=== PATIENT | female | born 1945 | race Two or more races ===

== ENCOUNTER 2020-01-02 14:01 | Outpatient (REF) | payer MEDICARE, MEDICAID, SELFPAY ==
--- NOTE | 2020-01-02 14:46 | XR_ITS ---
EXAMINATION: XR HIP, LEFT CLINICAL INFORMATION: Primary osteoarthritis. COMPARISON: Radiographs dated 01/03/2019. TECHNIQUE: AP and frog-leg lateral views of the left hip are submitted, together with an AP view of the pelvis. FINDINGS: Bony alignment and mineralization are normal. There is moderate narrowing of the medial right acetabular joint space, and moderately severe narrowing is seen of the medial left acetabular joint space. There is moderate peripheral osteophyte formation of the left hip joint. The femoral heads appear smooth. There is no fracture or dislocation. The soft tissue planes are unremarkable. There are right lower quadrant bowel anastomosis staple lines. IMPRESSION: Moderately severe osteoarthritic change is seen of the left hip, and there is moderate osteoarthritic change of the right hip. Findings are mildly increased from 01/03/2019. No fracture or dislocation is seen.
== END 2020-01-02 14:02 | disposition home or self-care (01) ==
LOC: HO.XRAY 14:01
PROVIDERS: PCP Nurse Practitioner Family; Visit Provider Physician Assistant
DX: Z01.818 Encounter for other preprocedural examination (principal); M16.12 Unilateral primary osteoarthritis, left hip
CPT/HCPCS: 73502; 99214

== ENCOUNTER 2020-01-06 06:19 | Inpatient (IN) | payer MEDICARE, MEDICAID, SELFPAY ==
[2019-12-23 12:53] VITALS: BMI 32.5
--- NOTE | 2020-01-05 15:16 | HO.ANESPROP2 ---
Documented by User: Genoveva Yarbrough 01/05/20 15:28 HPI - Anesthesia Eval Consult details Narrative: 74yo F for L ANA LILIA PMFSH Past Medical History Medical History (Updated 01/05/20 @ 15:19 by Genoveva Yarbrough) Arthritis Asthma Cancer Diabetes Elevated cholesterol GERD (gastroesophageal reflux disease) History of headache HTN (hypertension) Hyperparathyroidism Surgical History Surgical History (Updated 12/23/19 @ 10:53 by Johanne Saini) H/O colonoscopy History of exploratory laparotomy History of tubal ligation Hx of cholecystectomy Hx of tonsillectomy S/P colon resection Social History Social History Smoking Status: Never smoker Second Hand Smoke Exposure: No Narrative Narrative: No recent illness. >4 mets with housework/walking. T/C with Dr Ferro (endocrine) 12/23/19: OK to proceed with ANA LILIA prior to parathyroidectomy. Risk of delayed healing. Notified ortho nurse navigator. Meds Allergies Allergy/AdvReac Type Severity Reaction Status Date / Time ibuprofen [Ibuprofen] Allergy Mild SWELLING Verified 01/02/20 14:15 celecoxib [CELECOXIB] Allergy Unknown DROPS Verified 01/02/20 14:15 SUGAR LEVEL Home Medications Medication Instructions Recorded Confirmed Type acetaminophen 500 mg PO Q6H PRN 12/23/19 01/06/20 History albuterol sulfate [ProAir HFA] 2 puff INHALATION Q6H PRN 12/23/19 12/23/19 History lisinopril 40 mg PO DAILY 12/23/19 01/06/20 History metformin 500 mg PO BID 12/23/19 01/06/20 History omeprazole 20 mg PO DAILY 12/23/19 01/06/20 History albuterol sulfate 90 mcg/actuation 2 puff INHALATION Q6H PRN 12/29/19 History aerosol inhaler atorvastatin 20 mg tablet 20 mg PO DAILY 12/29/19 History cetirizine 10 mg tablet 5 mg PO DAILY PRN 12/29/19 History cyclobenzaprine 5 mg tablet 5 mg PO TID PRN 12/29/19 History fluticasone propionate 50 1 spray INTRANASAL DAILY 12/29/19 History mcg/actuation nasal spray,suspension montelukast 10 mg tablet 10 mg PO DAILY 12/29/19 History peg 3350-electrolytes 236 240 ml PO Q10M 12/29/19 History gram-22.74 gram-6.74 gram-5.86 gram solution rizatriptan 10 mg tablet 10 mg PO Q2-4H PRN 12/29/19 History multivitamin with iron PO 01/02/20 History metoprolol succinate 50 mg PO 01/06/20 History Exam Exam Date and Time: January 05, 2020 1516 Height,Weight and Vital Signs: BP 142/85,HR 69, R 20, 99%RA Height 5 ft 3 in Weight 83.2 kg BMI = 32.5 Pertinent Lab Results Pertinent Lab Results: EKG 12/03/19: NSR@70 Laboratory Tests 12/23/19 13:13 Blood Type O Positive Antibody Screen NEGATIVE Laboratory Tests 12/16/19 12/23/19 12/29/19 07:57 Unknown 12:10 WBC Hgb Hct Plt Count Sodium 136 Potassium 4.7 Chloride 104 Bicarbonate 27 Anion Gap 10 L BUN 15 Creatinine 0.78 Est GFR (Non-Af Amer) > 60 Calcium 10.0 PTH Intact 107 H Nasal Screen MRSA (PCR) NEGATIVE Nasal S. aureus Screen NEGATIVE Nasal MRSA/S.aureus Interp SEE NOTE 12/29/19 12:10 WBC 6.8 Hgb 10.3 L Hct 35.8 L Plt Count 344 Sodium Potassium Chloride Bicarbonate Anion Gap BUN Creatinine Est GFR (Non-Af Amer) Calcium PTH Intact Nasal Screen MRSA (PCR) Nasal S. aureus Screen Nasal MRSA/S.aureus Interp Airway Mallampati Class: II TM Dist: >3cm Neck ROM: Full Denture: Upper and Lower Heart: RRR Lungs: CTAB Documented by User: Refugio Cruz MD 01/06/20 07:23 PMF Past Medical History Medical History (Updated 01/05/20 @ 15:19 by Genoveva Yarbrough) Arthritis Asthma Cancer Diabetes Elevated cholesterol GERD (gastroesophageal reflux disease) History of headache HTN (hypertension) Hyperparathyroidism Surgical History Surgical History (Updated 12/23/19 @ 10:53 by Johanne Saini) H/O colonoscopy History of exploratory laparotomy History of tubal ligation Hx of cholecystectomy Hx of tonsillectomy S/P colon resection Social History Social History Smoking Status: Never smoker Second Hand Smoke Exposure: No Meds Allergies Allergy/AdvReac Type Severity Reaction Status Date / Time ibuprofen [Ibuprofen] Allergy Mild SWELLING Verified 01/02/20 14:15 celecoxib [CELECOXIB] Allergy Unknown DROPS Verified 01/02/20 14:15 SUGAR LEVEL Home Medications Medication Instructions Recorded Confirmed Type acetaminophen 500 mg PO Q6H PRN 12/23/19 01/06/20 History albuterol sulfate [ProAir HFA] 2 puff INHALATION Q6H PRN 12/23/19 12/23/19 History lisinopril 40 mg PO DAILY 12/23/19 01/06/20 History metformin 500 mg PO BID 12/23/19 01/06/20 History omeprazole 20 mg PO DAILY 12/23/19 01/06/20 History albuterol sulfate 90 mcg/actuation 2 puff INHALATION Q6H PRN 12/29/19 History aerosol inhaler atorvastatin 20 mg tablet 20 mg PO DAILY 12/29/19 History cetirizine 10 mg tablet 5 mg PO DAILY PRN 12/29/19 History cyclobenzaprine 5 mg tablet 5 mg PO TID PRN 12/29/19 History fluticasone propionate 50 1 spray INTRANASAL DAILY 12/29/19 History mcg/actuation nasal spray,suspension montelukast 10 mg tablet 10 mg PO DAILY 12/29/19 History peg 3350-electrolytes 236 240 ml PO Q10M 12/29/19 History gram-22.74 gram-6.74 gram-5.86 gram solution rizatriptan 10 mg tablet 10 mg PO Q2-4H PRN 12/29/19 History multivitamin with iron PO 01/02/20 History metoprolol succinate 50 mg PO 01/06/20 History Assessment and Plan Assessment Anesthesia Assessment: Anesthesia Plan Discussed, Consent Obtained and Chart Reviewed Final Anesthetic Review NPO: Yes ASA Class: III Final Preanesthetic Review: No Changes in Pt Med Stat, Meds & Allergies Reviewed, Consent Obtained/Reviewed, Med/Surg/Anes Hx Reviewed and Anes Risks/Benef Reviewed Patient Risk: Intermediate Procedure Risk: Intermediate Anesthetic Plan Anesthetic Plan: GA Disposition: Standard PACU
[2020-01-06] VITALS (24 sets, daily range): BP systolic 95–150; BP diastolic 45–71; PULSE 57–133; RESP 14–20; TEMP 35.7–37.1; O2SAT 95–100
[2020-01-06] MEDS: oxyCODONE HCl ER 10 MG TAB.ER.12H PO ×2 (06:36→22:46)
[2020-01-06] MEDS: Gabapentin 600 MG TABLET PO (06:37)
[2020-01-06 06:41] LABS: SARS COV2 PCR INHOUSE NEGATIVE (Negative)
[2020-01-06] MEDS: ceFAZolin Sodium/Dextrose,Iso 2 GM/50 ML PIGGYBACK IV ×2 (07:20→13:43)
[2020-01-06] MEDS: Lactated Ringers 1,000 ML 100 ML IVCONT (07:22)
--- NOTE | 2020-01-06 07:28 | MHC.SHP ---
Surgical H&P Section A The patient is an INPATIENT: No Changes since office visit: Yes Cold of Flu in the past 2 weeks, Yes New Medical Problems, Yes Changes in Medication and Yes Patient answered all questions The History & Physical has been completed within 30 days and I have reviewed it.: Yes Section B Chief Complaint: LEFT HIP,MARISELA Allergies: Allergies Allergy/AdvReac Type Severity Reaction Status Date / Time ibuprofen [Ibuprofen] Allergy Mild SWELLING Verified 01/02/20 14:15 celecoxib [CELECOXIB] Allergy Unknown DROPS Verified 01/02/20 14:15 SUGAR LEVEL Plan Patient has been examined and remains a candidate for the planned procedure
[2020-01-06 07:48] LABS: Glucose, Whole Blood 122 mg/dL (60-115)
--- NOTE | 2020-01-06 08:07 | XR_ITS ---
EXAMINATION: XR PELVIS CLINICAL INFORMATION: Post left hip replacement COMPARISON: Previous x-ray 01/02/2020 TECHNIQUE: AP view of the pelvis. FINDINGS: There is a new left hip replacement in satisfactory position. No fracture or dislocation is seen. There is arthritis at the right hip joint. Soft tissues are unremarkable. IMPRESSION: Satisfactory appearance of left hip replacement.
--- NOTE | 2020-01-06 09:38 | P.BOP_ITS ---
Brief Operative Note Date of procedure: 01/06/20 Pre-op diagnosis: Left hip OA Post-op diagnosis: same Procedure: left ANA LILIA Implants: alexa trident2 50/ accolade2#4/36-2.5 ceramic Anesthesia: HERNANA Surgeon: Mal Jarquin Marine Firefighter: Lauren Greenfield Estimated blood loss (mL): 200 IV fluids (mL): 800 Pathology: none sent Condition: stable Disposition: PACU
--- NOTE | 2020-01-06 10:18 | PM.IMCN ---
History of Present Illness Data of Consult Service Date: 01/06/20 <Megan Kay NP - Last Filed: 01/06/20 18:35> Requesting physician: Mal Jarquin <Megan Kay NP - Last Filed: 01/06/20 18:35> Primary Care Provider: Josefa Castle NP <Megan Kay NP - Last Filed: 01/06/20 18:35> HPI Reason for consult: Medical management <Megan Kay NP - Last Filed: 01/06/20 18:35> 74-year-old woman With history of hypertension, asthma and GERD admitted by Orthopedic surgery and status post left hip arthroplasty. Surgery was unremarkable. Patient has been able to eat and drink without any nausea or vomiting. She was noted to have a low blood pressure and received 1 L fluid bolus. Otherwise she had no other acute medical complaints. <Megan Kay NP - Last Filed: 01/06/20 18:35> Review of Systems Review of Systems: Denies any recent fever chills or decrease in appetite respiratory denies any shortness of breath coverage production cardiovascular is adjustment of any PND or edema gastrointestinal denies any dysphagia abdominal pain nausea vomiting or diarrhea genitourinary denies any dysuria frequency or hematuria musculoskeletal left hip pain. neuropsych denies any weakness or seizures all other systems reviewed are negative <Megan Kay NP - Last Filed: 01/06/20 18:35> [facility] Medical History: Medical History (Updated 01/06/20 @ 18:27 by Megan Kay NP) Arthritis Asthma Cancer Diabetes Elevated cholesterol GERD (gastroesophageal reflux disease) History of headache HTN (hypertension) Hyperparathyroidism <Megan Kay NP - Last Filed: 01/06/20 18:35> Pertinent family history: no cardiac disease <Megan Kay NP - Last Filed: 01/06/20 18:35> Surgical History: Surgical History (Updated 12/23/19 @ 10:53 by Johanne Saini) H/O colonoscopy History of exploratory laparotomy History of tubal ligation Hx of cholecystectomy Hx of tonsillectomy S/P colon resection <Megan Kay NP - Last Filed: 01/06/20 18:35> Social History: Social History Household Members: Spouse Housing: House Are you a primary direct support professional caregiver to a significant other at home: No Do you presently have visiting nurse or other home services: No Smoking Status: Never smoker Second Hand Smoke Exposure: No Use of substances other than those prescribed or required for medical reasons: No Currently Displaying Signs/Symptoms of Drug Intoxication Withdrawal: No Have you been hit, kicked, punched, or otherwise hurt by someone within the past year? If so, by whom?: No Do you feel safe in your current relationship?: No Is there a partner from a previous relationship who is making you feel unsafe now?: No Are you made to feel afraid or neglected: No Advance Directives: No Advance Directives Information Provided: No Advance Directives on File: No Do you have thoughts of harming others: None Do you have a plan to hurt others: No Plan Recently lost weight without trying: No service: No Current occupational status: unemployed <Megan Kay NP - Last Filed: 01/06/20 18:35> Meds Allergies/Adverse reactions: Allergies Allergy/AdvReac Type Severity Reaction Status Date / Time ibuprofen [Ibuprofen] Allergy Mild SWELLING Verified 01/02/20 14:15 celecoxib [CELECOXIB] Allergy Unknown DROPS Verified 01/02/20 14:15 SUGAR LEVEL <Megan aKy NP - Last Filed: 01/06/20 18:35> Home medications: Home Medications Medication Instructions Recorded Confirmed Type acetaminophen 500 mg PO Q6H PRN 12/23/19 01/06/20 History albuterol sulfate [ProAir HFA] 2 puff INHALATION Q6H PRN 12/23/19 12/23/19 History lisinopril 40 mg PO DAILY 12/23/19 01/06/20 History metformin 500 mg PO BID 12/23/19 01/06/20 History omeprazole 20 mg PO DAILY 12/23/19 01/06/20 History albuterol sulfate 90 mcg/actuation 2 puff INHALATION Q6H PRN 12/29/19 History aerosol inhaler atorvastatin 20 mg tablet 20 mg PO DAILY 12/29/19 History cetirizine 10 mg tablet 5 mg PO DAILY PRN 12/29/19 History cyclobenzaprine 5 mg tablet 5 mg PO TID PRN 12/29/19 History fluticasone propionate 50 1 spray INTRANASAL DAILY 12/29/19 History mcg/actuation nasal spray,suspension montelukast 10 mg tablet 10 mg PO DAILY 12/29/19 History peg 3350-electrolytes 236 240 ml PO Q10M 12/29/19 History gram-22.74 gram-6.74 gram-5.86 gram solution rizatriptan 10 mg tablet 10 mg PO Q2-4H PRN 12/29/19 History multivitamin with iron PO 01/02/20 History metoprolol succinate 50 mg PO 01/06/20 History <Megan Kay NP - Last Filed: 01/06/20 18:35> Physical Exam Vital Signs and Narrative: Vital Signs: Last Vital Signs Temp 98.7 F 01/06/20 10:00 Pulse 68 01/06/20 10:05 Resp 16 01/06/20 10:05 BP 133/64 01/06/20 10:05 Pulse Ox 100 01/06/20 10:05 Body Mass Index 32.5 <Megan Kay NP - Last Filed: 01/06/20 18:35> Appearing in no acute distress head is normocephalic atraumatic eyes pupils are PERRLA sclera is anicteric mouth throat mucous membranes are intact and moist neck is supple no lymphadenopathy, no JVD noted lung sounds are clear to auscultation heart regular rate rhythm, clear S1, S2 positive bowel sounds, abdomen is soft, nontender musculoskeletal hip dressing clean dry and intact. neuro patient is alert x3, no focal deficits <Megan Kay NP - Last Filed: 01/06/20 18:35> Results Labs Labs: Laboratory Tests 12/23/19 01/06/20 01/06/20 13:13 05:40 06:52 POC Glucose 122 H Coronavirus (PCR) NEGATIVE Blood Type O Positive Antibody Screen NEGATIVE <Megan Kay NP - Last Filed: 01/06/20 18:35> Assessment and Plan (1) HTN (hypertension): Status: Acute <Megan Kay NP - Last Filed: 01/06/20 18:35> (2) GERD (gastroesophageal reflux disease): Status: Acute <Megan Kay NP - Last Filed: 01/06/20 18:35> (3) Diabetes: Problem details: NIDDM <Megan Kay NP - Last Filed: 01/06/20 18:35> Status: Inactive <Megan Kay NP - Last Filed: 01/06/20 18:35> (4) Asthma: Status: Acute <Megan Kay NP - Last Filed: 01/06/20 18:35> 74-year-old woman admitted by Orthopedic surgery and is status post left hip arthroplasty. Left hip arthroplasty. Management as per surgical team. Hypertension. Low blood pressures postoperatively. Received 1 L of IV fluid bolus. Hold antihypertensives. Follow blood pressure closely. Asthma. Albuterol as needed. Hyperlipidemia. Continue statin. Diabetes mellitus. Sliding scale, ADA diet. DVT prophylaxis with mechanical compression boots. Discussed with Dr. Porars Full code <Megan Kay NP - Last Filed: 01/06/20 18:35>
[2020-01-06] MEDS: HYDROmorphone HCl 0.5 MG/0.5 ML SYRINGE IVPUSH (10:19)
[2020-01-06] MEDS: Sodium Chloride 0.45 % 1,000 ML 100 ML IVCONT (12:55)
[2020-01-06] MEDS: ondansetron HCL 4 MG/2 ML VIAL IVPUSH (16:43)
[2020-01-06] MEDS: oxyCODONE HCl Immed Release 5 MG TABLET 10 MG PO ×2 (16:44→22:46)
--- NOTE | 2020-01-06 20:23 | OP_ITS ---
SURGEON: Mal Jarquin MD INDICATIONS: This is a 74-year-old female with severe osteoarthritis of the left hip, consented to undergo left hip arthroplasty. PREOPERATIVE DIAGNOSIS: Left hip osteoarthritis. POSTOPERATIVE DIAGNOSIS: Left hip osteoarthritis. PROCEDURE PERFORMED: Left total hip arthroplasty. ESTIMATED BLOOD LOSS: 200 mL. COMPLICATIONS: None. ANESTHESIA: General and local. ASSISTANTS: MAHIN Cabral. SPECIMENS: IMPLANTS: Flavia Trident II 50 acetabulum with a neutral liner and a Trident II #4, 127 degree stem with 36, -2.5 ceramic femoral head. FLUIDS: 900 mL. PROCEDURE IN DETAIL: The patient was brought to the operating room, placed in the right lateral decubitus position. All bony prominences were well padded. She was prepped and draped in standard sterile fashion. Time-out was called to identify proper site, proper procedure, and proper surgeon. IV antibiotics per weight was administered. I began by making a curvilinear incision over the posterolateral aspect of the greater trochanter. Dissection was taken down to the tensor fascia, which was incised in line with the incision. A Charnley retractor was placed and a capsulotomy was performed from the piriformis down to the lesser trochanter. The head was dislocated and a neck cut was made 1 cm proximal lesser trochanter. The head was removed. Anterior-posterior acetabular retractors were placed and labrectomy was performed. She had eburnation of the femoral head and the acetabulum. She had some mild coxa profunda and so I widened into a 50 cup and placed a 50 cup in 20 degrees of anteversion and approximately 45 degrees of inclination. I then initially placed MDM liner and then turned my attention to the femur. I used a [employer] cutter lateralized and sequentially broached up to a 3. I then trialed a 3 and was happy with the length, and placed my final implants. Unfortunately, due to the poor trialing mechanism I was not happy with the stability and I therefore removed the stem and the MDM liner and placed a #4 stem with a standard liner and was happy with the length and stability. Therefore, a standard liner was placed and a #4 implant was placed. I trialed with a 0 and -2.5 and I was happy with the -2.5 with respect to stability and length. Therefore, my final implants were placed. Copious irrigation was performed. Layered closure was performed with marj on the skin. The patient was extubated and brought to recovery room in stable condition. Local was applied to the wound. There were no known complications. MD CORNELL Phillips/CAITLIN / [id number] MTDD
[2020-01-06] MEDS: Celecoxib 200 MG CAPSULE PO (22:46)
[2020-01-07] VITALS (10 sets, daily range): BP systolic 94–113; BP diastolic 39–54; PULSE 68–90; RESP 17–100; TEMP 36.1–36.5; O2SAT 96–100
[2020-01-07] MEDS: Sodium Chloride 0.45 % 1,000 ML 100 ML IVCONT ×3 (03:07→23:57)
[2020-01-07] MEDS: oxyCODONE HCl Immed Release 5 MG TABLET 10 MG PO ×2 (05:25→13:10)
[2020-01-07 06:37] LABS: MANUAL DIFF FLAG NO
[2020-01-07 06:53] LABS: Basophils Percent Auto 0.3 % (0-2); Eosinophils Absolute Auto 0.1 X10*3/uL (0.0-0.4); Eosinophils Percent Auto 0.5 % (0-4); Hematocrit 27.9 % (37-47); Hemoglobin 8.3 g/dl (12.0-16.0); Imm Gran Abs Auto 0.03 X10*3/uL (0.00-0.03); Imm Gran Pct Auto 0.3 % (0.0-0.4); Lymphocytes Absolute Auto 1.4 X10*3/uL (1.2-4.9); Lymphocytes Percent Auto 14.6 % (20-40); Mean Corpuscular HGB Conc 29.7 g/dl (31.0-35.0); Mean Corpuscular Hemoglobin 24.4 pg (27.0-33.0); Mean Corpuscular Volume 82.1 fL (80-98); Monocytes Absolute Auto 0.9 X10*3/uL (0.1-1.2); Monocytes Percent Auto 9.1 % (2-11); Neutrophils Absolute Auto 7.4 X10*3/uL (2.0-8.3); Neutrophils Percent Auto 75.2 % (45-73); Platelet Count 252 X10*3/uL (160-400); Red Cell Distribution Width 15.9 % (11.0-16.0); White Blood Count 9.9 X10*3/uL (4.8-10.8)
[2020-01-07 07:23] LABS: Anion Gap 10 (12-20); Blood Urea Nitrogen 15 mg/dL (9-16); Calcium 8.9 mg/dL (8.4-10.2); Carbon Dioxide 26 mmol/L (22-29); Chloride 103 mmol/L (96-108); Creatinine Clr Calc Pharmacy 65.2; Estimated Glomerular Filt Rate > 60; Glucose Fasting 145 mg/dL (60-99); Potassium 4.2 mmol/l (3.3-5.1); Sodium 135 mmol/L (135-145)
--- NOTE | 2020-01-07 10:03 | MHC.CM.PN ---
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 PATIENT IS NOT ACTIVE WITH ANY [facility]. [facility] OR [facility] , SHE DENIES ANY FINANCIAL PROBLEMS OBTAINGING HER MEDS AND CHECKS HER POC BID. DISCHARGE PLAN AFTER REVIEW OF AGENCIES THEY BOTH PICKED THE [facility] FOR HOME PHYSICAL THEAPRY AND POSSIBLE NURSING IF ORDERED AT THE TIME OF DISCHARGE TRANSPORT FAMILY PCP PATIENT TO CALL FOR PAPT TO BE SEEN POST HOSPITALISZATION FLLOW UP WITH ORTHOPEDIC SURGEON PER DISCHARGE INSTRUCTIONS
[2020-01-07] MEDS: ondansetron HCL 4 MG/2 ML VIAL IVPUSH (10:21)
[2020-01-07] MEDS: Enoxaparin Sodium 40 MG/0.4 ML SYRINGE SUBCUT (10:21)
[2020-01-07] MEDS: oxyCODONE HCl ER 10 MG TAB.ER.12H PO ×2 (10:22→21:19)
--- NOTE | 2020-01-07 11:06 | HO.PM.IMPN ---
Subjective Subjective Date of Service: 01/07/20 Interval History: Seen in f/u for med consult s/p left hip replacement. No pain but nausea Physical Exam Vital Signs and I&O and Narrative: Vital Signs and I&O: Vital Signs Temp 97.0 F 01/07/20 07:30 Pulse 73 01/07/20 08:51 Resp 18 01/07/20 07:30 BP 103/51 L 01/07/20 08:51 Pulse Ox 98 01/07/20 10:04 Appearing in no acute distress head is normocephalic atraumatic eyes pupils are PERRLA sclera is anicteric mouth throat mucous membranes are intact and moist neck is supple no lymphadenopathy, no JVD noted lung sounds are clear to auscultation heart regular rate rhythm, clear S1, S2 positive bowel sounds, abdomen is soft, nontender musculoskeletal hip dressing clean dry and intact. neuro patient is alert x3, no focal deficits Objective Data Current Medications Generic Name Dose Route Start Last Admin Trade Name Freq PRN Reason Stop Dose Admin Acetaminophen 650 mg 01/06/20 09:56 Acetaminophen 325 Mg Tablet PO Q6H PRN Pain, Mild (Pain Scale 1-3) Albuterol Sulfate 2 puff 01/06/20 10:06 Albuterol Sulfate 90 Mcg 18 Gm Inhaler INHALE Q6H PRN Wheezing Enoxaparin Sodium 40 mg 01/07/20 10:00 01/07/20 10:21 Enoxaparin Sodium 40 Mg/0.4 Ml Syringe SUBCUT 40 mg Q24H MARINA Administration Hydromorphone HCl 0.25 mg 01/06/20 09:56 Hydromorphone Hcl 0.5 Mg/0.5 Ml Syringe IVPUSH Q4H PRN Pain, Severe (Pain Scale 7-10) Sodium Chloride 1,000 mls @ 100 mls/hr 01/06/20 11:45 01/07/20 03:07 IVCONT 100 mls/hr .Q10H MARINA Administration Naloxone HCl 0.2 mg 01/06/20 09:56 Naloxone Hcl 0.4 Mg/Ml Vial IVPUSH Q2M PRN Excessive sedation or RR < 8 Omeprazole 20 mg 01/07/20 06:30 01/07/20 05:25 Omeprazole 20 Mg/10 Ml Susp.Recon PO 20 mg DAILY@0630 MARINA Administration Ondansetron HCl 4 mg 01/06/20 09:56 01/07/20 10:21 Ondansetron Hcl 4 Mg/2 Ml Vial IVPUSH 4 mg Q8H PRN Administration Nausea and Vomiting Oxycodone HCl 10 mg 01/06/20 09:56 01/07/20 05:25 Oxycodone Hcl Immed Release 5 Mg Tablet PO 10 mg Q4H PRN Administration Pain, Moderate (Pain Scale 4-6 Oxycodone HCl 10 mg 01/06/20 21:00 01/07/20 10:22 Oxycodone Hcl Er 10 Mg Tab.Er.12h PO 10 mg BID MARINA Administration Senna 17.2 mg 01/06/20 09:56 Sennosides 8.6 Mg Tablet PO BEDTIME PRN Constipation Labs CBC & Chem 7: 01/07/20 06:11 01/07/20 06:11 Labs: Laboratory Results - last 24 Assessment and Plan (1) HTN (hypertension): Status: Acute (2) GERD (gastroesophageal reflux disease): Status: Acute (3) Diabetes: Problem details: NIDDM Status: Inactive (4) Asthma: Status: Acute Assessment and Plan: 74-year-old woman admitted by Orthopedic for left hip arthroplasty POD1 Left hip arthroplasty. Management per ortho team Hypertension. BP within normal. Hold Lisinopril and Metoprolol Asthma. No exacerbation. Albuterol as needed. Hyperlipidemia. Continue statin when med rec is done Diabetes mellitus. Sliding scale, ADA diet. Metformin on hold DVT prophylaxis Lovenox
--- NOTE | 2020-01-07 11:22 | HO.POSTANES ---
Post Anesthesia Evaluation Post Anesthesia Evaluation Vital Signs: Vital Signs Temp Pulse Resp BP Pulse Ox 01/07/20 10:04 98 01/07/20 08:51 73 103/51 L 99 01/07/20 08:00 99 01/07/20 07:30 97.0 F 73 18 103/51 L 99 01/07/20 03:46 97.7 F 73 18 113/54 L 98 01/06/20 23:50 97.5 F 78 16 95/45 L 98 Anesthesia: General Mental Status: Awake Pain Control: Satisfactory Nausea/Vomiting: None Hydration: Adequate Anesthesia-Related Issues: No Anes. Related Issues
--- NOTE | 2020-01-07 12:19 | MHC.CM.PN ---
nurse care manageer note electronic meedical record reviewed along with case discussed with staff nurse , pchecked with [facility], patient will be discharged home on sc lovenox she gets it about 10am, i met with patient and with her grand-daughter and patient is willing to learn , and her granddaughter and daughter in law are also willing to learn how to administersc ovenox qd, grand daughter inder and daughter in law ashley trujillo will come in tomorrow for sc lovenox adminstrTION WITH STAFF POPPY CALLED TO DENIZ AT THE A AND THEY WILL SEND A NURSE [place] FOR 1-2 ISITS TO REINFORCE TEACHING
--- NOTE | 2020-01-07 13:45 | P.PNOP_ITS ---
Subjective Subjective Interval history: POD 1 s/p LT ANA LILIA No Overnight events, she has not been out of bed yet. She has pain with movement. Denies cp, palpitations, dizziness. Physical Exam Vital Signs and I&O and Narrative: Vital Signs and I&O: Vital Signs Temp 97.1 F 01/07/20 11:40 Pulse 68 01/07/20 11:40 Resp 100 H 01/07/20 11:40 BP 103/52 L 01/07/20 11:40 Pulse Ox 100 01/07/20 11:40 Intake & Output 01/06/20 01/07/20 01/07/20 18:59 06:59 18:59 Intake Total 1108.333 / 2868.33 3 1760 / 2868.333 Output Total 700 / 2201 1501 / 2201 Balance 408.333 / 667.333 259 / 667.333 Urine Output (Aver age ml/kg/hr) 0.50 1.50 Intake: Intake, Oral Orma unt 760 / 760 Intake, IV Amoun t 1108.333 / 2108.33 3 1000 / 2108.333 ceFAZolin Sodi um/Dextrose,Iso 2 100 / 100 gm In 50 ml @ 100 mls/hr IV ONCE@1332 [facility] Rx#:[id number] Lactated Ringe rs 1,000 ml @ 100 908.333 / 908.333 mls/hr IVCONT .Q10H [facility] Rx#: [id number] Sodium Chlorid e 0.45 % 1,000 ml 1000 / 1000 @ 100 mls/hr I VCONT .Q10H [facility] Rx#:[id number] Acetaminophen 1,000 mg In 100 100 / 100 ml @ 400 mls/h r IVPB PREOP ONE Rx#:[id number] Output: Output, Urine Am ount 500 / 2000 1501 / 2001 Output, Estimate d Blood Loss 200 / 200 Amount Other: NPO Yes Dinner % Eaten 100% Evening Snack % Eaten 100 Urine Bedpan Urine Color Yellow Body Mass Index 32.5 Const: General: cooperative, healthy appearing and no acute distress Resp: Effort & Inspection: normal respiratory effort and able to speak in complete sentences Cardio: Rate: regular rate Peripheral pulses: Peripheral pulses 2+ throughout GI: Inspection: Yes normal to inspection Palpation (GI): Soft to palpation Skin: General skin exam: no rashes or lesions noted Extrem: Other: Skin intact, no eryhtema, mild edema, sensation intact Progress Note: A&P Assessment and plan (1) Status post total hip replacement, left: Status: Acute Assessment and Plan: Cont pain mgmnt begin PT /OT for LT ANA LILIA with post precautions Lovenox for dvt ppx dispo planning Fall Risk Details Current Medications: Current Medications Generic Name Dose Route Start Last Admin Trade Name Freq PRN Reason Stop Dose Admin Acetaminophen 650 mg 01/06/20 09:56 Acetaminophen 325 Mg Tablet PO Q6H PRN Pain, Mild (Pain Scale 1-3) Albuterol Sulfate 2 puff 01/06/20 10:06 Albuterol Sulfate 90 Mcg 18 Gm Inhaler INHALE Q6H PRN Wheezing Enoxaparin Sodium 40 mg 01/07/20 10:00 01/07/20 10:21 Enoxaparin Sodium 40 Mg/0.4 Ml Syringe SUBCUT 40 mg Q24H MARINA Administration Hydromorphone HCl 0.25 mg 01/06/20 09:56 Hydromorphone Hcl 0.5 Mg/0.5 Ml Syringe IVPUSH Q4H PRN Pain, Severe (Pain Scale 7-10) Sodium Chloride 1,000 mls @ 100 mls/hr 01/06/20 11:45 01/07/20 03:07 IVCONT 100 mls/hr .Q10H MARINA Administration Naloxone HCl 0.2 mg 01/06/20 09:56 Naloxone Hcl 0.4 Mg/Ml Vial IVPUSH Q2M PRN Excessive sedation or RR < 8 Omeprazole 20 mg 01/07/20 06:30 01/07/20 05:25 Omeprazole 20 Mg/10 Ml Susp.Recon PO 20 mg DAILY@0630 MARINA Administration Ondansetron HCl 4 mg 01/06/20 09:56 01/07/20 10:21 Ondansetron Hcl 4 Mg/2 Ml Vial IVPUSH 4 mg Q8H PRN Administration Nausea and Vomiting Oxycodone HCl 10 mg 01/06/20 09:56 01/07/20 13:10 Oxycodone Hcl Immed Release 5 Mg Tablet PO 10 mg Q4H PRN Administration Pain, Moderate (Pain Scale 4-6 Oxycodone HCl 10 mg 01/06/20 21:00 01/07/20 10:22 Oxycodone Hcl Er 10 Mg Tab.Er.12h PO 10 mg BID MARINA Administration Senna 17.2 mg 01/06/20 09:56 Sennosides 8.6 Mg Tablet PO BEDTIME PRN Constipation Time Spent With Patient Time: Total time spent is greater than 50% in coordination of care (as documented) at patient's floor/unit and/or counseling patient: Time with patient: 15 - 24 minutes
[2020-01-08] VITALS: RESP 20
[2020-01-08 03:54] VITALS: BP 107/65; PULSE 76; RESP 16; TEMP 36.3; O2SAT 99
[2020-01-08 08:00] VITALS: BP 118/64; PULSE 78; RESP 18; TEMP 36.8; O2SAT 100; O2SAT 95
[2020-01-08] MEDS: oxyCODONE HCl ER 10 MG TAB.ER.12H PO (08:35)
[2020-01-08] MEDS: Sodium Chloride 0.45 % 1,000 ML 100 ML IVCONT (08:37)
[2020-01-08 08:49] LABS: MANUAL DIFF FLAG NO
[2020-01-08 08:56] LABS: Basophils Percent Auto 0.3 % (0-2); Eosinophils Absolute Auto 0.1 X10*3/uL (0.0-0.4); Eosinophils Percent Auto 0.9 % (0-4); Hematocrit 28.2 % (37-47); Hemoglobin 8.6 g/dl (12.0-16.0); Imm Gran Abs Auto 0.07 X10*3/uL (0.00-0.03); Imm Gran Pct Auto 0.6 % (0.0-0.4); Lymphocytes Percent Auto 9.2 % (20-40); Mean Corpuscular HGB Conc 30.5 g/dl (31.0-35.0); Mean Corpuscular Hemoglobin 25.1 pg (27.0-33.0); Mean Corpuscular Volume 82.2 fL (80-98); Mean Platelet Volume 10.7 fL (9.4-12.3); Monocytes Absolute Auto 0.8 X10*3/uL (0.1-1.2); Monocytes Percent Auto 6.9 % (2-11); Neutrophils Absolute Auto 9.3 X10*3/uL (2.0-8.3); Neutrophils Percent Auto 82.1 % (45-73); Platelet Count 249 X10*3/uL (160-400); Red Blood Count 3.43 X10*6/uL (4.20-5.50); White Blood Count 11.3 X10*3/uL (4.8-10.8)
[2020-01-08 09:19] LABS: Anion Gap 9 (12-20); Blood Urea Nitrogen 10 mg/dL (9-16); Calcium 9.3 mg/dL (8.4-10.2); Carbon Dioxide 28 mmol/L (22-29); Chloride 102 mmol/L (96-108); Creatinine Clr Calc Pharmacy 68.9; Estimated Glomerular Filt Rate > 60; Glucose Random 197 mg/dL (60-115); Potassium 4.2 mmol/l (3.3-5.1); Sodium 135 mmol/L (135-145)
[2020-01-08 09:30] VITALS: BP 118/64; PULSE 78; O2SAT 100
[2020-01-08] MEDS: Enoxaparin Sodium 40 MG/0.4 ML SYRINGE SUBCUT (10:11)
--- NOTE | 2020-01-08 10:39 | P.PNIM_ITS ---
Subjective Subjective Interval History: Seen in f/u for med consult s/p left hip replacement on 01/05. Doing well today, no pain a the moment Review of Systems No fever No hip pain Physical Exam Vital Signs and I&O and Narrative: Vital Signs and I&O: Vital Signs Temp 98.3 F 01/08/20 08:00 Pulse 78 01/08/20 09:30 Resp 18 01/08/20 08:00 BP 118/64 01/08/20 09:30 Pulse Ox 100 01/08/20 09:30 Appearing in no acute distress head is normocephalic atraumatic eyes pupils are PERRLA sclera is anicteric mouth throat mucous membranes are intact and moist neck is supple no lymphadenopathy, no JVD noted lung sounds are clear to auscultation heart regular rate rhythm, clear S1, S2 positive bowel sounds, abdomen is soft, nontender musculoskeletal hip dressing clean dry and intact. neuro patient is alert x3, no focal deficits Objective Data Labs CBC & Chem 7: 01/08/20 08:44 01/08/20 08:44 Assessment and Plan (1) HTN (hypertension): Status: Acute (2) GERD (gastroesophageal reflux disease): Status: Acute (3) Diabetes: Problem details: NIDDM Status: Inactive (4) Asthma: Status: Acute Assessment and Plan: 74-year-old woman admitted by Orthopedic for left hip arthroplasty on 01/05, d oing well Left hip arthroplasty. Management per ortho team Hypertension. BP within normal. Hold Lisinopril 40 mg/daily and and Metoprolol xl 50 daily Asthma. No exacerbation. Albuterol as needed. Hyperlipidemia. On Rosuvostatin Diabetes mellitus. Sliding scale, ADA diet. Restart metformin 500 bid, SSI Acute blood loss anemia, H/H stable from yesterday, no indication for transfusion at this time DVT prophylaxis Lovenox
--- NOTE | 2020-01-08 10:42 | P.PNOP_ITS ---
Subjective Subjective Interval history: POD 2 s/p LT ANA LILIA No Overnight events, She has been out of bed working with PT. Pain with ambulation, denies groin pain. Denies cp, sob, dizziness Physical Exam Vital Signs and I&O and Narrative: Vital Signs and I&O: Vital Signs Temp 98.3 F 01/08/20 08:00 Pulse 78 01/08/20 09:30 Resp 18 01/08/20 08:00 BP 118/64 01/08/20 09:30 Pulse Ox 100 01/08/20 09:30 Intake & Output 01/07/20 01/08/20 01/08/20 18:59 06:59 18:59 Intake Total 1720 / 3196.667 1476.667 / 3196.66 7 866.667 / 866.667 Output Total 300 / 1300 1000 / 1300 Balance 1420 / 1896.667 476.667 / 1896.667 866.667 / 866.667 Urine Output (Aver age ml/kg/hr) 0.30 1.00 1.00 Intake: Intake, Oral Sherrie unt 720 / 1290 570 / 1290 Intake, IV Amoun t 1000 / 1906.667 906.667 / 1906.667 866.667 / 866.667 Sodium Chlorid e 0.45 % 1,000 ml 1000 / 1906.667 906.667 / 1906.667 866.667 / 866.667 @ 100 mls/hr I VCONT .Q10H [facility] Rx#:[id number] Output: Output, Urine Am ount 300 / 1300 1000 / 1300 Other: Breakfast % Eate n 50% Lunch % Eaten 25% Evening Snack % Eaten 100 Urine Bathroom Urine Color Yellow Body Mass Index 32.5 Const: General: cooperative, healthy appearing and no acute distress Resp: Effort & Inspection: normal respiratory effort and able to speak in complete sentences Cardio: Rate: regular rate Peripheral pulses: Peripheral pulses 2+ throughout GI: Inspection: Yes normal to inspection Palpation (GI): Soft to palpation Skin: General skin exam: no rashes or lesions noted Extrem: Other: Skin intact, no erythema or edema, sensation intact Progress Note: A&P Assessment and plan (1) Status post total hip replacement, left: Status: Acute Assessment and Plan: Cont pain mgmnt cont PT/OT cont lovenox dispo planning-pending Rehab auth / covid test Fall Risk Details Current Medications: Current Medications Generic Name Dose Route Start Last Admin Trade Name Freq PRN Reason Stop Dose Admin Acetaminophen 650 mg 01/06/20 09:56 Acetaminophen 325 Mg Tablet PO Q6H PRN Pain, Mild (Pain Scale 1-3) Albuterol Sulfate 2 puff 01/06/20 10:06 Albuterol Sulfate 90 Mcg 18 Gm Inhaler INHALE Q6H PRN Wheezing Enoxaparin Sodium 40 mg 01/07/20 10:00 01/08/20 10:11 Enoxaparin Sodium 40 Mg/0.4 Ml Syringe SUBCUT 40 mg Q24H MARINA Administration Hydromorphone HCl 0.25 mg 01/06/20 09:56 Hydromorphone Hcl 0.5 Mg/0.5 Ml Syringe IVPUSH Q4H PRN Pain, Severe (Pain Scale 7-10) Sodium Chloride 1,000 mls @ 100 mls/hr 01/06/20 11:45 01/08/20 08:37 IVCONT 100 mls/hr .Q10H MARINA Administration Naloxone HCl 0.2 mg 01/06/20 09:56 Naloxone Hcl 0.4 Mg/Ml Vial IVPUSH Q2M PRN Excessive sedation or RR < 8 Omeprazole 20 mg 01/07/20 06:30 01/08/20 05:38 Omeprazole 20 Mg/10 Ml Susp.Recon PO 20 mg DAILY@0630 MARINA Administration Ondansetron HCl 4 mg 01/06/20 09:56 01/07/20 10:21 Ondansetron Hcl 4 Mg/2 Ml Vial IVPUSH 4 mg Q8H PRN Administration Nausea and Vomiting Oxycodone HCl 10 mg 01/06/20 09:56 01/07/20 13:10 Oxycodone Hcl Immed Release 5 Mg Tablet PO 10 mg Q4H PRN Administration Pain, Moderate (Pain Scale 4-6 Oxycodone HCl 10 mg 01/06/20 21:00 01/08/20 08:35 Oxycodone Hcl Er 10 Mg Tab.Er.12h PO 10 mg BID MARINA Administration Senna 17.2 mg 01/06/20 09:56 Sennosides 8.6 Mg Tablet PO BEDTIME PRN Constipation Time Spent With Patient Time: Total time spent is greater than 50% in coordination of care (as do cumented) at patient's floor/unit and/or counseling patient: Time with patient: 15 - 24 minutes
--- NOTE | 2020-01-08 10:55 | MHC.CM.PN ---
[facility] SCIENTIST NOTE ELECTRONIC MEDICAL RECORD REVIEWED ALOMG WITH CASE DISCUSSED WITH [facility] NURSE AND PHYSICAL THEAPRIST AND ORTHOPEDIC SURGICAL PA. MET WITH PATIENT AND HER DAUGHTER IN [facility] WITH [employer] INTERPERTER PRESENT SHE NAMED HER SON MONICA COX AND DAUGHTER IN LAW [facility] HER AGENTS , ORIGINAL AND 4 COPIERS GIVEN TO [facility] AND ONE IN PATIENT S CHART AND IN ALLSCRIPT FOR RECIVING FACILITY. WE DISCUSSED THE RECOMENDATIONS TO GO TO SHORT TERM REHAB FOR A AWHILE . PATIENT AND FAMILY ARE IN AGREEMENT WITH THIS DECISION REVIEWED LIST WITH PATIENT AND HER DAUGHTER IN LAW AND PHONE CALL TO HER SON MONICA [facility]ICIA WAS CHOSEN [facility] , INIATED REFERRAL TO [facility] , SPOKE WITH [facility] HAVE BED AVAILABILITY FOR SHORT TERM REHAB TODAY , INFORMED STAFF NURSE AND ORTHOPEID SURGICAL PA . DISCHARGE [facility] TRAN[facility]ORTED [facility] INIATED REFERRAL TO THE [facility] FOR RN-PT-OT POST D/C FROM STR HCP COMPLETED
[2020-01-08 11:34] VITALS: BP 115/48; PULSE 87; RESP 19; TEMP 37.4; O2SAT 94
--- NOTE | 2020-01-08 11:52 | PM.DS ---
DS: Providers Provider Date of admission: 01/06/20 06:19 Primary care physician: Josefa Castle NP Consults: 01/06/20 10:01 Consult to Medicine Routine Consulting Provider: Hospitalist Reason for consultation: medical management DS: Diagnosis Discharge Diagnosis (1) Status post total hip replacement, left: Status: Acute Problem details: Ms. Zhong is a 74-year-old female who presented to our office for left hip pain. She was found have osteoarthritis of the left hip and after failing all conservative measures she agreed to move forward with left total hip arthroplasty. DS: Summary Hospital Course Hospital Course: Ms zhong Underwent a successful left total hip arthroplasty. She was transferred to PACU then to the floor she recovered during her stay her vitals were stable afebrile at 99.3. labs unremarkable H&H of 8.6 and 28.2 on discharge. Postop day 1 she was started on Lovenox 40 mg subcu once a day for DVT prophylaxis and she received physical therapy and occupational therapy services twice a day. Prior to discharge her Aquacel dressing was changed incision clean dry and intact new Aquacel dressing applied and plan is to be transferred to a short-term rehab. Time Spent with Patient Time attestation: Total time spent providing and/or coordinating discharge services: Physical Exam Vital Signs and I&O and Narrative: Vital Signs and I&O: Vital Signs Temp 99.3 F 01/08/20 11:34 Pulse 87 01/08/20 11:34 Resp 19 01/08/20 11:34 BP 115/48 L 01/08/20 11:34 Pulse Ox 94 01/08/20 11:34 Intake & Output 01/07/20 01/08/20 01/08/20 18:59 06:59 18:59 Intake Total 1720 / 3196.667 1476.667 / 3196.66 7 866.667 / 866.667 Output Total 300 / 1300 1000 / 1300 Balance 1420 / 1896.667 476.667 / 1896.667 866.667 / 866.667 Urine Output (Aver age ml/kg/hr) 0.30 1.00 1.00 Intake: Intake, Oral Sherrie unt 720 / 1290 570 / 1290 Intake, IV Amoun t 1000 / 1906.667 906.667 / 1906.667 866.667 / 866.667 Sodium Chlorid e 0.45 % 1,000 ml 1000 / 1906.667 906.667 / 1906.667 866.667 / 866.667 @ 100 mls/hr I VCONT .Q10H [facility] Rx#:[id number] Output: Output, Urine Am ount 300 / 1300 1000 / 1300 Other: Breakfast % Eate n 50% Lunch % Eaten 25% Evening Snack % Eaten 100 Urine Bathroom Urine Color Yellow Body Mass Index 32.5 Const: General: cooperative, healthy appearing and no acute distress Resp: Effort & Inspection: normal respiratory effort and able to speak in complete sentences Cardio: Rate: regular rate Peripheral pulses: Peripheral pulses 2+ throughout GI: Inspection: Yes normal to inspection Palpation (GI): Soft to palpation Skin: General skin exam: no rashes or lesions noted Extrem: Other: Incision clean dry and intact. No erythema or drainage. Sensation intact. DS: Data Data Completed and Pending Labs on day of discharge: Labs from last 24 hours 01/08/20 01/08/20 01/08/20 10:09 08:44 08:44 WBC 11.3 H RBC 3.43 L Hgb 8.6 L Hct 28.2 L MCV 82.2 MCH 25.1 L MCHC 30.5 L RDW 16.0 Plt Count 249 MPV 10.7 Immature Gran % (Auto) 0.6 H Neut % (Auto) 82.1 H Lymph % (Auto) 9.2 L [place] % (Auto) 6.9 Eos % (Auto) 0.9 Baso % (Auto) 0.3 Lymph # (Auto) 1.0 L [place] # (Auto) 0.8 Eos # (Auto) 0.1 Baso # (Auto) 0.0 Abs Immat Gran (auto) 0.07 H Absolute Neuts (auto) 9.3 H Absolute Nucleated RBC 0.000 Nucleated RBC % (auto) 0.0 Sodium 135 Potassium 4.2 Chloride 102 Carbon Dioxide 28 Anion Gap 9 L BUN 10 Creatinine 0.71 Estim Creat Clear Calc 68.9 Estimated GFR > 60 Random Glucose 197 H Calcium 9.3 Coronavirus (PCR) Pending COVID-19 PCR Cancelled Discharge Plan Discharge Patient Disposition: er SNF Referrals: [facility] [Outside] [facility] [Outside] Josefa Castle NP [Primary Care Provider] - (DISCHARGED TO [facility] FOR SHORT TERM REHAB , TRAN[facility]ORTED BY [facility] POST DISCHARGE FROM SHORT TERM REHAB INITIATED REFERRAL TO THE [facility] FOR RN-PT-OT-) Lauren Greenfield PA-C [Physician Truck Engine Technician] - (Follow up with Orthopedics in 2 weeks) Discharge Medications: New oxycodone 10 mg tablet 10 mg PO Q4H PRN (Reason: Pain, Moderate (Pain Scale 4-6) 42 Days RF: 0 enoxaparin 40 mg/0.4 mL Syringe 40 mg subcut Q24H 30 Days Qty: 30 RF: 0 acetaminophen 325 mg Tablet 650 mg PO Q6H PRN (Reason: Pain, Mild (Pain Scale 1-3)) 30 Days Qty: 240 RF: 0 Continued lisinopril 40 mg Tablet 40 mg PO DAILY RF: 0 metformin 500 mg Tablet 500 mg PO BID RF: 0 omeprazole 20 mg Capsule,Delayed Release(Dr/Ec) 20 mg PO DAILY RF: 0 albuterol sulfate [ProAir HFA] 90 mcg/actuation Hfa Aerosol Inhaler 2 puff INHALATION Q6H PRN (Reason: Wheezing) RF: 0 metoprolol succinate 50 mg Tablet Extended Release 24 Hr 50 mg PO DAILY RF: 0 rosuvastatin 10 mg tablet 10 mg PO BEDTIME RF: 0 (DME) walker [facility] [place] Rx Instructions .ROUTE .MEDSUPPLY Qty: 1 RF: 0 Discontinued acetaminophen 500 mg Tablet 500 mg PO Q6H PRN (Reason: Pain) RF: 0 Discharge Orders: Discharge Order (Routine); Ordered 01/08/20 Ordered By: Lauren Greenfield Diet: regular diet Activity on Discharge: Use cane or walker Patient Instructions: Enoxaparin (By injection), How to Give a Subcutaneous Injection (DC) Activity Restrictions/Additional Instructions: Physical Therapy for Total hip arthroplasty: posterior precautions, gait training, ROM, strength Limit stair climbing No showering, no tub bath-keep dressing clean, dry and intact No driving x6 weeks Continue Lovenox tabs once a day x 4 weeks Follow up with [facility] in 2 weeks Visit Report Forms: Patient Portal Discharge page Care Plan Goals: Restore function of left hip Health Concerns: None Plan of Treatment: Physical Therapy Pain management DVT prophylaxis
[2020-01-08 12:00] VITALS: BP 117/94; PULSE 55; RESP 18; TEMP 36.2; O2SAT 95
[2020-01-08 12:04] LABS: SARS COV2 PCR INHOUSE NEGATIVE (Negative)
--- NOTE | 2020-01-08 12:18 | PC.NURSE ---
Pt had a COVID test today which came back negative. Pt is post op for a left hip surgery. Hip protocal maintained. OOB to chair, pain tolerable.
[2020-01-08 12:20] LABS: Glucose, Whole Blood 186 mg/dL (60-115)
== END 2020-01-08 14:00 | disposition skilled nursing facility (03) | DRG 470 ==
LOC: HO.SSSA 07:47 → HO.S3 13:50
PROVIDERS: Physician Assistant; Admitting Provider Orthopaedic Surgery; PCP Nurse Practitioner Family; Visit Provider Orthopaedic Surgery
PROC: 0SRB0JA Replacement of Left Hip Joint with Synthetic Substitute, Uncemented, Open Approach (ICD-10-PCS; CPT 27130; principal; 2020-01-06 07:30)
DX: M16.12 Unilateral primary osteoarthritis, left hip (principal); E11.9 Type 2 diabetes mellitus without complications; J45.909 Unspecified asthma, uncomplicated; K21.9 Gastro-esophageal reflux disease without esophagitis; Z20.828 Contact with and (suspected) exposure to other viral communicable diseases; Z88.6 Allergy status to analgesic agent; Z79.51 Long term (current) use of inhaled steroids; Z79.84 Long term (current) use of oral hypoglycemic drugs; Z79.899 Other long term (current) drug therapy
CPT/HCPCS: 36415; 72170; 80048; 82947; 85025; 87635; 88304; 88311; 97110; 97116; 97162; 97166; 97535; C1776; J0131; J0690; J1100; J1170; J1650; J2250; J2405; J3010

== ENCOUNTER → 2020-01-22 12:13 | Outpatient (BNVA) | payer MEDICARE, MEDICAID, SELFPAY | PROVIDERS: PCP Nurse Practitioner Family; Visit Provider Physician Assistant | DX: Z47.1 Aftercare following joint replacement surgery (principal); Z48.02 Encounter for removal of sutures; Z96.642 Presence of left artificial hip joint | CPT/HCPCS: 99212 ==

== ENCOUNTER → 2020-01-30 13:37 | Outpatient (BNVA) | payer MEDICARE, MEDICAID, SELFPAY | PROVIDERS: PCP Nurse Practitioner Family; Referring Provider Nurse Practitioner Family; Visit Provider Nurse Practitioner | DX: D12.6 Benign neoplasm of colon, unspecified (principal); Z98.890 Other specified postprocedural states | CPT/HCPCS: 99212 ==

== ENCOUNTER → 2020-02-16 12:09 | Outpatient (BNVA) | payer MEDICARE, MEDICAID, SELFPAY | PROVIDERS: PCP Nurse Practitioner Family; Referring Provider Nurse Practitioner Family; Visit Provider Orthopaedic Surgery | DX: Z47.1 Aftercare following joint replacement surgery (principal); Z96.642 Presence of left artificial hip joint | CPT/HCPCS: 99212 ==

== ENCOUNTER → 2020-03-17 08:38 | Outpatient (BNVA) | payer MEDICARE, MEDICAID, SELFPAY | PROVIDERS: PCP Nurse Practitioner Family; Referring Provider Nurse Practitioner Family; Visit Provider Internal Medicine | DX: Z13.89 Encounter for screening for other disorder (principal) | CPT/HCPCS: Q3014 ==

== ENCOUNTER → 2020-03-29 10:55 | Outpatient (BNVA) | payer MEDICARE, MEDICAID, SELFPAY | PROVIDERS: PCP Nurse Practitioner Family; Visit Provider Orthopaedic Surgery | DX: Z47.1 Aftercare following joint replacement surgery (principal); Z96.642 Presence of left artificial hip joint | CPT/HCPCS: 99212 ==

== ENCOUNTER 2020-04-08 08:10 | Outpatient (REF) | payer MEDICARE, MEDICAID, SELFPAY ==
[2020-04-08 09:25] LABS: Alanine Aminotransferase 17 U/L (0-31); Albumin Level 4.1 g/dL (3.5-5.0); Alkaline Phosphatase 116 U/L (39-117); Aspartate Amino Transferase 17 U/L (5-31); Bilirubin Total 0.3 mg/dL (0.0-1.0); Blood Urea Nitrogen 16 mg/dL (9-16); Calcium 9.9 mg/dL (8.4-10.2); Estimated Glomerular Filt Rate > 60; Glucose Random 127 mg/dL (60-115); Phosphorus 3.6 mg/dL (2.7-4.5); Total Protein 6.6 g/dL (6.5-8.0)
[2020-04-08 09:35] LABS: Anion Gap 12 (12-20); Carbon Dioxide 29 mmol/L (22-29); Chloride 105 mmol/L (96-108); Potassium 5.3 mmol/l (3.3-5.1); Sodium 141 mmol/L (135-145)
[2020-04-08 09:51] LABS: Vitamin D 25-OH Total 28.2 ng/mL (>30)
[2020-04-09 18:47] LABS: Calcium (PTHI) 10.1 mg/dL (8.6-10.4); PTHI 110 pg/mL (14-64)
== END 2020-04-08 08:11 | disposition home or self-care (01) ==
LOC: HO.LAB 08:10
PROVIDERS: PCP Nurse Practitioner Family; Visit Provider Internal Medicine
DX: E55.9 Vitamin D deficiency, unspecified (principal); M85.80 Other specified disorders of bone density and structure, unspecified site; E21.0 Primary hyperparathyroidism
CPT/HCPCS: 36415; 80053; 82306; 83970; 84100

== ENCOUNTER 2020-04-12 08:08 | Outpatient (REF) | payer MEDICARE, MEDICAID, SELFPAY ==
[2020-04-12 09:53] LABS: Alanine Aminotransferase 16 U/L (0-31); Albumin Level 4.1 g/dL (3.5-5.0); Alkaline Phosphatase 110 U/L (39-117); Anion Gap 12 (12-20); Aspartate Amino Transferase 17 U/L (5-31); Bilirubin Total 0.5 mg/dL (0.0-1.0); Blood Urea Nitrogen 17 mg/dL (9-16); Calcium 9.9 mg/dL (8.4-10.2); Carbon Dioxide 28 mmol/L (22-29); Chloride 104 mmol/L (96-108); Estimated Glomerular Filt Rate > 60; Glucose Random 121 mg/dL (60-115); Potassium 5.1 mmol/l (3.3-5.1); Sodium 139 mmol/L (135-145); Total Protein 6.6 g/dL (6.5-8.0)
== END 2020-04-12 08:09 | disposition home or self-care (01) ==
LOC: HO.LAB 08:08
PROVIDERS: PCP Nurse Practitioner Family; Visit Provider Internal Medicine
DX: E21.0 Primary hyperparathyroidism (principal)
CPT/HCPCS: 36415; 80053

== ENCOUNTER 2020-05-25 13:35 | Outpatient (REF) | payer MEDICARE, MEDICAID, SELFPAY ==
--- NOTE | ~2020-05-25 | MM_ITS ---
EXAMINATION: MM SCREENING DIGITAL BREAST TOMOSYNTHESIS, BILATERAL CLINICAL INFORMATION: Screening. Asymptomatic. The lifetime risk of breast cancer based on the Tyrer-Cuzick Model is 2%. COMPARISON: Mammography: 01/18/2019, 12/28/2017, 12/26/2016, 12/22/2015, 12/14/2014 TECHNIQUE: Digital breast tomosynthesis is performed in both the craniocaudal and mediolateral oblique views along with computer-aided detection (CAD). Synthesized 2D images are generated from the tomosynthesis. FINDINGS: There are scattered areas of fibroglandular density (ACR BI-RADS breast composition Category b). Breast tissue composition borders on predominantly fatty. There is stable circumscribed nodule retroareolar right breast and stable oval nodular asymmetry mid upper outer right breast. Bilateral vascular calcifications are again seen. The left MLO asymmetric density mid upper quadrant 8 cm from nipple likely incompletely compressed tissue outer quadrant, stable on CC projection. Patient will be recalled for additional imaging. MM/MM tomosynthesis screening BI IMPRESSION: 1. Left: Asymmetric density mid upper quadrant likely incompletely compressed glandular tissue. 2. Right: No mammographic evidence of malignancy. ASSESSMENT: BI-RADS 0: Incomplete - Need Additional Imaging Evaluation RECOMMENDATION: 1. Additional views of the left breast (3-D spot MLO, 3-D ML). 2. Targeted ultrasound if warranted after review of the additional views. 3. Radiology department staff will contact the patient for additional imaging. This patient's information was entered into a reminder system with a target due date for their next mammogram.
== END 2020-05-25 13:36 | disposition home or self-care (01) ==
LOC: HO.MAMMO 13:35
PROVIDERS: PCP Nurse Practitioner Family; Visit Provider Nurse Practitioner Family
DX: Z12.31 Encounter for screening mammogram for malignant neoplasm of breast (principal)
CPT/HCPCS: 77063; 77067

== ENCOUNTER 2020-06-15 10:11 | Outpatient (REF) | payer MEDICARE, MEDICAID, SELFPAY ==
--- NOTE | ~2020-06-15 | US_ITS ---
EXAMINATION: MM DIAGNOSTIC DIGITAL BREAST TOMOSYNTHESIS, LEFT US DIAGNOSTIC ULTRASOUND BREAST, LEFT CLINICAL INFORMATION: Recall from screening for subtle asymmetric density mid left breast. COMPARISON: Mammography: 05/25/2020, 01/08/2019 TECHNIQUE: Digital breast tomosynthesis is performed. 2D images are generated from the tomosynthesis. The following views are obtained: Spot MLO, ML, rolled CC x2. Ultrasound left breast is targeted to the upper outer quadrant. Grayscale imaging and color Doppler are performed without and with harmonics. FINDINGS: There are scattered areas of fibroglandular density (ACR BI-RADS breast composition Category b). Additional views confirm focal asymmetric density mid 3:00 position with irregular margins. Ultrasound demonstrates subtle hypoechoic lesion with posterior shadowing, best appreciated when using harmonics, 2:30 o'clock position 7 cm from nipple, measuring approximately 0.5 cm in diameter. Additional imaging left axilla demonstrates several axillary nodes with normal radha architecture. No lymphadenopathy. Results are discussed with the patient at time of visit, using an interpreter for the deaf. Results and recommendation called to medical claims specialist (Christina) for Connie Brito NP on 06/15/2020. US/US breast LT limited IMPRESSION: Focal irregular asymmetric density mid 2:30 position left breast under 1 cm. ASSESSMENT: BI-RADS 4: Suspicious RECOMMENDATION: Ultrasound-guided core biopsy left breast lesion. If lesion is difficult to identify at time of procedure, then sampling could be performed at same appointment with stereotactic guidance.
--- NOTE | ~2020-06-15 | MM_ITS ---
EXAMINATION: MM DIAGNOSTIC DIGITAL BREAST TOMOSYNTHESIS, LEFT US DIAGNOSTIC ULTRASOUND BREAST, LEFT CLINICAL INFORMATION: Recall from screening for subtle asymmetric density mid left breast. COMPARISON: Mammography: 05/25/2020, 01/08/2019 TECHNIQUE: Digital breast tomosynthesis is performed. 2D images are generated from the tomosynthesis. The following views are obtained: Spot MLO, ML, rolled CC x2. Ultrasound left breast is targeted to the upper outer quadrant. Grayscale imaging and color Doppler are performed without and with harmonics. FINDINGS: There are scattered areas of fibroglandular density (ACR BI-RADS breast composition Category b). Additional views confirm focal asymmetric density mid 3:00 position with irregular margins. Ultrasound demonstrates subtle hypoechoic lesion with posterior shadowing, best appreciated when using harmonics, 2:30 o'clock position 7 cm from nipple, measuring approximately 0.5 cm in diameter. Additional imaging left axilla demonstrates several axillary nodes with normal radha architecture. No lymphadenopathy. Results are discussed with the patient at time of visit, using an accounts adjustable clerk. Results and recommendation called to medical service technician (Christina) for Connie Brito NP on 06/15/2020. MM/MM added views LT IMPRESSION: Focal irregular asymmetric density mid 2:30 position left breast under 1 cm. ASSESSMENT: BI-RADS 4: Suspicious RECOMMENDATION: Ultrasound-guided core biopsy left breast lesion. If lesion is difficult to identify at time of procedure, then sampling could be performed at same appointment with stereotactic guidance.
== END 2020-06-15 10:12 | disposition home or self-care (01) ==
LOC: HO.MAMMO 10:11
PROVIDERS: PCP Registered Nurse Community Health; Visit Provider Registered Nurse Community Health
DX: R92.2 Inconclusive mammogram (principal)
CPT/HCPCS: 76642; 77065

== ENCOUNTER → 2020-06-16 08:45 | Outpatient (BNVA) | payer MEDICARE, MEDICAID, SELFPAY | PROVIDERS: Visit Provider Internal Medicine | CPT/HCPCS: Q3014 ==

== ENCOUNTER 2020-06-24 09:04 | Outpatient (REF) | payer MEDICARE, MEDICAID, SELFPAY ==
--- NOTE | ~2020-06-24 | MM_ITS ---
EXAMINATION: ULTRASOUND GUIDED CORE BIOPSY BREAST, LEFT POST PROCEDURE DIGITAL MAMMOGRAM, LEFT CLINICAL INFORMATION: Small irregular nodule 2:30 o'clock position left breast mid depth approximately 0.5 cm. COMPARISON: Mammography 05/25/2020, 06/16/20192020, targeted left breast ultrasound 06/15/2020. FINDINGS: Proper informed consent is obtained from the patient after discussion of the procedure, potential risks and complications, and alternatives. Patient was given an opportunity for questions. The patient appeared to understand. The patient consented to the procedure and signed the consent form. Hospital provided american sign language interpreter assisted for the consent and throughout the procedure. GUIDANCE: Ultrasound-guided; aseptic technique. LESION: Irregular hypoechoic nodule upper outer quadrant under 1 cm. APPROACH: Oblique lateral medial. ANESTHESIA: 15 mL 1% lidocaine. DERMATOTOMY: Single skin lore dermatotomy performed. NEEDLE: 14-gauge Achieve core biopsy device with 13.5-gauge co-axial guide needle. CORES: 6. CLIP: HydroMARK; shape: butterfly. POST PROCEDURE UNILATERAL DIGITAL MAMMOGRAM: The post biopsy mammogram is performed in separate room using separate digital mammography equipment from the biopsy procedure. CC and ML views are obtained. There are scattered areas of fibroglandular density (breast composition category: b). The clip marker is in position and corresponds to area of concern on recent mammography. No gross hematoma. The patient tolerated the procedure well. No immediate complications. Home instructions reviewed with the patient. Final pathology results are pending. MM/MM diagnostic mammo unilat LT IMPRESSION: 1. Status post ultrasound-guided core biopsy left breast. 2. Clip placed: HydroMARK; shape: butterfly. 3. Pathology pending. An addendum report will be issued.
== END 2020-06-24 09:05 | disposition home or self-care (01) ==
LOC: HO.MAMMO 09:04
PROVIDERS: Visit Provider Surgery
DX: C50.412 Malignant neoplasm of upper-outer quadrant of left female breast (principal); Z79.899 Other long term (current) drug therapy
CPT/HCPCS: 19083; 77065; 88305; 88341; 88342; 88360; 99212

== ENCOUNTER → 2020-07-05 09:56 | Outpatient (BNVA) | payer MEDICARE, MEDICAID, SELFPAY | PROVIDERS: PCP Registered Nurse Community Health; Visit Provider Surgery | DX: C50.912 Malignant neoplasm of unspecified site of left female breast (principal) | CPT/HCPCS: 99212 ==

== ENCOUNTER 2020-07-27 06:52 | Day surgery (SDC) | payer MEDICARE, MEDICAID, SELFPAY ==
--- NOTE | 2020-07-13 15:03 | HO.ANESPROP2 ---
Documented by User: Genoveva Yarbrough 07/13/20 15:05 HPI - Anesthesia Eval Consult details Narrative: 74yo F for Left Breast Sentinal Node Biopsy, Needle Localization, Lumpectomy s/p Total Hip with GA_ETT 01/2020 [facility] Active Problems Active Problems: All Active Problems (Updated 07/08/20 @ 16:31 by Belem Buchanan MD) Osteoarthritis of left hip (Acute) Status post total hip replacement, left (Acute) Colon cancer (Acute) Invasive ductal carcinoma of left breast (Acute) Abnormality of left breast on screening mammography (Acute) Multinodular thyroid (Acute) Osteopenia (Acute) Vitamin D deficiency (Acute) Primary hyperparathyroidism (Acute) Tubulovillous adenoma of colon (Acute) Past Medical History Medical History (Updated 07/27/20 @ 10:19 by Donna Butt) Abnormality of left breast on screening mammography Anemia Arthritis Asthma Breast cancer Cancer Diabetes Elevated cholesterol GERD (gastroesophageal reflux disease) History of headache HTN (hypertension) Hyperparathyroidism Increased BMI Invasive ductal carcinoma of left breast Multinodular thyroid On beta ananya at home Osteopenia Primary hyperparathyroidism Tubulovillous adenoma of colon Vitamin D deficiency Family History Family History Father No problems noted. Mother No problems noted. Surgical History Surgical History (Updated 07/22/20 @ 11:14 by Johanne Saini) H/O colonoscopy History of exploratory laparotomy History of tubal ligation Hx of cholecystectomy Hx of tonsillectomy S/P colon resection Status post total hip replacement, left Social History Social History Household Members: Spouse Housing: House Alcohol intake: current Alcohol intake frequency: does not drink Smoking Status: Never smoker Second Hand Smoke Exposure: No Use of substances other than those prescribed or required for medical reasons: No Advance Directives: Yes Advance Directives Information Provided: No Advance Directives on File: Yes Advance Directives Date on File: 08/11/02 Recently lost weight without trying: No service: No Current occupational status: unemployed Meds Allergies Allergy/AdvReac Type Severity Reaction Status Date / Time ibuprofen [Ibuprofen] Allergy Mild SWELLING Verified 07/22/20 10:53 celecoxib [CELECOXIB] Allergy Unknown DROPS Verified 07/22/20 10:53 SUGAR LEVEL Home Medications Medication Instructions Recorded Confirmed Last Taken Type lisinopril 40 mg PO DAILY 12/23/19 07/22/20 01/05/20 History 08 metformin 500 mg PO BID 12/23/19 07/22/20 01/05/20 History 08 albuterol sulfate 90 mcg/actuation 2 puff INHALATION Q6H PRN 12/29/19 07/22/20 Unknown History aerosol inhaler cetirizine 10 mg tablet 5 mg PO DAILY PRN 12/29/19 07/22/20 01/05/20 History 08 cyclobenzaprine 5 mg tablet 5 mg PO TID PRN 12/29/19 07/22/20 01/05/20 History 08 fluticasone propionate 50 1 spray INTRANASAL DAILY 12/29/19 07/22/20 Unknown History mcg/actuation nasal spray,suspension montelukast 10 mg tablet 10 mg PO DAILY 12/29/19 07/22/20 Unknown History rizatriptan 10 mg tablet 10 mg PO Q2-4H PRN 12/29/19 07/22/20 Unknown History metoprolol succinate 50 mg PO DAILY 01/06/20 07/22/20 Unknown History rosuvastatin 10 mg PO BEDTIME 01/07/20 07/22/20 Unknown History blood sugar diagnostic #10 ea 03/17/20 07/05/20 Unknown History cholecalciferol (vitamin D3) 50 50 mcg PO DAILY 03/17/20 07/22/20 Unknown History mcg (2,000 unit) capsule ferrous gluconate 324 mg (38 mg 324 mg PO DAILY 03/17/20 07/22/20 Unknown History iron) tablet lancets 28 gauge #100 ea 03/17/20 07/05/20 Unknown History ketotifen fumarate 0.025 % (0.035 1 drp OPHTHALMIC (EYE) BID 06/16/20 07/22/20 Unknown History %) eye drops famotidine 1 tab PO BID 07/22/20 07/22/20 Unknown History tolterodine 1 cap PO DAILY 07/22/20 07/22/20 Unknown History Exam Exam Date and Time: July 13, 2020 1503 Pertinent Lab Results Pertinent Lab Results: Laboratory Tests 01/12/20 04/12/20 04:39 08:35 WBC 6.9 Hgb 8.1 L Hct 26.8 L Plt Count 386 D Sodium 139 Potassium 5.1 Chloride 104 Carbon Dioxide 28 BUN 17 H Creatinine 0.75 Narrative Narrative: EKG 12/03/19: NSR@70 Assessment and Plan Assessment Anesthesia Assessment: Chart Reviewed Documented by User: Donna Butt 07/27/20 10:39 [facility] Past Medical History Medical History (Updated 07/27/20 @ 10:19 by Donna Butt) Abnormality of left breast on screening mammography Anemia Arthritis Asthma Breast cancer Cancer Diabetes Elevated cholesterol GERD (gastroesophageal reflux disease) History of headache HTN (hypertension) Hyperparathyroidism Increased BMI Invasive ductal carcinoma of left breast Multinodular thyroid On beta ananya at home Osteopenia Primary hyperparathyroidism Tubulovillous adenoma of colon Vitamin D deficiency Family History Family History Father No problems noted. Mother No problems noted. Family history of problems with anesthesia: No Surgical History Surgical History (Updated 07/22/20 @ 11:14 by Johanne Saini) H/O colonoscopy History of exploratory laparotomy History of tubal ligation Hx of cholecystectomy Hx of tonsillectomy S/P colon resection Status post total hip replacement, left History of Problems with Anesthesia: No Social History Social History Household Members: Spouse Housing: House Alcohol intake: current Alcohol intake frequency: does not drink Smoking Status: Never smoker Second Hand Smoke Exposure: No Use of substances other than those prescribed or required for medical reasons: No Advance Directives: Yes Advance Directives Information Provided: No Advance Directives on File: Yes Advance Directives Date on File: 08/11/02 Recently lost weight without trying: No service: No Current occupational status: unemployed Meds Allergies Allergy/AdvReac Type Severity Reaction Status Date / Time ibuprofen [Ibuprofen] Allergy Mild SWELLING Verified 07/22/20 10:53 celecoxib [CELECOXIB] Allergy Unknown DROPS Verified 07/22/20 10:53 SUGAR LEVEL Home Medications Medication Instructions Recorded Confirmed Last Taken Type lisinopril 40 mg PO DAILY 12/23/19 07/22/20 01/05/20 History 08 metformin 500 mg PO BID 12/23/19 07/22/20 01/05/20 History 799 albuterol sulfate 90 mcg/actuation 2 puff INHALATION Q6H PRN 12/29/19 07/22/20 Unknown History aerosol inhaler cetirizine 10 mg tablet 5 mg PO DAILY PRN 12/29/19 07/22/20 01/05/20 History 08 cyclobenzaprine 5 mg tablet 5 mg PO TID PRN 12/29/19 07/22/20 01/05/20 History 08 fluticasone propionate 50 1 spray INTRANASAL DAILY 12/29/19 07/22/20 Unknown History mcg/actuation nasal spray,suspension montelukast 10 mg tablet 10 mg PO DAILY 12/29/19 07/22/20 Unknown History rizatriptan 10 mg tablet 10 mg PO Q2-4H PRN 12/29/19 07/22/20 Unknown History metoprolol succinate 50 mg PO DAILY 01/06/20 07/22/20 Unknown History rosuvastatin 10 mg PO BEDTIME 01/07/20 07/22/20 Unknown History blood sugar diagnostic #10 ea 03/17/20 07/05/20 Unknown History cholecalciferol (vitamin D3) 50 50 mcg PO DAILY 03/17/20 07/22/20 Unknown History mcg (2,000 unit) capsule ferrous gluconate 324 mg (38 mg 324 mg PO DAILY 03/17/20 07/22/20 Unknown History iron) tablet lancets 28 gauge #100 ea 03/17/20 07/05/20 Unknown History ketotifen fumarate 0.025 % (0.035 1 drp OPHTHALMIC (EYE) BID 06/16/20 07/22/20 Unknown History %) eye drops famotidine 1 tab PO BID 07/22/20 07/22/20 Unknown History tolterodine 1 cap PO DAILY 07/22/20 07/22/20 Unknown History Exam Height,Weight and Vital Signs: Vital Signs Temp Pulse Resp BP Pulse Ox 07/27/20 07:15 98.8 F 77 16 143/78 H 98 Pertinent Lab Results Pertinent Lab Results: Lab Results 07/27/20 Range/Units 07:19 POC Glucose 121 H (60-115) mg/dL Airway Mallampati Class: II TM Dist: >3cm Denture: Upper and Lower Heart: RRR Lungs: CTAB Assessment and Plan Assessment Anesthesia Assessment: Anesthesia Plan Discussed and Chart Reviewed Final Anesthetic Review NPO: Yes ASA Class: II Final Preanesthetic Review: No Changes in Pt Med Stat, Meds/Allgs Chart Reviewed, Consent Obtained/Reviewed and Anes Risks/Benef Reviewed Patient Risk: Low Procedure Risk: Low Assessment/Block/Sedation in SS: Assess/Block/Sedation-SS Anesthetic Plan Anesthetic Plan: GA Disposition: Standard PACU
[2020-07-22 11:14] VITALS: BMI 31.7
--- NOTE | ~2020-07-27 | NM_ITS ---
EXAMINATION: NM LYMPH SCINTIGRAPHY CLINICAL INFORMATION: Breast cancer. COMPARISON: None. TECHNIQUE: The left breast was injected with 4 aliquots of 0.125 mCi technetium 99m labeled Lymphoseek subcutaneously at the skin nipple interface in the 12, 3, 6 and 9:00 axis. Anterior KAZAKH and left lateral imaging of the chest at 30 minutes and 60 minutes was performed. FINDINGS: There is adequate radiotracer uptake seen at the skin-nipple interface. There is faint sentinel node uptake seen in the left axilla. NM/NM sentinel node w imaging IMPRESSION: Faint sentinel node uptake seen in the left axilla.
--- NOTE | ~2020-07-27 | MM_ITS ---
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 COMPARISON: Mammography 05/25/2020, 06/15/2020, 06/04/2020; ultrasound-guided core biopsy left breast 06/24/2020 TECHNIQUE NEEDLE LOC: Proper informed consent is obtained from the patient after discussion of the procedure, potential risks and complications, and alternatives including declining the procedure today. Patient was given an opportunity for questions. The patient appeared to understand. The patient consented to the procedure and signed the consent form. Hospital provided histopathology technician assisted for both the consent and throughout the procedure. GUIDANCE: Digital mammography. APPROACH: Lateral Medial. TARGET: Biopsy cavity with HydroMark butterfly shaped clip marker. ANESTHESIA: lidocaine 1%: 5 mL. LOCALIZATION MARKER: [place] MammaLok 5 cm length. The skin is prepped and local anesthesia administered. The needle is positioned and position assessed with mammography. The wire is hooked into position. Carmel needle protector placed. The patient tolerated the procedure well and had no immediate complication. Following the procedure, 4% lidocaine ointment was administered to the left areola and covered with Tegaderm in anticipation of nuclear lymphoscintigraphy injection for sentinel lymph node mapping. Procedure results called to office (DENNIS Yung) for Dr. Jolley. TECHNIQUE SPECIMEN RADIOGRAPH: Imaging of the excised specimen is performed using digital mammography in 1 view. FINDINGS SPECIMEN RADIOGRAPH: The specimen shows the needle and hookwire are delivered intact. The biopsy clip marker is identified in the specimen adjacent to the localization wire. Results were called to Dr. Servando Jolley in the operating room at the time of imaging. MM/MM needle loc LT IMPRESSION: 1. Status post left breast needle localization with wire hooked into position. 2. Post operative specimen radiograph obtained.
[2020-07-27 07:15] VITALS: BP 143/78; PULSE 77; RESP 16; TEMP 37.1; O2SAT 98
[2020-07-27 07:23] LABS: Glucose, Whole Blood 121 mg/dL (60-115)
[2020-07-27] MEDS: Lactated Ringers 1,000 ML 100 ML IVCONT (07:29)
--- NOTE | 2020-07-27 10:10 | MHC.SHP ---
Pre-Procedural Eval Section B Chief Complaint: Invasive ductal carcinoma of left breast Allergies: Allergies Allergy/AdvReac Type Severity Reaction Status Date / Time ibuprofen [Ibuprofen] Allergy Mild SWELLING Verified 07/22/20 10:53 celecoxib [CELECOXIB] Allergy Unknown DROPS Verified 07/22/20 10:53 SUGAR LEVEL Plan I have reviewed the history and physical and performed a pertinent physical examination on my patient. No changes have occurred unless specified.
--- NOTE | 2020-07-27 13:07 | W.PM.OPN ---
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 She is therefore scheduled today to undergo lumpectomy with needle localization and sentinel node biopsy. She understood the technique of the procedure as well as the risks, benefits, and alternatives. She had undergone needle localization earlier this morning. She then proceeded to have the scintigraphy for her sentinel nodes. I had reviewed imaging studies of both the needle localization as well as the scintigraphy. I discussed the needle localization images with the radiologist as well. She was then brought to the operating room and placed supine on the table under general anesthesia via laryngeal mask airway. The left arm was abductwed 2 expose the axilla. The left breast and the left axilla were then prepped and draped in the usual sterile fashion. A surgical time-out was done. The patient received cefazolin 2 g IV preoperatively. The localizing needle was seen entering the breast in a lateral to medial direction on the lateral aspect of the outer quadrant of the left breast. I infiltrated the planned line of incision with lidocaine 1%. I made the incision using blade 15 at the needle entry point, and this was carried down to full-thickness skin and subcutaneous fat using electrocautery. We then applied retractors and by doing so I was able to visualize the direction of the needle. I proceeded to then use the curved Tran scissors to divide the breast tissue surrounding the needle in a circumferential fashion. This was done in such a way so we were including generous margins of the breast tissue surrounding the needle. I followed the direction of the needle as we proceeded with dissection. I applied deeper retractors to visualize the deeper part of the dissection. I was able to then palpate for the type of the localizing needle. I made sure that I went past the the localizing needle and have generous margins as we dissected using the Tran scissors circumferentially through the breast tissue until the specimen was completely removed. This was sent as specimen for immediate re-ray and immediate gross examination. The superior margin of the specimen was marked with a short stitch and the lateral margin was marked with a long stitch. I then copiously irrigated the area of dissection. I used electrocautery to achieve hemostasis. Once hemostasis was confirmed, I proceeded to reappose the deeper breast tissue with interrupted Dexon 3-0 sutures. Skin closure was achieved with Dexon 4-0 subcuticular sutures. We then waited for confirmation of the presence of the marker clip specimen. We then received a call from the radiologist that the marker clip was in the specimen and that the tumor was within the specimen as well based on re- ray images. I then to change instruments set up in order to proceed with the sentinel node biopsy. I used the nuclear probe to identify the maximal readings in the axilla. I marked this area and made I am incision on the skin overlying this using a blade 15. This was carried down through the full-thickness skin and subcutaneous fat with electrocautery. I then proceeded to gently dissect through the axillary fat using Metzenbaum scissors to identify lymph nodes. I intermittently used the probe to identify the maximal readings that would correspond to the sentinel node. I was able to directly visualize a lymph node that had readings of 203, which was the highest in the area of the axilla. This was excised with gentle dissection using the some home scissors and was sent as a specimen. I then re-scanned the area of the axilla to see if there were any other elevated readings with the nuclear probe. There was another area that had slightly elevated cause and I proceeded to gently dissect this using the Metzenbaum scissors until was able to see another lymph node. This was seemed to be closer toward the apex of the axilla. This was excised and sent as a specimen. This 2nd sentinel node had a reading of 54. Both of these lymph nodes appeared to be level 1 lymph nodes based on location. I re-scanned the axilla for any other elevated readings and there was no other reading that was higher than 10% of the initial node. I copiously irrigated. I made sure that there was good hemostasis. Once hemostasis was confirmed I proceeded to then reappose the deeper subcutaneous layer with Dexon 3-0 sutures. Skin closure was achieved with Dexon 4-0 subcuticular sutures. At this point I received a call from the pathologist about the immediate gross examination of the breast specimen. He stated that margins grossly appeared clear although it seemed to be relatively close at the superior medial margin. I therefore opened up the incision again on the breast excision site. I applied retractors to expose the excision cavity. I then proceeded to apply Allis clamps on the superior medial margin and excise more of the breast tissue. This was sent as a specimen for additional margins. I observed for hemostasis. I applied electrocautery to oozing areas. I copiously irrigated again. Once hemostasis was ensured I proceeded to the reappose the deeper breast tissue with Dexon 3-0 interrupted sutures. Skin closure was again achieved with Dexon 4-0 subcuticular stitch. Steri-Strips and dressings were applied All incisions were infiltrated with Marcaine 0.5% for postop analgesia. The procedure was then completed. The patient tolerated procedure well. There were no complications noted. Initial fine counts of sponges and instruments were correct. Estimated blood loss was about 30 cc. The patient was extubated without difficulty and transferred to the recovery room with stable vital signs. Breast Florence Node Biopsy Substrate(s) used for sentinel node biopsy in the non-neoadjuvant setting: Radiotracer All significantly radioactive nodes were removed, if radionuclide was used as the substrate for localization: Yes All palpably suspicious nodes were removed, if present: Yes General Surg. - Synoptic Notes Breast Florence Node Biopsy Substrate(s) used for sentinel node biopsy in the non-neoadjuvant setting: Radiotracer All significantly radioactive nodes were removed, if radionuclide was used as the substrate for localization: Yes All palpably suspicious nodes were removed, if present: Yes
[2020-07-27 13:08] VITALS: BP 134/62; PULSE 75; RESP 16; TEMP 36.7; O2SAT 100
[2020-07-27 13:13] VITALS: BP 128/59; PULSE 82; RESP 16; O2SAT 100
[2020-07-27 13:18] VITALS: BP 131/72; PULSE 71; RESP 18; O2SAT 94
[2020-07-27] MEDS: oxyCODONE HCl Immed Release 5 MG TABLET PO (13:18)
[2020-07-27] MEDS: fentaNYL citrate/PF 100 MCG/2 ML VIAL 25 MCG IVPUSH (13:18)
[2020-07-27 13:23] VITALS: BP 127/68; PULSE 76; RESP 16; O2SAT 94
--- NOTE | 2020-07-27 13:24 | PM.OP ---
Brief Operative Note Date of Service: 07/27/20 Pre-op diagnosis: Invasive ductal carcinoma left breast Post-op diagnosis: same Procedure: Lumpectomy with needle localization of the left breast, sentinel node biopsy Surgeon: Servando Jolley MD Anesthesia: GLMA Estimated blood loss (mL): 40 Pathology: other (Lumpectomy; 2 sentinel nodes) Condition: stable Disposition: PACU
[2020-07-27 13:36] VITALS: BP 127/67; PULSE 75; RESP 16; TEMP 36.7; O2SAT 95
== END 2020-07-27 14:25 | disposition home or self-care (01) ==
PROVIDERS: Visit Provider Surgery
PROC: (CPT 19301; principal; 2020-07-27 11:00)
PROC: (CPT 19301; 2020-07-27 11:00)
PROC: (CPT 19301; 2020-07-27 11:00)
DX: C50.412 Malignant neoplasm of upper-outer quadrant of left female breast (principal); Z17.0 Estrogen receptor positive status [ER+]; E11.9 Type 2 diabetes mellitus without complications; I10 Essential (primary) hypertension
CPT/HCPCS: 19301; 38525; 19281; 78195; 82947; 88307; 88329; 88342; A4648; A9520; J0131; J0690; J1100; J2405; J3010

== ENCOUNTER → 2020-08-05 09:34 | Outpatient (BNVA) | payer MEDICARE, MEDICAID, SELFPAY | PROVIDERS: Referring Provider Registered Nurse Community Health; Visit Provider Surgery | DX: C50.912 Malignant neoplasm of unspecified site of left female breast (principal) | CPT/HCPCS: 99212 ==

== ENCOUNTER → 2020-08-09 11:13 | Outpatient (BNV) | payer MEDICARE, MEDICAID, SELFPAY | PROVIDERS: PCP Registered Nurse Community Health; Visit Provider Internal Medicine Medical Oncology | DX: C50.912 Malignant neoplasm of unspecified site of left female breast (principal) | CPT/HCPCS: 99213; 99214 ==

== ENCOUNTER → 2020-09-02 08:45 | Outpatient (BNVA) | payer MEDICARE, MEDICAID, SELFPAY | PROVIDERS: PCP Registered Nurse Community Health; Visit Provider Surgery | DX: C50.912 Malignant neoplasm of unspecified site of left female breast (principal) | CPT/HCPCS: 99212 ==

== ENCOUNTER 2020-09-16 10:15 | Outpatient (REF) | payer MEDICARE, MEDICAID, SELFPAY ==
[2020-09-16 11:18] LABS: Albumin Level 4.1 g/dL (3.5-5.0); Estimated Glomerular Filt Rate > 60
[2020-09-16 11:40] LABS: Vitamin D 25-OH Total 31.8 ng/mL (>30)
[2020-09-17 14:11] LABS: Calcium (PTHI) 9.2 mg/dL (8.6-10.4); PTHI 21 pg/mL (14-64)
== END 2020-09-16 10:16 | disposition home or self-care (01) ==
LOC: HO.LAB 10:15
PROVIDERS: PCP Registered Nurse Community Health; Visit Provider Internal Medicine
DX: E21.0 Primary hyperparathyroidism (principal); E55.9 Vitamin D deficiency, unspecified
CPT/HCPCS: 36415; 82040; 82306; 82310; 82565; 83970; 84100

== ENCOUNTER → 2020-09-22 08:11 | Outpatient (BNVA) | payer MEDICARE, MEDICAID, SELFPAY | PROVIDERS: PCP Nurse Practitioner Family; Visit Provider Internal Medicine | CPT/HCPCS: Q3014 ==

== ENCOUNTER 2020-09-30 15:47 | Outpatient (REF) | payer MEDICARE, MEDICAID, SELFPAY ==
[2020-09-30 18:35] LABS: Alanine Aminotransferase 9 U/L (0-31); Albumin Level 4.1 g/dL (3.5-5.0); Alkaline Phosphatase 63 U/L (39-117); Anion Gap 14 (12-20); Aspartate Amino Transferase 15 U/L (5-31); Bilirubin Total 0.3 mg/dL (0.0-1.0); Blood Urea Nitrogen 18 mg/dL (9-16); Calcium 9.3 mg/dL (8.4-10.2); Carbon Dioxide 28 mmol/L (22-29); Chloride 104 mmol/L (96-108); Estimated Glomerular Filt Rate 57; Glucose Random 116 mg/dL (60-115); Phosphorus 4.5 mg/dL (2.7-4.5); Potassium 5.2 mmol/L (3.3-5.1); Sodium 141 mmol/L (135-145); Total Protein 6.6 g/dL (6.5-8.0)
[2020-09-30 18:56] LABS: Thyroid Stimulating Hormone 1.06 uIU/mL (0.32-4.0)
[2020-10-05 13:37] LABS: PTHI 42 pg/mL (14-64)
== END 2020-09-30 15:48 | disposition home or self-care (01) ==
LOC: HO.LAB 15:47
PROVIDERS: PCP Registered Nurse Community Health; Visit Provider Internal Medicine
DX: E21.0 Primary hyperparathyroidism (principal); E04.2 Nontoxic multinodular goiter; E55.9 Vitamin D deficiency, unspecified
CPT/HCPCS: 36415; 80053; 82306; 83970; 84100; 84443

== ENCOUNTER 2020-10-06 09:28 | Outpatient (REF) | payer MEDICARE, MEDICAID, SELFPAY ==
[2020-10-06 10:26] LABS: Albumin Level 3.9 g/dL (3.5-5.0); Anion Gap 11 (12-20); Blood Urea Nitrogen 18 mg/dL (9-16); Carbon Dioxide 30 mmol/L (22-29); Chloride 104 mmol/L (96-108); Estimated Glomerular Filt Rate > 60; Glucose Random 132 mg/dL (60-115); Phosphorus 3.6 mg/dL (2.7-4.5); Potassium 4.3 mmol/L (3.3-5.1); Sodium 141 mmol/L (135-145)
[2020-10-07 14:56] LABS: Calcium (PTHI) 8.7 mg/dL (8.6-10.4); PTHI 28 pg/mL (14-64)
== END 2020-10-06 09:29 | disposition home or self-care (01) ==
LOC: HO.LAB 09:28
PROVIDERS: PCP Registered Nurse Community Health; Visit Provider Internal Medicine
DX: E21.0 Primary hyperparathyroidism (principal); M85.80 Other specified disorders of bone density and structure, unspecified site
CPT/HCPCS: 36415; 80048; 82040; 83970; 84100

== ENCOUNTER → 2020-12-01 08:54 | Outpatient (BNVA) | payer MEDICARE, MEDICAID, SELFPAY | PROVIDERS: PCP Registered Nurse Community Health; Referring Provider Registered Nurse Community Health; Visit Provider Surgery | DX: C50.912 Malignant neoplasm of unspecified site of left female breast (principal) | CPT/HCPCS: 99212 ==

== ENCOUNTER → 2021-07-11 10:19 | Outpatient (BNVA) | payer MEDICARE, MEDICAID, SELFPAY | PROVIDERS: PCP Registered Nurse Community Health; Referring Provider Registered Nurse Community Health; Visit Provider Surgery | DX: Z85.3 Personal history of malignant neoplasm of breast (principal) | CPT/HCPCS: 99212 ==

== ENCOUNTER 2021-07-22 13:48 | Outpatient (REF) | payer MEDICARE, MEDICAID, SELFPAY ==
--- NOTE | ~2021-07-22 | MM_ITS ---
EXAMINATION: BONE DENSITOMETRY CLINICAL INDICATION: Osteopenia, hyperparathyroidism. COMPARISON: Previous BD dated 01/02/2019, spine; 11/29/2012, right hip and baseline BD dated 06/15/2009, spine and right hip; 01/02/2019, left forearm radius 33%. TECHNIQUE: Using a CellPly DXA System (software version: 13.1) manufactured by [employer], dual-energy x-ray absorptiometry was performed of the lumbar spine, right hip, and left forearm radius 33%. The images are of good technical quality. Summary results are attached. FINDINGS: AP SPINE L1-L2 (excluding L3 and L4): The data of L1-L4 has been changed to exclude the L3 and L4 vertebral bodies, because degenerative sclerosis at these levels may cause overestimation of lumbar spine density. Current: BMD 0.978 g/cm2, Z-score -0.4, T-score -1.6, osteopenia, 3.9% increase from previous, 4.7% increase from baseline (<5% change is not significant). Prior: BMD 0.941 g/cm2. Baseline: BMD 0.934 g/cm2. RIGHT FEMUR, NECK: Current: BMD 0.894 g/cm2, Z-score 0.6, T-score -1.0, normal. Prior: BMD 1.002 g/cm2. Baseline: BMD 1.038 g/cm2. RIGHT FEMUR, TOTAL: Current: BMD 0.919 g/cm2, Z-score 0.7, T-score -0.7, normal, 7.9% decrease from previous, 12.8% decrease from baseline (<5% change is not significant). Prior: BMD 0.998 g/cm2. Baseline: BMD 1.054 g/cm2. LEFT FOREARM RADIUS 33%: BMD 0.655 g/cm2, Z-score 0.0, T-score -2.5, osteoporosis, 2.4% decrease from baseline (<5% change is not significant). Baseline: BMD 0.671 g/cm2. IDENTIFIED RISK FACTORS: Hyperparathyroidism, menopause. HISTORY OF FRACTURE: None listed. MEDICATIONS: Calcium supplements or multivitamin, vitamin D, ERT/SERMS. MM/XR DEXA appendicular skeleton IMPRESSION: 1. DIAGNOSIS: Osteoporosis based on the lowest T-score value of -2.5 in the forearm radius 33% applying World Health Organization criteria. 2. 10-YEAR FRACTURE RISK PREDICTION, FRAX: Major osteoporotic fracture (clinical spine, forearm, hip or shoulder) 5.9%. Hip fracture 1.0%. 3. Treatment Recommendations: NOF guidelines recommend consideration for treatment in postmenopausal women and men age 50 and older presenting with the following: -A hip or vertebral (clinical or morphometric) fracture. -T-score less than or equal to -2.5 at the femoral neck or spine after appropriate evaluation to exclude secondary causes. -Low bone mass at the hip or spine and a 10-year fracture probability by FRAX of greater than or equal to 3% for hip fracture or greater than or equal to 20% for major osteoporotic fracture based on the [place] adapted WHO algorithm. 4. Other Recommendations: All treatment decisions require clinical judgment and consideration of individual patient factors, including patient preferences, comorbidities, previous drug use, risk factors not captured in the FRAX model (e.g. frailty, falls, vitamin D deficiency, increased bone turnover, interval significant decline in bone density) and possible under or overestimation of fracture risk by FRAX. Additional medical evaluation for secondary cause of low bone mineral density may be appropriate. FUTURE SCAN RECOMMENDATION: People with diagnosed cases of osteoporosis or at high risk for fracture should have regular bone mineral density tests. For patients eligible for Medicare, routine testing is allowed once every 2 years. The testing frequency can be increased to one year for patients who have rapidly progressing disease, those who are receiving or discontinuing medical therapy to restore bone mass, or have additional risk factors.
--- NOTE | ~2021-07-22 | MM_ITS ---
EXAMINATION: MM DIAGNOSTIC DIGITAL BREAST TOMOSYNTHESIS, BILATERAL CLINICAL INFORMATION: Status post left breast lumpectomy on July 27, 2020 COMPARISON: Mammography: July 27, 2020 and studies dating back to December 10, 2013 TECHNIQUE: Digital breast tomosynthesis is performed in both the craniocaudal and mediolateral oblique views along with computer-aided detection (CAD). Synthesized 2D images are generated from the tomosynthesis. Additional spot medication views of the left breast performed in craniocaudal and 90 degree mediolateral views. FINDINGS: The breasts are almost entirely fatty (ACR BI-RADS breast composition Category a). There are no significant masses, abnormal calcifications, or other abnormalities noted within the right breast.. This is the first study since patient's lumpectomy on July 27, 2020. Postsurgical changes noted without new abnormal dominant mass or suspicious grouping of microcalcifications. Results are provided to the patient at time of visit by the technologist. MM/MM tomosynthesis diagnostic BI IMPRESSION: No specific mammographic evidence to suggest malignancy. Postsurgical change left breast. ASSESSMENT: BI-RADS 2: Benign RECOMMENDATION: Diagnostic mammography at time of next annual exam, due in 12 months. This patient's information was entered into a reminder system with a target due date for their next mammogram.
== END 2021-07-22 13:49 | disposition home or self-care (01) ==
LOC: HO.MAMMO 13:48
PROVIDERS: Visit Provider Internal Medicine Medical Oncology
DX: Z13.820 Encounter for screening for osteoporosis (principal); C50.919 Malignant neoplasm of unspecified site of unspecified female breast; Z78.0 Asymptomatic menopausal state; M85.88 Other specified disorders of bone density and structure, other site; Z85.3 Personal history of malignant neoplasm of breast
CPT/HCPCS: 77062; 77066; 77081

== ENCOUNTER 2021-09-21 07:33 | Outpatient (REF) | payer MEDICARE, MEDICAID, SELFPAY ==
[2021-09-21 09:11] LABS: Alanine Aminotransferase 12 U/L (0-31); Alkaline Phosphatase 45 U/L (39-117); Anion Gap 14 (12-20); Aspartate Amino Transferase 17 U/L (5-31); Bilirubin Total 0.5 mg/dL (0.0-1.0); Blood Urea Nitrogen 16 mg/dL (9-16); Calcium 8.4 mg/dL (8.4-10.2); Carbon Dioxide 27 mmol/L (22-29); Chloride 104 mmol/L (96-108); Estimated Glomerular Filt Rate > 60; Glucose Random 135 mg/dL (60-115); Phosphorus 4.3 mg/dL (2.7-4.5); Potassium 5.1 mmol/L (3.3-5.1); Sodium 140 mmol/L (135-145); Total Protein 6.5 g/dL (6.5-8.0)
[2021-09-21 09:33] LABS: Free T4 (Free Thyroxine) 0.78 ng/dL (0.71-1.85)
[2021-09-22 15:41] LABS: Calcium (PTHI) 8.4 mg/dL (8.6-10.4); PTHI 50 pg/mL (16-77)
== END 2021-09-21 07:34 | disposition home or self-care (01) ==
LOC: HO.LAB 07:33
PROVIDERS: PCP Registered Nurse Community Health; Visit Provider Internal Medicine
DX: E04.2 Nontoxic multinodular goiter (principal); E55.9 Vitamin D deficiency, unspecified; E21.0 Primary hyperparathyroidism
CPT/HCPCS: 36415; 80053; 82306; 83970; 84100; 84439; 84443

== ENCOUNTER → 2021-09-26 07:55 | Outpatient (BNVA) | payer MEDICARE, MEDICAID, SELFPAY | PROVIDERS: PCP Registered Nurse Community Health; Visit Provider Internal Medicine | DX: M81.0 Age-related osteoporosis without current pathological fracture (principal); E21.0 Primary hyperparathyroidism; E04.2 Nontoxic multinodular goiter; E55.9 Vitamin D deficiency, unspecified | CPT/HCPCS: Q3014 ==

== ENCOUNTER 2021-10-05 08:47 | Emergency (ER) | payer MEDICARE, MEDICAID, SELFPAY ==
[2021-10-05 09:04] VITALS: BP 156/58; PULSE 68; RESP 13; TEMP 36.3; O2SAT 96; BMI 32.4
--- NOTE | 2021-10-05 09:41 | ED.GENADULT ---
HPI - General Adult General Chief complaint: General Medical Stated complaint: throat pain Time Seen by Provider: 10/05/21 09:31 Source: patient and immunology specialist Mode of arrival: ambulatory Limitations: language barrier History of Present Illness HPI narrative: 76-year-old female who presents to the emergency department with reports of 5 days of sore throat, cough dry with wheezing and headache. No chest pain, shortness of breath, fevers, chills, vomiting, diarrhea, Has had 3 covid vaccinations Related Data Home Medications Medication Instructions Recorded Confirmed lisinopril 40 mg tablet 40 mg PO DAILY 12/23/19 09/26/21 metformin 500 mg tablet 500 mg PO BID 12/23/19 09/26/21 albuterol sulfate 90 mcg/actuation 2 puff inhalation Q6H PRN 12/29/19 09/26/21 aerosol inhaler (ProAir HFA) Shortness Of Breath cetirizine 10 mg tablet 5 mg PO DAILY PRN Allergic Symptoms 12/29/19 09/26/21 cyclobenzaprine 5 mg tablet 5 mg PO TID PRN Muscle Pain 12/29/19 09/26/21 fluticasone propionate 50 1 spray intranasal DAILY 12/29/19 09/26/21 mcg/actuation nasal spray,suspension montelukast 10 mg tablet 10 mg PO DAILY 12/29/19 09/26/21 (Singulair) metoprolol succinate 50 mg 50 mg PO DAILY 01/06/20 09/26/21 tablet,extended release 24 hr blood sugar diagnostic #10 ea 03/17/20 09/26/21 lancets 28 gauge #100 ea 03/17/20 09/26/21 aspirin 81 mg tablet,delayed 81 mg PO DAILY 08/09/20 09/26/21 release atorvastatin 20 mg tablet 20 mg PO DAILY 08/09/20 09/26/21 ketotifen fumarate 0.025 % (0.035 1 drp ophthalmic (eye) BID PRN Dry 09/22/20 09/26/21 %) eye drops (Alaway) Eyes gabapentin 300 mg capsule 300 mg PO BEDTIME 09/26/21 09/26/21 rosuvastatin 10 mg tablet 10 mg PO BEDTIME 09/26/21 09/26/21 Previous Rx's Medication Instructions Recorded walker #1 ea 01/02/20 acetaminophen 325 mg tablet 650 mg PO Q6H PRN Pain, Mild (Pain 01/08/20 Scale 1-3) 30 days #240 tabs tamoxifen 20 mg tablet 20 mg PO DAILY #90 tabs 01/03/21 tamoxifen 20 mg tablet 20 mg PO DAILY #90 tabs 07/07/21 calcium citrate 250 mg 2 tab PO BID 30 days #120 tabs 09/26/21 calcium-vitamin D3 5 mcg (200 unit) tablet (Citracal Regular) cholecalciferol (vitamin D3) 50 50 mcg PO DAILY 30 days #30 caps 09/26/21 mcg (2,000 unit) capsule albuterol sulfate 90 mcg/actuation 2 inh inhalation Q4H PRN shortness 10/05/21 breath activated powder inhaler of breath or wheezing #1 ea prednisone 20 mg tablet 20 mg PO DAILY #5 tabs 10/05/21 Allergies Allergy/AdvReac Type Severity Reaction Status Date / Time ibuprofen [Ibuprofen] Allergy Mild SWELLING Verified 09/26/21 08:10 celecoxib [CELECOXIB] Allergy Unknown DROPS Verified 09/26/21 08:10 SUGAR LEVEL Review of Systems Review of Systems: Yes all other systems are reviewed and are negative Constitutional: Constitutional: Reports no additional constitutional complaints, Denies body ache(s), Denies chills, Denies fever(s), Reports headache(s) and Denies weakness Eyes: Eyes: Reports no additional eye complaints and Denies change in vision ENT: Reports system reviewed and no additional complaints, except as documented, Denies dizziness, Reports headache(s), Denies nasal congestion, Denies nasal discharge, Denies neck pain and Reports sore throat Cardiovascular: Cardiovascular: Reports no additional cardiovascular complaints, Denies chest pain, Denies leg edema and Denies dyspnea Respiratory: Respiratory: Reports no additional respiratory complaints, Reports cough and Denies dyspnea Gastrointestinal: Gastrointestinal: Reports no additional gastrointestinal complaints, Denies abdominal pain, Denies diarrhea, Denies nausea and Denies vomiting Genitourinary: Genitourinary: Reports no additional female genitourinary complaints and Denies urinary incontinence Musculoskeletal: Musculoskeletal: Reports no additional musculoskeletal complaints, Denies back pain, Denies arthralgias, Denies joint swelling, Denies neck pain, Denies numbness and Denies tingling Integumentary/Breasts: Skin/Breast: Reports system reviewed and no additional complaints, except as docu and Denies rash Neurologic: Reports system reviewed and no additional complaints, except as documented, Denies dizziness, Reports headache(s), Denies numbness, Denies tingling and Denies weakness PMF Past Medical History Attestation statement: The following information was validated with the patient. Source: old records reviewed and nursing notes reviewed Medical History Abnormality of left breast on screening mammography Anemia Arthritis Asthma Breast cancer Cancer Diabetes Elevated cholesterol GERD (gastroesophageal reflux disease) History of breast cancer History of headache HTN (hypertension) Hyperparathyroidism Increased BMI Invasive ductal carcinoma of left breast Invasive ductal carcinoma of left breast Multinodular thyroid On beta ananya at home Osteopenia Primary hyperparathyroidism Tubulovillous adenoma of colon Vitamin D deficiency Surgical History H/O colonoscopy H/O left breast biopsy History of exploratory laparotomy History of lumpectomy of left breast History of mammogram History of tubal ligation Hx of cholecystectomy Hx of tonsillectomy S/P colon resection Status post total hip replacement, left Family History Family History Father No problems noted. Mother No problems noted. Social History Social History Household Members: Spouse Housing: House Are you a primary health care assistant to a significant other at home: No Do you presently have visiting nurse or other home services: No Alcohol intake: current Alcohol intake frequency: does not drink Patient Tobacco Use Status: Never used Tobacco Second Hand Smoke Exposure: No Advance Directives: Yes Advance Directives on File: Yes Advance Directives Date on File: 08/11/02 service: No Current occupational status: unemployed Physical Exam ED Vital Signs: Vital Signs - 24 hr 10/05/21 09:04 Temperature 97.4 F Pulse Rate 68 Respiratory Rate 13 Blood Pressure 156/58 H Pulse Oximetry 96 Oxygen Delivery Method Room Air BMI result Body Mass Index 32.4 Const General: cooperative, healthy appearing, comfortable and no acute distress Orientation/consciousness: patient oriented x3 Limitations: language barrier HENMT Head: Yes normal to inspection Ears: hearing grossly normal bilaterally and TM's normal bilaterally General nose exam: Normal external nose present Face and sinus: Yes normal facial exam Mouth: Normal oral and palatal mucosa present Throat: Yes posterior oropharynx normal, Yes tonsils normal and Yes uvula midline Eyes General: appearance normal, both eyes and all related structures Pupils: Equal, round and reactive pupils present Neck Neck: Yes normal visual inspection, Yes full ROM, Yes no lymphadenopathy and Yes no meningeal signs Chest Chest palpation & inspection: normal inspection of the chest Resp Effort & Inspection: normal respiratory effort Auscultation: clear to auscultation bilaterally Cardio Rate: regular rate Rhythm: regular rhythm Peripheral pulses: Peripheral pulses 2+ throughout GI Inspection: Yes normal to inspection Palpation (GI): Soft to palpation and nontender Back/Spine/Pelvis Thoracic/Lumbar Spine: thoracic and lumbar spine normal to inspection Skin General skin exam: no rashes or lesions noted Neuro General: patient oriented x3, moves all extremities and no meningeal signs Cranial nerves: Yes Equal, round and reactive pupils present Cognition (Neuro): normal cognition Gait exam (Neuro): Normal gait present Extrem General: Yes normal to inspection, Yes no pedal edema and Yes no calf tenderness Course Course Course Narrative: Testing for flu, COVID and strep are negative. Likely viral URI. Patient reports increasing asthma symptoms of the last few days. Will treat with some prednisone. Recommend continue albuterol MDI and Tylenol as needed. Reviewed worrisome signs and symptoms of when to return to the emergency department. Comfortable discharge home. Medical Decision Making MDM Narrative Medical decision making narrative: 68-year-old female here with 5 days of sore throat, cough with wheezing and headache. Overall exam is normal. Vitals are stable. Will send testing for flu, COVID and strep Medical Records Medical records reviewed: Yes I reviewed the patient's medical records. Lab Data Lab results reviewed: Yes I reviewed the patient's lab results. Labs: Lab Results 10/05/21 10/05/21 10/05/21 Range/Units 09:24 09:24 09:37 COVID-19 (BECKY) Negative (Negative) COVID-19 Clin Com See Note Influenza Type A (RADHA) Negative (Negative) Influenza Type B (RADHA) Negative (Negative) Influenza A & B Note See Note S. pyogenes GrpA RADHA Negative (Negative) Discharge Plan Discharge Clinical Impression: Viral URI with cough Patient Disposition: Home, Self-Care Instructions: Upper Respiratory Infection (ED) Additional Instructions: Testing for flu, COVID and strep are negative Take Tylenol for pain or fever Increase fluids, rest Continue your albuterol Prescriptions: New albuterol sulfate 90 mcg/actuation aerosol powdr breath activated 2 inh inhalation Q4H PRN (Reason: shortness of breath or wheezing) Qty: 1 0RF prednisone 20 mg tablet 20 mg PO DAILY Qty: 5 0RF No Action tamoxifen 20 mg Tablet 20 mg PO DAILY Qty: 90 4RF lisinopril 40 mg Tablet 40 mg PO DAILY metformin 500 mg Tablet 500 mg PO BID metoprolol succinate 50 mg Tablet Extended Release 24 Hr 50 mg PO DAILY acetaminophen 325 mg Tablet 650 mg PO Q6H PRN (Reason: Pain, Mild (Pain Scale 1-3)) 30 Days Qty: 240 0RF atorvastatin 20 mg Tablet 20 mg PO DAILY aspirin [Aspir-Low] 81 mg Tablet,Delayed Release (Dr/Ec) 81 mg PO DAILY ketotifen fumarate [Alaway] 0.025 % (0.035 %) drops 1 drp ophthalmic (eye) BID PRN (Reason: Dry Eyes) tamoxifen 20 mg Tablet 20 mg PO DAILY Qty: 90 4RF (DME) walker Misc See Rx Instructions .ROUTE .MEDSUPPLY Qty: 1 0RF Rx Instructions: Folding Front wheeled walker (DME) FreeStyle Lite Strips Strip See Rx Instructions Not Applicable ONCE Qty: 10 Rx Instructions: As directed (DME) lancets 28 gauge misc See Rx Instructions .ROUTE BID Qty: 100 Rx Instructions: As directed fluticasone propionate 50 mcg/actuation spray,suspension 1 spray intranasal DAILY Rx Instructions: administer into each nostril cyclobenzaprine 5 mg tablet 5 mg PO TID PRN (Reason: Muscle Pain) montelukast [Singulair] 10 mg tablet 10 mg PO DAILY albuterol sulfate [ProAir HFA] 90 mcg/actuation HFA aerosol inhaler 2 puff inhalation Q6H PRN (Reason: Shortness Of Breath) cetirizine 10 mg tablet 5 mg PO DAILY PRN (Reason: Allergic Symptoms) rosuvastatin 10 mg tablet 10 mg PO BEDTIME gabapentin 300 mg capsule 300 mg PO BEDTIME cholecalciferol (vitamin D3) 50 mcg (2,000 unit) capsule 50 mcg PO DAILY 30 Days Qty: 30 11RF calcium citrate-vitamin D3 [Citracal Regular] 250 mg-5 mcg (200 unit) tablet 2 tab PO BID 30 Days Qty: 120 11RF Referrals: [place],[facility] [Primary Care Provider] - Interventions: ED Discharge Assessment Last Done: 10/05/21 10:52 Discharge Date/Time: 10/05/21 10:52 Print Language: Greek
[2021-10-05 10:05] LABS: IDNOW Serial# 08D9AD1C; Strep A Nucleic Acid Negative (Negative)
[2021-10-05 10:13] LABS: Influenza A Negative (Negative); Influenza B2 Negative (Negative)
[2021-10-05 10:14] LABS: COVID-19 Test Negative (Negative); IDNOW Serial# 16C4AD1C
== END 2021-10-05 10:52 | disposition home or self-care (01) ==
PROVIDERS: Nurse Practitioner Family; Emergency Provider Internal Medicine
DX: J06.9 Acute upper respiratory infection, unspecified (principal); Z20.822 Contact with and (suspected) exposure to COVID-19; R05.9 Cough, unspecified; J02.9 Acute pharyngitis, unspecified
CPT/HCPCS: 87502; 87635; 87651; 99282; 99283

== ENCOUNTER 2021-10-21 09:48 | Outpatient (REF) | payer MEDICARE, MEDICAID, SELFPAY ==
--- NOTE | ~2021-10-21 | US_ITS ---
EXAMINATION: US THYROID CLINICAL INFORMATION: Nontoxic multinodular goiter. COMPARISON: Ultrasound soft tissue head/neck thyroid dated 10/21/2019. TECHNIQUE: Linear transducer grayscale and color Doppler examination with attention to the region of the thyroid. FINDINGS: SIZE: Measurements of the thyroid lobes and nodules are given in sagittal, anteroposterior and transverse dimensions respectively. Right Thyroid Lobe: 4.8 x 1.8 x 1.5 cm, volume 7.1 mL. Previously 4.6 x 1.8 x 1.6 cm, volume 6.8 mL. Parenchyma: The gland echotexture is homogeneous. Thyroid vascularity is normal. Left Thyroid Lobe: 3.4 x 1.7 x 0.89 cm, volume 2.7 mL. Previously 4.3 x 2.0 x 1.2 cm, volume 5.2 mL. Parenchyma: The gland echotexture is homogeneous. Thyroid vascularity is normal. Isthmus: 0.6 cm in maximum AP dimension. Previously 0.64 cm. Estimated total number of nodules greater than or equal to 1 cm: 0. 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 Location: Right interpolar. Size: 0.3 x 0.2 x 0.2 cm, volume 0.007 mL. Previously: 0.17 x 0.13 x 0.22 cm, volume 0.003 mL. Nodule characteristics: Composition: Cystic(0). ACR TI-RADS total points: 0 ACR TI-RADS category: 1 Significant change in size (>/= 20% in 2 dimensions and minimal increase of 2 mm or 50% or greater increase in volume): Yes Change in features: No Change in ACR TI-RADS risk category: No 2. Location: Left upper pole. Size: 0.3 x 0.3 x 0.3 cm, volume 0.01 mL. Previously: Not seen on the previous study. Nodule characteristics: Composition: Cystic(0). ACR TI-RADS total points: 0 ACR TI-RADS category: 1 NODES: No lymphadenopathy is seen in the tissue surrounding the thyroid gland. US/US thyroid IMPRESSION: Small bilateral thyroid nodules are seen, as detailed.. ACR TI-RADS RECOMMENDATION REFERENCE: Ultrasound-guided fine-needle aspiration, followup ultrasound, no further follow up. * TR1 (0 point) and TR 2 (2 points): No FNA or follow up * TR3 (3 points): FNA if more than or equal to 2.5 cm in maximum dimension, followup ultrasound in 1, 3 and 5 years if 1.5 to 2.4 cm in maximum dimension. * TR4 (4-6 points): FNA if more than or equal to 1.5 cm in maximum dimension, followup ultrasound in 1, 2, 3 and 5 years if 1 to 1.4 cm in maximum dimension. * TR5 (more than or equal to 7 points): FNA if more than or equal to 1 cm in maximum dimension, followup ultrasound every year for 5 years if 0.5 to 0.9 cm in maximum dimension. * TR3, TR4 or TR5 nodules that are below the size threshold for follow up receive no follow up.
== END 2021-10-21 09:49 | disposition home or self-care (01) ==
LOC: HO.HMGCX 09:48
PROVIDERS: Visit Provider Internal Medicine
DX: E04.2 Nontoxic multinodular goiter (principal)
CPT/HCPCS: 76536

== ENCOUNTER 2021-12-12 07:13 | Outpatient (REF) | payer MEDICARE, MEDICAID, SELFPAY ==
[2021-12-12 08:25] LABS: Alanine Aminotransferase 14 U/L (0-31); Albumin Level 4.1 g/dL (3.5-5.0); Alkaline Phosphatase 46 U/L (39-117); Anion Gap 16 (12-20); Aspartate Amino Transferase 16 U/L (5-31); Bilirubin Total 0.4 mg/dL (0.0-1.0); Blood Urea Nitrogen 15 mg/dL (9-16); Calcium 8.5 mg/dL (8.4-10.2); Carbon Dioxide 28 mmol/L (22-29); Chloride 103 mmol/L (96-108); Estimated Glomerular Filt Rate 59; Glucose Random 135 mg/dL (60-115); Phosphorus 4.5 mg/dL (2.7-4.5); Potassium 4.7 mmol/L (3.3-5.1); Sodium 142 mmol/L (135-145); Total Protein 6.6 g/dL (6.5-8.0)
[2021-12-12 08:37] LABS: Free T4 (Free Thyroxine) 0.96 ng/dL (0.71-1.85); Thyroid Stimulating Hormone 2.69 uIU/mL (0.32-4.0)
[2021-12-12 08:56] LABS: Vitamin D 25-OH Total 38.8 ng/mL (>30)
[2021-12-14 13:33] LABS: Calcium (PTHI) 8.5 mg/dL (8.6-10.4); PTHI 38 pg/mL (16-77)
== END 2021-12-12 07:14 | disposition home or self-care (01) ==
LOC: HO.LAB 07:13
PROVIDERS: PCP Registered Nurse Community Health; Visit Provider Internal Medicine
DX: E04.2 Nontoxic multinodular goiter (principal); E55.9 Vitamin D deficiency, unspecified; M81.0 Age-related osteoporosis without current pathological fracture
CPT/HCPCS: 36415; 80053; 82306; 83970; 84100; 84439; 84443

== ENCOUNTER 2021-12-14 09:11 | Outpatient (REF) | payer MEDICARE, MEDICAID, SELFPAY ==
[2021-12-14 09:54] LABS: Creatinine, mg/dL 79.18
[2021-12-14 11:51] LABS: Creatinine, 24Hr Urine 0.7 G/Day (1.0-2.0); Total Volume 24 Hour Urine 850 mL
[2021-12-16 17:11] LABS: Calcium, 24 Hr Urine 61 mg/24 h; Calcium/Creatinine Ratio 103 mg/g creat (30-275); Creatinine 24Hr Urine 0.59 g/24 h (0.50-2.15)
== END 2021-12-14 09:12 | disposition home or self-care (01) ==
LOC: HO.LNP 09:11
PROVIDERS: Visit Provider Internal Medicine
DX: M81.0 Age-related osteoporosis without current pathological fracture (principal)
CPT/HCPCS: 82340; 82570

== ENCOUNTER → 2021-12-27 14:50 | Outpatient (BNVA) | payer MEDICARE, MEDICAID, SELFPAY | PROVIDERS: PCP Registered Nurse Community Health; Visit Provider Internal Medicine | DX: M81.0 Age-related osteoporosis without current pathological fracture (principal); E21.0 Primary hyperparathyroidism; E04.2 Nontoxic multinodular goiter; E55.9 Vitamin D deficiency, unspecified | CPT/HCPCS: 99212 ==

== ENCOUNTER 2022-02-08 10:52 | Outpatient (REF) | payer MEDICARE, MEDICAID, SELFPAY ==
[2022-02-08 11:28] LABS: MANUAL DIFF FLAG NO
[2022-02-08 12:22] LABS: Basophils Absolute Auto 0.1 X10*3/uL (0.0-0.2); Basophils Percent Auto 0.8 % (0-2); Eosinophils Absolute Auto 0.2 X10*3/uL (0.0-0.4); Eosinophils Percent Auto 3.3 % (0-4); Hematocrit 38.5 % (37.0-47.0); Hemoglobin 12.4 g/dl (12.0-16.0); Imm Gran Abs Auto 0.04 X10*3/uL (0.00-0.03); Imm Gran Pct Auto 0.5 % (0.0-0.4); Lymphocytes Absolute Auto 1.7 X10*3/uL (1.2-4.9); Lymphocytes Percent Auto 23.6 % (20-40); Mean Corpuscular HGB Conc 32.2 g/dl (31.0-35.0); Mean Corpuscular Hemoglobin 28.9 pg (27.0-33.0); Mean Corpuscular Volume 89.7 fL (80.0-98.0); Mean Platelet Volume 10.8 fL (9.4-12.3); Monocytes Absolute Auto 0.4 X10*3/uL (0.1-1.2); Neutrophils Absolute Auto 4.9 x10*3/uL (2.0-8.3); Neutrophils Percent Auto 65.8 % (45-73); Platelet Count 306 X10*3/uL (160-400); Red Blood Count 4.29 X10*6/uL (4.20-5.50); Red Cell Distribution Width 12.8 % (11.0-16.0); White Blood Count 7.4 X10*3/uL (4.8-10.8)
[2022-02-08 13:01] LABS: Alanine Aminotransferase 12 U/L (0-31); Albumin Level 4.1 g/dL (3.5-5.0); Alkaline Phosphatase 48 U/L (39-117); Anion Gap 18 (12-20); Aspartate Amino Transferase 16 U/L (5-31); Bilirubin Total 0.2 mg/dL (0.0-1.0); Blood Urea Nitrogen 16 mg/dL (9-16); Calcium 8.7 mg/dL (8.4-10.2); Carbon Dioxide 23 mmol/L (22-29); Chloride 101 mmol/L (96-108); Estimated Glomerular Filt Rate > 60; Glucose Random 121 mg/dL (60-115); Phosphorus 3.6 mg/dL (2.7-4.5); Potassium 4.5 mmol/L (3.3-5.1); Sodium 137 mmol/L (135-145); Total Protein 6.8 g/dL (6.5-8.0)
[2022-02-08 13:14] LABS: Free T4 (Free Thyroxine) 0.94 ng/dL (0.71-1.85); Thyroid Stimulating Hormone 1.53 uIU/mL (0.32-4.0)
[2022-02-08 14:21] LABS: Vitamin D 25-OH Total 44.1 ng/mL (>30)
[2022-02-09 11:12] LABS: Calcium (PTHI) 8.8 mg/dL (8.6-10.4); PTHI 24 pg/mL (16-77)
[2022-02-10 10:15] LABS: CA 27.29 19 U/mL (<38)
== END 2022-02-08 10:53 | disposition home or self-care (01) ==
LOC: HO.LAB 10:52
PROVIDERS: Internal Medicine Medical Oncology; PCP Registered Nurse Community Health; Visit Provider Internal Medicine
DX: M81.0 Age-related osteoporosis without current pathological fracture (principal); E55.9 Vitamin D deficiency, unspecified; E04.2 Nontoxic multinodular goiter; C50.912 Malignant neoplasm of unspecified site of left female breast
CPT/HCPCS: 36415; 80053; 82306; 83970; 84100; 84439; 84443; 85025; 86300

== ENCOUNTER 2022-02-10 11:49 | Outpatient (REF) | payer MEDICARE, MEDICAID, SELFPAY ==
[2022-02-10 12:59] LABS: Creatinine, mg/dL 49.62
[2022-02-10 14:02] LABS: Creatinine, 24Hr Urine 0.7 G/Day (1.0-2.0); Total Volume 24 Hour Urine 1400 mL
[2022-02-13 20:46] LABS: Calcium, 24 Hr Urine 150 mg/24 h; Calcium/Creatinine Ratio 202 mg/g creat (30-275); Creatinine 24Hr Urine 0.74 g/24 h (0.50-2.15)
== END 2022-02-10 11:50 | disposition home or self-care (01) ==
LOC: HO.LNP 11:49
PROVIDERS: Visit Provider Internal Medicine
DX: M81.0 Age-related osteoporosis without current pathological fracture (principal)
CPT/HCPCS: 82340; 82570

== ENCOUNTER → 2022-02-27 09:02 | Outpatient (BNVA) | payer MEDICARE, MEDICAID, SELFPAY | PROVIDERS: PCP Registered Nurse Community Health; Visit Provider Internal Medicine | DX: M81.0 Age-related osteoporosis without current pathological fracture (principal); E21.0 Primary hyperparathyroidism; E04.2 Nontoxic multinodular goiter; E55.9 Vitamin D deficiency, unspecified | CPT/HCPCS: 99212 ==

== ENCOUNTER → 2022-03-08 08:57 | Outpatient (BNVA) | payer MEDICARE, MEDICAID, SELFPAY | PROVIDERS: PCP Registered Nurse Community Health; Visit Provider Surgery | DX: Z85.3 Personal history of malignant neoplasm of breast (principal); R22.2 Localized swelling, mass and lump, trunk | CPT/HCPCS: 99212 ==

== ENCOUNTER 2022-03-15 08:49 | Outpatient (REF) | payer MEDICARE, MEDICAID, SELFPAY ==
--- NOTE | ~2022-03-15 | CT_ITS ---
EXAMINATION: CT ABDOMEN AND PELVIS WITHOUT CONTRAST CLINICAL INFORMATION: Intra-abdominal and pelvic swelling, mass and lump, unspecified COMPARISON: Previous CT scans of the abdomen and pelvis, most recent March 2015 TECHNIQUE: Multidetector volumetric imaging was performed from the superior aspect of the liver through the pubic symphysis. Sagittal and coronal reformatted images were obtained on the technologist's workstation. This CT examination was performed using dose optimization techniques as appropriate, variously including the following: *Automated exposure control *Adjustment of mA and/or kV according to patient size (this includes techniques or standardized protocols for targeted exams where dose is matched to indication/reason for exam; i.e. extremities or head) *Use of iterative reconstruction technique DLP: 1010 mGy-cm FINDINGS: Limited exam due to motion artifact. LUNG BASES: There is a 4 mm right middle lobe nodule axial image 1. This is similar to previous exam January 2015. The lung bases are otherwise clear. LIVER, GALLBLADDER, AND BILIARY TREE: The liver is normal in size, shape, and attenuation. No focal hepatic lesion or biliary ductal dilatation is present. The gallbladder has been removed. PANCREAS: Unremarkable. SPLEEN: Unremarkable. ADRENAL GLANDS: Unremarkable. KIDNEYS AND URETERS: 3 mm stone in the lower pole of the left kidney. Kidneys are otherwise normal. BLADDER: Not optimally distended. GASTROINTESTINAL TRACT: Diverticulosis of the colon. No evidence of diverticulitis. Postsurgical change to the right colon/cecum. Small and large bowel is otherwise normal. The appendix is not seen. There may be a small esophageal hernia. ABDOMINAL WALL: Limited evaluation due to motion artifact. There is a upper midline ventral hernia containing fat. There is a right paraumbilical hernia containing fat. LYMPH NODES: Normal. VASCULAR: Unremarkable. PELVIC VISCERA: Unremarkable. OSSEOUS STRUCTURES: Degenerative changes of the spine and right hip.. Left hip replacement. CT/CT abdomen pelvis wo IV con IMPRESSION: Midline ventral hernia containing fat right paraumbilical hernia containing fat. Diverticulosis. Postsurgical changes to the cecum/right colon. Small left renal stone. Fleischner guidelines were followed.
== END 2022-03-15 08:50 | disposition home or self-care (01) ==
LOC: HO.CT 08:49
PROVIDERS: PCP Registered Nurse Community Health; Visit Provider Surgery
DX: R19.00 Intra-abdominal and pelvic swelling, mass and lump, unspecified site (principal)
CPT/HCPCS: 74176

== ENCOUNTER → 2022-03-23 09:18 | Outpatient (BNVA) | payer MEDICARE, MEDICAID, SELFPAY | PROVIDERS: PCP Registered Nurse Community Health; Visit Provider Surgery | DX: K43.2 Incisional hernia without obstruction or gangrene (principal) | CPT/HCPCS: 99212 ==

== ENCOUNTER → 2022-06-08 08:42 | Outpatient (BNVA) | payer MEDICARE, MEDICAID, SELFPAY | PROVIDERS: PCP Internal Medicine; Visit Provider Surgery | DX: K43.2 Incisional hernia without obstruction or gangrene (principal) | CPT/HCPCS: 99212 ==

== ENCOUNTER 2022-06-15 08:43 | Outpatient (REF) | payer MEDICARE, MEDICAID, SELFPAY ==
--- NOTE | ~2022-06-15 | US_ITS ---
EXAMINATION: US THYROID CLINICAL INFORMATION: Nontoxic multinodular goiter. Three parathyroid adenomas removed. COMPARISON: Ultrasound thyroid 10/21/2021 and 10/21/2019. TECHNIQUE: Linear transducer grayscale and color Doppler examination with attention to the region of the thyroid. FINDINGS: SIZE: Measurements of the thyroid lobes and nodules are given in sagittal, anteroposterior and transverse dimensions respectively. Right Thyroid Lobe: 4.2 x 1.6 x 1.6 cm, volume 5.6 mL. Previously 4.8 x 1.8 x 1.5 cm, volume 6.8 mL. Parenchyma: The gland echotexture is heterogeneous. Thyroid vascularity is normal. Left Thyroid Lobe: 4.2 x 1.9 x 1.2 cm, volume 5.0 mL. Previously 3.4 x 1.7 x 0.9 cm, volume 2.7 mL. Parenchyma: The gland echotexture is heterogeneous. Thyroid vascularity is normal. Isthmus: 0.6 cm in maximum AP dimension. Previously 0.6 cm. No focal thyroid nodule is seen. NODES: No lymphadenopathy is seen in the tissue surrounding the thyroid gland. US/US thyroid IMPRESSION: Slightly heterogeneous but normal size thyroid lobes. No nodules visualized. ACR TI-RADS RECOMMENDATION REFERENCE: Ultrasound-guided fine-needle aspiration, followup ultrasound, no further follow up. * TR1 (0 point) and TR2 (2 points): No FNA or follow up. * TR3 (3 points): FNA if more than or equal to 2.5 cm in maximum dimension, followup ultrasound in 1, 3 and 5 years if 1.5 to 2.4 cm in maximum dimension. * TR4 (4-6 points): FNA if more than or equal to 1.5 cm in maximum dimension, followup ultrasound in 1, 2, 3 and 5 years if 1 to 1.4 cm in maximum dimension. * TR5 (more than or equal to 7 points): FNA if more than or equal to 1 cm in maximum dimension, followup ultrasound every year for 5 years if 0.5 to 0.9 cm in maximum dimension. * TR3, TR4 or TR5 nodules that are below the size threshold for followup receive no follow up.
--- NOTE | 2022-06-15 09:04 | ECG_ITS ---
Test Reason : preop Blood Pressure : / mmHG Vent. Rate : 074 BPM Atrial Rate : 000 BPM P-R Int : 000 ms QRS Dur : 080 ms QT Int : 394 ms P-R-T Axes : 000 009 044 degrees QTc Int : 437 ms Normal sinus rhythm Nonspecific T wave abnormality Abnormal ECG When compared with ECG of 03-DEC-2019 08:56, QT has lengthened Referred By: Sully Knox Electronically Signed By:Logan Mustafa
[2022-06-15 09:34] LABS: Hematocrit 39.5 % (37.0-47.0); Hemoglobin 12.7 g/dl (12.0-16.0); Mean Corpuscular HGB Conc 32.2 g/dl (31.0-35.0); Mean Corpuscular Hemoglobin 28.9 pg (27.0-33.0); Mean Platelet Volume 10.8 fL (9.4-12.3); Platelet Count 258 X10*3/uL (160-400); Red Blood Count 4.39 X10*6/uL (4.20-5.50); Red Cell Distribution Width 12.5 % (11.0-16.0); White Blood Count 7.9 X10*3/uL (4.8-10.8)
[2022-06-15 09:42] LABS: Prothrombin Time 11.4 SEC (10.0-13.1)
[2022-06-15 10:20] LABS: Anion Gap 16 (12-20); Blood Urea Nitrogen 16 mg/dL (9-16); Calcium 8.9 mg/dL (8.4-10.2); Carbon Dioxide 27 mmol/L (22-29); Chloride 101 mmol/L (96-108); Estimated Glomerular Filt Rate 56; Glucose Random 210 mg/dL (60-115); Potassium 4.1 mmol/L (3.3-5.1); Sodium 140 mmol/L (135-145)
[2022-06-15 10:38] LABS: TSH reflex Free T4 2.95 uIU/mL (0.32-4.0)
== END 2022-06-15 08:44 | disposition home or self-care (01) ==
LOC: HO.US 08:43
PROVIDERS: Absent Provider Nurse Practitioner Family; PCP Internal Medicine; Visit Provider Internal Medicine
DX: Z01.818 Encounter for other preprocedural examination (principal); E04.2 Nontoxic multinodular goiter; E78.5 Hyperlipidemia, unspecified; I10 Essential (primary) hypertension; E11.9 Type 2 diabetes mellitus without complications
CPT/HCPCS: 36415; 76536; 80048; 84443; 85027; 85610; 93005

== ENCOUNTER 2022-06-19 07:11 | Day surgery (SDC) | payer MEDICARE, MEDICAID, SELFPAY ==
[2022-06-15 09:48] VITALS: BMI 31.6
[2022-06-15 10:01] VITALS: BMI 31.6
--- NOTE | 2022-06-16 08:17 | MHC.SHP ---
Pre-Procedural Eval Section A Date of Service: 06/16/22 The patient is an INPATIENT: No Changes since office visit: No Cold of Flu in the past 2 weeks, No New Medical Problems, No Changes in Medication and No Patient answered all questions The History & Physical has been completed within 30 days and I have reviewed it.: Yes Section B Chief Complaint: Age-related nuclear cataract, left eye Allergies: Allergies Allergy/AdvReac Type Severity Reaction Status Date / Time ibuprofen [Ibuprofen] Allergy Mild SWELLING Verified 06/14/22 12:03 celecoxib [CELECOXIB] Allergy Unknown DROPS Verified 06/14/22 12:03 SUGAR LEVEL Plan Diagnosis/Plan: Unchanged I have reviewed the history and physical and performed a pertinent physical examination on my patient. No changes have occurred unless specified. Time Spent With Patient Time: Total time managing care of this patient today ____ minutes.
--- NOTE | 2022-06-16 09:43 | HO.ANESPROP2 ---
Documented by User: Genoveva Yarbrough NP 06/16/22 09:43 HPI - Anesthesia Eval Consult details Narrative: 76yo F for Left Cataract Extraction IOL Insertion PCP cleared No previous cataract on record PMF Active Problems Active Problems: All Active Problems (Updated 06/14/22 @ 12:32 by MARGAUX Art) Obesity (BMI 30.0-34.9) (Acute) Cataract (Acute) Preoperative clearance (Acute) Hyperlipidemia LDL goal <70 (Acute) HTN (hypertension) (Acute) Diabetes (Acute) Incisional hernia (Acute) Abdominal wall mass (Acute) Osteoporosis (Acute) History of breast cancer (Acute) Invasive ductal carcinoma of left breast (Acute) Increased BMI (Acute) Osteoarthritis of left hip (Acute) Status post total hip replacement, left (Acute) Colon cancer (Acute) Invasive ductal carcinoma of left breast (Acute) Abnormality of left breast on screening mammography (Acute) Multinodular thyroid (Acute) Osteopenia (Acute) Vitamin D deficiency (Acute) Primary hyperparathyroidism (Acute) Tubulovillous adenoma of colon (Acute) Past Medical History Medical History Abdominal wall mass Abnormality of left breast on screening mammography Anemia Arthritis Asthma Breast cancer Cancer Diabetes Elevated cholesterol GERD (gastroesophageal reflux disease) History of breast cancer History of headache HTN (hypertension) Hyperparathyroidism Incisional hernia Increased BMI Invasive ductal carcinoma of left breast Invasive ductal carcinoma of left breast Multinodular thyroid On beta ananya at home Osteopenia Primary hyperparathyroidism Tubulovillous adenoma of colon Vitamin D deficiency Family History Family History Father No problems noted. Mother No problems noted. Other No family history of cancer Family history of problems with anesthesia: No Surgical History Surgical History H/O colonoscopy H/O left breast biopsy History of exploratory laparotomy History of lumpectomy of left breast History of mammogram History of thyroid surgery History of tubal ligation Hx of cholecystectomy Hx of tonsillectomy S/P colon resection Status post total hip replacement, left History of Problems with Anesthesia: No Social History Social History Household Members: Spouse Housing: House Are you a primary patient care technician instructor to a significant other at home: No Do you presently have visiting nurse or other home services: No Alcohol intake: never Patient Tobacco Use Status: Never used Tobacco e-Cigarette/Vaping Use: Never Used Second Hand Smoke Exposure: No Are you DNR?: No Advance Directives: Yes Advance Directives Information Provided: No Advance Directives on File: Yes Advance Directives Date on File: 08/11/02 Nutrition Risks: Surgical patient >75years service: No Current occupational status: unemployed Cognitive needs: No Hearing needs: No Vision needs: Yes Meds Allergies Allergy/AdvReac Type Severity Reaction Status Date / Time ibuprofen [Ibuprofen] Allergy Mild SWELLING Verified 06/14/22 12:03 celecoxib [CELECOXIB] Allergy Unknown DROPS Verified 06/14/22 12:03 [place] Home Medications Medication Instructions Recorded Confirmed Last Taken Type lisinopril 40 mg tablet 40 mg PO DAILY 12/23/19 06/15/22 01/05/20 History 08 metformin 500 mg tablet 500 mg PO BID 12/23/19 06/15/22 01/05/20 History 0800 cetirizine 10 mg tablet 5 mg PO DAILY PRN Allergic Symptoms 12/29/19 06/15/22 01/05/20 History 0800 montelukast 10 mg tablet 10 mg PO DAILY 12/29/19 06/15/22 [facility] metoprolol succinate 50 mg 50 mg PO DAILY 01/06/20 06/15/22 Unknown History tablet,extended release 24 hr blood sugar diagnostic #10 ea 03/17/20 06/14/22 Unknown History lancets 28 gauge #100 ea 03/17/20 06/14/22 Unknown History ketotifen fumarate 0.025 % (0.035 1 drp ophthalmic (eye) BID PRN Dry 09/22/20 06/15/22 Unknown History %) eye drops ([place]) Eyes rosuvastatin 10 mg tablet 10 mg PO BEDTIME 09/26/21 06/15/22 Unknown History famotidine 20 mg tablet 20 mg PO BID 05/02/22 06/15/22 Unknown History flunisolide 25 mcg (0.025 %) nasal 2 spray intranasal BID PRN Allergy 05/02/22 06/15/22 Unknown History spray Symptoms rizatriptan 10 mg tablet See Rx Instructions PO .COMPLEX 05/02/22 06/15/22 Unknown History Exam Exam Date and Time: June 16, 2022 0943 Height,Weight and Vital Signs: Height 5 ft 4 in Weight 83.461 kg Assessment and Plan Assessment Anesthesia Assessment: Chart Reviewed Final Anesthetic Review Family History of Problems with Anesthesia: No History of Problems with Anesthesia: No Documented by User: Jassi Wagner MD 06/19/22 14:11 [facility] Past Medical History Medical History Abdominal wall mass Abnormality of left breast on screening mammography Anemia Arthritis Asthma Breast cancer Cancer Diabetes Elevated cholesterol GERD (gastroesophageal reflux disease) History of breast cancer History of headache HTN (hypertension) Hyperparathyroidism Incisional hernia Increased BMI Invasive ductal carcinoma of left breast Invasive ductal carcinoma of left breast Multinodular thyroid On beta ananya at home Osteopenia Primary hyperparathyroidism Tubulovillous adenoma of colon Vitamin D deficiency Functional capacity: independent ambulation Family History Family History Father No problems noted. Mother No problems noted. Other No family history of cancer Surgical History Surgical History H/O colonoscopy H/O left breast biopsy History of exploratory laparotomy History of lumpectomy of left breast History of mammogram History of thyroid surgery History of tubal ligation Hx of cholecystectomy Hx of tonsillectomy S/P colon resection Status post total hip replacement, left Social History Social History Household Members: Spouse Housing: House Are you a primary patient care technician instructor to a significant other at home: No Do you presently have visiting nurse or other home services: No Alcohol intake: never Patient Tobacco Use Status: Never used Tobacco e-Cigarette/Vaping Use: Never Used Second Hand Smoke Exposure: No Are you DNR?: No Advance Directives: Yes Advance Directives Information Provided: No Advance Directives on File: Yes Advance Directives Date on File: 08/11/02 Nutrition Risks: Surgical patient >75years service: No Current occupational status: unemployed Cognitive needs: No Hearing needs: No Vision needs: Yes Meds Allergies Allergy/AdvReac Type Severity Reaction Status Date / Time ibuprofen [Ibuprofen] Allergy Mild SWELLING Verified 06/14/22 12:03 celecoxib [CELECOXIB] Allergy Unknown DROPS Verified 06/14/22 12:03 [place]EVEL Home Medications Medication Instructions Recorded Confirmed Last Taken Type lisinopril 40 mg tablet 40 mg PO DAILY 12/23/19 06/15/22 01/05/20 History 08 metformin 500 mg tablet 500 mg PO BID 12/23/19 06/15/22 01/05/20 History 08 cetirizine 10 mg tablet 5 mg PO DAILY PRN Allergic Symptoms 12/29/19 06/15/22 01/05/20 History 08 montelukast 10 mg tablet 10 mg PO DAILY 12/29/19 06/15/22 Unknown History (Singulair) metoprolol succinate 50 mg 50 mg PO DAILY 01/06/20 06/15/22 Unknown History tablet,extended release 24 hr blood sugar diagnostic #10 ea 03/17/20 06/14/22 Unknown History lancets 28 gauge #100 ea 03/17/20 06/14/22 Unknown History ketotifen fumarate 0.025 % (0.035 1 drp ophthalmic (eye) BID PRN Dry 09/22/20 06/15/22 Unknown History %) eye drops ([place]) Eyes rosuvastatin 10 mg tablet 10 mg PO BEDTIME 09/26/21 06/15/22 Unknown History famotidine 20 mg tablet 20 mg PO BID 05/02/22 06/15/22 Unknown History flunisolide 25 mcg (0.025 %) nasal 2 spray intranasal BID PRN Allergy 05/02/22 06/15/22 Unknown History spray Symptoms rizatriptan 10 mg tablet See Rx Instructions PO .COMPLEX 05/02/22 06/15/22 Unknown History Exam Airway Mallampati Class: IV TM Dist: >3cm Denture: Upper and Lower Loose/Missing/Broken Teeth: Yes Heart: S1,S2 Lungs: b/l breath sounds Assessment and Plan Assessment Anesthesia Assessment: Anesthesia Plan Discussed Final Anesthetic Review NPO: Yes ASA Class: III Final Preanesthetic Review: Meds/Allgs Chart Reviewed, Consent Obtained/Reviewed and Anes Risks/Benef Reviewed Patient Risk: Intermediate Procedure Risk: Intermediate Anesthetic Plan Anesthetic Plan: MAC: Disposition: Standard PACU
[2022-06-19 07:35] VITALS: BP 184/79; PULSE 76; RESP 20; TEMP 37.1; O2SAT 97
[2022-06-19 07:46] LABS: Glucose, Whole Blood 149 mg/dL (60-115)
[2022-06-19 07:55] VITALS: BP 162/73
[2022-06-19] MEDS: Lactated Ringers 500 ML 50 ML IV (07:55)
[2022-06-19] MEDS: Tetracaine HCl/PF 0.5% Oph Sol 4 ML DROPS 1 DROP EYE-LEFT (07:55)
[2022-06-19] MEDS: Tropicamide 1 % Ophth Sol 3 ML BTL 1 DROP EYE-LEFT ×3 (07:55→07:57)
[2022-06-19] MEDS: Cyclopentolate 1 % Ophth Sol 2 ML DRPBTL 1 DROP EYE-LEFT ×3 (07:55→07:57)
[2022-06-19] MEDS: Ketorolac Tromethamine 0.5% Op 5 ML DROPS 1 DROP EYE-LEFT ×3 (07:56→07:57)
[2022-06-19] MEDS: Phenylephrine HCL 2.5% Oph SoL 2 ML BOTTLE 1 DROP EYE-LEFT ×3 (07:56→07:57)
--- NOTE | 2022-06-19 08:44 | HO.PNOPHT ---
Ophthalmology Procedure Procedure Date of Service: 06/19/22 Ophthalmology Viscoelastic: [place] Duet Dual Pack Pro Ophthalmology Lenses: TECVIRA [id number] (23) Procedure Notes: PREOPERATIVE DIAGNOSIS: Decreased visual acuity left eye secondary to cataract POSTOPERATIVE DIAGNOSIS: Same PROCEDURE: Left cataract extraction with intraocular lens insertion SURGEON: Don Shafer M.D. ANESTHESIA: Topical/MAC ESTIMATED BLOOD LOSS: None COMPLICATIONS: None After obtaining informed consent, the patient was brought to the operation room suite and placed in the supine position. After adequate sedation per anesthesia, topical drops of Tetracaine were given to the left eye. The eye was then prepped and draped in the usual sterile fashion. The operating room microscope was then positioned over the operative eye and a lid speculum placed. A paracentesis was created. Viscoelastic was then instilled into the anterior chamber. A three plane incision was then created temporally, utilizing a 2.85 mm keratome. Capsulotomy forceps were then utilized to create a circular tear capsulotomy. Hydrodissection and hydrodelineation were carried out until adequate mobilization of the nucleus occurred. Phacoemulsification was then utilized to remove the dense central nucleus followed by removal of the cortical material utilizing the automated aspiration irrigation unit. Viscoat elastic was instilled into the posterior capsular bag followed by placement of a posterior chamber intraocular lens without difficulty. The residual Viscoat elastic was then removed utilizing the automated IA machine. The wound was check and found to be watertight. The patient tolerated the procedure well and the lid speculum was removed. Intracameral injection of Vigamox 0.1 mL followed by a subtenon injection of Kenalog-40 0.2 mL were administered. The patient will be seen in the a.m.
[2022-06-19 09:07] VITALS: BP 165/76; PULSE 69; RESP 16; TEMP 36.6; O2SAT 96
== END 2022-06-19 09:23 | disposition home or self-care (01) ==
PROVIDERS: PCP Internal Medicine; Visit Provider Ophthalmology
PROC: (CPT 66985; principal; 2022-06-19 08:50)
DX: H25.12 Age-related nuclear cataract, left eye (principal); H52.4 Presbyopia; H34.8111 Central retinal vein occlusion, right eye, with retinal neovascularization; D31.32 Benign neoplasm of left choroid; I10 Essential (primary) hypertension; E78.00 Pure hypercholesterolemia, unspecified; J45.909 Unspecified asthma, uncomplicated; C50.912 Malignant neoplasm of unspecified site of left female breast; E55.9 Vitamin D deficiency, unspecified; E11.9 Type 2 diabetes mellitus without complications; Z79.84 Long term (current) use of oral hypoglycemic drugs; Z79.810 Long term (current) use of selective estrogen receptor modulators (SERMs); Z79.899 Other long term (current) drug therapy; Z88.1 Allergy status to other antibiotic agents; Z88.8 Allergy status to other drugs, medicaments and biological substances
CPT/HCPCS: 66984; 82947; J3010; J3301; V2632

== ENCOUNTER 2022-08-01 11:27 | Outpatient (REF) | payer MEDICARE, MEDICAID, SELFPAY ==
[2022-08-01 12:54] LABS: Appearance Urine Clear; Color Urine Yellow; Glucose Urine UA Negative (Negative); Leukocyte Esterase Urine Large (3+) (Negative); Nitrite Urine Negative (Negative); UMIC TRIGGER UACC YES; Urine Blood Trace (Negative); Urine Ketones Negative (Negative); Urine Protein Negative (Neg-Trace)
[2022-08-01 12:59] LABS: Bacteria Urine None Seen (None Seen); Hyaline Casts Urine 0-2 /LPF (0-2); RBC Urine 0-2 /HPF (0-2); UACC Culture Trigger YES; WBC Urine >50 /HPF (0-5)
== END 2022-08-01 11:28 | disposition home or self-care (01) ==
LOC: HO.LAB 11:27
PROVIDERS: PCP Internal Medicine; Visit Provider Internal Medicine
DX: R30.0 Dysuria (principal)
CPT/HCPCS: 81001; 87086

== ENCOUNTER 2022-08-02 15:51 | Outpatient (REF) | payer MEDICARE, MEDICAID, SELFPAY ==
--- NOTE | ~2022-08-02 | XR_ITS ---
EXAMINATION: XR LUMBOSACRAL SPINE CLINICAL INFORMATION: Low back pain COMPARISON: None available. TECHNIQUE: Three views of the lumbosacral spine. FINDINGS: Bone alignment is normal. No fracture or dislocation. Degenerative spondylosis at L1-L2, L2-L3 and L3-L4. Disc space narrowing at L5 S1. Lower lumbar spine facet arthritis. Left hip replacement. Joint space narrowing in the visualized right hip joint. XR/XR lumbar spine 2-3V IMPRESSION: Degenerative changes.
--- NOTE | ~2022-08-02 | XR_ITS ---
EXAMINATION: XR PELVIS CLINICAL INFORMATION: Low back pain COMPARISON: Previous pelvic x-ray January 2020 TECHNIQUE: AP view of the pelvis. FINDINGS: There is a left hip replacement in satisfactory position. The inferior femoral stem is not completely imaged. No fracture or dislocation is seen. There is arthritis of the right hip joint with joint space narrowing and subchondral cyst formation. Bones of the pelvis are normal. Sacroiliac joints are normal. Postsurgical changes to the bowel the right lower quadrant. XR/XR pelvis 1-2V IMPRESSION: Satisfactory appearance of left hip replacement. Inferior portion of left femoral component is not imaged. Right hip arthritis.
== END 2022-08-02 15:52 | disposition home or self-care (01) ==
LOC: HO.LAB 15:51
PROVIDERS: Absent Provider Physician Assistant; PCP Internal Medicine; Visit Provider Internal Medicine
DX: M54.50 Low back pain, unspecified (principal); M53.3 Sacrococcygeal disorders, not elsewhere classified
CPT/HCPCS: 72100; 72170

== ENCOUNTER 2022-08-11 17:53 | Emergency (ER) | payer MEDICARE, MEDICAID, SELFPAY ==
--- NOTE | ~2022-08-11 | CT_ITS ---
EXAMINATION: CT ABDOMEN AND PELVIS WITHOUT CONTRAST CLINICAL INFORMATION: Bilateral flank pain COMPARISON: 03/15/2022 TECHNIQUE: Multidetector volumetric imaging was performed from the superior aspect of the liver through the pubic symphysis. Sagittal and coronal reformatted images were obtained on the technologist's workstation. This CT examination was performed using dose optimization techniques as appropriate, variously including the following: *Automated exposure control *Adjustment of mA and/or kV according to patient size (this includes techniques or standardized protocols for targeted exams where dose is matched to indication/reason for exam; i.e. extremities or head) *Use of iterative reconstruction technique DLP: 698 mGy-cm FINDINGS: LUNG BASES: The visualized lung bases are unremarkable. LIVER, GALLBLADDER, AND BILIARY TREE: The liver is normal in size, shape, and attenuation. No focal hepatic lesion or biliary ductal dilatation is identified on this noncontrast exam. Patient is status post cholecystectomy. PANCREAS: Moderately atrophic. SPLEEN: Unremarkable. ADRENAL GLANDS: Unremarkable. KIDNEYS AND URETERS: No hydronephrosis or obstructing calculus bilaterally. There is a 3 mm calculus in the mid left kidney. BLADDER: Unremarkable. GASTROINTESTINAL TRACT: Small hiatal hernia. Colonic diverticulosis is noted. The small and large bowel are otherwise unremarkable without evidence of obstruction or pericolonic inflammatory change. Patient appears status post appendectomy. No free fluid or free air is seen. ABDOMINAL WALL: Small fat-containing right periumbilical hernia. LYMPH NODES: Normal. VASCULAR: Mild atherosclerotic calcifications. PELVIC VISCERA: Unremarkable. OSSEOUS STRUCTURES: Degenerative changes are noted in the spine. Partially visualized left hip arthroplasty hardware. CT/CT abdomen pelvis wo IV con IMPRESSION: No acute findings identified in the abdomen/pelvis. No hydronephrosis or obstructing calculus. Left renal calculus measuring 3 mm.
[2022-08-11 18:10] VITALS: BP 166/82; PULSE 74; RESP 18; TEMP 36.7; O2SAT 97; BMI 30.9
--- NOTE | 2022-08-11 18:11 | ED.GENADULT ---
HPI - General Adult General Chief complaint: Back Pain/Injury Stated complaint: Back pain Related Data Home Medications Medication Instructions Recorded Confirmed lisinopril 40 mg tablet 40 mg PO DAILY 12/23/19 08/02/22 metformin 500 mg tablet 500 mg PO BID 12/23/19 08/02/22 cetirizine 10 mg tablet 5 mg PO DAILY PRN Allergic Symptoms 12/29/19 08/02/22 montelukast 10 mg tablet 10 mg PO DAILY 12/29/19 08/02/22 (Singulair) metoprolol succinate 50 mg 50 mg PO DAILY 01/06/20 08/02/22 tablet,extended release 24 hr blood sugar diagnostic #10 ea 03/17/20 08/02/22 lancets 28 gauge #100 ea 03/17/20 08/02/22 ketotifen fumarate 0.025 % (0.035 1 drp ophthalmic (eye) BID PRN Dry 09/22/20 08/02/22 %) eye drops ([place]) Eyes rosuvastatin 10 mg tablet 10 mg PO BEDTIME 09/26/21 08/02/22 famotidine 20 mg tablet 20 mg PO BID 05/02/22 08/02/22 flunisolide 25 mcg (0.025 %) nasal 2 spray intranasal BID PRN Allergy 05/02/22 08/02/22 spray Symptoms rizatriptan 10 mg tablet See Rx Instructions PO .COMPLEX 05/02/22 08/02/22 Previous Rx's Medication Instructions Recorded walker #1 ea 01/02/20 cholecalciferol (vitamin D3) 50 50 mcg PO DAILY 30 days #30 caps 09/26/21 mcg (2,000 unit) capsule albuterol sulfate 90 mcg/actuation 2 puff inhalation Q4-6H PRN 10/05/21 aerosol inhaler shortness of breath or wheezing #6.7 grams acetaminophen 500 mg capsule 500 mg PO Q6H PRN fever 7 days #28 08/02/22 caps ciprofloxacin HCl 250 mg tablet 250 mg PO BID 4 days #8 tabs 08/02/22 tamoxifen 20 mg tablet 20 mg PO DAILY #90 tabs 08/02/22 tramadol 50 mg tablet 50 mg PO Q8H PRN pain 4 days #12 08/02/22 tabs Allergies Allergy/AdvReac Type Severity Reaction Status Date / Time ibuprofen [Ibuprofen] Allergy Mild SWELLING Verified 08/11/22 18:16 celecoxib [CELECOXIB] Allergy Unknown DROPS Verified 08/11/22 18:16 [place] [facility] Past Medical History Medical History Abdominal wall mass Abnormality of left breast on screening mammography Anemia Arthritis Asthma Breast cancer Cancer Diabetes Elevated cholesterol GERD (gastroesophageal reflux disease) History of breast cancer History of headache HTN (hypertension) Hyperparathyroidism Incisional hernia Increased BMI Invasive ductal carcinoma of left breast Invasive ductal carcinoma of left breast Multinodular thyroid On beta ananya at home Osteopenia Primary hyperparathyroidism Tubulovillous adenoma of colon Vitamin D deficiency Surgical History H/O colonoscopy H/O left breast biopsy History of exploratory laparotomy History of lumpectomy of left breast History of mammogram History of thyroid surgery History of tubal ligation Hx of cholecystectomy Hx of tonsillectomy S/P colon resection Status post total hip replacement, left Family History Family History Father No problems noted. Mother No problems noted. Other No family history of cancer Social History Social History Household Members: Spouse Housing: House Are you a primary family day care provider to a significant other at home: No Do you presently have visiting nurse or other home services: No Alcohol intake: never Patient Tobacco Use Status: Never used Tobacco e-Cigarette/Vaping Use: Never Used Second Hand Smoke Exposure: No Advance Directives Date on File: 08/11/02 service: No Current occupational status: unemployed Cognitive needs: No Hearing needs: No Vision needs: Yes Course Course Course Narrative: 77-year-old female with past medical history of obesity, hyperlipidemia, hypertension, diabetes, incisional hernia, abdominal wall mass, history of breast cancer, osteoarthritis of left hip, colon CA, multinodular thyroid, is here today for complaining of lower back pain. Patient was seen on August 02 by PCP for same and was put on antibiotics. Was found to have UTI. Treated with Cipro 250 mg twice a day for 4 days. Culture showed no growth. Patient reports to have chills. Has not checked her temperature. Patient denies flank pain. Reports that her units is light. Patient had x-rays done by PCP for her chronic lower back pain that is getting worse Discharge Plan Discharge Prescriptions: No Action tamoxifen 20 mg Tablet 20 mg PO DAILY Qty: 90 4RF lisinopril 40 mg Tablet 40 mg PO DAILY metformin 500 mg Tablet 500 mg PO BID metoprolol succinate 50 mg Tablet Extended Release 24 Hr 50 mg PO DAILY ketotifen fumarate [[place]] 0.025 % (0.035 %) drops 1 drp ophthalmic (eye) BID PRN (Reason: Dry Eyes) albuterol sulfate 90 mcg/actuation HFA aerosol inhaler 2 puff inhalation Q4-6H PRN (Reason: shortness of breath or wheezing) Qty: 6.7 0RF famotidine 20 mg tablet 20 mg PO BID rizatriptan 10 mg tablet See Rx Instructions PO .COMPLEX Rx Instructions: take 1 tab at onset of headache; if no relief may repeat 1 tab after at least 2 hrs; max = 3 tabs/24 hr PO flunisolide 25 mcg (0.025 %) spray,non-aerosol 2 spray intranasal BID PRN (Reason: Allergy Symptoms) ciprofloxacin HCl 250 mg tablet 250 mg PO BID 4 Days Qty: 8 0RF tramadol 50 mg tablet 50 mg PO Q8H PRN (Reason: pain) 4 Days Qty: 12 0RF acetaminophen 500 mg capsule 500 mg PO Q6H PRN (Reason: fever) 7 Days Qty: 28 0RF (DME) walker Misc See Rx Instructions .ROUTE .MEDSUPPLY Qty: 1 0RF Rx Instructions: Folding Front wheeled walker (DME) FreeStyle Lite Strips Strip See Rx Instructions Not Applicable ONCE Qty: 10 Rx Instructions: As directed (DME) lancets 28 gauge misc See Rx Instructions .ROUTE BID Qty: 100 Rx Instructions: As directed montelukast [Singulair] 10 mg tablet 10 mg PO DAILY cetirizine 10 mg tablet 5 mg PO DAILY PRN (Reason: Allergic Symptoms) rosuvastatin 10 mg tablet 10 mg PO BEDTIME cholecalciferol (vitamin D3) 50 mcg (2,000 unit) capsule 50 mcg PO DAILY 30 Days Qty: 30 11RF
[2022-08-11 18:35] LABS: MANUAL DIFF FLAG NO
[2022-08-11 18:39] LABS: Appearance Urine Clear; Color Urine Yellow; Glucose Urine UA Negative (Negative); Leukocyte Esterase Urine Large (3+) (Negative); Nitrite Urine Negative (Negative); PH 5.5 (5.0-9.0); UMIC TRIGGER UACC YES; Urine Blood Small (1+) (Negative); Urine Ketones Negative (Negative); Urine Protein 30 (1+) mg/dL (Neg-Trace)
[2022-08-11 18:42] LABS: Bacteria Urine None Seen (None Seen); Hyaline Casts Urine 0-2 /LPF (0-2); UACC Culture Trigger YES; WBC Urine >50 /HPF (0-5)
[2022-08-11 19:00] LABS: Anion Gap 14 (12-20); Blood Urea Nitrogen 22 mg/dL (9-16); Calcium 8.4 mg/dL (8.4-10.2); Carbon Dioxide 26 mmol/L (22-29); Chloride 103 mmol/L (96-108); Creatinine Clr Calc Pharmacy 42.8; Estimated Glomerular Filt Rate 48; Glucose Random 229 mg/dL (60-115); Potassium 4.8 mmol/L (3.3-5.1); Sodium 138 mmol/L (135-145)
[2022-08-11 19:02] LABS: Basophils Absolute Auto 0.1 X10*3/uL (0.0-0.2); Basophils Percent Auto 0.6 % (0-2); Eosinophils Absolute Auto 0.2 X10*3/uL (0.0-0.4); Eosinophils Percent Auto 2.9 % (0-4); Hematocrit 38.5 % (37.0-47.0); Hemoglobin 12.4 g/dl (12.0-16.0); Imm Gran Abs Auto 0.03 X10*3/uL (0.00-0.03); Imm Gran Pct Auto 0.4 % (0.0-0.4); Lymphocytes Absolute Auto 1.8 X10*3/uL (1.2-4.9); Lymphocytes Percent Auto 21.4 % (20-40); Mean Corpuscular HGB Conc 32.2 g/dl (31.0-35.0); Mean Corpuscular Hemoglobin 29.2 pg (27.0-33.0); Mean Corpuscular Volume 90.6 fL (80.0-98.0); Mean Platelet Volume 10.9 fL (9.4-12.3); Monocytes Absolute Auto 0.5 X10*3/uL (0.1-1.2); Monocytes Percent Auto 6.4 % (2-11); Neutrophils Absolute Auto 5.7 x10*3/uL (2.0-8.3); Neutrophils Percent Auto 68.3 % (45-73); Platelet Count 256 X10*3/uL (160-400); Red Blood Count 4.25 X10*6/uL (4.20-5.50); Red Cell Distribution Width 13.2 % (11.0-16.0); White Blood Count 8.4 X10*3/uL (4.8-10.8)
[2022-08-11 22:17] VITALS: BP 156/79; PULSE 66; RESP 16; TEMP 36.4; O2SAT 96
--- NOTE | 2022-08-11 23:16 | ED_ITS ---
HPI - General Adult General Chief complaint: Back Pain/Injury Stated complaint: Back pain Time Seen by Provider: 08/11/22 22:08 History of Present Illness HPI narrative: Patient is a 77-year-old female with a history diabetes, hypertension, hypercholesterolemia. Presented today with having bilateral flank pain. Generalized malaise. Nausea. Patient home. Related Data Home Medications Medication Instructions Recorded Confirmed lisinopril 40 mg tablet 40 mg PO DAILY 12/23/19 08/02/22 metformin 500 mg tablet 500 mg PO BID 12/23/19 08/02/22 cetirizine 10 mg tablet 5 mg PO DAILY PRN Allergic Symptoms 12/29/19 08/02/22 montelukast 10 mg tablet 10 mg PO DAILY 12/29/19 08/02/22 (Singulair) metoprolol succinate 50 mg 50 mg PO DAILY 01/06/20 08/02/22 tablet,extended release 24 hr blood sugar diagnostic #10 ea 03/17/20 08/02/22 lancets 28 gauge #100 ea 03/17/20 08/02/22 ketotifen fumarate 0.025 % (0.035 1 drp ophthalmic (eye) BID PRN Dry 09/22/20 08/02/22 %) eye drops (Alaway) Eyes rosuvastatin 10 mg tablet 10 mg PO BEDTIME 09/26/21 08/02/22 famotidine 20 mg tablet 20 mg PO BID 05/02/22 08/02/22 flunisolide 25 mcg (0.025 %) nasal 2 spray intranasal BID PRN Allergy 05/02/22 0 08/02/22 spray Symptoms rizatriptan 10 mg tablet See Rx Instructions PO .COMPLEX 05/02/22 08/02/22 Previous Rx's Medication Instructions Recorded walker #1 ea 01/02/20 cholecalciferol (vitamin D3) 50 50 mcg PO DAILY 30 days #30 caps 09/26/21 mcg (2,000 unit) capsule albuterol sulfate 90 mcg/actuation 2 puff inhalation Q4-6H PRN 10/05/21 aerosol inhaler shortness of breath or wheezing #6.7 grams acetaminophen 500 mg capsule 500 mg PO Q6H PRN fever 7 days #28 08/02/22 caps ciprofloxacin HCl 250 mg tablet 250 mg PO BID 4 days #8 tabs 08/02/22 tamoxifen 20 mg tablet 20 mg PO DAILY #90 tabs 08/02/22 tramadol 50 mg tablet 50 mg PO Q8H PRN pain 4 days #12 08/02/22 tabs ondansetron 4 mg disintegrating 4 mg PO TID PRN nausea and 08/12/22 tablet vomiting 5 days #10 tabs sulfamethoxazole 800 1 tab PO BID 10 days #20 tabs 08/12/22 mg-trimethoprim 160 mg tablet (Bactrim DS) Allergies Allergy/AdvReac Type Severity Reaction Status Date / Time ibuprofen [Ibuprofen] Allergy Mild SWELLING Verified 08/11/22 18:16 celecoxib [CELECOXIB] Allergy Unknown DROPS Verified 08/11/22 18:16 SUGAR LEVEL Review of Systems Review of Systems: No fever no chills positive vomiting no diarrhea Yes all other systems are reviewed and are negative [facility] Past Medical History Attestation statement: The following information was validated with the patient. Medical History Abdominal wall mass Abnormality of left breast on screening mammography Anemia Arthritis Asthma Breast cancer Cancer Diabetes Elevated cholesterol GERD (gastroesophageal reflux disease) History of breast cancer History of headache HTN (hypertension) Hyperparathyroidism Incisional hernia Increased BMI Invasive ductal carcinoma of left breast Invasive ductal carcinoma of left breast Multinodular thyroid On beta ananya at home Osteopenia Primary hyperparathyroidism Tubulovillous adenoma of colon Vitamin D deficiency Surgical History H/O colonoscopy H/O left breast biopsy History of exploratory laparotomy History of lumpectomy of left breast History of mammogram History of thyroid surgery History of tubal ligation Hx of cholecystectomy Hx of tonsillectomy S/P colon resection Status post total hip replacement, left Family History Family History Father No problems noted. Mother No problems noted. Other No family history of cancer Social History Social History Household Members: Spouse Housing: House Are you a primary care analyst to a significant other at home: No Do you presently have visiting nurse or other home services: No Alcohol intake: never Patient Tobacco Use Status: Never used Tobacco Smoked in Last 30 Days: No e-Cigarette/Vaping Use: Never Used Second Hand Smoke Exposure: No Advance Directives: No Advance Directives Information Provided: No Advance Directives Date on File: 08/11/02 service: No Current occupational status: unemployed Cognitive needs: No Hearing needs: No Vision needs: Yes Physical Exam ED Vital Signs: Vital Signs - 24 hr 08/11/22 18:10 08/11/22 22:17 08/12/22 00:00 Temperature 98.1 F 97.6 F 98.0 F Pulse Rate 74 66 61 Respiratory Rate 18 16 16 Blood Pressure 166/82 H 156/79 H 138/69 Pulse Oximetry 97 96 95 Oxygen Delivery Method Room Air Room Air Room Air BMI result Body Mass Index 30.9 Appearance: Alert. Oriented X3. No acute distress. Eyes: Pupils equal, round and reactive to light. ENT: Pharynx normal. Neck: Normal inspection. Neck supple. No lymph nodes noted. No crepitus CVS: Normal heart rate and rhythm. Pulses normal. Normal S1 and S2 Respiratory: No respiratory distress. Breath sounds normal. No Wheezing. No rales Abdomen: Soft and nontender. No rigidity. No distention. good BS x4. Positive CVA tenderness Skin: Skin warm and dry. Normal skin color. Normal skin turgor. Extremities: No lower extremity edema. Neurovascular intact to all extremities. No Lacerations. No Rash Neuro: Oriented X 3. No motor deficit. No sensory deficit. Moving all extermities. No slurred speech Medications Administered Discontinued Medications Generic Name Dose Route Start Last Admin Trade Name Freq PRN Reason Stop Dose Admin Acetaminophen 650 mg 08/11/22 23:17 08/11/22 23:48 Acetaminophen 325 Mg Tablet PO 08/11/22 23:18 650 mg ONCE ONE Administration Ceftriaxone Sodium 1 gm/ 50 mls @ 100 mls/hr 08/11/22 23:14 08/12/22 00:17 Sodium Chloride IV 08/11/22 23:43 Infused ONCE ONE Infusion Sodium Chloride 500 mls @ 999 mls/hr 08/11/22 23:30 08/11/22 23:49 Ns IV 08/12/22 00:00 999 mls/hr .Q31M MARINA Administration Ondansetron HCl 4 mg 08/11/22 23:17 08/11/22 23:48 Ondansetron Hcl 4 Mg/2 Ml Vial IVPUSH 08/11/22 23:18 4 mg ONCE ONE Administration Medical Decision Making Medical Decision Making [facility] Narrative: Patient's history of bilateral flank pain is new associated with nausea. Lab shows a urine was grossly infected. Consistent with pyelonephritis. Will give IV fluid and also give a dose of antibiotic. Has allergies to Motrin will give a dose of Tylenol. IV fluids ordered. Will monitor carefully. CT scan of the abdomen pelvis ordered to rule out the possibility of kidney stone. Patient denies any difficulty with bowel movement. No other symptoms. CT scan so no evidence of obstruction. No kidney stone. Given dose of Rocephin here in the emergency department. Will give antibiotics for pyelonephritis. Will discharge home. Differential Diagnosis Differential Diagnoses: The differential diagnosis associated with the presentation includes Kidney stone, UTI, pyelonephritis Lab Data [facility] Lab Attestation statement: I reviewed the patient's lab results. 08/11/22 18:26 08/11/22 18:26 Labs: Lab Results 08/11/22 08/11/22 08/11/22 Range/Units 18:26 18:26 18:26 WBC 8.4 (4.8-10.8) X10*3/uL RBC 4.25 (4.20-5.50) X10*6/uL Hgb 12.4 (12.0-16.0) g/dl Hct 38.5 (37.0-47.0) % MCV 90.6 (80.0-98.0) fL MCH 29.2 (27.0-33.0) pg MCHC 32.2 (31.0-35.0) g/dl RDW 13.2 (11.0-16.0) % Plt Count 256 (160-400) X10*3/uL MPV 10.9 (9.4-12.3) fL Immature Gran % (Auto) 0.4 (0.0-0.4) % Neut % (Auto) 68.3 (45-73) % Lymph % (Auto) 21.4 (20-40) % Phillips % (Auto) 6.4 (2-11) % Eos % (Auto) 2.9 (0-4) % Baso % (Auto) 0.6 (0-2) % Lymph # (Auto) 1.8 (1.2-4.9) X10*3/uL Phillips # (Auto) 0.5 (0.1-1.2) X10*3/uL Eos # (Auto) 0.2 (0.0-0.4) X10*3/uL Baso # (Auto) 0.1 (0.0-0.2) X10*3/uL Abs Immat Gran (auto) 0.03 (0.00-0.03) X10*3/uL Absolute Neuts (auto) 5.7 (2.0-8.3) x10*3/uL Absolute Nucleated RBC 0.000 (0.0-0.012) X10*3/uL Nucleated RBC % (auto) 0.0 (0.0-0.2) /100WBC Sodium 138 (135-145) mmol/L Potassium 4.8 (3.3-5.1) mmol/L Chloride 103 (96-108) mmol/L Carbon Dioxide 26 (22-29) mmol/L Anion Gap 14 (12-20) BUN 22 H (9-16) mg/dL Creatinine 1.10 (0.5-1.4) mg/dL Estim Creat Clear Calc 42.8 Estimated GFR 48 Random Glucose 229 H (60-115) mg/dL Lactic Acid (0.5-2.0) mmol/L Calcium 8.4 (8.4-10.2) mg/dL Urine Color Yellow Urine Appearance Clear Urine pH 5.5 (5.0-9.0) Ur Specific [place] 1.020 (1.005-1.025) Urine Protein 30 (1+) H (Neg-Trace) mg/dL Urine Glucose (UA) Negative (Negative) mg/dL Urine Ketones Negative (Negative) mg/dL Urine Blood Small (1+) H (Negative) Urine Nitrite Negative (Negative) Ur Leukocyte Esterase Large (3+) H (Negative) Urine RBC 6-10 H (0-2) /HPF Urine WBC >50 H (0-5) /HPF Ur Squamous Epith Cells 3-5 (0-2) /HPF Urine Bacteria None Seen (None Seen) Hyaline Casts 0-2 (0-2) /LPF 08/11/22 Range/Units 23:47 WBC (4.8-10.8) X10*3/uL RBC (4.20-5.50) X10*6/uL Hgb (12.0-16.0) g/dl Hct (37.0-47.0) % MCV (80.0-98.0) fL MCH (27.0-33.0) pg MCHC (31.0-35.0) g/dl RDW (11.0-16.0) % Plt Count (160-400) X10*3/uL MPV (9.4-12.3) fL Immature Gran % (Auto) (0.0-0.4) % Neut % (Auto) (45-73) % Lymph % (Auto) (20-40) % Phillips % (Auto) (2-11) % Eos % (Auto) (0-4) % Baso % (Auto) (0-2) % Lymph # (Auto) (1.2-4.9) X10*3/uL Phillips # (Auto) (0.1-1.2) X10*3/uL Eos # (Auto) (0.0-0.4) X10*3/uL Baso # (Auto) (0.0-0.2) X10*3/uL Abs Immat Gran (auto) (0.00-0.03) X10*3/uL Absolute Neuts (auto) (2.0-8.3) x10*3/uL Absolute Nucleated RBC (0.0-0.012) X10*3/uL Nucleated RBC % (auto) (0.0-0.2) /100WBC Sodium (135-145) mmol/L Potassium (3.3-5.1) mmol/L Chloride (96-108) mmol/L Carbon Dioxide (22-29) mmol/L Anion Gap (12-20) BUN (9-16) mg/dL Creatinine (0.5-1.4) mg/dL Estim Creat Clear Calc Estimated GFR Random Glucose (60-115) mg/dL Lactic Acid 1.0 (0.5-2.0) mmol/L Calcium (8.4-10.2) mg/dL Urine Color Urine Appearance Urine pH (5.0-9.0) Ur Specific [place] (1.005-1.025) Urine Protein (Neg-Trace) mg/dL Urine Glucose (UA) (Negative) mg/dL Urine Ketones (Negative) mg/dL Urine Blood (Negative) Urine Nitrite (Negative) Ur Leukocyte Esterase (Negative) Urine RBC (0-2) /HPF Urine WBC (0-5) /HPF Ur Squamous Epith Cells (0-2) /HPF Urine Bacteria (None Seen) Hyaline Casts (0-2) /LPF Independent Interpretation I performed an independent interpretation of an: CT Scan Radiology Impression Discussion of test interpretation with radiology: I have reviewed the radiolog ist's reading. External Record Review External record reviewed: Inpatient record Chronic Conditions Patient?s care impacted by: Diabetes and Hypertension Discharge Plan Discharge Clinical Impression: Pyelonephritis Patient Disposition: Home, Self-Care Instructions: Kidney Infection (ED) Prescriptions: New sulfamethoxazole-trimethoprim [Bactrim DS] 800-160 mg tablet 1 tab PO BID 10 Days Qty: 20 0RF ondansetron 4 mg tablet,disintegrating 4 mg PO TID PRN (Reason: nausea and vomiting) 5 Days Qty: 10 0RF No Action tamoxifen 20 mg Tablet 20 mg PO DAILY Qty: 90 4RF lisinopril 40 mg Tablet 40 mg PO DAILY metformin 500 mg Tablet 500 mg PO BID metoprolol succinate 50 mg Tablet Extended Release 24 Hr 50 mg PO DAILY ketotifen fumarate [Alaway] 0.025 % (0.035 %) drops 1 drp ophthalmic (eye) BID PRN (Reason: Dry Eyes) albuterol sulfate 90 mcg/actuation HFA aerosol inhaler 2 puff inhalation Q4-6H PRN (Reason: shortness of breath or wheezing) Qty: 6.7 0RF famotidine 20 mg tablet 20 mg PO BID rizatriptan 10 mg tablet See Rx Instructions PO .COMPLEX Rx Instructions: take 1 tab at onset of headache; if no relief may repeat 1 tab after at least 2 hrs; max = 3 tabs/24 hr PO flunisolide 25 mcg (0.025 %) spray,non-aerosol 2 spray intranasal BID PRN (Reason: Allergy Symptoms) ciprofloxacin HCl 250 mg tablet 250 mg PO BID 4 Days Qty: 8 0RF tramadol 50 mg tablet 50 mg PO Q8H PRN (Reason: pain) 4 Days Qty: 12 0RF acetaminophen 500 mg capsule 500 mg PO Q6H PRN (Reason: fever) 7 Days Qty: 28 0RF (DME) walker Misc See Rx Instructions .ROUTE .MEDSUPPLY Qty: 1 0RF Rx Instructions: Folding Front wheeled walker (DME) FreeStyle Lite Strips Strip See Rx Instructions Not Applicable ONCE Qty: 10 Rx Instructions: As directed (DME) lancets 28 gauge misc See Rx Instructions .ROUTE BID Qty: 100 Rx Instructions: As directed montelukast [Singulair] 10 mg tablet 10 mg PO DAILY cetirizine 10 mg tablet 5 mg PO DAILY PRN (Reason: Allergic Symptoms) rosuvastatin 10 mg tablet 10 mg PO BEDTIME cholecalciferol (vitamin D3) 50 mcg (2,000 unit) capsule 50 mcg PO DAILY 30 Days Qty: 30 11RF Referrals: Kim Quintero MD [Primary Care Provider] - 2 days
[2022-08-11] MEDS: Acetaminophen 325 MG TABLET 650 MG PO (23:48)
[2022-08-11] MEDS: ondansetron HCL 4 MG/2 ML VIAL IVPUSH (23:48)
[2022-08-11] MEDS: cefTRIAXone sodium 1 GM in 0.9 % Sodium Chloride 50 ML IV (23:49)
[2022-08-11] MEDS: 0.9 % Sodium Chloride 500 ML 999 ML IV (23:49)
[2022-08-12] VITALS: BP 138/69; PULSE 61; RESP 16; TEMP 36.7; O2SAT 95
--- NOTE | 2022-08-12 00:43 | PC.NURSE ---
Addendum entered by Becki Cowart RN 08/12/22 00:49: Are was marked and pt and daughter were instructed to keep an eye on the site. Original Note: Dee Dee COLLINS was discharging the pt and noticed infiltration at the IV site with Normal Saline. Fluids were stopped and IV was removed.
--- NOTE | 2022-08-12 00:55 | PC.NURSE ---
pt a&o, no sob or chest pain, removed Iv, notified DENNIS Connell of Iv infiltrate, area assess and albert upon discharge, education on monitoring site, Reviewed discharge instruction with pt and family member. Notified DENNIS Connell.
== END 2022-08-12 00:57 | disposition home or self-care (01) ==
PROVIDERS: Nurse Practitioner Family; Emergency Provider Emergency Medicine Emergency Medical Services; PCP Internal Medicine
DX: N12 Tubulo-interstitial nephritis, not specified as acute or chronic (principal); N20.0 Calculus of kidney; R10.9 Unspecified abdominal pain; E11.9 Type 2 diabetes mellitus without complications; I10 Essential (primary) hypertension; Z79.899 Other long term (current) drug therapy; Z79.84 Long term (current) use of oral hypoglycemic drugs; Z79.02 Long term (current) use of antithrombotics/antiplatelets
CPT/HCPCS: 36415; 74176; 80048; 81001; 83605; 85025; 87040; 87086; 87147; 96361; 96374; 96375; 99284; 99285; J0696; J2405

== ENCOUNTER 2022-08-14 12:50 | Outpatient (REF) | payer MEDICARE, MEDICAID, SELFPAY ==
[2022-08-14 13:55] LABS: Alanine Aminotransferase 10 U/L (0-31); Alkaline Phosphatase 42 U/L (39-117); Anion Gap 12 (12-20); Aspartate Amino Transferase 16 U/L (5-31); Bilirubin Total 0.2 mg/dL (0.0-1.0); Blood Urea Nitrogen 14 mg/dL (9-16); Calcium 9.2 mg/dL (8.4-10.2); Carbon Dioxide 28 mmol/L (22-29); Chloride 101 mmol/L (96-108); Estimated Glomerular Filt Rate 44; Glucose Random 158 mg/dL (60-115); Phosphorus 4.8 mg/dL (2.7-4.5); Potassium 4.5 mmol/L (3.3-5.1); Sodium 136 mmol/L (135-145); Total Protein 6.4 g/dL (6.5-8.0)
[2022-08-14 14:11] LABS: Free T4 (Free Thyroxine) 0.89 ng/dL (0.71-1.85); Vitamin D 25-OH Total 36.3 ng/mL (>30)
[2022-08-15 14:59] LABS: PTHI 24 pg/mL (16-77)
== END 2022-08-14 12:51 | disposition home or self-care (01) ==
LOC: HO.LAB 12:50
PROVIDERS: PCP Internal Medicine; Visit Provider Internal Medicine
DX: M81.0 Age-related osteoporosis without current pathological fracture (principal); E04.2 Nontoxic multinodular goiter; E55.9 Vitamin D deficiency, unspecified
CPT/HCPCS: 36415; 80053; 82306; 83970; 84100; 84439; 84443

== ENCOUNTER 2022-08-15 11:48 | Outpatient (REF) | payer MEDICARE, MEDICAID, SELFPAY ==
[2022-08-22 17:53] LABS: N-Telopeptide 22 (see note); NTXCreaRU 113 mg/dL (20-275)
== END 2022-08-15 11:49 | disposition home or self-care (01) ==
LOC: HO.LNP 11:48
PROVIDERS: Visit Provider Internal Medicine
DX: M81.0 Age-related osteoporosis without current pathological fracture (principal)
CPT/HCPCS: 82523

== ENCOUNTER 2022-08-18 14:31 | Outpatient (REF) | payer MEDICARE, MEDICAID, SELFPAY ==
--- NOTE | ~2022-08-18 | MM_ITS ---
EXAMINATION: MM DIAGNOSTIC DIGITAL BREAST TOMOSYNTHESIS, BILATERAL CLINICAL INFORMATION: Status post left breast lumpectomy July 2020 COMPARISON: Mammography: July 22, 2021 and studies dating back to December 22, 2015 TECHNIQUE: Digital breast tomosynthesis is performed in both the craniocaudal and mediolateral oblique views along with computer-aided detection (CAD). Synthesized 2D images are generated from the tomosynthesis. Additional spot magnification views of the left breast in craniocaudal and 90 degree mediolateral views performed. FINDINGS: The breasts are almost entirely fatty (ACR BI-RADS breast composition Category a). There are no new significant masses, abnormal calcifications, or other abnormalities. Postsurgical change again seen within the left breast. Results are provided to the patient at time of visit by the technologist. MM/MM tomosynthesis diagnostic BI IMPRESSION: There are no significant changes from prior study. ASSESSMENT: BI-RADS 2: Benign RECOMMENDATION: Diagnostic mammography at time of next annual exam, due in 12 months. This patient's information was entered into a reminder system with a target due date for their next mammogram.
== END 2022-08-18 14:32 | disposition home or self-care (01) ==
LOC: HO.MAMMO 14:31
PROVIDERS: PCP Internal Medicine; Visit Provider Internal Medicine Medical Oncology
DX: Z85.3 Personal history of malignant neoplasm of breast (principal)
CPT/HCPCS: 77062; 77066

== ENCOUNTER → 2022-08-21 09:10 | Outpatient (BNVA) | payer MEDICARE, MEDICAID, SELFPAY | PROVIDERS: PCP Internal Medicine; Visit Provider Internal Medicine | DX: M81.0 Age-related osteoporosis without current pathological fracture (principal); E21.0 Primary hyperparathyroidism; E04.2 Nontoxic multinodular goiter; E55.9 Vitamin D deficiency, unspecified | CPT/HCPCS: 99212 ==

== ENCOUNTER 2022-08-30 08:55 | Outpatient (REF) | payer MEDICARE, MEDICAID, SELFPAY ==
[2022-08-30 10:46] LABS: Alanine Aminotransferase 21 U/L (0-31); Albumin Level 3.9 g/dL (3.5-5.0); Alkaline Phosphatase 44 U/L (39-117); Anion Gap 16 (12-20); Aspartate Amino Transferase 24 U/L (5-31); Bilirubin Total 0.5 mg/dL (0.0-1.0); Blood Urea Nitrogen 14 mg/dL (9-16); Calcium 8.8 mg/dL (8.4-10.2); Carbon Dioxide 23 mmol/L (22-29); Chloride 103 mmol/L (96-108); Cholesterol 235 mg/dL; Estimated Glomerular Filt Rate > 60; Glucose Fasting 120 mg/dL (60-99); HDL Cholesterol 40 mg/dL; Potassium 5.1 mmol/L (3.3-5.1); Sodium 137 mmol/L (135-145); Total Protein 6.6 g/dL (6.5-8.0); Triglycerides 644 mg/dL
[2022-08-30 11:01] LABS: Appearance Urine Clear; Color Urine Yellow; Glucose Urine UA Negative (Negative); Leukocyte Esterase Urine Trace (Negative); Nitrite Urine Negative (Negative); UMIC TRIGGER UACC YES; Urine Blood Negative (Negative); Urine Ketones Negative (Negative); Urine Protein Negative (Neg-Trace)
[2022-08-30 11:07] LABS: Bacteria Urine None Seen (None Seen); Hyaline Casts Urine 0-2 /LPF (0-2); WBC Urine 0-5 /HPF (0-5)
[2022-08-30 11:12] LABS: Folate 17.5 ng/mL (> or = 4.0); Vitamin B12 283 pg/mL (200-900); Vitamin D 25-OH Total 29.7 ng/mL (>30)
[2022-08-30 12:04] LABS: Creatinine Urine 163.23 mg/dL; Microalbum/Creatinine Ratio Ur 12.8 ug/mg cr
== END 2022-08-30 08:56 | disposition home or self-care (01) ==
LOC: HO.LAB 08:55
PROVIDERS: PCP Internal Medicine; Visit Provider Internal Medicine
DX: E55.9 Vitamin D deficiency, unspecified (principal); E53.8 Deficiency of other specified B group vitamins; E78.5 Hyperlipidemia, unspecified; E11.9 Type 2 diabetes mellitus without complications
CPT/HCPCS: 36415; 80053; 80061; 81001; 81003; 82043; 82306; 82607; 82746

== ENCOUNTER 2022-10-09 09:03 | Outpatient (AMB) | payer MEDICARE, MEDICAID, SELFPAY ==
[2022-10-09 09:04] VITALS: BP 169/79; PULSE 76; BMI 30.7
--- NOTE | 2022-10-09 09:04 | MHC.OFFVIS ---
Intake Vital Signs 10/09/22 09:04 Height 5 ft 4 in Weight 179 lb BMI 30.7 BP 169/79 H Blood Pressure Location Rt brachial Position Sitting Pulse 76 Intake Visit Reasons: 6 month breast exam Intake Note: This patient presents for a six month follow-up breast examination assessment. Patient c/o; Same pain as usual from the radiation . Escort Vehicle Driver Required: Yes Escort Vehicle Driver Language: Beating Machine Operator Name: Patient declined american sign language interpreter Accompanied by: Family/Other Allergies ibuprofen [Ibuprofen] Allergy (Mild, Verified 10/09/22 09:13) SWELLING celecoxib [CELECOXIB] Allergy (Unknown, Verified 10/09/22 09:13) DROPS SUGAR LEVEL Medication List - Last Reconciled 10/09/22 by Servando Jolley MD acetaminophen 500 mg PO Q6H PRN 7 days albuterol sulfate 90 mcg/actuation 2 puffs inhalation Q4-6H PRN blood sugar diagnostic As directed cetirizine 5 mg (1/2 x 10 mg) PO DAILY PRN 90 days cholecalciferol (vitamin D3) 50 mcg PO DAILY 30 days famotidine 20 mg PO BID fenofibrate 54 mg PO DAILY 90 days flunisolide 2 sprays intranasal BID PRN ketotifen fumarate 0.025%(0.035%) (Alaway) 1 drp ophthalmic (eye) BID PRN lancets As directed lisinopril 40 mg PO DAILY metformin 500 mg PO BID metoprolol succinate ER 50 mg PO DAILY montelukast (Singulair) 10 mg PO DAILY ondansetron 4 mg PO TID PRN 5 days rizatriptan take 1 tab at onset of headache; if no relief may repeat 1 tab after at least 2 hrs; max = 3 tabs/24 hr PO rosuvastatin 40 mg PO DAILY 90 days tamoxifen 20 mg PO DAILY walker Folding Front wheeled walker HPI 6 month breast exam HPI Details 77-year-old female here for follow-up for breast exam. She has a history of invasive ductal carcinoma right breast and she had undergone lumpectomy with sentinel node biopsy last July,. She had a T1 N0 invasive ductal carcinoma that time. She did not undergo chemotherapy. She is on anti estrogen treatment. She denies any new complaints at this time. She also has a hx of colon cancer, T4N0. Review of her records show that her last colonoscopy was in 2014 which was 1 year after her colon resection. She was supposed to colonoscopy in [address] Hill but this had to be canceled because of the pandemic. 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 Mother Diabetes mellitus Other No family history of cancer Social History Household Members: Spouse Housing: House Are you a primary customer care agent to a significant other at home: No Do you presently have visiting nurse or other home services: No Alcohol intake: never Patient Tobacco Use Status: Never used Tobacco e-Cigarette/Vaping Use: Never Used Second Hand Smoke Exposure: No Advance Directives Date on File: 08/11/02 service: No Current occupational status: unemployed Cognitive needs: No Hearing needs: No Vision needs: Yes Female Reproductive History Menstrual Age of Menarche: 13 Review of Systems Const Denies chills and Denies fever(s) Card Denies chest pain, Denies dyspnea and Denies dyspnea on exertion Resp Denies cough, Denies dyspnea and Denies dyspnea on exertion GI Denies hematochezia and Denies change in bowel habits Denies hematuria Musc Denies back pain and Denies limited range of motion Neuro Denies focal weakness and Denies convulsions Psych Denies depression and Denies mood swings Physical Exam Vital Signs: Last Vital Signs Pulse 76 10/09/22 09:04 BP 169/79 H 10/09/22 09:04 BMI result Body Mass Index 30.7 Const General: comfortable and no acute distress Orientation/consciousness: patient oriented x3 Neck Neck: Yes no lymphadenopathy Resp Auscultation: clear to auscultation bilaterally Cardio Rhythm: regular rhythm GI Other: Palpable midline hernia with Valsalva Palpation (GI): Soft to palpation, nontender and no guarding Neuro General: patient oriented x3 Assessment & Plan Assessment & Plan (1) History of breast cancer: Code(s): Z85.3 - Personal history of malignant neoplasm of breast Plan: She had a T1 N0 invasive ductal carcinoma last 07/01/2020. Current exam does not reveal any new masses or adenopathy. Her last mammogram was in Jul, 2022 and this was unremarkable. She is to have another mammogram her 1 year. She is doing well overall. She also has an incisional hernia from her previous colon resection but she does not want to proceed with surgical repair at this time. (2) History of colon cancer: Code(s): Z85.038 - Personal history of other malignant neoplasm of large intestine Plan: She had right colon resection for invasive adenocarcinoma 2013. She was supposed to have a follow-up colonoscopy in 2019. This was not done in view of the pandemic. I explained to her the option of repeating this this time. She is already 77 years old so I told her that it will be up to her personal preference to repeat her colonoscopy 1 more time. I explained to her that we normally do not do further screening colonoscopy after the age of 75 unless the patient is still healthy and at high risk for colon cancer. She says she will discuss option of proceeding with colonoscopy with her family. Patient Instructions: t this time. Coding Level of Care Code Est Pt Level 4 (48896) Diagnoses History of breast cancer Z85.3 History of colon cancer Z85.038
== END 2022-10-09 10:21 | disposition home or self-care (01) ==
PROVIDERS: PCP Internal Medicine; Visit Provider Surgery
DX: Z85.3 Personal history of malignant neoplasm of breast (principal); Z85.038 Personal history of other malignant neoplasm of large intestine
CPT/HCPCS: 99214

== ENCOUNTER → 2022-10-09 09:03 | Outpatient (BNVA) | payer MEDICARE, MEDICAID, SELFPAY | PROVIDERS: PCP Internal Medicine; Visit Provider Surgery | DX: Z85.3 Personal history of malignant neoplasm of breast (principal); Z85.038 Personal history of other malignant neoplasm of large intestine | CPT/HCPCS: 99212 ==

== ENCOUNTER 2022-10-24 13:53 | Outpatient (REF) | payer MEDICARE, MEDICAID, SELFPAY | END 2022-10-24 13:54 | disposition home or self-care (01) | LOC: HO.LNP 13:53 | PROVIDERS: PCP Internal Medicine; Visit Provider Nurse Practitioner Family | DX: R31.29 Other microscopic hematuria (principal); N20.0 Calculus of kidney; I10 Essential (primary) hypertension; E55.9 Vitamin D deficiency, unspecified; R35.0 Frequency of micturition; Z79.899 Other long term (current) drug therapy | CPT/HCPCS: 87086; 99202 ==

== ENCOUNTER 2022-10-24 13:53 | Outpatient (AMB) | payer MEDICARE, MEDICAID, SELFPAY ==
--- NOTE | 2022-10-24 14:00 | MHC.OFFVIS ---
Intake Intake Visit Reasons: Hx of Calculus of kidney Intake Note: New Patient presents for history of kidney stones Urology Medication:none Blood Thinner: none Information Assurance Engineer Required: Yes Accompanied by: Unknown Allergies ibuprofen [Ibuprofen] Allergy (Mild, Verified 10/24/22 14:29) SWELLING celecoxib [CELECOXIB] Allergy (Unknown, Verified 10/24/22 14:29) DROPS SUGAR LEVEL Medication List - Last Reconciled 10/24/22 by MARGAUX Butterfield- acetaminophen 500 mg PO Q6H PRN 7 days albuterol sulfate 90 mcg/actuation 2 puffs inhalation Q4-6H PRN blood sugar diagnostic As directed cetirizine 5 mg (1/2 x 10 mg) PO DAILY PRN 90 days cholecalciferol (vitamin D3) 50 mcg PO DAILY 30 days famotidine 20 mg PO BID fenofibrate 54 mg PO DAILY 90 days flunisolide 2 sprays intranasal BID PRN ketotifen fumarate 0.025%(0.035%) ([place]) 1 drp ophthalmic (eye) BID PRN lancets As directed lisinopril 40 mg PO DAILY metformin 500 mg PO BID metoprolol succinate ER 50 mg PO DAILY montelukast (Singulair) 10 mg PO DAILY ondansetron 4 mg PO TID PRN 5 days pyridoxine (vitamin B6) 100 mg PO DAILY 90 days rizatriptan take 1 tab at onset of headache; if no relief may repeat 1 tab after at least 2 hrs; max = 3 tabs/24 hr PO rosuvastatin 40 mg PO DAILY 90 days tamoxifen 20 mg PO DAILY walker Folding Front wheeled walker HPI HPI Comments History of Present Illness Details Destiney is a very pleasant 77 year old Singaporean speaking patient of Dr. Rudolph who is accompanied by her sister in law at todays visit. She has a past medical history of anemia, arthritis, asthma, breast cancer, colon cancer, diabetes, elevated cholesterol, GERD, migraines, hypertension, hyperparathyroidism, and vitamin-D deficiency. She presents to the office today as a new patient for nephrolithiais. In discussion with the patient today she reports having seeked emergency room care approximately 2 months ago for left-sided flank pain that was radiating to her lower abdominal area that was associated with urinary frequency and urgency. She reports being told to follow-up with Urology due to nephrolithiasis. She reports having finished antibiotic therapy for a urinary tract infection. When asked she reports currently to be doing and feeling well. Recent CT imaging results reviewed with the patient today. No acute findings identified in the abdomen/pelvis. No hydronephrosis or obstructing calculus. Left renal calculus measuring 3 mm. When asked she reports urinary frequency however she otherwise denies urinary urgency, incontinence, nocturia, hematuria, dysuria, foul smelling urine, changes to urinary stream, flank pain, fever, and or chills. She is happy with her current voiding parameters. In office urinalysis with 2+ leukocytes otherwise negative nitrates. Patient otherwise denies any issues or concerns at this time. When asked she denies issues with constipation and reports to be drinking plenty of water daily. [facility] Medical History Abdominal wall mass Abnormality of left breast on screening mammography Anemia Arthritis Asthma Breast cancer Cancer Diabetes Elevated cholesterol GERD (gastroesophageal reflux disease) History of breast cancer History of colon cancer History of headache HTN (hypertension) Hyperparathyroidism Incisional hernia Increased BMI Invasive ductal carcinoma of left breast Invasive ductal carcinoma of left breast Multinodular thyroid On beta ananya at home Osteopenia Primary hyperparathyroidism Tubulovillous adenoma of colon Vitamin D deficiency Surgical History H/O colonoscopy H/O left breast biopsy History of cataract surgery History of exploratory laparotomy History of lumpectomy of left breast History of mammogram History of thyroid surgery History of tubal ligation Hx of cholecystectomy Hx of tonsillectomy S/P colon resection Status post total hip replacement, left Family History Father No problems noted. Mother Diabetes mellitus Other No family history of cancer Social History Household Members: Spouse Housing: House Are you a primary workforce investment act career manager to a significant other at home: No Do you presently have visiting nurse or other home services: No Alcohol intake: never Patient Tobacco Use Status: Never used Tobacco e-Cigarette/Vaping Use: Never Used Second Hand Smoke Exposure: No Advance Directives Date on File: 08/11/02 service: No Current occupational status: unemployed Cognitive needs: No Hearing needs: No Vision needs: Yes Female Reproductive History Menstrual Age of Menarche: 13 Review of Systems Const Reports as per HPI Eyes Reports no additional complaints ENT Reports no additional complaints Card Reports as per HPI Resp Reports as per HPI GI Reports as per HPI Reports as per HPI Musc Reports no additional complaints Neuro Reports no additional complaints Psych Reports as per HPI Endo Reports as per HPI Physical Exam Const General: cooperative, healthy appearing, comfortable, no acute distress, well developed, alert and awake Orientation/consciousness: patient oriented x3 HEENT Head: Yes normal to inspection, Yes normocephalic and Yes atraumatic Ears: hearing grossly normal bilaterally Eyes General: appearance normal, both eyes and all related structures Neck Neck: Yes normal visual inspection and Yes trachea midline Chest Chest palpation & inspection: normal inspection of the chest Resp Effort & Inspection: normal respiratory effort and able to speak in complete sentences Cardio Rate: regular rate GI Inspection: Yes normal to inspection General: Yes no CVA tenderness Back/Spine/Pelvis Back: no CVA tenderness Skin General skin exam: no rashes or lesions noted Neuro General: patient oriented x3 Extrem General: Yes normal to inspection Psych Appearance: grossly normal and well kempt Mental Status: mental status grossly normal Speech and movement: Normal speech and movement present and Clear speech present Affect: normal affect Attitude: cooperative Thought process: Normal thought process present Thought content: Normal thought content present Insight: Fair insight present (Psych) Judgement: Fair judgement present (Psych) Results AMB Urinalysis, Automated UA Leukoctes 125 Hari/uL Last Edit by [employer] on 10/24/22 14:14 UA Nitrite Negative Last Edit by [employer] on 10/24/22 14:14 UA Urobilinogen 0.2 mg/dL Last Edit by [employer] on 10/24/22 14:14 UA Protein 15 mg/dL Last Edit by [employer] on 10/24/22 14:14 UA pH 6.0 Last Edit by [employer] on 10/24/22 14:14 UA Blood 25 Elder/uL Last Edit by [employer] on 10/24/22 14:14 UA Specific Calhoun 1.030 Last Edit by [employer] on 10/24/22 14:14 UA Ketone Last Edit by [employer] on 10/24/22 14:14 UA Bilirubin 0 mg/dL Last Edit by Merissa Nguyen on 10/24/22 14:14 UA Glucose 0 mg/dL Last Edit by Merissa Nguyen on 10/24/22 14:14 Results Reviewed Results Reviewed: Laboratory Last Values Urine pH (Auto) 6.0 10/24/22 14:10 Specific Calhoun (Auto) 1.030 10/24/22 14:10 Urine Protein (Auto) 15 mg/dL 10/24/22 14:10 Glucose (UA)(Auto) 0 mg/dL 10/24/22 14:10 Urine Blood (Auto) 25 Elder/uL 10/24/22 14:10 Urine Nitrite (Auto) Negative 10/24/22 14:10 Urine Bilirubin (Auto) 0 mg/dL 10/24/22 14:10 Urine Urobilinogen (Auto) 0.2 mg/dL 10/24/22 14:10 Leukocyte Esterase (Auto) 125 Hari/uL 10/24/22 14:10 Date of Service: 08/11/22 EXAMINATION: CT ABDOMEN AND PELVIS WITHOUT CONTRAST? FINDINGS: LUNG BASES: The visualized lung bases are unremarkable.? LIVER, GALLBLADDER, AND BILIARY TREE: The liver is normal in size, shape, and attenuation. No focal hepatic lesion or biliary ductal dilatation is identified on this noncontrast exam. Patient is status post cholecystectomy.? PANCREAS: Moderately atrophic.? SPLEEN: Unremarkable.? ADRENAL GLANDS: Unremarkable.? KIDNEYS AND URETERS: No hydronephrosis or obstructing calculus bilaterally. There is a 3 mm calculus in the mid left kidney. BLADDER: Unremarkable.? GASTROINTESTINAL TRACT: Small hiatal hernia. Colonic diverticulosis is noted. The small and large bowel are otherwise unremarkable without evidence of obstruction or pericolonic inflammatory change. Patient appears status post appendectomy. No free fluid or free air is seen. ABDOMINAL WALL: Small fat-containing right periumbilical hernia.? LYMPH NODES: Normal. VASCULAR: Mild atherosclerotic calcifications. PELVIC VISCERA: Unremarkable. OSSEOUS STRUCTURES: Degenerative changes are noted in the spine. Partially visualized left hip arthroplasty hardware. IMPRESSION: No acute findings identified in the abdomen/pelvis. No hydronephrosis or obstructing calculus. Left renal calculus measuring 3 mm. Assessment & Plan Assessment & Plan (1) Microhematuria: Code(s): R31.29 - Other microscopic hematuria (2) Urinary frequency: Code(s): R35.0 - Frequency of micturition (3) Renal calculi: Code(s): N20.0 - Calculus of kidney Plan In office urinalysis results reviewed with the patient today; will send for urine culture Recent CT imaging results reviewed with the patient today; as noted above. Discussed at length importance of drinking plenty of water daily. Discussed at length potential causes for nephrolithiasis. Discussed adding 1 oz of lemon juice to water daily. Patient reporting urinary frequency with 2+ leukocytes negative nitrates in urinalysis today; will send for urine culture as noted above. She otherwise denies any UTI like symptoms. Start vitamin B6 as discussed and prescribed. Renal ultrasound in 6 months. Follow-up in 6 months with imaging to be completed prior; or sooner with any issues, concerns, and or questions. Orders: Orders US renal BI 6 Months N20.0 - Calculus of kidney Urine Culture Today R31.29 - Other microscopic hematuria AMB Urinalysis Automated Today Z13.9 - Encounter for screening, unspecified Medications: New pyridoxine (vitamin B6) 100 mg PO DAILY 90 days 90 tabs 1RF N20.0 - Calculus of kidney Patient Instructions: The patient had an opportunity to ask questions regarding the treatment plan. All questions were answered. Physical exam, labs, and imaging were discussed and reviewed in detail. As well as risks, benefits, and discussion of treatment choices. No major barriers to understanding were identified. The patient expressed understanding and agreement with the above treatment plan. The patient was made aware they should contact our office by phone for worsening of their current condition, the appearance of new symptoms, or with any questions or concerns. Compliance is encouraged with any medications and follow up testing that is ordered. It is a privilege to be allowed the opportunity to participate in? your urological care.? Again, if you have any questions or concerns If you have any questions or concerns please do not hesitate to contact me. The office is [phone]. This note is constructed using voice recognition software. While every effort has been made to ensure accuracy animal taxonomist errors may have been included. Yours sincerely, DAVID Butterfield Coding Level of Care Code New Pt Level 4 (13355) Diagnoses Microhematuria R31.29 Urinary frequency R35.0 Renal calculi N20.0
== END 2022-10-24 14:28 | disposition home or self-care (01) ==
PROVIDERS: PCP Internal Medicine; Visit Provider Nurse Practitioner Family
DX: R31.29 Other microscopic hematuria (principal); R35.0 Frequency of micturition; N20.0 Calculus of kidney
CPT/HCPCS: 99204

== ENCOUNTER 2023-01-01 08:39 | Outpatient (REF) | payer MEDICARE, MEDICAID, SELFPAY ==
[2023-01-01 10:35] LABS: Alanine Aminotransferase 15 U/L (0-31); Albumin Level 4.3 g/dL (3.5-5.0); Alkaline Phosphatase 35 U/L (39-117); Anion Gap 14 (12-20); Aspartate Amino Transferase 26 U/L (5-31); Bilirubin Total 0.4 mg/dL (0.0-1.0); Blood Urea Nitrogen 15 mg/dL (9-16); Calcium 8.7 mg/dL (8.4-10.2); Carbon Dioxide 26 mmol/L (22-29); Chloride 104 mmol/L (96-108); Cholesterol 120 mg/dL (<200); Estimated Glomerular Filt Rate 57; Glucose Fasting 123 mg/dL (60-99); HDL Cholesterol 52 mg/dL (>40); LDL Cholesterol Calculated 37 mg/dL (<100); Potassium 4.2 mmol/L (3.3-5.1); Sodium 140 mmol/L (135-145); Triglycerides 156 mg/dL (<150)
[2023-01-01 10:41] LABS: Creatinine Urine 122.15 mg/dL; Microalbum/Creatinine Ratio Ur 21.2 ug/mg cr (<30)
[2023-01-01 10:43] LABS: Vitamin D 25-OH Total 41.1 ng/mL (>30)
== END 2023-01-01 08:40 | disposition home or self-care (01) ==
LOC: HO.LAB 08:39
PROVIDERS: PCP Internal Medicine; Visit Provider Internal Medicine
DX: E78.5 Hyperlipidemia, unspecified (principal); E55.9 Vitamin D deficiency, unspecified; E11.9 Type 2 diabetes mellitus without complications
CPT/HCPCS: 36415; 80053; 80061; 82043; 82306; 82570

== ENCOUNTER 2023-01-08 10:29 | Outpatient (AMB) | payer MEDICARE, MEDICAID, SELFPAY ==
--- NOTE | 2023-01-08 10:37 | MHC.PC.OV ---
Vital Signs 01/08/23 10:40 01/09/23 10:44 Height 5 ft 4 in Weight 177 lb BMI 30.4 BP 150/80 H 140/80 H Blood Pressure Location Lt brachial Lt brachial Position Sitting Sitting Intake Visit Reasons: lipids Intake Note: Patient here for a follow up lipids Watch Electrician Required: No Accompanied by: Family/Other Allergies ibuprofen [Ibuprofen] Allergy (Mild, Verified 01/08/23 10:50) SWELLING celecoxib [CELECOXIB] Allergy (Unknown, Verified 01/08/23 10:50) DROPS SUGAR LEVEL Medication List - Last Reconciled 01/08/23 by Kim Garcia MD acetaminophen 500 mg PO Q6H PRN 7 days albuterol sulfate 90 mcg/actuation 2 puffs inhalation Q4-6H PRN blood sugar diagnostic As directed cetirizine 5 mg (1/2 x 10 mg) PO DAILY PRN 90 days cholecalciferol (vitamin D3) 50 mcg PO DAILY 30 days famotidine 20 mg PO BID 90 days fenofibrate 54 mg PO DAILY 90 days flunisolide 2 sprays intranasal BID PRN ketotifen fumarate 0.025%(0.035%) ([place]) 1 drp ophthalmic (eye) BID PRN lancets As directed lisinopril 40 mg PO DAILY 90 days metformin 500 mg PO BID 90 days metoprolol succinate ER 50 mg PO DAILY 90 days montelukast (Singulair) 10 mg PO DAILY ondansetron 4 mg PO TID PRN 5 days pyridoxine (vitamin B6) 100 mg PO DAILY 90 days rizatriptan 10 mg PO ONCE 30 days rosuvastatin 40 mg PO DAILY 90 days tamoxifen 20 mg PO DAILY walker Folding Front wheeled walker Tobacco use date assessed: 06/14/22 Fall risk assessment: No Falls in past year Last assessed Fall Risk: 01/08/23 Dental Screening Dental Screen Date: 01/08/23 Did you have a dental visit in the last 12 months?: No Did you have a dental problem in the last 6 months where you did not have access to dental care?: No Was dental information given to patient?: Patient has dentist HPI HPI Comments History of Present Illness Details This is a 77 year old female with diabetes mellitus type 2, hypertension, hyperlipidemia and migraines that comes for follow up on her conditions. A1c within goal. LDL within goal BP borderline normal to elevated but 2 days ago at home was 120/80. BP will be recheck by nurse navigator in 3 weeks. Migraines happened 3 to 4 times a month and are stable with rizatriptan as needed. [facility], [facility] Medical History (Updated 01/09/23 @ 10:46 by Kim Garcia MD) History of colon cancer Incisional hernia Abdominal wall mass History of breast cancer Invasive ductal carcinoma of left breast Anemia Increased BMI On beta ananya at home Breast cancer Invasive ductal carcinoma of left breast Abnormality of left breast on screening mammography Multinodular thyroid Osteopenia Vitamin D deficiency Primary hyperparathyroidism Tubulovillous adenoma of colon Diabetes Asthma Hyperparathyroidism Cancer Arthritis GERD (gastroesophageal reflux disease) History of headache Elevated cholesterol HTN (hypertension) Surgical History History of cataract surgery History of thyroid surgery History of lumpectomy of left breast H/O left breast biopsy History of mammogram Status post total hip replacement, left History of exploratory laparotomy History of tubal ligation Hx of tonsillectomy Hx of cholecystectomy S/P colon resection H/O colonoscopy Family History Father No problems noted. Mother Diabetes mellitus Other No family history of cancer Social History Household Members: Spouse Housing: House Are you a primary plant health care technician to a significant other at home: No Do you presently have visiting nurse or other home services: No Alcohol intake: never Patient Tobacco Use Status: Never used Tobacco e-Cigarette/Vaping Use: Never Used Second Hand Smoke Exposure: No Advance Directives Date on File: 08/11/02 service: No Current occupational status: unemployed Cognitive needs: No Hearing needs: No Vision needs: Yes Female Reproductive History Menstrual Age of Menarche: 13 Questionnaire Thrive Questionnaire Date Thrive assessed: 09/05/22 LARRY-7 AMB Questionnaire LARRY-7 Date LARRY - 7 assessed: 09/05/22 Source: Developed by Drs. Boyd Garcia, Danii Reeves, Ric Estes and colleagues, with an educational mary from [employer] Review of Systems Const All systems reviewed & are unremarkable except as noted in HPI and below Eyes Reports no additional complaints, Denies change in vision and Denies other visual disturbances Card Denies chest pain at rest, Denies chest pain with activity, Denies edema, Denies irregular heart rhythm, Denies claudication, Denies dyspnea, Denies dyspnea on exertion, Denies orthopnea, Denies paroxysmal nocturnal dyspnea and Denies slow heart rate Resp Denies cough, Denies dyspnea and Denies dyspnea on exertion GI Denies abdominal pain, Denies change in bowel habits, Denies excessive flatus, Denies nausea and Denies vomiting Denies urinary incontinence, Denies urinary hesitancy and Denies urinary urgency Musc Denies abnormal gait, Denies atrophy, Denies deformity and Denies limited range of motion Skin/Breast Denies bleeding lesions, Denies changing lesions and Denies rash Neuro Denies abnormal gait and Denies lack of coordination Physical exam (Primary Care) Vital Signs: Last Vital Signs BP 150/80 H 01/08/23 10:40 BMI result Body Mass Index 30.4 Tobacco/Smoking Status: Tobacco use Status Tobacco use date assessed 06/14/22 01/08/23 10:39 Patient Tobacco Use Status Never used Tobacco 01/08/23 10:39 e-Cigarette/Vaping Use Never Used 01/08/23 10:39 Thrive Assessment: Date of Thrive Assessment Date Thrive assessed 09/05/22 01/08/23 10:39 Eyes General: appearance normal, both eyes and all related structures Eyelids: Yes eyelids normal Conjunctivae: conjunctivae normal Neck Neck: Yes normal visual inspection and Yes supple Resp Effort & Inspection: normal respiratory effort Auscultation: clear to auscultation bilaterally Cardio Jugular venous distension: no JVD Rate: regular rate Rhythm: regular rhythm Heart sounds: S1 normal heart sound present and S2 normal heart sound present Extrem General: Yes full ROM Office Procedures Flu Questionnaire Does the patient have a severe egg allergy?: No Does the patient have severe life threatening allergies?: No Does the patient have a fever or illness today?: No Has the patient ever had Guillain-[place] Syndrome?: No Has the patient ever had any past reaction to a flu shot?: No Results AMB Hemoglobin A1c AMB Hemoglobin A1c 7.0 % Last Edit by DARIAN Herrera on 01/08/23 10:49 Immunizations flu vacc [id number] 6mos up(PF) 60 mcg(15 mcgx4)/0.5 mL IM syringe Performing Provider: Kim Garcia MD [facility] Administered by: DARIAN Herrera on 01/08/23 11:03 Dose Route Admin Location Dispensed Lot Number Expiration Date NDC Benefit Director 0.5 mL IM Right Deltoid 0.5 mL [id number] 09/30/23 [id number] [facility] [employer] VIS Given Date VIS Provided VIS Publication Date 01/08/23 Single Vaccine 20 Eligibility Eligibility Date Funding Source Not VF Eligible 01/08/23 Private Results Reviewed Results Reviewed: Laboratory Last Values Hgb A1c (Clinic) 7.0 % (4.0-6.0) H 01/08/23 10:37 Assessment and Plan Assessment & Plan (1) Diabetes: Comment: NIDDM Code(s): E11.9 - Type 2 diabetes mellitus without complications Plan: Continue Metformin. A1c goal is equal or less than 7 %. (2) HTN (hypertension): Code(s): I10 - Essential (primary) hypertension Plan: Continue Lisinopril. BP goal is equal or less than 130/80. Recheck BP with nurse navigator in 3 weeks. (3) Hyperlipidemia LDL goal <70: Code(s): E78.5 - Hyperlipidemia, unspecified Plan: Continue statins and fibrates. LDL goal is less than 70. (4) Migraine: Code(s): G43.909 - Migraine, unspecified, not intractable, without status migrainosus Plan: Continue rizatriptan as needed. Orders: Orders AMB Hemoglobin A1c 01/08/23 E11.9 - Type 2 diabetes mellitus without complications Influenza [id number] Immunization 01/08/23 Z23 - Encounter for immunization Comprehensive [place]. Panel Fast 4 Months E11.9 - Type 2 diabetes mellitus without complications Lipid Panel 4 Months E78.5 - Hyperlipidemia, unspecified Microalbumin, Random (w Creat) 4 Months E11.9 - Type 2 diabetes mellitus without complications Vitamin D 25-OH Total 4 Months E55.9 - Vitamin D deficiency, unspecified Medications: New cholecalciferol (vitamin D3) 25 mcg PO DAILY 90 days 90 caps 1RF Discontinued cholecalciferol (vitamin D3) Discontinued Reason: Patient Completed Course 50 mcg PO DAILY 30 days 30 caps 11RF Coding Level of Care Code Est Pt Level 4 (16401) Diagnoses Diabetes E11.9 HTN (hypertension) I10 Hyperlipidemia LDL goal <70 E78.5 Migraine G43.909 Time Spent (min) 23
[2023-01-08 10:40] VITALS: BP 150/80; BMI 30.4
[2023-01-09 10:44] VITALS: BP 140/80
== END 2023-01-08 11:07 | disposition home or self-care (01) ==
PROVIDERS: PCP Internal Medicine; Visit Provider Internal Medicine
DX: E11.9 Type 2 diabetes mellitus without complications (principal); Z23 Encounter for immunization
CPT/HCPCS: 83036; 90471; 90686; 99214

== ENCOUNTER 2023-01-25 09:12 | Outpatient (AMB) | payer MEDICARE, MEDICAID, SELFPAY ==
[2023-01-25 09:26] VITALS: BP 142/90; PULSE 66; O2SAT 97; BMI 29.9
--- NOTE | 2023-01-25 09:26 | MHC.PC.OV ---
Vital Signs 01/25/23 09:26 Height 5 ft 4 in Weight 174 lb BMI 29.9 BP 142/90 H Blood Pressure Location Lt brachial Position Sitting Pulse 66 Pulse Source Pulse Oximeter Pulse Oximetry (%) 97 Oxygen Delivery Method Room Air Intake Visit Reasons: headaches/ ear infection? Intake Note: pt states right ear popping and pain X4days headache, pt states right shoulder pain Legal Document Specialist Required: No Allergies ibuprofen [Ibuprofen] Allergy (Mild, Verified 01/25/23 10:43) SWELLING celecoxib [CELECOXIB] Allergy (Unknown, Verified 01/25/23 10:43) DROPS SUGAR LEVEL Medication List - Last Reconciled 01/25/23 by Sully Knox, MARGAUX acetaminophen 500 mg PO Q6H PRN 7 days albuterol sulfate 90 mcg/actuation 2 puffs inhalation Q4-6H PRN blood sugar diagnostic As directed cetirizine 5 mg (1/2 x 10 mg) PO DAILY PRN 90 days cholecalciferol (vitamin D3) 25 mcg PO DAILY 90 days famotidine 20 mg PO BID 90 days fenofibrate 54 mg PO DAILY 90 days flunisolide 2 sprays intranasal BID PRN ketotifen fumarate 0.025%(0.035%) (Alaway) 1 drp ophthalmic (eye) BID PRN lancets As directed lisinopril 40 mg PO DAILY 90 days metformin 500 mg PO BID 90 days metoprolol succinate ER 50 mg PO DAILY 90 days montelukast (Singulair) 10 mg PO DAILY ondansetron 4 mg PO TID PRN 5 days pyridoxine (vitamin B6) 100 mg PO DAILY 90 days rizatriptan 10 mg PO ONCE 30 days rosuvastatin 40 mg PO DAILY 90 days tamoxifen 20 mg PO DAILY walker Folding Front wheeled walker Tobacco use date assessed: 01/25/23 Fall risk assessment: No Falls in past year Last assessed Fall Risk: 01/25/23 HPI headaches/ ear infection? HPI Details Patient is a 77-year-old female who presents today for the same day visit due to right ear pain for the past [address] Rudolph. Pain radiates to right-sided head and right-sided neck/shoulder. Patient denies fever or chills. No shortness of breath or chest pain. Reports taking Tylenol with some improvement in pain. Patient is a Wolof-speaking and her daughter was helping with interpretation. [facility] Medical History History of colon cancer Incisional hernia Abdominal wall mass History of breast cancer Invasive ductal carcinoma of left breast Anemia Increased BMI On beta ananya at home Breast cancer Invasive ductal carcinoma of left breast Abnormality of left breast on screening mammography Multinodular thyroid Osteopenia Vitamin D deficiency Primary hyperparathyroidism Tubulovillous adenoma of colon Diabetes Asthma Hyperparathyroidism Cancer Arthritis GERD (gastroesophageal reflux disease) History of headache Elevated cholesterol HTN (hypertension) Surgical History History of cataract surgery History of thyroid surgery History of lumpectomy of left breast H/O left breast biopsy History of mammogram Status post total hip replacement, left History of exploratory laparotomy History of tubal ligation Hx of tonsillectomy Hx of cholecystectomy S/P colon resection H/O colonoscopy Family History Father No problems noted. Mother Diabetes mellitus Other No family history of cancer Social History Household Members: Spouse Housing: House Are you a primary care partner to a significant other at home: No Do you presently have visiting nurse or other home services: No Alcohol intake: never Patient Tobacco Use Status: Never used Tobacco e-Cigarette/Vaping Use: Never Used Second Hand Smoke Exposure: No Advance Directives Date on File: 08/11/02 service: No Current occupational status: unemployed Cognitive needs: No Hearing needs: No Vision needs: Yes Female Reproductive History Menstrual Age of Menarche: 13 Questionnaire Thrive Questionnaire Date Thrive assessed: 09/05/22 AUDIT C Alcohol Use Questionnaire (AUDIT-C) 1. How often do you have a drink containing alcohol?: Never Total Score: 0 Score Reviewed/Action Taken: No LARRY-7 AMB Questionnaire LARRY-7 Date LARRY - 7 assessed: 09/05/22 Source: Developed by Drs. Boyd Garcia, Danii Reeves, Ric Estes and colleagues, with an educational mary from [employer]. Review of Systems Const Denies body aches, Denies chills, Denies fever(s) and Denies headache(s) ENT Denies dizziness, Reports otalgia, Denies headache(s), Denies nasal discharge, Denies sinus pain and Denies sore throat Card Denies chest pain, Denies edema, Denies lightheadedness and Denies dyspnea Resp Denies cough, Denies dyspnea and Denies wheezing GI Denies abdominal pain Denies dysuria Musc Denies myalgias Skin/Breast Denies rash Neuro Denies dizziness and Denies headache(s) Aller/Immun Denies wheezing Physical exam (Primary Care) Vital Signs: Last Vital Signs Pulse 66 01/25/23 09:26 BP 142/90 H 01/25/23 09:26 Pulse Ox 97 01/25/23 09:26 Oxygen Delivery Method Room Air 01/25/23 09:26 BMI result Body Mass Index 29.9 Tobacco/Smoking Status: Tobacco use Status Tobacco use date assessed 01/25/23 01/25/23 09:27 Patient Tobacco Use Status Never used Tobacco 01/25/23 09:27 e-Cigarette/Vaping Use Never Used 01/25/23 09:27 Thrive Assessment: Date of Thrive Assessment Date Thrive assessed 09/05/22 01/25/23 09:27 Const General: cooperative and no acute distress Orientation/consciousness: patient oriented x3 HENMT Other: Left TM normal Right TM with moderate erythema and mild cerumen in ear canal Head: Yes normocephalic and Yes atraumatic Face and sinus: Yes sinuses nontender Mouth: oropharynx normal and moist mucous membranes Throat: Yes posterior oropharynx normal Eyes General: appearance normal, both eyes and all related structures Pupils: Equal, round and reactive pupils present Neck Neck: Yes normal visual inspection, Yes full ROM and Yes no lymphadenopathy Resp Effort & Inspection: normal respiratory effort and able to speak in complete sentences Auscultation: clear to auscultation bilaterally, no crackles, no rales, no rhonchi and no wheezes Cardio Rate: regular rate Rhythm: regular rhythm Heart sounds: S1 normal heart sound present and S2 normal heart sound present GI Auscultation: normal bowel sounds Skin General skin exam: no rashes or lesions noted Neuro General: patient oriented x3 Cranial nerves: Yes Equal, round and reactive pupils present Gait exam (Neuro): Normal gait present Extrem General: Yes full ROM Assessment and Plan Assessment & Plan (1) Otitis media, right: Code(s): H66.91 - Otitis media, unspecified, right ear Plan: Start Augmentin b.i.d. for 7 days Continue [id number] Tylenol 650 mg every 6 hours as needed Follow-up in the office no improvement after finishing antibiotic Patient agreed with the plan Medications: New amoxicillin-pot clavulanate 875-125 mg 1 tab PO Q12H 14 tabs 0RF H66.91 - Otitis media, unspecified, right ear Coding Level of Care Code Est Pt Level 3 (59431) Diagnoses Otitis media, right H66.91
== END 2023-01-25 11:29 | disposition home or self-care (01) ==
LOC: HO.HMGH 09:12
PROVIDERS: PCP Internal Medicine; Visit Provider Nurse Practitioner Family
DX: H66.91 Otitis media, unspecified, right ear (principal)
CPT/HCPCS: 99213

== ENCOUNTER 2023-04-25 11:23 | Outpatient (AMB) | payer OTHER, SELFPAY ==
--- NOTE | 2023-04-25 11:26 | MHC.OFFVIS ---
Intake Vital Signs 04/25/23 11:27 Height 5 ft 4 in Weight 183 lb 6.793 oz BMI 31.5 BP 140/76 H Blood Pressure Location Lt brachial Position Sitting Pulse 66 Pulse Source Pulse Oximeter Intake Visit Reasons: F/U Osteoporosis-confirmed Intake Note: Patient last seen on 08/22/[address] Ferro. Patient present today for Osteoporosis follow up visit. Avionics Safety Inspector Required: Yes Avionics Safety Inspector Language: Relief Salesperson Name: Tyesha Zhong Information Interpreted: non-clinical & clinical Accompanied by: Other Relationship Allergies ibuprofen [Ibuprofen] Allergy (Mild, Verified 04/25/23 11:34) SWELLING celecoxib [CELECOXIB] Allergy (Unknown, Verified 04/25/23 11:34) DROPS SUGAR LEVEL Medication List - Last Reconciled 04/25/23 by Boyd Sanabria MD acetaminophen 500 mg PO Q6H PRN 7 days albuterol sulfate 90 mcg/actuation 2 puffs inhalation Q4-6H PRN blood sugar diagnostic As directed cetirizine 5 mg (1/2 x 10 mg) PO DAILY PRN 90 days cholecalciferol (vitamin D3) 25 mcg PO DAILY 90 days famotidine 20 mg PO BID 90 days fenofibrate 54 mg PO DAILY 90 days flunisolide 2 sprays intranasal BID PRN ketotifen fumarate 0.025%(0.035%) (Alaway) 1 drp ophthalmic (eye) BID PRN lancets As directed lisinopril 40 mg PO DAILY 90 days metformin 500 mg PO BID 90 days metoprolol succinate ER 50 mg PO DAILY 90 days montelukast (Singulair) 10 mg PO DAILY ondansetron 4 mg PO TID PRN 5 days pyridoxine (vitamin B6) 100 mg PO DAILY 90 days rizatriptan 10 mg PO ONCE 30 days rosuvastatin 40 mg PO DAILY 90 days tamoxifen 20 mg PO DAILY walker Folding Front wheeled walker HPI HPI Comments History of Present Illness Details 77 YO F with PMHx Vitamin D Deficiency, and colon cancer who is seen in F/U for Primary Hyperparathyroidism. She is S/P a 3 gland parathyroidectomy 08/16/2020. The patient last saw Dr. Ferro on 08/21/2022 She also has a new diagnosis of breast cancer, s/p lumpectomy, and is currently taking Tamoxifen. First noted to have high calcium in July of 2016 with Calcium of 10.3. She has had Calcium repeated priodically since then, and it was high again 08/12/18 at 10.7. She subsequently had this repeated 08/16/18 and it was 10.0 with PTH of 96. Cr was 0.79 at that time. No albumin was checked. We repeated full biochemical panel which revealed evidence of primary hyperparathyroidism with Total Calcium of 10.5, PTH of 71. Vitamin D was slightly low at 20.1. She had 24 hour urine calcium with Calcium to creatinine clearance ratio of 0.014 consistent with PHPT. Labs were repeated 12/29/2019 with labs consistent with hyperparathyroidism with Calcium 10.2, albumin 4.2, creatinine 0.78, Vitamin D 43.5 and PTH of 107. DXA revealed Osteopenia of the hip and also the forearm. She had FRAX score calculated by me to be 10 year risk of major osteoporotic fracture of 12%, and 10 year risk of hip fracture 3.2%. She was started on Vitamin D 1000 IU daily, but remained deficient. This was increased to 3000 IU daily. She underwent a surgical parathyroidectomy 08/16/2020 with resection of her L superior and her bilateral inferior parathyroid glands for a 3 gland parathyroidectomy. Intraoperative PTH declined from 120-25, indicating cure. She had a DXA repeated 07/22/2021 which reveals decrease in her hip, but I suspect this is from positioning. BMD increased in her spine and was stable in her hip. This was done less than 1 year after her parathyroidectomy, and decision was made to wait 1 additional year (2 full years following her parathyroidectomy). She was seen by Heme-Onc and was dosed IV Reclast 01/19/2022. Subsequently she developed hypocalcemia. We increased her Calcium supplement to 1000 mg PO BID and Calcium has since returned to WNL. She reports feeling well today and has no complaints of myalgias or paresthesias. She does report occasional leg cramps. DXA: 07/22/2021 FINDINGS: AP SPINE L1-L2 (excluding L3 and L4): The data of L1-L4 has been changed to exclude the L3 and L4 vertebral bodies, because degenerative sclerosis at these levels may cause overestimation of lumbar spine density. Current: BMD 0.978 g/cm2, Z-score -0.4, T-score -1.6, osteopenia, 3.9% increase from previous, 4.7% increase from baseline (<5% change is not significant). Prior: BMD 0.941 g/cm2. Baseline: BMD 0.934 g/cm2. RIGHT FEMUR, NECK: Current: BMD 0.894 g/cm2, Z-score 0.6, T-score -1.0, normal. Prior: BMD 1.002 g/cm2. Baseline: BMD 1.038 g/cm2. RIGHT FEMUR, TOTAL: Current: BMD 0.919 g/cm2, Z-score 0.7, T-score -0.7, normal, 7.9% decrease from previous, 12.8% decrease from baseline (<5% change is not significant). Prior: BMD 0.998 g/cm2. Baseline: BMD 1.054 g/cm2. LEFT FOREARM RADIUS 33%: BMD 0.655 g/cm2, Z-score 0.0, T-score -2.5, osteoporosis, 2.4% decrease from baseline (<5% change is not significant). Baseline: BMD 0.671 g/cm2. Thyroid US: 06/15/2022 Right Thyroid Lobe: 4.2 x 1.6 x 1.6 cm, volume 5.6 mL. Previously 4.8 x 1.8 x 1.5 cm, volume 6.8 mL. Parenchyma: The gland echotexture is heterogeneous. Thyroid vascularity is normal. Left Thyroid Lobe: 4.2 x 1.9 x 1.2 cm, volume 5.0 mL. Previously 3.4 x 1.7 x 0.9 cm, volume 2.7 mL. Parenchyma: The gland echotexture is heterogeneous. Thyroid vascularity is normal. Isthmus: 0.6 cm in maximum AP dimension. Previously 0.6 cm. No focal thyroid nodule is seen. NODES: No lymphadenopathy is seen in the tissue surrounding the thyroid gland. Labs: Laboratory Tests 08/14/22 08/14/22 13:07 13:07 Sodium 136 Potassium 4.5 Creatinine 1.18 Estimated GFR 44 Albumin 4.0 25-OH Vitamin D To agatha 36.3 TSH 1.90 PTH Intact 24 Calcium (PTH Intac t) 9.0 Taking calcium and Vitamin D [facility] [place] Medical History History of colon cancer Incisional hernia Abdominal wall mass History of breast cancer Invasive ductal carcinoma of left breast Anemia Increased BMI On beta naanya at home Breast cancer Invasive ductal carcinoma of left breast Abnormality of left breast on screening mammography Multinodular thyroid Osteopenia Vitamin D deficiency Primary hyperparathyroidism Tubulovillous adenoma of colon Diabetes Asthma Hyperparathyroidism Cancer Arthritis GERD (gastroesophageal reflux disease) History of headache Elevated cholesterol HTN (hypertension) Surgical History History of cataract surgery History of thyroid surgery History of lumpectomy of left breast H/O left breast biopsy History of mammogram Status post total hip replacement, left History of exploratory laparotomy History of tubal ligation Hx of tonsillectomy Hx of cholecystectomy S/P colon resection H/O colonoscopy Family History Father No problems noted. Mother Diabetes mellitus Other No family history of cancer Social History Household Members: Spouse Housing: House Are you a primary care associate to a significant other at home: No Do you presently have visiting nurse or other home services: No Alcohol intake: never Comment: sleeping Patient Tobacco Use Status: Never used Tobacco e-Cigarette/Vaping Use: Never Used Second Hand Smoke Exposure: No Advance Directives Date on File: 08/11/02 service: No Current occupational status: unemployed Cognitive needs: No Hearing needs: No Vision needs: Yes Female Reproductive History Menstrual Age of Menarche: 13 Physical Exam Vital Signs: Last Vital Signs Pulse 66 04/25/23 11:27 BP 140/76 H 04/25/23 11:27 BMI result Body Mass Index 31.5 Assessment & Plan Assessment & Plan (1) Primary hyperparathyroidism: Code(s): E21.0 - Primary hyperparathyroidism Plan: This is a 77-year-old female with a history of primary hyperparathyroidism status post parathyroidectomy with normalization of calcium and vitamin-D. She was vitamin-D deficient but is now replete calcium is normal. At this point, patient returned to the care of her primary care provider the back to endocrinology as needed (2) Osteoporosis: Code(s): M81.0 - Age-related osteoporosis without current pathological fracture Plan: History of low bone mass status post parathyroidectomy. Patient is also on tamoxifen which might have a positive effect on bone Patient returned to the care of her primary care provider who can check another bone density if this significant decline into osteoporotic range, she can be referred back to endocrinology or started again on anti resorptive therapy like a bisphosphonate Coding Level of Care Code Est Pt Level 3 (85670) Diagnoses Primary hyperparathyroidism E21.0 Osteoporosis M81.0
[2023-04-25 11:27] VITALS: BP 140/76; PULSE 66; BMI 31.5
== END 2023-04-25 11:46 | disposition home or self-care (01) ==
PROVIDERS: PCP Internal Medicine; Visit Provider Internal Medicine Endocrinology, Diabetes & Metabolism
DX: E21.0 Primary hyperparathyroidism (principal); M81.0 Age-related osteoporosis without current pathological fracture
CPT/HCPCS: 99213

== ENCOUNTER → 2023-04-25 11:23 | Outpatient (BNVA) | payer OTHER, MEDICAID, SELFPAY | PROVIDERS: Visit Provider Internal Medicine Endocrinology, Diabetes & Metabolism | DX: E21.0 Primary hyperparathyroidism (principal); M81.0 Age-related osteoporosis without current pathological fracture | CPT/HCPCS: 99212 ==

== ENCOUNTER 2023-04-26 15:15 | Outpatient (REF) | payer OTHER, SELFPAY ==
--- NOTE | ~2023-04-26 | US_ITS ---
EXAMINATION: US RETROPERITONEAL LIMITED (RENAL ONLY) CLINICAL INFORMATION: Calculus of kidney. COMPARISON: CT abdomen and pelvis 08/11/2022. TECHNIQUE: Real-time imaging of the kidneys. FINDINGS: RIGHT KIDNEY: 11.4 x 4.0 x 5.1 cm (SAG x AP x TRV). The kidney is normal in size, contour, and echogenicity. Renal cortical thickness is normal. No calculi or focal parenchymal lesions. No hydronephrosis. LEFT KIDNEY: 10.9 x 5.2 x 5.3 cm (SAG x AP x TRV). The kidney is normal in size, contour, and echogenicity. Renal cortical thickness is normal. 3 mm left mid renal calculus seen on 08/11/2022 CT is not identified on today's examination. No focal parenchymal lesions. No hydronephrosis. US/US renal BI IMPRESSION: Unremarkable study.
== END 2023-04-26 15:16 | disposition home or self-care (01) ==
LOC: HO.US 15:15
PROVIDERS: PCP Internal Medicine; Visit Provider Nurse Practitioner Family
DX: N20.0 Calculus of kidney (principal)
CPT/HCPCS: 76775

== ENCOUNTER 2023-05-14 08:38 | Outpatient (REF) | payer OTHER, SELFPAY ==
[2023-05-14 10:08] LABS: Appearance Urine Cloudy; Color Urine Yellow; Glucose Urine UA Negative (Negative); Leukocyte Esterase Urine Small (1+) (Negative); Nitrite Urine Negative (Negative); UMIC TRIGGER UACC YES; Urine Blood Trace (Negative); Urine Ketones Negative (Negative); Urine Protein Negative (Neg-Trace)
[2023-05-14 10:11] LABS: Bacteria Urine 1+ (None Seen); Hyaline Casts Urine 0-2 /LPF (0-2); Squamous Epithelial Cell Urine >20 /HPF (0-2); UACC Culture Trigger YES
[2023-05-14 10:32] LABS: Alanine Aminotransferase 13 U/L (0-31); Albumin Level 3.9 g/dL (3.5-5.0); Alkaline Phosphatase 31 U/L (39-117); Anion Gap 13 (12-20); Aspartate Amino Transferase 18 U/L (5-31); Bilirubin Total 0.3 mg/dL (0.0-1.0); Blood Urea Nitrogen 16 mg/dL (9-16); Calcium 8.4 mg/dL (8.4-10.2); Carbon Dioxide 26 mmol/L (22-29); Chloride 105 mmol/L (96-108); Cholesterol 130 mg/dL (<200); Estimated Glomerular Filt Rate 59; Glucose Fasting 121 mg/dL (60-99); HDL Cholesterol 50 mg/dL (>40); LDL Cholesterol Calculated 51 mg/dL (<100); Potassium 4.4 mmol/L (3.3-5.1); Sodium 140 mmol/L (135-145); Total Protein 6.7 g/dL (6.5-8.0); Triglycerides 148 mg/dL (<150)
[2023-05-14 10:35] LABS: Vitamin D 25-OH Total 28.9 ng/mL (>30)
[2023-05-14 10:39] LABS: Creatinine Urine 127.47 mg/dL; Microalbum/Creatinine Ratio Ur 8.6 ug/mg cr (<30)
== END 2023-05-14 08:39 | disposition home or self-care (01) ==
LOC: HO.LAB 08:38
PROVIDERS: PCP Internal Medicine; Visit Provider Internal Medicine
DX: E11.9 Type 2 diabetes mellitus without complications (principal); E78.5 Hyperlipidemia, unspecified; E55.9 Vitamin D deficiency, unspecified; R33.9 Retention of urine, unspecified
CPT/HCPCS: 36415; 80053; 80061; 81001; 81003; 82043; 82306; 82570; 87086; 99212

== ENCOUNTER 2023-05-14 13:37 | Outpatient (AMB) | payer OTHER, SELFPAY ==
--- NOTE | 2023-05-14 13:40 | MHC.OFFVIS ---
Intake Intake Visit Reasons: US follow up(set) Intake Note: Patient presents for follow up Nephrolithiasis Imagin04/26/23 Urology Medications: Vitamin B6 Blood Thinner: none Card Lacer Required: No Accompanied by: elderther in law Allergies ibuprofen [Ibuprofen] Allergy (Mild, Verified 05/14/23 13:48) SWELLING celecoxib [CELECOXIB] Allergy (Unknown, Verified 05/14/23 13:48) DROPS SUGAR LEVEL HPI HPI Comments History of Present Illness Details Destiney is a very pleasant 77 year old Telugu speaking patient of Dr. Rudolph who is accompanied by her daughter at todays visit. She has a past medical history of anemia, arthritis, asthma, breast cancer, colon cancer, diabetes, elevated cholesterol, GERD, migraines, hypertension, hyperparathyroidism, and vitamin-D deficiency. She presents to the office today for follow-up. Of note, patient was seen approximately 6 months ago as a new patient for nephrolithiais at which time recommendations were made for surveillance monitoring of nephrolithiasis. Recent renal imaging results reviewed with the patient today. Bilateral kidneys with no calculi, lesions, and or hydronephrosis. 3 mm left mid renal calculus seen on previous CT is not identified on this renal ultrasound. When asked she currently denies any bothersome urinary issues or concerns. She denies urinary frequency, urinary urgency, incontinence, nocturia, hematuria, dysuria, foul smelling urine, changes to urinary stream, flank pain, fever, and or chills. She is happy with her current voiding parameters. She reports compliance with vitamin B6 as prescribed. She reports to be drinking plenty of water daily. In office urinalysis results reviewed with the patient today. She otherwise denies any bothersome urinary issues or concerns. [facility] Medical History History of colon cancer Incisional hernia Abdominal wall mass History of breast cancer Invasive ductal carcinoma of left breast Anemia Increased BMI On beta ananya at home Breast cancer Invasive ductal carcinoma of left breast Abnormality of left breast on screening mammography Multinodular thyroid Osteopenia Vitamin D deficiency Primary hyperparathyroidism Tubulovillous adenoma of colon Diabetes Asthma Hyperparathyroidism Cancer Arthritis GERD (gastroesophageal reflux disease) History of headache Elevated cholesterol HTN (hypertension) Surgical History History of cataract surgery History of thyroid surgery History of lumpectomy of left breast H/O left breast biopsy History of mammogram Status post total hip replacement, left History of exploratory laparotomy History of tubal ligation Hx of tonsillectomy Hx of cholecystectomy S/P colon resection H/O colonoscopy Family History Father No problems noted. Mother Diabetes mellitus Other No family history of cancer Social History Household Members: Spouse Housing: House Are you a primary career education teacher to a significant other at home: No Do you presently have visiting nurse or other home services: No Alcohol intake: never Comment: sleeping Patient Tobacco Use Status: Never used Tobacco e-Cigarette/Vaping Use: Never Used Second Hand Smoke Exposure: No Advance Directives Date on File: 08/11/02 service: No Current occupational status: unemployed Cognitive needs: No Hearing needs: No Vision needs: Yes Female Reproductive History Menstrual Age of Menarche: 13 Review of Systems Const Reports as per HPI Eyes Reports no additional complaints ENT Reports no additional complaints Card Reports as per HPI Resp Reports as per HPI GI Reports as per HPI Reports as per HPI Musc Reports no additional complaints Neuro Reports no additional complaints Psych Reports as per HPI Endo Reports as per HPI Physical Exam Const General: cooperative, healthy appearing, comfortable, no acute distress, well developed, alert and awake Orientation/consciousness: patient oriented x3 Limitations: no limitations HEENT Head: Yes normal to inspection, Yes normocephalic and Yes atraumatic Ears: hearing grossly normal bilaterally Eyes General: appearance normal, both eyes and all related structures Neck Neck: Yes normal visual inspection and Yes trachea midline Chest Chest palpation & inspection: normal inspection of the chest Resp Effort & Inspection: normal respiratory effort and able to speak in complete sentences Cardio Rate: regular rate GI Inspection: Yes normal to inspection General: Yes no CVA tenderness Back/Spine/Pelvis Back: no CVA tenderness Skin General skin exam: no rashes or lesions noted Neuro General: patient oriented x3 Extrem General: Yes normal to inspection Psych Appearance: grossly normal and well kempt Mental Status: mental status grossly normal Speech and movement: Normal speech and movement present and Clear speech present Affect: normal affect Attitude: cooperative Thought process: Normal thought process present Thought content: Normal thought content present Insight: Fair insight present (Psych) Judgement: Fair judgement present (Psych) Results AMB Urinalysis, Automated UA Leukoctes 0 Hari/uL Last Edit by Alexa Quinn [facility] on 05/14/23 13:54 UA Nitrite Negative Last Edit by Alexa Quinn [facility] on 05/14/23 13:54 UA Urobilinogen 0.2 mg/dL Last Edit by Alexa Quinn [facility] on 05/14/23 13:54 UA Protein 15 mg/dL Last Edit by Alexa Quinn, [facility] on 05/14/23 13:54 UA pH 6.0 Last Edit by Alexa Quinnlorrie Quinn, [facility] on 05/14/23 13:54 UA Blood 10 Elder/uL Last Edit by Alexa Quinnlorrie Quinn, [facility] on 05/14/23 13:54 UA Specific [place] 1.030 Last Edit by Alexa Quinn, [facility] on 05/14/23 13:54 UA Ketone Negative Last Edit by Alexa Quinn [facility] on 05/14/23 13:54 UA Bilirubin 0 mg/dL Last Edit by Alexa Quinnlorrie Quinn [facility] on 05/14/23 13:54 UA Glucose 0 mg/dL Last Edit by Alexa Quinnlorrie Quinn [facility] on 05/14/23 13:54 Results Reviewed Results Reviewed: Laboratory Last Values Urine pH (Auto) 6.0 05/14/23 13:50 Specific [place] (Auto) 1.030 05/14/23 13:50 Urine Protein (Auto) 15 mg/dL 05/14/23 13:50 Glucose (UA)(Auto) 0 mg/dL 05/14/23 13:50 Urine Ketones (Auto) Negative 05/14/23 13:50 Urine Blood (Auto) 10 Elder/uL 05/14/23 13:50 Urine Nitrite (Auto) Negative 05/14/23 13:50 Urine Bilirubin (Auto) 0 mg/dL 05/14/23 13:50 Urine Urobilinogen (Auto) 0.2 mg/dL 05/14/23 13:50 Leukocyte Esterase (Auto) 0 Hari/uL 05/14/23 13:50 Date of Service: 04/26/23 EXAMINATION: US RETROPERITONEAL LIMITED (RENAL ONLY) CLINICAL INFORMATION: Calculus of kidney. COMPARISON: CT abdomen and pelvis 08/11/2022. TECHNIQUE: Real-time imaging of the kidneys. FINDINGS: RIGHT KIDNEY: 11.4 x 4.0 x 5.1 cm (SAG x AP x TRV). The kidney is normal in size, contour, and echogenicity. Renal cortical thickness is normal. No calculi or focal parenchymal lesions. No hydronephrosis. LEFT KIDNEY: 10.9 x 5.2 x 5.3 cm (SAG x AP x TRV). The kidney is normal in size, contour, and echogenicity. Renal cortical thickness is normal. 3 mm left mid renal calculus seen on 08/11/2022 CT is not identified on today's examination. No focal parenchymal lesions. No hydronephrosis. IMPRESSION: Unremarkable study. Assessment & Plan Assessment & Plan (1) Renal calculi: Code(s): N20.0 - Calculus of kidney Plan In office urinalysis results reviewed with the patient today; as noted above. Recent renal imaging results reviewed with the patient today; as noted above. Patient currently denies any bothersome urinary issues or concerns. She reports be happy with current voiding parameters. Continue vitamin B6; decreased to 50 mg daily. Educated, instructed, and encouraged to continue drinking plenty of water daily. Continue adding 1 oz of lemon juice to water daily. Will continue with surveillance monitoring Renal ultrasound in 1 year. Follow-up in 1 year with imaging to be completed prior; or sooner with any issues, concerns, and or questions. Orders: Orders AMB Urinalysis Automated Today R33.9 - Retention of urine, unspecified US renal BI 364 Days N20.0 - Calculus of kidney Medications: Changed From pyridoxine (vitamin B6) 100 mg PO DAILY 90 days 90 tabs 1RF N20.0 - Calculus of kidney To pyridoxine (vitamin B6) 50 mg (1/2 x 100 mg) PO DAILY 90 days 45 tabs 2RF N20.0 - Calculus of kidney Patient Instructions: The patient had an opportunity to ask questions regarding the treatment plan. All questions were answered. Physical exam, labs, and imaging were discussed and reviewed in detail. As well as risks, benefits, and discussion of treatment choices. No major barriers to understanding were identified. The patient expressed understanding and agreement with the above treatment plan. The patient was made aware they should contact our office by phone for worsening of their current condition, the appearance of new symptoms, or with any questions or concerns. Compliance is encouraged with any medications and follow up testing that is ordered. It is a privilege to be allowed the opportunity to participate in? your urological care.? Again, if you have any questions or concerns If you have any questions or concerns please do not hesitate to contact me. The office is [phone]. This note is constructed using voice recognition software. While every effort has been made to ensure accuracy certified peer specialist errors may have been included. Yours sincerely, DAVID Butterfield Coding Level of Care Code Est Pt Level 3 (07146) Diagnoses Renal calculi N20.0
== END 2023-05-14 14:08 | disposition home or self-care (01) ==
PROVIDERS: PCP Internal Medicine; Visit Provider Nurse Practitioner Family
DX: N20.0 Calculus of kidney (principal); R33.9 Retention of urine, unspecified
CPT/HCPCS: 99213

== ENCOUNTER 2023-05-21 09:41 | Outpatient (AMB) | payer OTHER, SELFPAY ==
--- NOTE | 2023-05-21 09:45 | A.OFFPC_ITS ---
Vital Signs 05/21/23 09:48 Height 5 ft 4 in Weight 179 lb BMI 30.7 BP 132/78 Blood Pressure Location Lt brachial Position Sitting Intake Visit Reasons: dm Intake Note: Patient here for a follow up DM Cephalometric Analyst Required: No Accompanied by: Family/Other Allergies ibuprofen [Ibuprofen] Allergy (Mild, Verified 05/21/23 10:00) SWELLING celecoxib [CELECOXIB] Allergy (Unknown, Verified 05/21/23 10:00) DROPS SUGAR LEVEL Medication List - Last Reconciled 05/21/23 by Kim Garcia MD acetaminophen 500 mg PO Q6H PRN 7 days albuterol sulfate 90 mcg/actuation 2 puffs inhalation Q4-6H PRN blood sugar diagnostic As directed cetirizine 5 mg (1/2 x 10 mg) PO DAILY PRN 90 days cholecalciferol (vitamin D3) 25 mcg PO DAILY 90 days famotidine 20 mg PO BID 90 days fenofibrate 54 mg PO DAILY 90 days flunisolide 2 sprays intranasal BID PRN ketotifen fumarate 0.025%(0.035%) ([place]) 1 drp ophthalmic (eye) BID PRN lancets As directed lisinopril 40 mg PO DAILY 90 days metformin 500 mg PO BID 90 days metoprolol succinate ER 50 mg PO DAILY 90 days montelukast (Singulair) 10 mg PO DAILY ondansetron 4 mg PO TID PRN 5 days pyridoxine (vitamin B6) 50 mg (1/2 x 100 mg) PO DAILY 90 days rizatriptan 10 mg PO ONCE 30 days rosuvastatin 40 mg PO DAILY 90 days tamoxifen 20 mg PO DAILY walker Folding Front wheeled walker Tobacco use date assessed: 05/21/23 Fall risk assessment: No Falls in past year Last assessed Fall Risk: 05/21/23 Dental Screening Dental Screen Date: 05/21/23 Did you have a dental visit in the last 12 months?: No Did you have a dental problem in the last 6 months where you did not have access to dental care?: No Was dental information given to patient?: Patient has dentist HPI HPI Comments History of Present Illness Details This is a 77-year-old female with diabetes mellitus type 2, hypertension, hyperlipidemia and history of left breast cancer that comes today complaining of paraspinal spasm in lumbar area that started few days ago. No fever or bowel/bladder incontinence. A1c elevated and I will increase metformin. Blood pressure stable. LDL within goal. She is accompanied by daughter in-law. On tamoxifen for her less breast cancer which is follow by Hematology-Oncology. [facility] Medical History (Updated 05/21/23 @ 11:20 by Kim Garcia MD) Otitis media, right History of colon cancer Incisional hernia Abdominal wall mass History of breast cancer Invasive ductal carcinoma of left breast Anemia Increased BMI On beta ananya at home Breast cancer Invasive ductal carcinoma of left breast Abnormality of left breast on screening mammography Multinodular thyroid Osteopenia Vitamin D deficiency Primary hyperparathyroidism Tubulovillous adenoma of colon Diabetes Asthma Hyperparathyroidism Cancer Arthritis GERD (gastroesophageal reflux disease) History of headache Elevated cholesterol HTN (hypertension) Surgical History History of cataract surgery History of thyroid surgery History of lumpectomy of left breast H/O left breast biopsy History of mammogram Status post total hip replacement, left History of exploratory laparotomy History of tubal ligation Hx of tonsillectomy Hx of cholecystectomy S/P colon resection H/O colonoscopy Family History Father No problems noted. Mother Diabetes mellitus Other No family history of cancer Social History Household Members: Spouse Housing: House Are you a primary senior care assistant to a significant other at home: No Do you presently have visiting nurse or other home services: No Alcohol intake: never Comment: sleeping Patient Tobacco Use Status: Never used Tobacco e-Cigarette/Vaping Use: Never Used Second Hand Smoke Exposure: No Advance Directives Date on File: 08/11/02 service: No Current occupational status: unemployed Cognitive needs: No Hearing needs: No Vision needs: Yes Female Reproductive History Menstrual Age of Menarche: 13 Questionnaire PHQ-9 Over the last 2 weeks, how often have you been bothered by any of the following problems? 1. Little interest or pleasure in doing things: not at all 2. Feeling down, depressed, or hopeless: not at all 3. Trouble falling or staying asleep, or sleeping too much: not at all 4. Feeling tired or having little energy: not at all 5. Poor appetite or overeating: not at all 6. Feeling bad about yourself - or that you are a failure or have let yourself or your family down: not at all 7. Trouble concentrating on things, such as reading the newspaper or watching television: not at all 8. Moving or speaking so slowly that other people could have noticed. Or the opposite - being so fidgety or restless that you have been moving around a lot more than usual: not at all 9. Thoughts that you would be better off or of hurting yourself in some way: not at all Total score: 0 Depression Screening Interpretation: Negative Depression Screening Done: Yes 65233 - PHQ-9 Billing: Yes Source: Developed by Drs. Boyd Garcia, Danii Reeves, Ric Estes and colleagues, with an educational mary from [employer]. Thrive Questionnaire Date Thrive assessed: 05/21/23 I am a: Patient What is your living situation today?: I have a steady place to live Within the past 12 months, did the food you bought not last and you didn't have the money to get more?: Never true Within the past 12 months, did you worry whether your food would run out before you got money to buy more?: Never true Do you have trouble paying for medicines?: No Do you have trouble getting transportation to medical appointments?: No Do you have trouble paying your heating and electricity bill?: No Do you have trouble taking care of your child, family member or friend?: No Do you have trouble with day-to-day activities such as bathing, preparing meals, shopping, managing finances, etc.?: No Are you currently unemployed and looking for a job?: No Are you interested in more education?: No Please select the resources that you would like help with: None Currently or been in a relationship where the following occur: no concerns reported THRIVE Score: 0 AUDIT C Alcohol Use Questionnaire (AUDIT-C) 1. How often do you have a drink containing alcohol?: Never Total Score: 0 LARRY-7 AMB Questionnaire LARRY-7 Date LARRY - 7 assessed: 05/21/23 Feeling nervous, anxious, or on edge: 0 = Not at all Not being able to stop or control worryin = Not at all Worrying too much about different things: 0 = Not at all Trouble relaxin = Not at all Being so restless that it is hard to sit still: 0 = Not at all Becoming easily annoyed or irritable: 0 = Not at all Feeling afraid as if something awful might happen: 0 = Not at all Total LARRY-7 score (0-4 normal; 5-9 mild; 10-14 moderate; 15-21 severe): 0 Source: Developed by Drs. Boyd Garcia, Danii Reeves, Ric Estes and colleagues, with an educational mary from [employer]. LARRY-7 Assessment Billing LARRY-7 Assessment Tool: LARRY-7 Assessment 81780 Review of Systems Const All systems reviewed & are unremarkable except as noted in HPI and below Eyes Reports no additional complaints, Denies change in vision and Denies other visual disturbances Card Denies chest pain at rest, Denies chest pain with activity, Denies edema, Denies irregular heart rhythm, Denies claudication, Denies dyspnea, Denies dyspnea on exertion, Denies orthopnea, Denies paroxysmal nocturnal dyspnea and Denies slow heart rate Resp Denies cough, Denies dyspnea and Denies dyspnea on exertion GI Denies abdominal pain, Denies change in bowel habits, Denies excessive flatus, Denies nausea and Denies vomiting Denies urinary incontinence, Denies urinary hesitancy and Denies urinary urgency Musc Denies atrophy, Denies deformity and Denies limited range of motion Physical exam (Primary Care) Vital Signs: Last Vital Signs BP 132/78 05/21/23 09:48 BMI result Body Mass Index 30.7 Tobacco/Smoking Status: Tobacco use Status Tobacco use date assessed 05/21/23 05/21/23 09:53 Patient Tobacco Use Status Never used Tobacco 05/21/23 09:53 e-Cigarette/Vaping Use Never Used 05/21/23 09:53 PHQ-9: PHQ-9 Score PHQ-9: Total score 0 05/21/23 10:12 Depression Screening Interpretation: Negative Thrive Assessment: Date of Thrive Assessment Date Thrive assessed 05/21/23 05/21/23 09:53 Currently or been in a relationship where the following occur: no concerns reported Eyes General: appearance normal, both eyes and all related structures Eyelids: Yes eyelids normal Conjunctivae: conjunctivae normal Neck Neck: Yes normal visual inspection and Yes supple Resp Effort & Inspection: normal respiratory effort Auscultation: clear to auscultation bilaterally Cardio Jugular venous distension: no JVD Rate: regular rate Rhythm: regular rhythm Heart sounds: S1 normal heart sound present and S2 normal heart sound present Extrem General: Yes full ROM Results AMB Hemoglobin A1c AMB Hemoglobin A1c 7.7 % Last Edit by DARIAN Herrera on 05/21/23 09:5 5 Results Reviewed Results Reviewed: Laboratory Last Values Hgb A1c (Clinic) 7.7 % (4.0-6.0) H 05/21/23 09:45 Assessment and Plan Assessment & Plan (1) Diabetes: Comment: NIDDM Code(s): E11.9 - Type 2 diabetes mellitus without complications Qualifiers: Diabetes mellitus type: type 2 Diabetes mellitus terminal makeup operator insulin use: without terminal makeup operator use Diabetes mellitus complication status: with hyperglycemia Qualified Code(s): E11.65 - Type 2 diabetes mellitus with hyperglycemia Plan: Increase metformin. A1c goal is equal or less than 7%. (2) HTN (hypertension): Code(s): I10 - Essential (primary) hypertension Qualifiers: Hypertension type: primary hypertension Qualified Code(s): I10 - Essential (primary) hypertension Plan: Continue lisinopril. Blood pressure goal is equal or less than 130/80. (3) Hyperlipidemia LDL goal <70: Code(s): E78.5 - Hyperlipidemia, unspecified Plan: Continue statins. LDL goal is equal or less than 70. (4) Invasive ductal carcinoma of left breast: Code(s): C50.912 - Malignant neoplasm of unspecified site of left female breast Plan: Continue tamoxifen. (5) Lumbar paraspinal muscle spasm: Code(s): M62.830 - Muscle spasm of back Plan: Start Flexeril last needed. Orders: Orders AMB Hemoglobin A1c Today E11.9 - Type 2 diabetes mellitus without complications Lipid Panel 4 Months E78.5 - Hyperlipidemia, unspecified Comprehensive [place]. Panel Fast 4 Months E11.9 - Type 2 diabetes mellitus without complications Complete Blood Count Auto Diff 4 Months D64.9 - Anemia, unspecified Microalbumin, Random (w Creat) 4 Months E11.9 - Type 2 diabetes mellitus without complications IRON PROFILE 4 Months D64.9 - Anemia, unspecified Vitamin D 25-OH Total 4 Months E55.9 - Vitamin D deficiency, unspecified Medications: New metformin 850 mg PO BID 90 days 180 tabs 1RF cyclobenzaprine 5 mg PO TID 7 days PRN 21 tabs 1RF muscle spasm Discontinued metformin Discontinued Reason: Patient Completed Course 500 mg PO BID 90 days 180 tabs 1RF Coding Level of Care Code Est Pt Level 4 (27346) Diagnoses Type 2 diabetes mellitus with hyperglycemia, without long-term current use of insulin E11.65 Diabetes mellitus type: type 2 Diabetes mellitus terminal makeup operator insulin use: without terminal makeup operator use Diabetes mellitus complication status: with hyperglycemia Primary hypertension I10 Hypertension type: primary hypertension Hyperlipidemia LDL goal <70 E78.5 Invasive ductal carcinoma of left breast C50.912 Lumbar paraspinal muscle spasm M62.830 Additional Codes LARRY-7 Assessment Billing - LARRY-7 Assessment Tool: LARRY-7 Assessment 12444 ([id number]) Time Spent (min) 24
[2023-05-21 09:48] VITALS: BP 132/78; BMI 30.7
== END 2023-05-21 10:07 | disposition home or self-care (01) ==
PROVIDERS: PCP Internal Medicine; Visit Provider Internal Medicine
DX: E11.65 Type 2 diabetes mellitus with hyperglycemia (principal); I10 Essential (primary) hypertension; E78.5 Hyperlipidemia, unspecified; C50.912 Malignant neoplasm of unspecified site of left female breast; M62.830 Muscle spasm of back; E11.9 Type 2 diabetes mellitus without complications
CPT/HCPCS: 83036; 99214

== ENCOUNTER 2023-07-21 13:24 | Inpatient (IN) | payer OTHER, SELFPAY ==
[2023-07-21] VITALS (9 sets, daily range): BP systolic 111–178; BP diastolic 54–93; PULSE 85–120; RESP 15–21; TEMP 36.7–37.1; O2SAT 95–97; BMI 30.7
--- NOTE | ~2023-07-21 | CT_ITS ---
EXAMINATION: CT CHEST WITH CONTRAST CLINICAL INFORMATION: Large mediastinum COMPARISON: Previous chest x-ray from earlier the same day TECHNIQUE: Multidetector volumetric CT imaging of the chest was obtained after the administration of 65 mL of Omnipaque 350 intravenous contrast without immediate adverse reactions. Axial MIP volume rendering provided. Sagittal and coronal reformatted images were obtained. This CT examination was performed using dose optimization techniques as appropriate, variously including the following: *Automated exposure control *Adjustment of mA and/or kV according to patient size (this includes techniques or standardized protocols for targeted exams where dose is matched to indication/reason for exam; i.e. extremities or head) *Use of iterative reconstruction technique DLP: 304 mGy-cm FINDINGS: RESORT KEEPER: LUNGS: There are clustered peribronchial nodules and increased groundglass attenuation in the posterior segment of the right upper lobe. This probably represents airways disease/small pneumonia. The lungs are otherwise clear. MEDIASTINUM: Normal thyroid gland. Normal heart size. No pericardial effusion. No enlarged hilar or mediastinal lymph nodes. The thoracic aorta is normal in caliber and slightly tortuous. Upper normal-sized pulmonary arteries. Small esophageal hernia. No coronary artery calcification. PLEURA: There is no pleural effusion. No pleural mass or thickening. AXILLA: No lymphadenopathy. UPPER ABDOMEN: Fatty infiltration of the liver. Diverticulosis. OSSEOUS STRUCTURES: Degenerative changes of the spine. CT/CT chest w IV con IMPRESSION: Airways disease/small pneumonia in the posterior segment of the right upper lobe. Small esophageal hernia. Unremarkable mediastinum. Fleischner guidelines were followed.
--- NOTE | ~2023-07-21 | XR_ITS ---
EXAMINATION: XR chest 2V CLINICAL INFORMATION: Reason for Exam cough, wheezing COMPARISON: No prior chest x-ray available in our system for comparison at the time of this dictation. TECHNIQUE: XR chest 2V, 2 Views Lungs and Melissa: Very subtle mild peribronchial wall cuffing could be small airway disease such as bronchiolitis. No dense focal lobar consolidation pneumonia. Pleura: Normal. Costophrenic angles are sharp. No pneumothorax. Heart: The heart is normal in size. Mediastinum: Widened upper mediastinum probably exaggerated by AP oblique positioning. Bones: Skeletal structures included are normal for patient's age. XR/XR chest 2V IMPRESSION: 1. Very subtle mild peribronchial wall cuffing could be small airway disease such as bronchiolitis. No dense focal lobar consolidation pneumonia. 2. Widened upper mediastinum probably exaggerated by AP oblique positioning. If patient is high-risk with recommend correlation with follow-up contrast enhanced CT scan.
--- NOTE | 2023-07-21 13:45 | ED_ITS ---
HPI - SOB/Dyspnea General Chief Complaint: Asthma Stated Complaint: Asthma, breathing difficulty Time Seen by Provider: 07/21/23 14:15 Source: patient Mode of arrival: ambulatory Limitations: no limitations History of Present Illness HPI Narrative: 77-year-old male history of hypertension, hyperlipidemia, diabetes, migraine, tubulovillous adenoma of colon , multinodular thyroid, osteopenia presents w/ cough and shortness of breath X 5 days. Family was recently sick. Per son, pt has not had asthma attack in several years. Used inhaler twice this morning, and nebulizer treatment with little improvement. Has felt chills, fatigue, fevers, body aches and pains and wheezing. Denies cp, abdominal pain, trouble swallowing/controlling secretions, nausea, vomiting, diarrhea, headache, vision changes, dizziness, weakness. Related Data Home Medications ?Medication ?Instructions ?Recorded ?Confirmed montelukast 10 mg tablet 10 mg PO DAILY 12/29/19 05/21/23 (Singulair) blood sugar diagnostic #10 ea 03/17/20 05/21/23 lancets 28 gauge #100 ea 03/17/20 05/21/23 ketotifen fumarate 0.025 % (0.035 1 drp ophthalmic (eye) BID PRN Dry 09/22/20 05/21/23 %) eye drops (Alaway) Eyes flunisolide 25 mcg (0.025 %) nasal 2 spray intranasal BID PRN Allergy 05/02/22 05/21/23 spray Symptoms Previous Rx's ?Medication ?Instructions ?Recorded walker #1 ea 01/02/20 acetaminophen 500 mg capsule 500 mg PO Q6H PRN fever 7 days #28 08/02/22 caps tamoxifen 20 mg tablet 20 mg PO DAILY #90 tabs 08/02/22 ondansetron 4 mg disintegrating 4 mg PO TID PRN nausea and 08/12/22 tablet vomiting 5 days #10 tabs cetirizine 10 mg tablet 5 mg (1/2 x 10 mg) PO DAILY PRN 09/05/22 Allergic Symptoms 90 days #90 tabs fenofibrate 54 mg tablet 54 mg PO DAILY 90 days #90 tabs 12/18/22 rosuvastatin 40 mg tablet 40 mg PO DAILY 90 days #90 tabs 12/18/22 famotidine 20 mg tablet 20 mg PO BID 90 days #180 tabs 12/21/22 rizatriptan 10 mg tablet 10 mg PO ONCE 30 days #9 tabs 12/21/22 albuterol sulfate 90 mcg/actuation 2 puff inhalation Q4-6H PRN 04/11/23 aerosol inhaler shortness of breath or wheezing #6.7 grams lisinopril 40 mg tablet 40 mg PO DAILY 90 days #90 tabs 04/11/23 metoprolol succinate 50 mg 50 mg PO DAILY 90 days #90 tabs 04/11/23 tablet,extended release 24 hr cholecalciferol (vitamin D3) 25 25 mcg PO DAILY 90 days #90 caps 04/28/23 mcg (1,000 unit) capsule pyridoxine (vitamin B6) 100 mg 50 mg (1/2 x 100 mg) PO DAILY 90 05/14/23 tablet days #45 tabs cyclobenzaprine 5 mg tablet 5 mg PO TID PRN muscle spasm 7 05/21/23 days #21 tabs empagliflozin 10 mg tablet 10 mg PO DAILY 30 days #30 tabs 06/11/23 (Jardiance) metformin 500 mg tablet 500 mg PO BID 30 days #60 tabs 06/11/23 albuterol sulfate 90 mcg/actuation 2 inh inhalation Q4-6H PRN 07/21/23 breath activated powder inhaler shortness of breath or wheezing #1 ea benzonatate 100 mg capsule 100 mg PO BID PRN cough #20 caps 07/21/23 doxycycline hyclate 100 mg capsule 100 mg PO BID 10 days #20 caps 07/21/23 Allergies Allergy/AdvReac Type Severity Reaction Status Date / Time ibuprofen [Ibuprofen] Allergy Mild SWELLING Verified 07/21/23 13:49 celecoxib [CELECOXIB] Allergy Unknown DROPS Verified 07/21/23 13:49 SUGAR LEVEL Review of Systems 2 Review of Systems: Yes all other systems are reviewed and are negative PMFSH Past Medical History Attestation statement: The following information was validated with the patient. Source: old records reviewed and nursing notes reviewed Medical History Otitis media, right History of colon cancer Incisional hernia Abdominal wall mass History of breast cancer Invasive ductal carcinoma of left breast Anemia Increased BMI On beta ananya at home Breast cancer Invasive ductal carcinoma of left breast Abnormality of left breast on screening mammography Multinodular thyroid Osteopenia Vitamin D deficiency Primary hyperparathyroidism Tubulovillous adenoma of colon Diabetes Asthma Hyperparathyroidism Cancer Arthritis GERD (gastroesophageal reflux disease) History of headache Elevated cholesterol HTN (hypertension) Surgical History History of cataract surgery History of thyroid surgery History of lumpectomy of left breast H/O left breast biopsy History of mammogram Status post total hip replacement, left History of exploratory laparotomy History of tubal ligation Hx of tonsillectomy Hx of cholecystectomy S/P colon resection H/O colonoscopy Family History Family History Father No problems noted. Mother Diabetes mellitus Other No family history of cancer Social History Social History Household Members: Spouse Housing: House Are you a primary healthcare advisory services manager to a significant other at home: No Do you presently have visiting nurse or other home services: No Alcohol intake: never Comment: sleeping Patient Tobacco Use Status: Never used Tobacco e-Cigarette/Vaping Use: Never Used Second Hand Smoke Exposure: No Advance Directives: No Advance Directives Information Provided: Yes Advance Directives Date on File: 08/11/02 service: No Current occupational status: unemployed Cognitive needs: No Hearing needs: No Vision needs: Yes Physical Exam 2 Vital Signs: Vital Signs: Last Vital Signs Temp 98.3 F 07/21/23 15:30 Pulse 117 H 07/21/23 18:40 Resp 20 07/21/23 18:40 BP 124/58 L 07/21/23 18:40 Pulse Ox 96 07/21/23 18:40 O2 Del Method Room Air 07/21/23 18:40 BMI result Body Mass Index 30.7 vss Appearance: Alert.? Oriented X3.? No acute distress.? Head: Normocephalic, atraumatic, no step-offs or deformities Eyes: Pupils equal, round and reactive to light.? Neck: Normal inspection.? Neck supple.? CVS: Normal heart rate and rhythm.? Pulses normal.? Respiratory: No respiratory distress.? Breath sounds diffuse expiratory wheezing.? Abdomen: Soft and nontender.? Skin: Skin warm and dry.? Normal skin color.? Normal skin turgor.? Extremities: No lower extremity edema.? No calf ttp. 5/5 strength to bilateral upper and lower extremities Back: No midline tenderness, no C-spine tenderness, full range of motion, no CVA tenderness bilaterally Neuro: Oriented X 3.? No motor deficit.? No sensory deficit. CN 2-12 intact Course Course Course Narrative: This is a rapid medical exam. Deferred additional HPI, ROS, PE to primary provider. 77 yo female with history of asthma, migraines, HTN, HLD here with complaints of cough, wheezing, sob, body aches x 5 days. Will obtain viral testing, CXR VSS Reevaluation(s) Reevaluation #1: Flu, COVID, RSV negative. Chest x-ray pending. Patient is still having wheezing. Will give magnesium and Decadron IV. Time: 15:59 Reevaluation #2: CBC unremarkable. Chemistry low potassium oral potassium ordered. I did add a troponin to her labs. Chest CT pending. Troponin 5.6, nonischemic EKG new ST depressions in the anterior leads although this is likely nonspecific ischemic change. Patient without chest pain. Time: 18:42 Reevaluation #3: Chest CT with airway disease and small pneumonia in the posterior segment of the right upper lung. Small esophageal hernia. Unremarkable mediastinum. Repeat troponin and magnesium pending plan is for discharge home. Time: 18:43 Medications Administered Discontinued Medications Generic Name Dose Route Start Last Admin Trade Name Freq PRN Reason Stop Dose Admin Albuterol Sulfate 2.5 mg/ 5 mg 07/21/23 15:31 07/21/23 15:33 Albuterol Sulfate 2.5 mg INHALE 07/21/23 15:32 5 mg ONCE ONE Administration Albuterol Sulfate 2.5 mg/ 0 mg 07/21/23 15:21 07/21/23 15:24 Albuterol/Ipratropium 3 ml INHALE 07/21/23 15:22 5 dose ONCE ONE Administration Dexamethasone Sodium Phosphate 10 mg 07/21/23 15:26 07/21/23 15:37 Dexamethasone Sod Phosphate 10 Mg/Ml Vial IVPUSH 07/21/23 15:27 10 mg ONCE ONE Administration Magnesium Sulfate 2 gm in 50 mls @ 25 mls/hr 07/21/23 15:58 07/21/23 18:34 Magnesium Sulfate/H2o IV 07/21/23 17:57 Infused ONCE ONE Infusion Iohexol 65 ml 07/21/23 17:43 07/21/23 17:44 Iohexol 350 Mg/Ml 100 Ml Infus..Btl IV 07/21/23 17:44 65 ml ONCE ONE Administration Levalbuterol HCl 3.75 mg 07/21/23 15:58 07/21/23 17:43 Levalbuterol Hcl 1.25 Mg/3 Ml Vial.Neb INHALE 07/21/23 15:59 3.75 mg ONCE ONE Administration Potassium Chloride 40 meq 07/21/23 17:07 07/21/23 17:59 Potassium Chloride Packet 20 Meq Packet PO 07/21/23 17:08 40 meq ONCE ONE Administration Medical Decision Making Medical Decision Making [facility] Narrative: 1455 77 year old female presents w/ cough, fevers, chills and sob X 5 days PE with diffuse expiratory wheezing History and physical exam concerning for possible upper respiratory infection versus bronchitis versus asthma. Unlikely PE, pneumonia, ACS, dissection, acute respiratory distress. Plan- chest x-ray, viral testing Differential Diagnosis Differential Diagnoses: The differential diagnosis associated with the presentation includes History and physical exam concerning for possible upper respiratory infection versus bronchitis versus asthma. Unlikely PE, pneumonia, ACS, dissection, acute respiratory distress. Admission/Observation Consideration of admission/observation: Escalation of care including admission/observation considered unlikely Lab Data [facility] Lab Attestation statement: I reviewed the patient's lab results. 07/21/23 16:32 07/21/23 16:32 Labs: Lab Results 07/21/23 07/21/23 Range/Units 14:35 16:32 WBC 5.6 (4.8-10.8) X10*3/uL RBC 3.82 L (4.20-5.50) X10*6/uL Hgb 10.8 L (12.0-16.0) g/dl Hct 33.8 L (37.0-47.0) % MCV 88.5 (80.0-98.0) fL MCH 28.3 (27.0-33.0) pg MCHC 32.0 (31.0-35.0) g/dl RDW 14.0 (11.0-16.0) % Plt Count Not Reportable MPV 10.6 (9.4-12.3) fL Immature Gran % (Auto) 0.2 (0.0-0.4) % Neut % (Auto) 57.3 (45-73) % Lymph % (Auto) 30.1 (20-40) % Mellette % (Auto) 9.5 (2-11) % Eos % (Auto) 2.5 (0-4) % Baso % (Auto) 0.4 (0-2) % Lymph # (Auto) 1.7 (1.2-4.9) X10*3/uL Mellette # (Auto) 0.5 (0.1-1.2) X10*3/uL Eos # (Auto) 0.1 (0.0-0.4) X10*3/uL Baso # (Auto) 0.0 (0.0-0.2) X10*3/uL Abs Immat Gran (auto) 0.01 (0.00-0.03) X10*3/uL Absolute Neuts (auto) 3.2 (2.0-8.3) x10*3/uL Absolute Nucleated RBC 0.000 (0.0-0.012) X10*3/uL Nucleated RBC % (auto) 0.0 (0.0-0.2) /100WBC Smear Tech's Comments VERIFIED Sodium 138 (135-145) mmol/L Potassium 3.0 L D (3.3-5.1) mmol/L Chloride 106 (96-108) mmol/L Carbon Dioxide 22 (22-29) mmol/L Anion Gap 13 (12-20) BUN 12 (9-16) mg/dL Creatinine 0.84 (0.5-1.4) mg/dL Estim Creat Clear Calc 55.9 Estimated GFR > 60 Random Glucose 161 H (60-115) mg/dL Calcium 8.2 L (8.4-10.2) mg/dL Total Bilirubin 0.3 (0.0-1.0) mg/dL AST 20 (5-31) U/L ALT 13 (0-31) U/L Alkaline Phosphatase 36 L (39-117) U/L Troponin I High Sens 5.4 (<3.5-17.0) ng/L Total Protein 6.4 L (6.5-8.0) g/dL Albumin 3.8 (3.5-5.0) g/dL Influenza Type A (PCR) NEGATIVE (Negative) Influenza Type B (PCR) NEGATIVE (Negative) RSV RNA Qual (PCR) NEGATIVE (Negative) SARS-CoV-2 RNA (RT-PCR) NEGATIVE (Negative) Independent Interpretation I performed an independent interpretation of an: Plain X-Ray Radiology Impression Discussion of test interpretation with radiology: I have reviewed the radiologist's reading. External Record Review External record reviewed: Inpatient record, Office record, Outpatient record, Prior outpatient labs, Prior outpatient radiology, Primary care record and Outside ED record Critical Care Time Critical Care Time Critical Care Time: Yes Total Critical Care Time: 45 Attestation: I attest to this time spent taking care of the patient, obtaining history, physical, reviewing labs, imaging, speaking to my attending, specialist or hospitalist. Discharge Plan Discharge Clinical Impression: Acute bronchitis, Pneumonia Patient Disposition: Home, Self-Care Instructions: Acute Bronchitis (ED), Wheezing (ED) Additional Instructions: Take your medications as prescribed. If you were prescribed antibiotics today, it is important that you take your medication to their entirety, do not skip any doses, do not finish them early. Follow-up with your primary care provider this week. Return to the emergency department with new or worsening symptoms. Such as fevers, chills, chest pain, shortness of breath, nausea, vomiting, dizziness, headache, vision changes, lethargy In case of emergency call 911 XR/XR chest 2V IMPRESSION: 1. Very subtle mild peribronchial wall cuffing could be small airway disease such as bronchiolitis. No dense focal lobar consolidation pneumonia. 2. Widened upper mediastinum probably exaggerated by AP oblique positioning. If patient is high-risk with recommend correlation with follow-up contrast enhanced CT scan. Prescriptions: New doxycycline hyclate 100 mg capsule 100 mg PO BID 10 Days Qty: 20 0RF benzonatate 100 mg capsule 100 mg PO BID PRN (Reason: cough) Qty: 20 0RF albuterol sulfate 90 mcg/actuation aerosol powdr breath activated 2 inh inhalation Q4-6H PRN (Reason: shortness of breath or wheezing) Qty: 1 0RF No Action tamoxifen 20 mg Tablet 20 mg PO DAILY Qty: 90 4RF fenofibrate 54 mg tablet 54 mg PO DAILY 90 Days Qty: 90 1RF rosuvastatin 40 mg tablet 40 mg PO DAILY 90 Days Qty: 90 1RF famotidine 20 mg tablet 20 mg PO BID 90 Days Qty: 180 1RF rizatriptan 10 mg tablet 10 mg PO ONCE 30 Days Qty: 9 3RF albuterol sulfate 90 mcg/actuation HFA aerosol inhaler 2 puff inhalation Q4-6H PRN (Reason: shortness of breath or wheezing) Qty: 6.7 3RF metoprolol succinate 50 mg tablet extended release 24 hr 50 mg PO DAILY 90 Days Qty: 90 1RF lisinopril 40 mg tablet 40 mg PO DAILY 90 Days Qty: 90 1RF cholecalciferol (vitamin D3) 25 mcg (1,000 unit) capsule 25 mcg PO DAILY 90 Days Qty: 90 1RF metformin 500 mg tablet 500 mg PO BID 30 Days Qty: 60 3RF Jardiance 10 mg tablet 10 mg PO DAILY 30 Days Qty: 30 3RF ketotifen fumarate [Alaway] 0.025 % (0.035 %) drops 1 drp ophthalmic (eye) BID PRN (Reason: Dry Eyes) ondansetron 4 mg tablet,disintegrating 4 mg PO TID PRN (Reason: nausea and vomiting) 5 Days Qty: 10 0RF cetirizine 10 mg tablet 5 mg PO DAILY PRN (Reason: Allergic Symptoms) 90 Days Qty: 90 1RF flunisolide 25 mcg (0.025 %) spray,non-aerosol 2 spray intranasal BID PRN (Reason: Allergy Symptoms) acetaminophen 500 mg capsule 500 mg PO Q6H PRN (Reason: fever) 7 Days Qty: 28 0RF cyclobenzaprine 5 mg tablet 5 mg PO TID PRN (Reason: muscle spasm) 7 Days Qty: 21 1RF (DME) walker Misc See Rx Instructions .ROUTE .MEDSUPPLY Qty: 1 0RF Rx Instructions: Folding Front wheeled walker (DME) FreeStyle Lite Strips Strip See Rx Instructions Not Applicable ONCE Qty: 10 Rx Instructions: As directed (DME) lancets 28 gauge misc See Rx Instructions .ROUTE BID Qty: 100 Rx Instructions: As directed montelukast [Singulair] 10 mg tablet 10 mg PO DAILY pyridoxine (vitamin B6) 100 mg tablet 50 mg PO DAILY 90 Days Qty: 45 2RF Referrals: Physician,Unknown J [Primary Care Provider] - 2 days Stand Alone Forms: Work/School Release Print Language: Maltese
--- NOTE | 2023-07-21 14:30 | ED.ASTHMA ---
HPI - Asthma General Chief Complaint: Asthma Stated Complaint: Asthma, breathing difficulty Time Seen by Provider: 07/21/23 14:15 Source: patient and family Mode of arrival: ambulatory Limitations: language barrier History of Present Illness HPI Narrative: 77 yo f with pmhx of asthma, HTN, diabetes presents with cough and shortness of breath X 5 days. Family was recently sick. Per son, pt has not had asthma attack in several years. Used inhaler twice this morning, and nebulizer treatment with little improvement. Has felt chills, fatigue, fevers. Denies cp, abdominal pain, trouble swallowing/controlling secretions, nausea, vomiting, diarrhea. Related Data Home Medications ?Medication ?Instructions ?Recorded ?Confirmed montelukast 10 mg tablet 10 mg PO DAILY 12/29/19 05/21/23 (Singulair) blood sugar diagnostic #10 ea 03/17/20 05/21/23 lancets 28 gauge #100 ea 03/17/20 05/21/23 ketotifen fumarate 0.025 % (0.035 1 drp ophthalmic (eye) BID PRN Dry 09/22/20 05/21/23 %) eye drops (Alaway) Eyes flunisolide 25 mcg (0.025 %) nasal 2 spray intranasal BID PRN Allergy 05/02/22 05/21/23 spray Symptoms Previous Rx's ?Medication ?Instructions ?Recorded walker #1 ea 01/02/20 acetaminophen 500 mg capsule 500 mg PO Q6H PRN fever 7 days #28 08/02/22 caps tamoxifen 20 mg tablet 20 mg PO DAILY #90 tabs 08/02/22 ondansetron 4 mg disintegrating 4 mg PO TID PRN nausea and 08/12/22 tablet vomiting 5 days #10 tabs cetirizine 10 mg tablet 5 mg (1/2 x 10 mg) PO DAILY PRN 09/05/22 Allergic Symptoms 90 days #90 tabs fenofibrate 54 mg tablet 54 mg PO DAILY 90 days #90 tabs 12/18/22 rosuvastatin 40 mg tablet 40 mg PO DAILY 90 days #90 tabs 12/18/22 famotidine 20 mg tablet 20 mg PO BID 90 days #180 tabs 12/21/22 rizatriptan 10 mg tablet 10 mg PO ONCE 30 days #9 tabs 12/21/22 albuterol sulfate 90 mcg/actuation 2 puff inhalation Q4-6H PRN 04/11/23 aerosol inhaler shortness of breath or wheezing #6.7 grams lisinopril 40 mg tablet 40 mg PO DAILY 90 days #90 tabs 04/11/23 metoprolol succinate 50 mg 50 mg PO DAILY 90 days #90 tabs 04/11/23 tablet,extended release 24 hr cholecalciferol (vitamin D3) 25 25 mcg PO DAILY 90 days #90 caps 04/28/23 mcg (1,000 unit) capsule pyridoxine (vitamin B6) 100 mg 50 mg (1/2 x 100 mg) PO DAILY 90 05/14/23 tablet days #45 tabs cyclobenzaprine 5 mg tablet 5 mg PO TID PRN muscle spasm 7 05/21/23 days #21 tabs empagliflozin 10 mg tablet 10 mg PO DAILY 30 days #30 tabs 06/11/23 (Jardiance) metformin 500 mg tablet 500 mg PO BID 30 days #60 tabs 06/11/23 albuterol sulfate 90 mcg/actuation 2 inh inhalation Q4-6H PRN 07/21/23 breath activated powder inhaler shortness of breath or wheezing #1 ea benzonatate 100 mg capsule 100 mg PO BID PRN cough #20 caps 07/21/23 doxycycline hyclate 100 mg capsule 100 mg PO BID 10 days #20 caps 07/21/23 Allergies Allergy/AdvReac Type Severity Reaction Status Date / Time ibuprofen [Ibuprofen] Allergy Mild SWELLING Verified 07/21/23 13:49 celecoxib [CELECOXIB] Allergy Unknown DROPS Verified 07/21/23 13:49 SUGAR LEVEL Review of Systems Review of Systems: Yes all other systems are reviewed and are negative [facility] Past Medical History Attestation statement: The following information was validated with the patient. Source: old records reviewed and nursing notes reviewed Medical History Otitis media, right History of colon cancer Incisional hernia Abdominal wall mass History of breast cancer Invasive ductal carcinoma of left breast Anemia Increased BMI On beta ananya at home Breast cancer Invasive ductal carcinoma of left breast Abnormality of left breast on screening mammography Multinodular thyroid Osteopenia Vitamin D deficiency Primary hyperparathyroidism Tubulovillous adenoma of colon Diabetes Asthma Hyperparathyroidism Cancer Arthritis GERD (gastroesophageal reflux disease) History of headache Elevated cholesterol HTN (hypertension) Surgical History History of cataract surgery History of thyroid surgery History of lumpectomy of left breast H/O left breast biopsy History of mammogram Status post total hip replacement, left History of exploratory laparotomy History of tubal ligation Hx of tonsillectomy Hx of cholecystectomy S/P colon resection H/O colonoscopy Family History Family History Father No problems noted. Mother Diabetes mellitus Other No family history of cancer Social History Social History Household Members: Spouse Housing: House Are you a primary mall plant caretaker to a significant other at home: No Do you presently have visiting nurse or other home services: No Alcohol intake: never Comment: sleeping Patient Tobacco Use Status: Never used Tobacco e-Cigarette/Vaping Use: Never Used Second Hand Smoke Exposure: No Advance Directives: No Advance Directives Information Provided: Yes Advance Directives Date on File: 08/11/02 service: No Current occupational status: unemployed Cognitive needs: No Hearing needs: No Vision needs: Yes Physical Exam Vital Signs: Vital Signs: Last Vital Signs Temp 98.4 F 07/21/23 13:46 Pulse 85 07/21/23 15:25 Resp 18 07/21/23 15:25 BP 178/93 H 07/21/23 13:46 Pulse Ox 97 07/21/23 13:46 O2 Del Method Room Air 07/21/23 13:46 BMI result Body Mass Index 30.7 vss Appearance: Alert.? Oriented X3.? No acute distress.? Head: Normocephalic, atraumatic, no step-offs or deformities Eyes: Pupils equal, round and reactive to light.? ENT: Pharynx normal.?? Neck: Normal inspection.? Neck supple.? CVS: Normal heart rate and rhythm.? Pulses normal.? Respiratory: No respiratory distress.? Abdomen: Soft and nontender.? Skin: Skin warm and dry.? Normal skin color.? Normal skin turgor.? Extremities: No lower extremity edema.? No calf ttp. 5/5 strength to bilateral upper and lower extremities Back: No midline tenderness, no C-spine tenderness, full range of motion, no CVA tenderness bilaterally Neuro: Oriented X 3.? No motor deficit.? No sensory deficit. CN 2-12 intact Medications Administered Discontinued Medications Generic Name Dose Route Start Last Admin Trade Name Freq PRN Reason Stop Dose Admin Albuterol Sulfate 2.5 mg/ 0 mg 07/21/23 15:21 07/21/23 15:24 Albuterol/Ipratropium 3 ml INHALE 07/21/23 15:22 5 dose ONCE ONE Administration Medical Decision Making Medical Decision Making [facility] Narrative: 77 yo f with pmhx of asthma, HTN, diabetes presents with productive cough and shortness of breath X 5 days. Reports fevers, chills. Denies trouble swallowing, managing secretions, chest pain, abdominal pain, nausea, vomiting, diarrhea. Discharge Plan Discharge Clinical Impression: Acute bronchitis Patient Disposition: Home, Self-Care Instructions: Acute Bronchitis (ED), Wheezing (ED) Additional Instructions: Take your medications as prescribed. If you were prescribed antibiotics today, it is important that you take your medication to their entirety, do not skip any doses, do not finish them early. Follow-up with your primary care provider this week. Return to the emergency department with new or worsening symptoms. Such as fevers, chills, chest pain, shortness of breath, nausea, vomiting, dizziness, headache, vision changes, lethargy In case of emergency call 911 Prescriptions: New doxycycline hyclate 100 mg capsule 100 mg PO BID 10 Days Qty: 20 0RF benzonatate 100 mg capsule 100 mg PO BID PRN (Reason: cough) Qty: 20 0RF albuterol sulfate 90 mcg/actuation aerosol powdr breath activated 2 inh inhalation Q4-6H PRN (Reason: shortness of breath or wheezing) Qty: 1 0RF No Action tamoxifen 20 mg Tablet 20 mg PO DAILY Qty: 90 4RF fenofibrate 54 mg tablet 54 mg PO DAILY 90 Days Qty: 90 1RF rosuvastatin 40 mg tablet 40 mg PO DAILY 90 Days Qty: 90 1RF famotidine 20 mg tablet 20 mg PO BID 90 Days Qty: 180 1RF rizatriptan 10 mg tablet 10 mg PO ONCE 30 Days Qty: 9 3RF albuterol sulfate 90 mcg/actuation HFA aerosol inhaler 2 puff inhalation Q4-6H PRN (Reason: shortness of breath or wheezing) Qty: 6.7 3RF metoprolol succinate 50 mg tablet extended release 24 hr 50 mg PO DAILY 90 Days Qty: 90 1RF lisinopril 40 mg tablet 40 mg PO DAILY 90 Days Qty: 90 1RF cholecalciferol (vitamin D3) 25 mcg (1,000 unit) capsule 25 mcg PO DAILY 90 Days Qty: 90 1RF metformin 500 mg tablet 500 mg PO BID 30 Days Qty: 60 3RF Jardiance 10 mg tablet 10 mg PO DAILY 30 Days Qty: 30 3RF ketotifen fumarate [Alaway] 0.025 % (0.035 %) drops 1 drp ophthalmic (eye) BID PRN (Reason: Dry Eyes) ondansetron 4 mg tablet,disintegrating 4 mg PO TID PRN (Reason: nausea and vomiting) 5 Days Qty: 10 0RF cetirizine 10 mg tablet 5 mg PO DAILY PRN (Reason: Allergic Symptoms) 90 Days Qty: 90 1RF flunisolide 25 mcg (0.025 %) spray,non-aerosol 2 spray intranasal BID PRN (Reason: Allergy Symptoms) acetaminophen 500 mg capsule 500 mg PO Q6H PRN (Reason: fever) 7 Days Qty: 28 0RF cyclobenzaprine 5 mg tablet 5 mg PO TID PRN (Reason: muscle spasm) 7 Days Qty: 21 1RF (DME) walker Misc See Rx Instructions .ROUTE .MEDSUPPLY Qty: 1 0RF Rx Instructions: Folding Front wheeled walker (DME) FreeStyle Lite Strips Strip See Rx Instructions Not Applicable ONCE Qty: 10 Rx Instructions: As directed (DME) lancets 28 gauge misc See Rx Instructions .ROUTE BID Qty: 100 Rx Instructions: As directed montelukast [Singulair] 10 mg tablet 10 mg PO DAILY pyridoxine (vitamin B6) 100 mg tablet 50 mg PO DAILY 90 Days Qty: 45 2RF Referrals: Physician,Unknown J [Primary Care Provider] - 2 days Print Language: Bulgarian
[2023-07-21] MEDS: Albuterol Sulfate 2.5 MG, Albuterol/Iprat 2.5/0.5MG 3 ML 3 ML INHALE (15:24)
[2023-07-21] MEDS: Albuterol Sulfate 2.5 MG, Albuterol Sulfate (0.083%) 2.5 MG 5 MG INHALE (15:33)
[2023-07-21 15:34] LABS: Influenza A PCR NEGATIVE (Negative); Influenza B PCR NEGATIVE (Negative); Resp Syncy Virus RNA Qual PCR NEGATIVE (Negative); SARS COV2 PCR INHOUSE NEGATIVE (Negative)
[2023-07-21] MEDS: dexAMETHasone sod phosphate 10 MG/ML VIAL IVPUSH (15:37)
[2023-07-21] MEDS: Magnesium Sulfate/H2O 2 GM/50 ML PIGGYBACK IV (16:09)
[2023-07-21 16:54] LABS: Basophils Percent Auto 0.4 % (0-2); Eosinophils Absolute Auto 0.1 X10*3/uL (0.0-0.4); Eosinophils Percent Auto 2.5 % (0-4); Hematocrit 33.8 % (37.0-47.0); Hemoglobin 10.8 g/dl (12.0-16.0); Imm Gran Abs Auto 0.01 X10*3/uL (0.00-0.03); Imm Gran Pct Auto 0.2 % (0.0-0.4); Lymphocytes Absolute Auto 1.7 X10*3/uL (1.2-4.9); Lymphocytes Percent Auto 30.1 % (20-40); MANUAL DIFF FLAG SCAN; Mean Corpuscular Hemoglobin 28.3 pg (27.0-33.0); Mean Corpuscular Volume 88.5 fL (80.0-98.0); Mean Platelet Volume 10.6 fL (9.4-12.3); Monocytes Absolute Auto 0.5 X10*3/uL (0.1-1.2); Monocytes Percent Auto 9.5 % (2-11); Neutrophils Absolute Auto 3.2 x10*3/uL (2.0-8.3); Neutrophils Percent Auto 57.3 % (45-73); PLT CLUMP 1; Red Blood Count 3.82 X10*6/uL (4.20-5.50); SCAN SMEAR FLAG 1
[2023-07-21 17:00] LABS: Alanine Aminotransferase 13 U/L (0-31); Albumin Level 3.8 g/dL (3.5-5.0); Alkaline Phosphatase 36 U/L (39-117); Anion Gap 13 (12-20); Aspartate Amino Transferase 20 U/L (5-31); Bilirubin Total 0.3 mg/dL (0.0-1.0); Blood Urea Nitrogen 12 mg/dL (9-16); Calcium 8.2 mg/dL (8.4-10.2); Carbon Dioxide 22 mmol/L (22-29); Chloride 106 mmol/L (96-108); Creatinine Clr Calc Pharmacy 55.9; Estimated Glomerular Filt Rate > 60; Glucose Random 161 mg/dL (60-115); Sodium 138 mmol/L (135-145); Total Protein 6.4 g/dL (6.5-8.0)
[2023-07-21 17:21] LABS: White Blood Count 5.6 X10*3/uL (4.8-10.8)
[2023-07-21 17:22] LABS: SLIDE REVIEW VERIFIED
[2023-07-21] MEDS: levalbuterol HCL 1.25 MG/3 ML VIAL.NEB 3.75 MG INHALE (17:43)
[2023-07-21] MEDS: iohexoL 350 MG/ML 100 ML INFUS..BTL 65 ML IV (17:44)
[2023-07-21 17:45] LABS: Troponin-I High Sensitivity 5.4 ng/L (<3.5-17.0)
--- NOTE | 2023-07-21 17:50 | ECG_ITS ---
Test Reason : LOW POTASSIUM Blood Pressure : / mmHG Vent. Rate : 122 BPM Atrial Rate : 000 BPM P-R Int : 000 ms QRS Dur : 084 ms QT Int : 370 ms P-R-T Axes : 000 007 074 degrees QTc Int : [address] depresssion in lateral/anterolateral leads, consider ischemia Abnormal ECG When compared with ECG of 15-JUN-2022 09:07, Vent. rate has increased BY [address] now depressed in Lateral leads Referred By: Claudia Gonzales Electronically Signed By:DEBBY PADILLA
[2023-07-21] MEDS: Potassium Chloride Packet 20 MEQ PACKET 40 MEQ PO (17:59)
[2023-07-21 18:59] LABS: Magnesium 5.7 mg/dL (1.6-2.6)
--- NOTE | 2023-07-21 19:15 | PC.NURSE ---
per tech lab called to say trop that was pending at 1830 hemolyzed. freeman.
--- NOTE | 2023-07-21 19:18 | PC.NURSE ---
kvng EVANS notified pt needs to leave to tend to her w dementia and wants to leave AMA bc cannot wait for troponin redraw to come back.
--- NOTE | 2023-07-21 19:30 | PC.NURSE ---
pt changed mind, wishes to stay and wait for trop, not leaving kvng [facility] COORDINATOR aware.
[2023-07-21 20:44] LABS: Troponin-I High Sensitivity 45.2 ng/L (<3.5-17.0)
[2023-07-21] MEDS: cefTRIAXone sodium 2 GM in 0.9 % Sodium Chloride 50 ML IV (21:51)
[2023-07-21] MEDS: Aspirin 81 MG TAB.CHEW 324 MG PO (21:52)
--- NOTE | 2023-07-21 21:53 | MHC.EDTECH ---
this pct just assumed care of patient ,vitals taken ,both sets of blood culture and lactic acid drawn and sent to lab ,Patient belonging list done ,Patient was change into hospital gown and hooked up to senior planning analyst ,Call roldan within Pt reach ,Patient daughter in law at bedside .
--- NOTE | 2023-07-21 21:59 | P.HPHOSP_ITS ---
History of Present Illness Date of Service: 07/21/23 Attending physician on admission: Sebastian Posada Chief Complaint: SOB Pt is a 77-year-old Syrian speaking female with a PMH significant for?HTN, HLD, non-insulin dependent type 2 diabetes, migraines, and tubulovillous adenoma of colon who presents to the ED for evaluation of ?asthma attack?. [employer] Carriage Operator services utilized. Patient is a rather vague historian and unable to further qualify many of her symptoms. Reports earlier today suffered from an asthma attack : Reports wheezing and ?making sounds? when she would try to lay down. Reports using her inhaler with minimal relief. Denies SOB or JIANG. No cough. Also reports whole body aches and pains, especially in hands, arms, knees, and upper back. Denies chest pain/pressure, palpitations. No fever, chills, nausea, vomiting, abdominal pain. Also notes that she feels much better after receiving treatments in the ED. Currently does not have any complaints. No longer reports wheezing, and states is having no difficulty breathing. Continues to deny chest pain or pressure. In the ED pt was tachycardic up to 120, tachypneic up to 20 and with variable BP, satting at 97% on RA. Labs were significant for potassium 3.0, magnesium 5.7, and initial troponin 5.4 with repeat 45.2. Tested negative for influenza, RSV, COVID. CXR showed subtle mild peribronchial wall cuffing neck could be small airway disease, but no dense focal consolidation. Also found widened upper mediastinum likely exaggerated by AP oblique positioning. CT?of chest with unremarkable mediastinum but showed airway disease/small pneumonia in posterior segment of right upper lobe. EKG demonstrated sinus tachycardia of [address] depressions in leads V4-V6, new from prior. Pt was treated with DuoNebs, dexamethasone, Mag sulfate, Xopenex, potassium chloride, aspirin, ceftriaxone, and azithromycin. Pt will be admitted to the hospital for treatment and further evaluation of NSTEMI. Review of Systems 2 Review of Systems: Wheezing Diffuse body pain/aches Denies SOB/JIANG No chest pain/pressure, palpitations Denies fever, chills, nausea, vomiting, abdominal pain PMFSH Medical History Otitis media, right History of colon cancer Incisional hernia Abdominal wall mass History of breast cancer Invasive ductal carcinoma of left breast Anemia Increased BMI On beta ananya at home Breast cancer Invasive ductal carcinoma of left breast Abnormality of left breast on screening mammography Multinodular thyroid Osteopenia Vitamin D deficiency Primary hyperparathyroidism Tubulovillous adenoma of colon Diabetes Asthma Hyperparathyroidism Cancer Arthritis GERD (gastroesophageal reflux disease) History of headache Elevated cholesterol HTN (hypertension) Family History Father No problems noted. Mother Diabetes mellitus Other No family history of cancer Surgical History History of cataract surgery History of thyroid surgery History of lumpectomy of left breast H/O left breast biopsy History of mammogram Status post total hip replacement, left History of exploratory laparotomy History of tubal ligation Hx of tonsillectomy Hx of cholecystectomy S/P colon resection H/O colonoscopy Social History Household Members: Spouse Housing: House Are you a primary manager medicare marketing to a significant other at home: No Do you presently have visiting nurse or other home services: No Alcohol intake: never Comment: sleeping Patient Tobacco Use Status: Never used Tobacco Smoked in Last 30 Days: No e-Cigarette/Vaping Use: Never Used Second Hand Smoke Exposure: No Use of substances other than those prescribed or required for medical reasons: No Advance Directives: No Advance Directives Information Provided: Yes Advance Directives Date on File: 08/11/02 Nutrition Risks: No Nutritional Risk service: No Current occupational status: unemployed Cognitive needs: No Hearing needs: No Vision needs: Yes Meds Allergies Allergy/AdvReac Type Severity Reaction Status Date / Time ibuprofen [Ibuprofen] Allergy Mild SWELLING Verified 07/21/23 13:49 celecoxib [CELECOXIB] Allergy Unknown DROPS Verified 07/21/23 13:49 SUGAR LEVEL Active Medications: Current Medications Azithromycin 500 mg/ Sodium (Chloride) 250 mls @ 125 mls/hr IV ONCE ONE Stop: 07/21/23 23:06 Home Medications ?Medication ?Instructions ?Recorded ?Confirmed ?Last Taken ?Type montelukast 10 mg tablet 10 mg PO DAILY 12/29/19 05/21/23 Unknown History (Ruth) blood sugar diagnostic #10 ea 03/17/20 05/21/23 Unknown History lancets 28 gauge #100 ea 03/17/20 05/21/23 Unknown History ketotifen fumarate 0.025 % (0.035 1 drp ophthalmic (eye) BID PRN Dry 09/22/20 05/21/23 Unknown History %) eye drops ([place]) Eyes flunisolide 25 mcg (0.025 %) nasal 2 spray intranasal BID PRN Allergy 05/02/22 05/21/23 Unknown History spray Symptoms empagliflozin 10 mg tablet 10 mg PO DAILY 07/21/23 07/21/23 Unknown History (Jardiance) famotidine 20 mg tablet 20 mg PO BID 07/21/23 07/21/23 Unknown History fenofibrate 54 mg tablet 54 mg DAILY 07/21/23 07/21/23 Unknown History lisinopril 40 mg tablet 40 mg DAILY 07/21/23 07/21/23 Unknown History metformin 850 mg tablet 850 mg PO BID 07/21/23 07/21/23 Unknown History metoprolol succinate 50 mg 50 mg PO DAILY 07/21/23 07/21/23 Unknown History tablet,extended release 24 hr rosuvastatin 40 mg tablet 40 mg DAILY 07/21/23 07/21/23 Unknown History tamoxifen 20 mg tablet 20 mg PO DAILY 07/21/23 07/21/23 Unknown History Physical Exam 2 Vital Signs and Narrative: Vital Signs: Last Vital Signs Temp 98.7 F 07/21/23 21:39 Pulse 103 H 07/21/23 21:39 Resp 15 07/21/23 21:39 BP 111/54 L 07/21/23 21:39 Pulse Ox 96 07/21/23 21:39 O2 Del Method Room Air 07/21/23 21:39 BMI result Body Mass Index 30.7 Constitutional: Alert, in no acute distress. Mental Status: Oriented to person, place and time. Eyes: Pupils are equal, round, and reactive to light. Ear, Nose, and Throat: Oropharynx clear, mucous membranes moist. Ears and nose without deformities. Trachea midline. Respiratory: Clear to auscultation bilaterally. No wheezing, rales, or rhonchi. Cardiovascular: S1, S2, tachy. No murmurs, rubs, or gallops. Gastrointestinal: Abdomen soft, non-tender, non-distended. Normal bowel sounds. Neurologic: Cranial nerves II-XII are grossly intact bilaterally. No focal neurological deficits. Moves all extremities spontaneously. Skin: Warm, dry. Extremities: No edema. Psychiatric: Normal mood and affect. Results Labs 07/21/23 16:32 07/21/23 16:32 Labs: Laboratory Results - last 24 hr 07/21/23 07/21/23 07/21/23 14:35 16:32 Unknown MCV 88.5 MCH 28.3 MCHC 32.0 RDW 14.0 Plt Count Not Reportable MPV 10.6 Immature Gran % (Auto) 0.2 Neut % (Auto) 57.3 Lymph % (Auto) 30.1 [place] % (Auto) 9.5 Eos % (Auto) 2.5 Baso % (Auto) 0.4 Lymph # (Auto) 1.7 [place] # (Auto) 0.5 Eos # (Auto) 0.1 Baso # (Auto) 0.0 Abs Immat Gran (auto) 0.01 Absolute Neuts (auto) 3.2 Absolute Nucleated RBC 0.000 Nucleated RBC % (auto) 0.0 Smear Tech's Comments VERIFIED Anion Gap 13 Estim Creat Clear Calc 55.9 Estimated GFR > 60 Random Glucose 161 H Calcium 8.2 L Magnesium 5.7 H* Total Bilirubin 0.3 AST 20 ALT 13 Alkaline Phosphatase 36 L Troponin I High Sens 5.4 45.2 H D Total Protein 6.4 L Albumin 3.8 Influenza Type A (PCR) NEGATIVE Influenza Type B (PCR) NEGATIVE RSV RNA Qual (PCR) NEGATIVE SARS-CoV-2 RNA (RT-PCR) NEGATIVE Imaging Radiologist's Impressions: Impressions Chest X-Ray 07/21/23 13:55 IMPRESSION: 1. Very subtle mild peribronchial wall cuffing could be small airway disease such as bronchiolitis. No dense focal lobar consolidation pneumonia. 2. Widened upper mediastinum probably exaggerated by AP oblique positioning. If patient is high-risk with recommend correlation with follow-up contrast enhanced CT scan. Chest CT 07/21/23 17:51 IMPRESSION: Airways disease/small pneumonia in the posterior segment of the right upper lobe. Small esophageal hernia. Unremarkable mediastinum. Fleischner guidelines were followed. Assessment and Plan (1) Elevated troponin: Status: Acute Plan Pt is a 77-year-old Syrian speaking female with a PMH significant for?HTN, HLD, non-insulin dependent type 2 diabetes, migraines, and tubulovillous adenoma of colon who presents to the ED for evaluation of ?asthma attack?. Pt will be admitted to the hospital for treatment and further evaluation of NSTEMI. Elevated troponins Initial troponin 5.4 with repeat 45.2 EKG with sinus tachycardia of [address] depressions in V4-V6 Patient asymptomatic: Denies chest pain/pressure, palpitations Will treat with therapeutic Lovenox and aspirin Will get echocardiogram Cardiology consult Monitor on telemetry Acute asthma exacerbation in the setting of superimposed pneumonia Pt reports wheezing by denies SOB, cough despite Patient does not meet sepsis criteria: Tachycardia secondary to albuterol use Patient received IVF and started on broad-spectrum antibiotics in the ED Will treat with azithromycin and ceftriaxone, started 07/21/2023 Hypermagnesemia Magnesium 5.7 at time of presentation Likely secondary to Mag sulfate infusion Re-check Mag in the a.m. Lactic acidosis Lactic acid 5.7 6 hours after presentation to the ED Multifactorial: Secondary to albuterol and metformin use, not sepsis Patient did receive IVF and was started on broad-spectrum antibiotics in the ED, but does not need sepsis bolus fluids Hypokalemia Patient's potassium 3.0 time of presentation Received supplemental potassium in ED Follow BMP [id number] type 2 diabetes Continue Jardiance Hold metformin Sliding-scale insulin, diabetic diet GERD Continue famotidine HTN Continue lisinopril, metoprolol Full Code Attending:?Dr. Singh DVT Prophylaxis: Therapeutic Lovenox Pt will require a hospitalization of at least two nights for treatment of?NSTEMI. Pt will require hospitalization for administration of therapeutic Lovenox, close monitoring of cardiac function and labs, as well as specialist consultation with Cardiology. Patient will also be treated for pneumonia with IV antibiotics. Quality Stroke Does the patient have a stroke diagnosis?: No VTE Prior VTE?: No VTE Risk Level:: Medical - moderate - high VTE Device Contraindication: Treatment Not Indicated VTE Drug Contraindication: N/A - Med Ordered
[2023-07-21] MEDS: Azithromycin 500 MG in 0.9 % Sodium Chloride 250 ML 125 MG IV (22:09)
[2023-07-21 23:54] LABS: Reflex Lactate? Lactic Acid Added
[2023-07-21] MEDS: 0.9 % Sodium Chloride 500 ML 999 ML IV (23:55)
[2023-07-22] VITALS (10 sets, daily range): BP systolic 132–163; BP diastolic 60–80; PULSE 66–92; RESP 16–22; TEMP 36–36.5; O2SAT 96–99
[2023-07-22 00:34] LABS: ~Lactic Acid-LAB USE ONLY 5.5 mmol/L (0.5-2.0)
[2023-07-22 02:14] LABS: Reflex Lactate? 2 Y
[2023-07-22 04:53] LABS: Reflex Lactate? Lactic Acid Added
[2023-07-22 07:05] LABS: MANUAL DIFF FLAG NO
[2023-07-22 07:12] LABS: Basophils Percent Auto 0.1 % (0-2); Eosinophils Percent Auto 0.1 % (0-4); Hematocrit 32.4 % (37.0-47.0); Hemoglobin 10.5 g/dl (12.0-16.0); Imm Gran Abs Auto 0.07 X10*3/uL (0.00-0.03); Imm Gran Pct Auto 0.8 % (0.0-0.4); Lymphocytes Absolute Auto 0.7 X10*3/uL (1.2-4.9); Lymphocytes Percent Auto 8.9 % (20-40); Mean Corpuscular HGB Conc 32.4 g/dl (31.0-35.0); Mean Corpuscular Hemoglobin 28.4 pg (27.0-33.0); Mean Corpuscular Volume 87.6 fL (80.0-98.0); Mean Platelet Volume 10.8 fL (9.4-12.3); Monocytes Absolute Auto 0.4 X10*3/uL (0.1-1.2); Neutrophils Absolute Auto 7.1 x10*3/uL (2.0-8.3); Neutrophils Percent Auto 85.1 % (45-73); Platelet Count 219 X10*3/uL (160-400); Red Cell Distribution Width 14.4 % (11.0-16.0); White Blood Count 8.4 X10*3/uL (4.8-10.8)
[2023-07-22 07:19] LABS: Cancel Lactic Acid Canceled
[2023-07-22 07:28] LABS: ~Lactic Acid-LAB USE ONLY 1.3 mmol/L (0.5-2.0)
[2023-07-22 07:29] LABS: Glucose, Whole Blood 247 mg/dL (60-115)
[2023-07-22 07:31] LABS: Anion Gap 12 (12-20); Blood Urea Nitrogen 13 mg/dL (9-16); Calcium 7.7 mg/dL (8.4-10.2); Carbon Dioxide 21 mmol/L (22-29); Chloride 109 mmol/L (96-108); Creatinine Clr Calc Pharmacy 54.7; Estimated Glomerular Filt Rate > 60; Glucose Random 278 mg/dL (60-115); Potassium 4.3 mmol/L (3.3-5.1); Sodium 138 mmol/L (135-145)
[2023-07-22 07:41] LABS: Troponin-I High Sensitivity 25.4 ng/L (<3.5-17.0)
[2023-07-22] MEDS: Metoprolol Succinate ER 50 MG TAB.ER.24H PO (07:44)
[2023-07-22] MEDS: Fenofibrate 54 MG TABLET PO (07:44)
[2023-07-22] MEDS: Tamoxifen Citrate 10 MG TABLET 20 MG PO (07:44)
[2023-07-22] MEDS: Empagliflozin 10 MG TABLET PO (07:45)
[2023-07-22] MEDS: Insulin Lispro 100 UNIT/ML 3 ML VIAL SUBCUT ×2 (07:45→21:01)
[2023-07-22] MEDS: 0.9 % Sodium Chloride Flush 3 ML SYRINGE IVFLUSH ×2 (07:45→16:31)
[2023-07-22] MEDS: Famotidine 20 MG TABLET PO ×2 (07:45→21:02)
[2023-07-22] MEDS: Aspirin Enteric Coated 81 MG TABLET.DR PO (07:45)
[2023-07-22] MEDS: lisinopriL 40 MG TABLET OG-TUBE (07:45)
[2023-07-22] MEDS: Acetaminophen 325 MG TABLET 975 MG PO (07:51)
--- NOTE | 2023-07-22 08:43 | MHC.CM.PN ---
CM met with Patient and her [id number] at bedside and addressed IMM with them; original was given to Patient and a copy has been placed on the chart. Patient lives in a house with her , who has Alzheimer's Disease. Patient's Daughter-in Law is the [facility] Homemaker every Sunday to assist with appointments, grocery shopping, etc. Home/resume said services is the goal and CM has initiated and will follow for dc planning. PCP is Dr. Betsy Canales.
--- NOTE | 2023-07-22 09:54 | PHA.MEDREC ---
Pharmacy Consult ? Medication Reconciliation Pharmacy has completed the medication reconciliation. Utilized granulator machine operator services. Spoke to patient to confirm meds. Per patient and family, they were given one prescription of Jardiance and it was never continued for them after it ran out, so the patient is no longer taking.
--- NOTE | 2023-07-22 10:18 | P.CONCA_ITS ---
History of Present Illness History of Present Illness Date of Service: 07/22/23 Chief complaint: Hypoxic respiratory failure Narrative: This is a cardiology consultation regarding elevated troponins. Patient with many comorbidities including diabetes, hypertension, dyslipidemia, presenting for complaints of shortness of breath. She came for question of ' asthma attack'. Apparently had difficulty in breathing that was not getting better and hence came to the hospital. In this context, found to have a small pneumonia. Troponins were checked and they were slightly elevated. There is also slight ST depression in the lateral leads and hence admitted to the hospital. She has not had any anginal-type chest pains. Also no previous history of any coronary disease, myocardial infarction or cardiomyopathy. Review of Systems 2 Review of Systems: Yes all other systems are reviewed and are negative Constitutional: Constitutional: Reports as per HPI and Reports no additional constitutional complaints Eyes: Eyes: Reports as per HPI and Denies no additional eye complaints ENT: Denies system reviewed and no additional complaints, except as documented and Reports as per HPI Cardiovascular: Cardiovascular: Reports as per HPI, Reports no additional cardiovascular complaints, Denies acrocyanosis, Denies cool extremities, Denies chest pain, Denies leg edema, Denies lightheadedness, Denies palpitations and Denies dyspnea Respiratory: Respiratory: Reports as per HPI, Denies no additional respiratory complaints and Denies dyspnea Gastrointestinal: Gastrointestinal: Reports as per HPI and Denies no additional gastrointestinal complaints Genitourinary: Genitourinary: Reports as per HPI Musculoskeletal: Musculoskeletal: Reports no additional musculoskeletal complaints and Reports as per HPI Integumentary/Breasts: Skin/Breast: Reports system reviewed and no additional complaints, except as docu Neurologic: Reports system reviewed and no additional complaints, except as documented and Reports as per HPI Psychiatric: Psychiatric: Reports no additional psychiatric complaints and Reports as per HPI Endocrine: Endocrine: Reports no additional endocrine complaints, Reports as per HPI and Denies palpitations Hematologic/Lymphatic: Hematologic/Lymphatic: Reports no additional hematologic/lymphatic complaints and Reports as per HPI Allergic/Immunologic: Allergic/Immunologic: Reports no additional allergic/immunologic complaints and Reports as per HPI [facility] Past Medical History Medical History Otitis media, right History of colon cancer Incisional hernia Abdominal wall mass History of breast cancer Invasive ductal carcinoma of left breast Anemia Increased BMI On beta ananya at home Breast cancer Invasive ductal carcinoma of left breast Abnormality of left breast on screening mammography Multinodular thyroid Osteopenia Vitamin D deficiency Primary hyperparathyroidism Tubulovillous adenoma of colon Diabetes Asthma Hyperparathyroidism Cancer Arthritis GERD (gastroesophageal reflux disease) History of headache Elevated cholesterol HTN (hypertension) Family History Family History Father No problems noted. Mother Diabetes mellitus Other No family history of cancer Surgical History Surgical History History of cataract surgery History of thyroid surgery History of lumpectomy of left breast H/O left breast biopsy History of mammogram Status post total hip replacement, left History of exploratory laparotomy History of tubal ligation Hx of tonsillectomy Hx of cholecystectomy S/P colon resection H/O colonoscopy Social History Social History Household Members: Significant Other Housing: House Are you a primary medicare biller to a significant other at home: No Alcohol intake: never Comment: sleeping Patient Tobacco Use Status: Never used Tobacco Smoked in Last 30 Days: No e-Cigarette/Vaping Use: Never Used Second Hand Smoke Exposure: No Use of substances other than those prescribed or required for medical reasons: No Currently Displaying Signs/Symptoms of Drug Intoxication Withdrawal: No Have you been hit, kicked, punched, or otherwise hurt by someone within the past year? If so, by whom?: No Do you feel safe in your current relationship?: Yes Is there a partner from a previous relationship who is making you feel unsafe now?: No Advance Directives: No Advance Directives Information Provided: Yes Advance Directives Date on File: 08/11/02 Do you have thoughts of harming others: None Do you have a plan to hurt others: No Plan Recently lost weight without trying: Unsure Eating poorly because of decreased appetite: No Nutrition Risks: No Nutritional Risk Patient : No : No Poor oral hygiene: Yes service: No Current occupational status: unemployed Cognitive needs: No Hearing needs: No Vision needs: Yes Meds Allergies Allergy/AdvReac Type Severity Reaction Status Date / Time ibuprofen [Ibuprofen] Allergy Mild SWELLING Verified 07/21/23 13:49 celecoxib [CELECOXIB] Allergy Unknown DROPS Verified 07/21/23 13:49 SUGAR LEVEL Active Medications: Current Medications Acetaminophen (Acetaminophen 325 Mg Tablet) 975 mg PO Q6H PRN PRN Reason: fever, mild pain or headache Last Admin: 07/22/23 07:51 Dose: 975 mg Aspirin (Aspirin Enteric Coated 81 Mg Tablet.Dr) 81 mg PO DAILY [facility] Last Admin: 07/22/23 07:45 Dose: 81 mg Empagliflozin (Empagliflozin 10 Mg Tablet) 10 mg PO DAILY [facility] Last Admin: 07/22/23 07:45 Dose: 10 mg Enoxaparin Sodium (Enoxaparin Sodium 80 Mg/0.8 Ml Syringe) 80 mg 1 mg/kg (80 mg) SUBCUT Q12H [facility] Last Admin: 07/22/23 00:37 Dose: Not Given Famotidine (Famotidine 20 Mg Tablet) 20 mg PO BID [facility] Last Admin: 07/22/23 07:45 Dose: 20 mg Fenofibrate (Fenofibrate 54 Mg Tablet) 54 mg PO DAILY [facility] Last Admin: 07/22/23 07:44 Dose: 54 mg Glucose (Glucose Gel 15 Gm Gel..Gram.) 15 gm PO Q15M PRN; Protocol PRN Reason: per Hypoglycemia Standing Ord. Dextrose (D10) 250 mls @ 750 mls/hr IV Q15M PRN; Protocol PRN Reason: per Hypoglycemia Standing Ord. Ceftriaxone Sodium 1 gm/ (Sodium Chloride) 50 mls @ 100 mls/hr IV Q24H [place] Azithromycin 500 mg/ Sodium (Chloride) 250 mls @ 125 mls/hr IV Q24H [facility] Insulin Human Lispro (Insulin Lispro 100 Unit/Ml 3 Ml Vial) 0 unit SUBCUT QIDACHS [facility]; Protocol Last Admin: 07/22/23 07:45 Dose: 4 unit Ipratropium [place] (Ipratropium [place] 1 Puff/17 Mcg Inhaler) 2 puff INHALE RQ4H WHILE AWAKE PRN PRN Reason: Shortness of Breath/Wheezing Lisinopril (Lisinopril 40 Mg Tablet) 40 mg OG-TUBE DAILY [facility]; Protocol Last Admin: 07/22/23 07:45 Dose: 40 mg Loratadine (Loratadine 10 Mg Tablet) 5 mg PO DAILY PRN PRN Reason: Allergic Symptoms Metoprolol Succinate (Metoprolol Succinate Er 50 Mg Tab.Er.24h) 50 mg PO DAILY [facility]; Protocol Last Admin: 07/22/23 07:44 Dose: 50 mg Sodium Chloride (0.9 % Sodium Chloride Flush 3 Ml Syringe) 3 ml IVFLUSH QSHIFT [facility] Last Admin: 07/22/23 07:45 Dose: 3 ml Tamoxifen Citrate (Tamoxifen Citrate 10 Mg Tablet) 20 mg PO DAILY [facility] Last Admin: 07/22/23 07:44 Dose: 20 mg Home Medications ?Medication ?Instructions ?Recorded ?Confirmed ?Last Taken ?Type blood sugar diagnostic #10 ea 03/17/20 05/21/23 Unknown History lancets 28 gauge #100 ea 03/17/20 05/21/23 Unknown History famotidine 20 mg tablet 20 mg PO BID 07/21/23 07/22/23 07/21/23 History fenofibrate 54 mg tablet 54 mg DAILY 07/21/23 07/22/23 07/21/23 History lisinopril 40 mg tablet 40 mg DAILY 07/21/23 07/22/23 07/21/23 History metoprolol succinate 50 mg 50 mg PO DAILY 07/21/23 07/22/23 07/21/23 History tablet,extended release 24 hr rosuvastatin 40 mg tablet 40 mg DAILY 07/21/23 07/22/23 07/21/23 History tamoxifen 20 mg tablet 20 mg PO DAILY 07/21/23 07/22/23 07/21/23 History albuterol sulfate 90 mcg/actuation 2 puff inhalation Q6H PRN 07/22/23 07/22/23 Unknown History aerosol inhaler shortness of breath or wheezing rizatriptan 10 mg tablet 10 mg PO DAILY PRN Migraine 07/22/23 07/22/23 Unknown History Headache Physical Exam 2 Vital Signs: Vital Signs: Last Vital Signs Temp 97.2 F 07/22/23 07:12 Pulse 80 07/22/23 07:44 Resp 18 07/22/23 07:12 BP 148/70 H 07/22/23 07:45 Pulse Ox 98 07/22/23 07:12 O2 Del Method Room Air 07/22/23 07:12 BMI result Body Mass Index 30.7 Const: General: comfortable and no acute distress O rientation/consciousness: patient oriented x3 HEENT: Other: Unremarkable Head: Yes normal to inspection Neck: Neck: Yes normal visual inspection Chest: Chest palpation & inspection: normal inspection of the chest Resp: Auscultation: wheezes Cardio: Palpation: normal PMI Heart sounds: S1 normal heart sound present, S2 normal heart sound present, no gallops, no murmurs and no rubs GI: Palpation (GI): Soft to palpation Back/Spine/Pelvis: Other: unremarkable Skin: General skin exam: no rashes or lesions noted Neuro: General: patient oriented x3 Extrem: General: Yes normal to inspection Psych: Mental Status: mental status grossly normal Objective Labs and Meds 07/22/23 06:57 07/22/23 06:57 Lab results: Laboratory Results - last 24 hr 07/21/23 07/21/23 07/21/23 14:35 16:32 21:50 WBC 5.6 RBC 3.82 L Hgb 10.8 L Hct 33.8 L MCV 88.5 MCH 28.3 MCHC 32.0 RDW 14.0 Plt Count Not Reportable MPV 10.6 Immature Gran % (Auto) 0.2 Neut % (Auto) 57.3 Lymph % (Auto) 30.1 [place] % (Auto) 9.5 Eos % (Auto) 2.5 Baso % (Auto) 0.4 Lymph # (Auto) 1.7 [place] # (Auto) 0.5 Eos # (Auto) 0.1 Baso # (Auto) 0.0 Abs Immat Gran (auto) 0.01 Absolute Neuts (auto) 3.2 Absolute Nucleated RBC 0.000 Nucleated RBC % (auto) 0.0 Smear Tech's Comments VERIFIED Sodium 138 Potassium 3.0 L D Chloride 106 Carbon Dioxide 22 Anion Gap 13 BUN 12 Creatinine 0.84 Estim Creat Clear Calc 55.9 Estimated GFR > 60 POC Glucose Random Glucose 161 H Lactic Acid 5.7 H* Lactic Acid F/U @ 2Hr Calcium 8.2 L Magnesium 5.7 H* Total Bilirubin 0.3 AST 20 ALT 13 Alkaline Phosphatase 36 L Troponin I High Sens 5.4 Total Protein 6.4 L Albumin 3.8 Influenza Type A (PCR) NEGATIVE Influenza Type B (PCR) NEGATIVE RSV RNA Qual (PCR) NEGATIVE SARS-CoV-2 RNA (RT-PCR) NEGATIVE 07/21/23 07/22/23 07/22/23 Unknown 00:10 02:44 WBC RBC Hgb Hct MCV MCH MCHC RDW Plt Count MPV Immature Gran % (Auto) Neut % (Auto) Lymph % (Auto) [place] % (Auto) Eos % (Auto) Baso % (Auto) Lymph # (Auto) [place] # (Auto) Eos # (Auto) Baso # (Auto) Abs Immat Gran (auto) Absolute Neuts (auto) Absolute Nucleated RBC Nucleated RBC % (auto) Smear Tech's Comments Sodium Potassium Chloride Carbon Dioxide Anion Gap BUN Creatinine Estim Creat Clear Calc Estimated GFR POC Glucose Random Glucose Lactic Acid 4.0 H* Lactic Acid F/U @ 2Hr 5.5 H* Calcium Magnesium Total Bilirubin AST ALT Alkaline Phosphatase Troponin I High Sens 45.2 H D Total Protein Albumin Influenza Type A (PCR) Influenza Type B (PCR) RSV RNA Qual (PCR) SARS-CoV-2 RNA (RT-PCR) 07/22/23 07/22/23 06:57 07:04 WBC 8.4 RBC 3.70 L Hgb 10.5 L Hct 32.4 L MCV 87.6 MCH 28.4 MCHC 32.4 RDW 14.4 Plt Count 219 MPV 10.8 Immature Gran % (Auto) 0.8 H Neut % (Auto) 85.1 H Lymph % (Auto) 8.[address] % (Auto) 5.0 Eos % (Auto) 0.1 Baso % (Auto) 0.1 Lymph # (Auto) 0.[address] [place] # (Auto) 0.4 Eos # (Auto) 0.0 Baso # (Auto) 0.0 Abs Immat Gran (auto) 0.07 H Absolute Neuts (auto) 7.1 Absolute Nucleated RBC 0.000 Nucleated RBC % (auto) 0.0 Smear Tech's Comments Sodium 138 Potassium 4.3 D Chloride 109 H Carbon Dioxide 21 L Anion Gap 12 BUN 13 Creatinine 0.86 Estim Creat Clear Calc 54.7 Estimated GFR > 60 POC Glucose 247 H Random Glucose 278 H Lactic Acid Lactic Acid F/U @ 2Hr 1.3 Calcium 7.7 L D Magnesium 2.0 Total Bilirubin AST ALT Alkaline Phosphatase Troponin I High Sens 25.4 H Total Protein Albumin Influenza Type A (PCR) Influenza Type B (PCR) RSV RNA Qual (PCR) SARS-CoV-2 RNA (RT-PCR) ECG Interpretation: EKG with sinus tachycardia, 122/Min; lateral/anterolateral ST depression not seen in the prior EKG. Repeat EKG is similar. Imaging Radiologist's impression: Impressions Chest X-Ray 07/21/23 13:55 IMPRESSION: 1. Very subtle mild peribronchial wall cuffing could be small airway disease such as bronchiolitis. No dense focal lobar consolidation pneumonia. 2. Widened upper mediastinum probably exaggerated by AP oblique positioning. If patient is high-risk with recommend correlation with follow-up contrast enhanced CT scan. Chest CT 07/21/23 17:51 IMPRESSION: Airways disease/small pneumonia in the posterior segment of the right upper lobe. Small esophageal hernia. Unremarkable mediastinum. Fleischner guidelines were followed. Assessment and Plan (1) NSTEMI (non-ST elevated myocardial infarction): Status: Acute (2) Pneumonia: Status: Acute Plan Troponin levels are 5.4 followed by 45.2 followed by 25.4. EKG with lateral ST depression as described above. Clinically, no angina. Suspect type 2 NSTEMI related to respiratory issues. Can use therapeutic Lovenox for 48 hours; aspirin, statins. Echocardiogram. Will follow. Discussed with family at bedside. Procedures Date of Service Date of Service: 07/22/23
[2023-07-22 11:40] LABS: Glucose, Whole Blood 142 mg/dL (60-115)
[2023-07-22] MEDS: Ipratropium Bromide 1 PUFF/17 MCG INHALER 2 PUFF INHALE ×2 (11:48→20:07)
[2023-07-22] MEDS: Enoxaparin Sodium 80 MG/0.8 ML SYRINGE SUBCUT (11:54)
[2023-07-22 12:08] LABS: Lactic Acid 5.7 mmol/L (0.5-2.0)
--- NOTE | 2023-07-22 12:46 | P.PNIM_ITS ---
Subjective Subjective Date of Service: 07/22/23 Interval History: sob Review of Systems sob seems similar has some cough no fever no chest pain Review of Systems: Yes all other systems are reviewed and are negative Physical Exam 2 Vital Signs: Vital Signs: Last Vital Signs Temp 97.7 F 07/22/23 11:17 Pulse 87 07/22/23 11:50 Resp 18 07/22/23 11:50 BP 138/60 07/22/23 11:17 Pulse Ox 97 07/22/23 11:17 O2 Del Method Room Air 07/22/23 11:17 BMI result Body Mass Index 30.7 Appearance: Alert.? Oriented X3.? cvs: rrr, [id number] . res: air entry diminshed ,has b/l exp wheezing. abd: no rebound or guarding ,nt, bs present. ext pulses present , no cyanosis . neuro: axo3 , nonfocal. Objective Data Active Medications Acetaminophen (Acetaminophen 325 Mg Tablet) 975 mg PO Q6H PRN PRN Reason: fever, mild pain or headache Last Admin: 07/22/23 07:51 Dose: 975 mg Documented By: PRAVIN Aspirin (Aspirin Enteric Coated 81 Mg Tablet.) 81 mg PO DAILY [facility] Last Admin: 07/22/23 07:45 Dose: 81 mg Documented By: PRAVIN Empagliflozin (Empagliflozin 10 Mg Tablet) 10 mg PO DAILY [facility] Last Admin: 07/22/23 07:45 Dose: 10 mg Documented By: PRAVIN Enoxaparin Sodium (Enoxaparin Sodium 80 Mg/0.8 Ml Syringe) 80 mg 1 mg/kg (80 mg) SUBCUT Q12H [facility] Last Admin: 07/22/23 11:54 Dose: 80 mg Documented By: PRAVIN Famotidine (Famotidine 20 Mg Tablet) 20 mg PO BID [facility] Last Admin: 07/22/23 07:45 Dose: 20 mg Documented By: PRAVIN Fenofibrate (Fenofibrate 54 Mg Tablet) 54 mg PO DAILY [facility] Last Admin: 07/22/23 07:44 Dose: 54 mg Documented By: PRAVIN Glucose (Glucose Gel 15 Gm Gel..Gram.) 15 gm PO Q15M PRN; Protocol PRN Reason: per Hypoglycemia Standing Ord. Dextrose (D10) 250 mls @ 750 mls/hr IV Q15M PRN; Protocol PRN Reason: per Hypoglycemia Standing Ord. Ceftriaxone Sodium 1 gm/ (Sodium Chloride) 50 mls @ 100 mls/hr IV Q24H [facility] Azithromycin 500 mg/ Sodium (Chloride) 250 mls @ 125 mls/hr IV Q24H [facility] Insulin Human Lispro (Insulin Lispro 100 Unit/Ml 3 Ml Vial) 0 unit SUBCUT QIDACHS [facility]; Protocol Last Admin: 07/22/23 11:49 Dose: Not Given Documented By: PRAVIN Non-Admin Reason: poc= 142 Ipratropium [place] (Ipratropium [place] 1 Puff/17 Mcg Inhaler) 2 puff INHALE RQ4H WHILE AWAKE PRN PRN Reason: Shortness of Breath/Wheezing Last Admin: 07/22/23 11:48 Dose: 2 puff Documented By: ELIAZAR Lisinopril (Lisinopril 40 Mg Tablet) 40 mg OG-TUBE DAILY [facility]; Protocol Last Admin: 07/22/23 07:45 Dose: 40 mg Documented By: PRAVIN Loratadine (Loratadine 10 Mg Tablet) 5 mg PO DAILY PRN PRN Reason: Allergic Symptoms Metoprolol Succinate (Metoprolol Succinate Er 50 Mg Tab.Er.24h) 50 mg PO DAILY [facility]; Protocol Last Admin: 07/22/23 07:44 Dose: 50 mg Documented By: PRAVIN Sodium Chloride (0.9 % Sodium Chloride Flush 3 Ml Syringe) 3 ml IVFLUSH QSHIFT [facility] Last Admin: 07/22/23 07:45 Dose: 3 ml Documented By: PRAVIN Tamoxifen Citrate (Tamoxifen Citrate 10 Mg Tablet) 20 mg PO DAILY [facility] Last Admin: 07/22/23 07:44 Dose: 20 mg Documented By: PRAVIN Labs 07/22/23 06:57 07/22/23 06:57 Labs: Laboratory Results - last 24 hr 07/21/23 07/21/23 07/21/23 14:35 16:32 21:50 MCV 88.5 MCH 28.3 MCHC 32.0 RDW 14.0 Plt Count Not Reportable MPV 10.6 Immature Gran % (Auto) 0.2 Neut % (Auto) 57.3 Lymph % (Auto) 30.1 [place] % (Auto) 9.5 Eos % (Auto) 2.5 Baso % (Auto) 0.4 Lymph # (Auto) 1.7 [place] # (Auto) 0.5 Eos # (Auto) 0.1 Baso # (Auto) 0.0 Abs Immat Gran (auto) 0.01 Absolute Neuts (auto) 3.2 Absolute Nucleated RBC 0.000 Nucleated RBC % (auto) 0.0 Smear Tech's Comments VERIFIED Anion Gap 13 Estim Creat Clear Calc 55.9 Estimated GFR > 60 POC Glucose Random Glucose 161 H Lactic Acid 5.7 H* Lactic Acid F/U @ 2Hr Calcium 8.2 L Magnesium 5.7 H* Total Bilirubin 0.3 AST 20 ALT 13 Alkaline Phosphatase 36 L Troponin I High Sens 5.4 Total Protein 6.4 L Albumin 3.8 Influenza Type A (PCR) NEGATIVE Influenza Type B (PCR) NEGATIVE RSV RNA Qual (PCR) NEGATIVE SARS-CoV-2 RNA (RT-PCR) NEGATIVE 07/21/23 07/22/23 07/22/23 Unknown 00:10 02:44 MCV MCH MCHC RDW Plt Count MPV Immature Gran % (Auto) Neut % (Auto) Lymph % (Auto) [place] % (Auto) Eos % (Auto) Baso % (Auto) Lymph # (Auto) [place] # (Auto) Eos # (Auto) Baso # (Auto) Abs Immat Gran (auto) Absolute Neuts (auto) Absolute Nucleated RBC Nucleated RBC % (auto) Smear Tech's Comments Anion Gap Estim Creat Clear Calc Estimated GFR POC Glucose Random Glucose Lactic Acid 4.0 H* Lactic Acid F/U @ 2Hr 5.5 H* Calcium Magnesium Total Bilirubin AST ALT Alkaline Phosphatase Troponin I High Sens 45.2 H D Total Protein Albumin Influenza Type A (PCR) Influenza Type B (PCR) RSV RNA Qual (PCR) SARS-CoV-2 RNA (RT-PCR) 07/22/23 07/22/23 07/22/23 06:57 07:04 11:19 MCV 87.6 MCH 28.4 MCHC 32.4 RDW 14.4 Plt Count 219 MPV 10.8 Immature Gran % (Auto) 0.8 H Neut % (Auto) 85.1 H Lymph % (Auto) 8.9 L [place] % (Auto) 5.0 Eos % (Auto) 0.1 Baso % (Auto) 0.1 Lymph # (Auto) 0.7 L [place] # (Auto) 0.4 Eos # (Auto) 0.0 Baso # (Auto) 0.0 Abs Immat Gran (auto) 0.07 H Absolute Neuts (auto) 7.1 Absolute Nucleated RBC 0.000 Nucleated RBC % (auto) 0.0 Smear Tech's Comments Anion Gap 12 Estim Creat Clear Calc 54.7 Estimated GFR > 60 POC Glucose 247 H 142 H Random Glucose 278 H Lactic Acid Lactic Acid F/U @ 2Hr 1.3 Calcium 7.7 L D Magnesium 2.0 Total Bilirubin AST ALT Alkaline Phosphatase Troponin I High Sens 25.4 H Total Protein Albumin Influenza Type A (PCR) Influenza Type B (PCR) RSV RNA Qual (PCR) SARS-CoV-2 RNA (RT-PCR) Assessment and Plan (1) NSTEMI (non-ST elevated myocardial infarction): Status: Acute (2) Elevated troponin: Status: Acute (3) Pneumonia: Status: Acute Plan 77-year-old Czech speaking female with a PMH significant for?HTN, HLD, non- insulin dependent type 2 diabetes, migraines, and tubulovillous adenoma of colon who presents to the ED for evaluation of ?asthma attack?. Pt will be admitted to the hospital for treatment and further evaluation of NSTEMI. Elevated troponins-?nstemi troponin flat5.4 - 45.2-25,EKG-ST depressions in V4-V6 asymptomatic plan: Monitor on telemetry,on therapeutic Lovenox and aspirin,bb,statin ,echocardiogram Cardiology consult-continue lovenox for 48hrs , Acute asthma exacerbation( mild intermittent asthma) in the setting of superimposed pneumonia Pt reports wheezing by denies SOB, cough despite Patient does not meet sepsis criteria: Tachycardia secondary to albuterol use Patient received IVF and started on broad-spectrum antibiotics in the ED continue azithromycin and ceftriaxone, started 07/21/2023 Hypermagnesemia: resolved. acute Lactic acidosis: Multifactorial: Secondary to albuterol and metformin use, not sepsis improved with IVF no sepsis. Hypokalemia: repleted and resolved. Sym-[id number]-[id number] type 2 diabetes with hyperglycemia -?related to steriods dm diet ,continue inuslin sliding scale as adjusted. Continue Jardiance,Hold metformin GERD :Continue famotidine HTN:Continue lisinopril, metoprolol DVT Prophylaxis: Therapeutic Lovenox ongoing hospitalization need for treatment of?NSTEMI. Pt will require hospitalization for administration of therapeutic Lovenox, close monitoring of cardiac function and labs, as well as specialist consultation with Cardiology. Patient will also be treated for pneumonia with IV antibiotics. Quality Stroke Does the patient have a stroke diagnosis?: No VTE Prior VTE?: No VTE Risk Level:: Medical - moderate - high VTE Device Contraindication: Treatment Not Indicated VTE Drug Contraindication: N/A - Med Ordered
[2023-07-22 15:37] LABS: Glucose, Whole Blood 129 mg/dL (60-115)
[2023-07-22 19:49] LABS: Glucose, Whole Blood 161 mg/dL (60-115)
[2023-07-22] MEDS: Azithromycin 500 MG in 0.9 % Sodium Chloride 250 ML 125 MG IV (21:01)
[2023-07-22] MEDS: cefTRIAXone sodium 1 GM in 0.9 % Sodium Chloride 50 ML IV (21:01)
[2023-07-22] MEDS: Atorvastatin Calcium 80 MG TABLET PO (21:02)
[2023-07-22] MEDS: methylPREDNISolone Sod Succ 125 MG/2 ML VIAL IVPUSH (21:02)
[2023-07-22] MEDS: Albuterol/Iprat 2.5/0.5MG 3 ML AMPUL.NEB INHALE (23:05)
[2023-07-23] VITALS (14 sets, daily range): BP systolic 136–169; BP diastolic 62–98; PULSE 67–89; RESP 16–20; TEMP 36.2–36.6; O2SAT 94–99
[2023-07-23] MEDS: Enoxaparin Sodium 80 MG/0.8 ML SYRINGE SUBCUT ×3 (00:01→23:30)
[2023-07-23] MEDS: 0.9 % Sodium Chloride Flush 3 ML SYRINGE IVFLUSH ×4 (00:03→23:45)
[2023-07-23 00:15] LABS: Prothrombin Time 11.7 SEC (11.1-13.3)
[2023-07-23] MEDS: vancomycin/NS 2,000 MG/500 ML PLAST..BAG 250 MG IV (00:25)
--- NOTE | 2023-07-23 04:43 | PC.NURSE ---
Addendum entered by Maria Guadalupe Beard RN 07/23/23 04:50: also note that patient has wheezing throughout bilaterally and SOB at rest. Provider notified with initial [employer]. Original Note: pt noted to have barking constant cough upon initial assessment at start of this RN shift. pt requested something to help with the coughing as respiratory has already seen the patient and gave a treatment. RN contacted the covering provider, Francisco Posada. Provider ordered scheduled breathing treatments, IV steriods, Duonebs q 4 hours scheduled, solumedrol 125mg IV and 40mg IV q 12 hours plus prn robitussin. Blood cultures came back with a positive result, provider notified (Francisco Posada), and vancomycin ordered. per provider RN not to start the vanco until blood cultures were redrawn x2. RN awaited for the BC to be drawn and then the vanco was hung and infused without difficulty. patient tolerated all new orders. cough is less constant. pt placed on 2L n/c as patient was dropping to mid 80s (O2) while asleep. patient found to be snoring, with o2 patient remained in the 90s. pt ambulating without difficulty. all needs met, call roldan in reach. safety and comfort maintained.
--- NOTE | 2023-07-23 07:00 | CA_ITS ---
Transthoracic Echocardiogram Patient (Last, First, Middle): Destiney Zhong, Gender: Female Date of : 1945 Age: 77 Procedure Date: 07/23/2023 Procedure Type: Transthoracic Echocardiogram Location: [facility] Height: 162.56 cm Weight: 81.19 kg BSA: 1.87 m2 Heart Rate: 92 bpm BP: 136 / 62 mmHg Director Of Culture: CHANCE Yo MD: Artem STOCKTON Farm Appraiser: Isai Campos MD Symptoms: Elevated trops, ST depressions Study Quality: Adequate w contrast ECG Rhythm: Sinus Conclusions: - 1. The study is technically limited 2. Hyperdynamic LV EF greater than 70% with elevated filling pressures 3. Limited visualization of cardiac valves with normal cardiac valve with Dopplers Findings Procedure Information Contrast agent, definity, is being given per protocol without apparent complications. Left Ventricle Normal left ventricular cavity size. There is normal left ventricular wall thickness. The left ventricular systolic function is hyperdynamic. The visually estimated ejection fraction is >70%. Spectral Doppler is indicative of an impaired relaxation filling pattern. Elevated filling pressures. E/E prime ratio is >15, consistent with elevated filling pressures. Right Ventricle Normal right ventricular cavity size and systolic function. Atria Both atria are normal in size. Interatrial shunt cannot be excluded. Aortic Valve The aortic valve was not well visualized. There is no aortic valve stenosis. There is no aortic valve regurgitation. Mitral Valve There is mild anterior and posterior mitral leaflet thickening. There is trace mitral valve regurgitation. There is no mitral valve stenosis. Pulmonic Valve The pulmonic valve was not well visualized. Tricuspid Valve Likely normal tricuspid valve structure and function. The right ventricular systolic pressure is not calculated. Great Vessels The aorta was not well visualized. The pulmonary artery was not well visualized. Venous The inferior vena cava was not well visualized. Pericardium/Pleural The pericardium was not well visualized. Prior Study Comparison No prior study available for comparison. Measurements 2D Linear Measurements IVSd: 0.96 0.6-0.9/0.6-1.0 cm LVIDd: 4.04 3.9-5.3/4.2-5.9 cm LVIDd Index: 2.16 2.4-3.2/2.2-3.1 cm/m2 LVIDs: 3.11 2.0-3.6 cm LVPWd: 1.06 0.7-1.1 cm LA Diam: 2.60 2.7-3.8/3.0-4.0 cm LAIDs Index: 1.39 1.5-2.3 cm/m2 LV Mass: 163.33 67-162/88-224 g LV Mass Index: 87.34 43-95/49-115 g/m2 LVOT Diam: 2.10 3.0+(-)1.3 cm 2D Systolic Function EF 4C: 71.30 >55% EF 2C: 78.20 >55% EF BiP: 74.70 >55% Mitral Valve MV Pk E: 1.10 MV PK A: 1.06 MV Decel Time: 228.00 E/A: 1.00 E'Lateral: 7.40 E'Medial: 6.20 E/E' Med: 17.70 E/E' Lat: 14.90 PHT: 67.00 MVA PHT: 3.28 Decel Reynolds: 4.83 Aortic Valve AoV Pk Jonathan: 1.58 AoV Mn Jonathan: 1.06 AoV VTI: 0.31 AoV Pk Grad: 10.00 Aov Mn Grad: 5.00 DEMARCO Cont.VTI: 3.05 LVOT LVOT Pk Jonathan: 1.47 LVOT Mn Jonathan: 0.96 LVOT VTI: 0.27 LVOT Pk Grad: 9.00 LVOT Mn Grad: 4.00 LVOT Diam: 2.10 LVOT Area: 3.46 Diastolic Function MV Pk E: 1.10 MV Pk A: 1.06 E/A: 1.00 E'Medial: 6.20 E/E' Med: 17.70 E' Laterial: 7.40 E/E' Lat: 14.90 Right Ventricle TAPSE (mm): 29.50 TVS' Jonathan: 17.70 Tricuspid Valve TR Pk Jonathan: 2.60 TR Pk Grad: 27.00 Great Vessels Aorta Sinus of Valsalva: 3.60 2.0-3.5 cm Ao Asc: 3.40 2.1-3.4 cm Pulmonary Valve PV Pk Jonathan: 0.96 Peak PV Grad: 4.00 Updated in Other Vendor System with Status of Final Isai Campos MD electronically signed on 07/23/2023 12:23:15 PM with status of Final
[2023-07-23] MEDS: Albuterol/Iprat 2.5/0.5MG 3 ML AMPUL.NEB INHALE ×3 (07:37→15:41)
[2023-07-23] MEDS: Insulin Lispro 100 UNIT/ML 3 ML VIAL SUBCUT ×4 (07:40→22:55)
[2023-07-23 07:41] LABS: Glucose, Whole Blood 192 mg/dL (60-115)
[2023-07-23] MEDS: Metoprolol Succinate ER 50 MG TAB.ER.24H PO (07:41)
[2023-07-23] MEDS: methylPREDNISolone Sod Succ 40 MG/ML VIAL IVPUSH (07:41)
[2023-07-23] MEDS: Famotidine 20 MG TABLET PO ×2 (07:41→22:54)
[2023-07-23] MEDS: Empagliflozin 10 MG TABLET PO (07:42)
[2023-07-23] MEDS: Loratadine 10 MG TABLET 5 MG PO (07:42)
[2023-07-23] MEDS: Acetaminophen 325 MG TABLET 975 MG PO ×2 (07:42→23:19)
[2023-07-23] MEDS: Fenofibrate 54 MG TABLET PO (07:42)
[2023-07-23] MEDS: lisinopriL 40 MG TABLET OG-TUBE (07:42)
[2023-07-23] MEDS: Tamoxifen Citrate 10 MG TABLET 20 MG PO (07:42)
[2023-07-23] MEDS: Pyridoxine HCl (Vitamin B6) 50 MG TABLET PO (07:42)
[2023-07-23] MEDS: Aspirin Enteric Coated 81 MG TABLET.DR PO (07:43)
[2023-07-23] MEDS: guaiFENesin DM 200/20/10 ML 10 ML SYRUP PO (07:43)
--- NOTE | 2023-07-23 10:39 | P.PNCA_ITS ---
Subjective Subjective Date of Service: 07/23/23 Principal diagnosis: Elevated troponin Interval history: Patient having no chest pain. Troponins down trended. Review of Systems Review of Systems Yes all other systems are reviewed and are negative Physical Exam Vital Signs: Last Vital Signs Temp 97.1 F 07/23/23 07:18 Pulse 74 07/23/23 07:41 Resp 18 07/23/23 07:38 BP 152/98 H 07/23/23 07:42 Pulse Ox 98 07/23/23 07:18 O2 Del Method Nasal Cannula 07/23/23 07:18 O2 Flow Rate 2 07/23/23 07:18 BMI result Body Mass Index 30.7 Const General: comfortable and no acute distress Orientation/consciousness: patient oriented x3 HEENT Other: Unremarkable Head: Yes normal to inspection Neck Neck: Yes normal visual inspection Chest Chest palpation & inspection: normal inspection of the chest Resp Auscultation: wheezes Cardio Palpation: normal PMI Heart sounds: S1 normal heart sound present, S2 normal heart sound present, no gallops, no murmurs and no rubs GI Palpation (GI): Soft to palpation Back/Spine/Pelvis Other: unremarkable Skin General skin exam: no rashes or lesions noted Neuro General: patient oriented x3 Extrem General: Yes normal to inspection Psych Mental Status: mental status grossly normal Objective Labs and Meds 07/22/23 06:57 07/22/23 06:57 Lab results: Laboratory Results - last 24 hr 07/21/23 07/22/23 07/22/23 21:50 11:19 15:17 PT INR POC Glucose 142 H 129 H Lactic Acid 5.7 H* 07/22/23 07/23/23 07/23/23 19:45 00:03 07:28 PT 11.7 INR 1.0 POC Glucose 161 H 192 H Lactic Acid Progress Note: A&P Assessment and plan (1) Elevated troponin: Status: Acute Assessment and Plan: Patient elevated troponin most likely secondary to her medical issues. 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 Can continue Lovenox for 1 more day. Continue treat underlying pulmonary condition. Outpatient myocardial perfusion imaging can be pursued to evaluate for obstructive coronary artery disease for management. Continue aspirin statins. Blood pressure is elevated can add Norvasc 2.5 mg to her regimen. Continue other medication for blood pressure control. Continue statin therapy. Echocardiogram is pending and will review. Will follow with you if need be. Thank you for allowing me to partake in the care Time Spent With Patient Time: Total time managing care of this patient today ____ minutes. Progress Note: Quality Stroke Does the patient have a stroke diagnosis?: No Procedures Date of Service Date of Service: 07/23/23
--- NOTE | 2023-07-23 10:51 | P.CDIM_ITS ---
PROVIDER RESPONSE TEXT: To clarify, the appropriate diagnosis supported by the clinical indicators: Hypocalcemia: mild QUERY TEXT: PHYSICIAN'S DOCUMENTATION REQUEST Date of Query: 07/23/2023 09:39 AM EDT Patient Name: Destiney Zhong Admit Date: 07/22/2023 Dear Omer Valverde, A review of the medical record indicates additional documentation may be needed. Please review below and update the documentation accordingly. Clinical Indicators: LABS: calcium 7.7 L Based on the above, is there a diagnosis that correlates with these lab findings: Hypocalcemia resolved, possible, suspected Labs indicate a diagnosis of (please specify) Other (explain) Clinically unable to determine (explain) Thank you, Martha De La Torre, CCS, CDIS Use of terms such as suspected, likely, concern for, or probable (associated with a specific diagnosi s that is being evaluated, monitored, or treated as if it exists) are acceptable and can be coded in the inpatient se tting, when documented at the time of discharge. Please use your independent medical judgment in providing your response. THIS QUERY IS PART OF THE PERMANENT MEDICAL RECORD
[2023-07-23 12:07] LABS: Glucose, Whole Blood 294 mg/dL (60-115)
[2023-07-23] MEDS: guaiFEN/Codeine SF 200/20/10ML 10 ML LIQUID 5 ML PO ×3 (12:11→22:53)
--- NOTE | 2023-07-23 12:36 | P.PNIM_ITS ---
Subjective Subjective Date of Service: 07/23/23 Interval History: nsetmi ,asthma excerebation Review of Systems sob seems to be improved no chest pain has dry cough Physical Exam 2 Vital Signs: Vital Signs: Last Vital Signs Temp 97.5 F 07/23/23 11:11 Pulse 78 07/23/23 11:34 Resp 16 07/23/23 11:34 BP 157/74 H 07/23/23 11:11 Pulse Ox 97 07/23/23 11:11 O2 Del Method Nasal Cannula 07/23/23 11:11 O2 Flow Rate 2 07/23/23 11:11 BMI result Body Mass Index 30.7 Appearance: Alert.? Oriented X3.?. cvs: rrr, [id number] , no murmur res: air enrty improving ,has few rhonchii abd: no rebound or guarding ,nt, bs present. ext pulses present , no cyanosis . neuro: axo3 , nonfocal. Objective Data Active Medications Acetaminophen (Acetaminophen 325 Mg Tablet) 975 mg PO Q6H PRN PRN Reason: fever, mild pain or headache Last Admin: 07/23/23 07:42 Dose: 975 mg Documented By: LUISA Albuterol Sulfate (Albuterol Sulfate (0.083%) 2.5 Mg/3 Ml Vial.Neb) 2.5 mg INHALE Q2H PRN PRN Reason: Shortness of Breath/Wheezing Albuterol/Ipratropium (Albuterol/Iprat 2.5/0.5mg 3 Ml Ampul.Neb) 3 ml INHALE RQ4H WHILE AWAKE [facility] Last Admin: 07/23/23 11:32 Dose: 3 ml Documented By: ТАТЬЯНА Aspirin (Aspirin Enteric Coated 81 Mg Tablet.) 81 mg PO DAILY [facility] Last Admin: 07/23/23 07:43 Dose: 81 mg Documented By: LUISA Atorvastatin Calcium (Atorvastatin Calcium 80 Mg Tablet) 80 mg PO BEDTIME [facility] Last Admin: 07/22/23 21:02 Dose: 80 mg Documented By: JAMIL Empagliflozin (Empagliflozin 10 Mg Tablet) 10 mg PO DAILY [facility] Last Admin: 07/23/23 07:42 Dose: 10 mg Documented By: LUISA Enoxaparin Sodium (Enoxaparin Sodium 80 Mg/0.8 Ml Syringe) 80 mg 1 mg/kg (80 mg) SUBCUT Q12H [facility] Last Admin: 07/23/23 12:11 Dose: 80 mg Documented By: LUISA Famotidine (Famotidine 20 Mg Tablet) 20 mg PO BID [facility] Last Admin: 07/23/23 07:41 Dose: 20 mg Documented By: LUISA Fenofibrate (Fenofibrate 54 Mg Tablet) 54 mg PO DAILY [facility] Last Admin: 07/23/23 07:42 Dose: 54 mg Documented By: LUISA Glucose (Glucose Gel 15 Gm Gel..Gram.) 15 gm PO Q15M PRN; Protocol PRN Reason: per Hypoglycemia Standing Ord. Guaifenesin/Codeine Phosphate (Guaifen/Codeine Sf 200/20/10ml 10 Ml Liquid) 5 ml PO Q4H [facility] Last Admin: 07/23/23 12:11 Dose: 5 ml Documented By: LUISA Guaifenesin/Dextromethorphan (Guaifenesin Dm 200/20/10 Ml 10 Ml Syrup) 10 ml PO Q4H PRN PRN Reason: Cough Last Admin: 07/23/23 07:43 Dose: 10 ml Documented By: LUISA Dextrose (D10) 250 mls @ 750 mls/hr IV Q15M PRN; Protocol PRN Reason: per Hypoglycemia Standing Ord. Ceftriaxone Sodium 1 gm/ (Sodium Chloride) 50 mls @ 100 mls/hr IV Q24H [facility] Last Infusion: 07/22/23 22:04 Dose: Infused Documented By: JAMIL Azithromycin 500 mg/ Sodium (Chloride) 250 mls @ 125 mls/hr IV Q24H [facility] Last Infusion: 07/22/23 23:08 Dose: Infused Documented By: JAMIL Vancomycin HCl 1,500 mg/ (Sodium Chloride) 500 mls @ 333.333 mls/hr IV Q24H [facility] Insulin Human Lispro (Insulin Lispro 100 Unit/Ml 3 Ml Vial) 0 unit SUBCUT QIDACHS [facility]; Protocol Last Admin: 07/23/23 12:11 Dose: 6 unit Documented By: LUISA Lisinopril (Lisinopril 40 Mg Tablet) 40 mg OG-TUBE DAILY [facility]; Protocol Last Admin: 07/23/23 07:42 Dose: 40 mg Documented By: LUISA Loratadine (Loratadine 10 Mg Tablet) 5 mg PO DAILY PRN PRN Reason: Allergic Symptoms Last Admin: 07/23/23 07:42 Dose: 5 mg Documented By: LUISA Methylprednisolone Sodium Succinate (Methylprednisolone Sod Succ 40 Mg/Ml Vial) 40 mg IVPUSH Q24H [facility] Last Admin: 07/23/23 07:41 Dose: 40 mg Documented By: LUISA Metoprolol Succinate (Metoprolol Succinate Er 50 Mg Tab.Er.24h) 50 mg PO DAILY [facility]; Protocol Last Admin: 07/23/23 07:41 Dose: 50 mg Documented By: LUISA Pharmacy Consult (Consult Rx Vancomycin Dosing) 1 each MISCELLANE DAILY PRN PRN Reason: Consult order Pyridoxine HCl (Pyridoxine Hcl (Vitamin B6) 50 Mg Tablet) 50 mg PO DAILY [facility] Last Admin: 07/23/23 07:42 Dose: 50 mg Documented By: LUISA Sodium Chloride (0.9 % Sodium Chloride Flush 3 Ml Syringe) 3 ml IVFLUSH QSHIFT [facility] Last Admin: 07/23/23 07:43 Dose: 3 ml Documented By: LUISA Tamoxifen Citrate (Tamoxifen Citrate 10 Mg Tablet) 20 mg PO DAILY [facility] Last Admin: 07/23/23 07:42 Dose: 20 mg Documented By: LUISA Labs 07/22/23 06:57 07/22/23 06:57 Labs: Laboratory Results - last 24 hr 07/22/23 07/22/23 07/23/23 15:17 19:45 00:03 PT 11.7 INR 1.0 POC Glucose 129 H 161 H 07/23/23 07/23/23 07:28 12:03 PT INR POC Glucose 192 H 294 H Microbiology Microbiology Results: Microbiology 07/21/23 21:45 Blood Culture - Final Blood - Venous Coag negative Staphylococcus 07/21/23 21:50 Blood Culture - Preliminary Blood - Venous No growth after 24 hours. Assessment and Plan (1) NSTEMI (non-ST elevated myocardial infarction): Status: Acute (2) Elevated troponin: Status: Acute (3) Pneumonia: Status: Acute Plan 77-year-old Angolan speaking female with a PMH significant for?HTN, HLD, non- insulin dependent type 2 diabetes, migraines, and tubulovillous adenoma of colon who presents to the ED for evaluation of ?asthma attack?. Pt will be admitted to the hospital for treatment and further evaluation of NSTEMI. Elevated troponins-?nstemi troponin flat5.4 - 45.2-25,EKG-ST depressions in V4-V6 asymptomatic plan: Monitor on telemetry,on therapeutic Lovenox and aspirin,bb,statin ,echocardiogram Cardiology consult-continue lovenox for 48hrs . anemia normocyctic patient denies any gross bleed/melena check iron panel ,b12 and folate , fobt. Acute asthma exacerbation( mild intermittent asthma) in the setting of superimposed pneumonia Pt reports wheezing by denies SOB, cough despite Patient does not meet sepsis criteria: Tachycardia secondary to albuterol use Patient received IVF and started on broad-spectrum antibiotics in the ED continue azithromycin and ceftriaxone, started 07/21/2023 Hypermagnesemia: resolved. mild hypocalcemia : will check calcium levels in am ,if trending down may need further workup. acute Lactic acidosis: Multifactorial: Secondary to albuterol and metformin use, not sepsis improved with IVF no sepsis. Hypokalemia: repleted and resolved. [id number] type 2 diabetes with hyperglycemia -?related to steriods dm diet ,continue inuslin sliding scale as adjusted. Continue Jardiance,Hold metformin GERD :Continue famotidine HTN:Continue lisinopril, metoprolol DVT Prophylaxis: Therapeutic Lovenox ongoing hospitalization need for: treatment of?NSTEMI. Pt will require hospitalization for administration of therapeutic Lovenox, close monitoring of cardiac function and labs, as well as specialist consultation with Cardiology. Patient will also be treated for pneumonia with IV antibiotics. Quality Stroke Does the patient have a stroke diagnosis?: No VTE Prior VTE?: No VTE Risk Level:: Medical - moderate - high VTE Device Contraindication: Treatment Not Indicated VTE Drug Contraindication: N/A - Med Ordered
[2023-07-23] MEDS: amLODIPine Besylate 2.5 MG TABLET PO (13:23)
--- NOTE | 2023-07-23 15:54 | ECG_ITS ---
Test Reason : REPEAT Blood Pressure : / mmHG Vent. Rate : 112 BPM Atrial Rate : 112 BPM P-R Int : 138 ms QRS Dur : 084 ms QT Int : 286 ms P-R-T Axes : 059 009 173 degrees QTc Int : [address] & T wave abnormality, consider lateral ischemia Abnormal ECG When compared with ECG of 21-JUL-2023 20:49, No significant change was found Referred By: Claudia Gonzales Electronically Signed By:CINTHYA LO MD
--- NOTE | 2023-07-23 15:54 | MHC.CM.PN ---
EMR reviewed and per MD rounds, pt is not medically cleared for D/C due to management of asthma exacerbation and NSTEMI.
[2023-07-23 15:57] LABS: Glucose, Whole Blood 312 mg/dL (60-115)
[2023-07-23] MEDS: Throat Lozenge, Medicated LOZENGE 1 LOZENGE MUCOUS MEM ×2 (16:05→23:18)
[2023-07-23 20:35] LABS: Glucose, Whole Blood 208 mg/dL (60-115)
[2023-07-23] MEDS: cefTRIAXone sodium 1 GM in 0.9 % Sodium Chloride 50 ML IV (22:53)
[2023-07-23] MEDS: Atorvastatin Calcium 80 MG TABLET PO (22:54)
[2023-07-23 23:02] LABS: Glucose, Whole Blood 178 mg/dL (60-115)
[2023-07-23] MEDS: LORazepam 0.5 MG TABLET PO (23:16)
[2023-07-23] MEDS: Albuterol Sulfate (0.083%) 2.5 MG/3 ML VIAL.NEB INHALE (23:44)
[2023-07-23] MEDS: vancomycin HCL 1,500 MG in 0.9 % Sodium Chloride 500 ML 333.33 MG IV (23:45)
[2023-07-24] MEDS: guaiFEN/Codeine SF 200/20/10ML 10 ML LIQUID 5 ML PO ×4 (02:12→12:05)
[2023-07-24 03:19] VITALS: BP 130/66; PULSE 73; RESP 20; TEMP 36.7; O2SAT 97
[2023-07-24 06:57] LABS: Hematocrit 33.7 % (37.0-47.0); Hemoglobin 10.8 g/dl (12.0-16.0); Mean Corpuscular Hemoglobin 28.3 pg (27.0-33.0); Mean Corpuscular Volume 88.5 fL (80.0-98.0); Mean Platelet Volume 10.7 fL (9.4-12.3); Platelet Count 249 X10*3/uL (160-400); Red Blood Count 3.81 X10*6/uL (4.20-5.50); Red Cell Distribution Width 14.6 % (11.0-16.0); White Blood Count 12.2 X10*3/uL (4.8-10.8)
[2023-07-24 07:27] VITALS: BP 133/77; PULSE 72; RESP 18; TEMP 36.2; O2SAT 93
[2023-07-24] MEDS: Aspirin Enteric Coated 81 MG TABLET.DR PO (07:30)
[2023-07-24] MEDS: Tamoxifen Citrate 10 MG TABLET 20 MG PO (07:30)
[2023-07-24 07:31] VITALS: BP 133/77
[2023-07-24] MEDS: amLODIPine Besylate 2.5 MG TABLET PO (07:31)
[2023-07-24] MEDS: Fenofibrate 54 MG TABLET PO (07:31)
[2023-07-24] MEDS: predniSONE 20 MG TABLET 40 MG PO (07:31)
[2023-07-24] MEDS: Pyridoxine HCl (Vitamin B6) 50 MG TABLET PO (07:31)
[2023-07-24] MEDS: Loratadine 10 MG TABLET 5 MG PO (07:31)
[2023-07-24] MEDS: Empagliflozin 10 MG TABLET PO (07:31)
[2023-07-24] MEDS: lisinopriL 40 MG TABLET OG-TUBE (07:31)
[2023-07-24 07:32] VITALS: BP 133/77; PULSE 72
[2023-07-24 07:32] LABS: Glucose, Whole Blood 170 mg/dL (60-115)
[2023-07-24] MEDS: 0.9 % Sodium Chloride Flush 3 ML SYRINGE IVFLUSH (07:32)
[2023-07-24] MEDS: Metoprolol Succinate ER 50 MG TAB.ER.24H PO (07:32)
[2023-07-24] MEDS: Insulin Lispro 100 UNIT/ML 3 ML VIAL SUBCUT ×2 (07:32→12:05)
[2023-07-24] MEDS: Famotidine 20 MG TABLET PO (07:32)
[2023-07-24 07:33] LABS: Anion Gap 10 (12-20); Blood Urea Nitrogen 19 mg/dL (9-16); Calcium 7.7 mg/dL (8.4-10.2); Carbon Dioxide 28 mmol/L (22-29); Chloride 107 mmol/L (96-108); Creatinine Clr Calc Pharmacy 52.2; Estimated Glomerular Filt Rate > 60; Glucose Random 153 mg/dL (60-115); Iron 24 mcg/dL (30-160); Percent Iron Saturation 7 % (15-50); Sodium 141 mmol/L (135-145); Total Iron Binding Capacity 342 mcg/dL (228-428); Unsaturated Iron Binding 318 ug/dL
[2023-07-24 08:16] LABS: Folate 9.4 ng/mL (> or = 4.0); Vitamin B12 375 pg/mL (200-900)
[2023-07-24 09:20] VITALS: BP 133/77; PULSE 72
--- NOTE | 2023-07-24 10:23 | PM.DS ---
DS: Providers Provider Date of Service: 07/24/23 Date of admission: 07/21/23 22:14 Primary care physician: Kim Garcia MD Consults: 07/21/23 23:06 Consult to Cardiology Routine Consulting Provider: [facility] Cardiovascular Services Reason for consultation: Elevated troponins, ST depressions DS: Diagnosis Discharge Diagnosis (1) NSTEMI (non-ST elevated myocardial infarction): Status: Acute (2) Elevated troponin: Status: Acute (3) Pneumonia: Status: Acute DS: Summary Hospital Course Hospital Course: HPI: Pt is a 77-year-old Mosotho speaking female with a PMH significant for?HTN, HLD, non-insulin dependent type 2 diabetes, migraines, and tubulovillous adenoma of colon who presents to the ED for evaluation of ?asthma attack?. [employer] services utilized. Patient is a rather vague historian and unable to further qualify many of her symptoms. Reports earlier today suffered from an asthma attack : Reports wheezing and ?making sounds? when she would try to lay down. Reports using her inhaler with minimal relief. Denies SOB or JIANG. No cough. Also reports whole body aches and pains, especially in hands, arms, knees, and upper back. Denies chest pain/pressure, palpitations. No fever, chills, nausea, vomiting, abdominal pain. Also notes that she feels much better after receiving treatments in the ED. Currently does not have any complaints. No longer reports wheezing, and states is having no difficulty breathing. Continues to deny chest pain or pressure. In the ED pt was tachycardic up to 120, tachypneic up to 20 and with variable BP, satting at 97% on RA. Labs were significant for potassium 3.0, magnesium 5.7, and initial troponin 5.4 with repeat 45.2. Tested negative for influenza, RSV, COVID. CXR showed subtle mild peribronchial wall cuffing neck could be small airway disease, but no dense focal consolidation. Also found widened upper mediastinum likely exaggerated by AP oblique positioning. CT?of chest with unremarkable mediastinum but showed airway disease/small pneumonia in posterior segment of right upper lobe. EKG demonstrated sinus tachycardia of [address] depressions in leads V4-V6, new from prior. Pt was treated with DuoNebs, dexamethasone, Mag sulfate, Xopenex, potassium chloride, aspirin, ceftriaxone, and azithromycin. Pt will be admitted to the hospital for treatment and further evaluation of NSTEMI. Hospital Course: Patient was admitted for NSTEMI initiated on therapeutic Lovenox which was continued for 48 hours. Cardiology was consulted. Patient without chest discomfort prior to discharge and is stable to be discharged with close follow-up outpatient. Will need outpatient myocardial perfusion imaging study. Patient was also found to have acute exacerbation of asthma in the setting of superimposed bacterial pneumonia. Breathing improved with steroids and IV antibiotics. Patient will be discharged with p.o. steroids and p.o. antibiotics. Status at Discharge Functional status at discharge: independent ambulation Overall status at discharge: patient is back to baseline Time Attestation Discharge Coordination Time (in mins): 35 Quality: Safe Use of Opioids Does Pt have an Active Cancer Diagnosis on the Problem List?: No Quality: Stroke Does the patient have a stroke diagnosis?: No Physical Exam Vital Signs: Vital Signs: Last Vital Signs Temp 97.1 F 07/24/23 07:27 Pulse 72 07/24/23 09:20 Resp 18 07/24/23 07:27 BP 133/77 07/24/23 09:20 Pulse Ox 93 07/24/23 07:27 O2 Del Method Room Air 07/24/23 07:27 O2 Flow Rate 2 07/24/23 03:19 BMI result Body Mass Index 30.7 Appearance: Alert.? Oriented X3.?. cvs: rrr, [id number] , no murmur res: No wheezing, faint crackles present abd: no rebound or guarding ,nt, bs present. ext pulses present , no cyanosis . neuro: axo3 , nonfocal. DS: Data Data Completed and Pending Completed studies during hospitalization [Text1]: Procedures Replacement of Left Hip Joint with Synthetic Substitute, Uncemented, Open Approach (01/06/20) Labs on day of discharge: Laboratory Results - last 24 hr 07/23/23 07/23/23 07/23/23 12:03 15:53 20:15 WBC RBC Hgb Hct MCV MCH MCHC RDW Plt Count MPV Absolute Nucleated RBC Nucleated RBC % (auto) Sodium Potassium Chloride Carbon Dioxide Anion Gap BUN Creatinine Estim Creat Clear Calc Estimated GFR POC Glucose 294 H 312 H 208 H Random Glucose Calcium Iron TIBC % Saturation Unsat Iron Binding Vitamin B12 Folate 07/23/23 07/24/2324 22:55 06:32 07:00 WBC 12.2 H RBC 3.81 L Hgb 10.8 L Hct 33.7 L MCV 88.5 MCH 28.3 MCHC 32.0 RDW 14.6 Plt Count 249 MPV 10.7 Absolute Nucleated RBC 0.000 Nucleated RBC % (auto) 0.0 Sodium 141 Potassium 4.0 Chloride 107 Carbon Dioxide 28 Anion Gap 10 L BUN 19 H Creatinine 0.90 Estim Creat Clear Calc 52.2 Estimated GFR > 60 POC Glucose 178 H 170 H Random Glucose 153 H Calcium 7.7 L Iron 24 L TIBC 342 % Saturation 7 L Unsat Iron Binding 318 Vitamin B12 375 Folate 9.4 Preliminary micro results at discharge 07/22/23 21:52 Blood Culture - Preliminary Blood - Venous No growth after 24 hours. 07/22/23 21:52 Blood Culture - Preliminary Blood - Venous No growth after 24 hours. 07/21/23 21:50 Blood Culture - Preliminary Blood - Venous No growth after 48 hours. 07/21/23 21:45 Blood Culture - Preliminary Blood - Venous Coag negative Staphylococcus Imaging Chest x-ray: Radiologist's impression: ITS Impressions Chest X-Ray 07/21/23 13:55 IMPRESSION: 1. Very subtle mild peribronchial wall cuffing could be small airway disease such as bronchiolitis. No dense focal lobar consolidation pneumonia. 2. Widened upper mediastinum probably exaggerated by AP oblique positioning. If patient is high-risk with recommend correlation with follow-up contrast enhanced CT scan. Chest CT 07/21/23 17:51 IMPRESSION: Airways disease/small pneumonia in the posterior segment of the right upper lobe. Small esophageal hernia. Unremarkable mediastinum. Fleischner guidelines were followed. Discharge Plan Discharge Anticipated Discharge Date/Time: 07/24/23 10:48 Patient Disposition: Home, Self-Care Discharge Diagnosis: NSTEMI Acute asthma exacerbation due to pneumonia Referrals: Isai Campos MD [Physician] - 2 Weeks Discharge Medications: New benzonatate 100 mg capsule 100 mg PO BID PRN (Reason: cough) Qty: 20 0RF prednisone 20 mg Tablet 40 mg PO DAILY 5 Days Qty: 10 0RF amlodipine 2.5 mg Tablet 2.5 mg PO DAILY 30 Days Qty: 30 0RF Protocol: Hold for SBP< HOLD for SBP < : 90 aspirin 81 mg Tablet,Delayed Release (Dr/Ec) 81 mg PO DAILY 30 Days Qty: 30 0RF azithromycin 250 mg tablet 250 mg PO DAILY 2 Days Qty: 2 0RF Rx Instructions: start on day 2 of therapy cefuroxime axetil 500 mg tablet 500 mg PO Q12H 2 Days Qty: 4 0RF Continued cholecalciferol (vitamin D3) 25 mcg (1,000 unit) capsule 25 mcg PO DAILY 90 Days Qty: 90 1RF metformin 500 mg tablet 500 mg PO BID 30 Days Qty: 60 3RF lisinopril 40 mg tablet 40 mg DAILY famotidine 20 mg tablet 20 mg PO BID fenofibrate 54 mg tablet 54 mg DAILY metoprolol succinate 50 mg tablet extended release 24 hr 50 mg PO DAILY rosuvastatin 40 mg tablet 40 mg DAILY tamoxifen 20 mg tablet 20 mg PO DAILY rizatriptan 10 mg tablet 10 mg PO DAILY PRN (Reason: Migraine Headache) albuterol sulfate 90 mcg/actuation HFA aerosol inhaler 2 puff inhalation Q6H PRN (Reason: shortness of breath or wheezing) cetirizine 10 mg tablet 5 mg PO DAILY PRN (Reason: Allergic Symptoms) 90 Days Qty: 90 1RF acetaminophen 500 mg capsule 500 mg PO Q6H PRN (Reason: fever) 7 Days Qty: 28 0RF (DME) walker Misc See Rx Instructions .ROUTE .MEDSUPPLY Qty: 1 0RF Rx Instructions: Folding Front wheeled walker (DME) blood sugar diagnostic Strip See Rx Instructions Not Applicable ONCE Qty: 10 Rx Instructions: As directed (DME) lancets 28 gauge misc See Rx Instructions .ROUTE BID Qty: 100 Rx Instructions: As directed pyridoxine (vitamin B6) 100 mg tablet 50 mg PO DAILY 90 Days Qty: 45 2RF Discharge Orders: Discharge Order (Routine); Ordered 07/24/23 Ordered By: Deni Alexandre Diet: Diabetic diet Activity on Discharge: As tolerated Stand Alone Forms: Patient Portal Discharge page, Work/School Release Print Language: Mosotho Care Plan Goals: Follow-up with PCP within 1 week Follow-up with cardiology within 2 weeks Health Concerns: NSTEMI Acute asthma exacerbation due to pneumonia Plan of Treatment: Medication additions: Prednisone 40 mg daily x5 days Cefuroxime 500 mg b.i.d. x2 days Azithromycin 250 mg daily x2 days Amlodipine 2.5 mg daily Aspirin 81 mg daily Assessment: As above Patient Instructions: Acute Bronchitis (ED), Wheezing (ED)
[2023-07-24 11:23] VITALS: BP 143/85; PULSE 63; RESP 18; TEMP 36.3; O2SAT 93
[2023-07-24 11:33] LABS: Glucose, Whole Blood 207 mg/dL (60-115)
[2023-07-24] MEDS: Enoxaparin Sodium 80 MG/0.8 ML SYRINGE SUBCUT (12:06)
--- NOTE | 2023-07-24 12:22 | MHC.CM.PN ---
pt medically cleared for dc home self care and resump of weekly [facility] homemaker, pt's dil for transport.
== END 2023-07-24 12:51 | disposition home or self-care (01) | DRG 193 ==
LOC: HO.ED 21:28 → HO.EDOVER 22:17 → HO.IMC 07-22 00:16
PROVIDERS: Internal Medicine; Nurse Practitioner Family; Physician Assistant; Student in an Organized Health Care Education/Training Program; Admitting Provider Internal Medicine; Emergency Provider Emergency Medicine; PCP Internal Medicine; Visit Provider Student in an Organized Health Care Education/Training Program
DX: J15.9 Unspecified bacterial pneumonia (principal); I21.A1 Myocardial infarction type 2; E87.21 Acute metabolic acidosis; J45.21 Mild intermittent asthma with (acute) exacerbation; I51.81 Takotsubo syndrome; D64.9 Anemia, unspecified; K21.9 Gastro-esophageal reflux disease without esophagitis; E83.51 Hypocalcemia; I10 Essential (primary) hypertension; E87.6 Hypokalemia; C50.912 Malignant neoplasm of unspecified site of left female breast; E83.41 Hypermagnesemia; E11.9 Type 2 diabetes mellitus without complications; Z20.822 Contact with and (suspected) exposure to COVID-19; Z79.810 Long term (current) use of selective estrogen receptor modulators (SERMs); Z79.82 Long term (current) use of aspirin; Z79.84 Long term (current) use of oral hypoglycemic drugs; Z79.899 Other long term (current) drug therapy
CPT/HCPCS: 0241U; 36415; 71046; 71260; 80048; 80053; 82607; 82746; 82947; 83540; 83605; 83735; 84484; 85025; 85027; 85610; 87040; 87147; 87205; 93005; 93306; 94640; 97162; 99285; J0456; J0696; J1100; J1650; J2919; J3370; J3371; J3475; Q9957; Q9967

== ENCOUNTER 2023-07-21 22:14 | Outpatient (BNV) | payer OTHER, SELFPAY | END 2023-07-23 07:00 | PROVIDERS: Admitting Provider Internal Medicine; Emergency Provider Emergency Medicine; PCP Internal Medicine; Visit Provider Internal Medicine Cardiovascular Disease | DX: I34.0 Nonrheumatic mitral (valve) insufficiency (principal); R93.1 Abnormal findings on diagnostic imaging of heart and coronary circulation | CPT/HCPCS: 93010; 93306 ==

== ENCOUNTER → 2023-07-21 22:14 | Outpatient (BNV) | payer OTHER, SELFPAY | PROVIDERS: Admitting Provider Internal Medicine; Emergency Provider Emergency Medicine; Visit Provider Internal Medicine | DX: I21.4 Non-ST elevation (NSTEMI) myocardial infarction (principal); J18.9 Pneumonia, unspecified organism | CPT/HCPCS: 93010; 99223; 99233 ==

== ENCOUNTER → 2023-07-21 22:14 | Outpatient (BNV) | payer OTHER, SELFPAY | PROVIDERS: Admitting Provider Internal Medicine; Emergency Provider Emergency Medicine; Visit Provider Internal Medicine | DX: I21.4 Non-ST elevation (NSTEMI) myocardial infarction (principal); R79.89 Other specified abnormal findings of blood chemistry; J18.9 Pneumonia, unspecified organism | CPT/HCPCS: 99223; 99232; 99239 ==

== ENCOUNTER 2023-08-21 08:39 | Outpatient (REF) | payer OTHER, SELFPAY ==
--- NOTE | ~2023-08-21 | MM_ITS ---
EXAMINATION: BONE DENSITOMETRY CLINICAL INDICATION: Osteoporosis. Breast cancer. COMPARISON: Previous BD dated 07/22/2021 and baseline BD dated 06/15/2009. TECHNIQUE: Using a Glocal DXA System (software version: 13.1) manufactured by [employer], dual-energy x-ray absorptiometry was performed of the lumbar spine and right hip. Patient with left hip replacement. The images are of good technical quality. Summary results are attached. FINDINGS: RIGHT FEMUR, NECK: Current: BMD 0.948 g/cm2, Z-score 1.2, T-score -0.6, normal. Prior: BMD 0.894 g/cm2. Baseline: BMD 1.038 g/cm2. RIGHT FEMUR, TOTAL: Current: BMD 0.965 g/cm2, Z-score 1.3, T-score -0.3, normal, 5.0% increase from previous, 8.4% decrease from baseline (<5% change is not significant). Prior: BMD 0.919 g/cm2. Baseline: BMD 1.054 g/cm2. AP SPINE L1-L4: Current: BMD 1.071 g/cm2, Z-score 0.4, T-score -0.9, normal, 3.0% decrease from previous, 2.5% increase from baseline (<5% change is not significant). Prior: BMD 1.104 g/cm2. Baseline: BMD 1.045 g/cm2. IDENTIFIED RISK FACTORS: Menopause, low calcium intake, rheumatoid arthritis. HISTORY OF FRACTURE: None listed. MEDICATIONS: Calcium, vitamin D, ERT/SERMS. MM/XR DEXA axial skeleton IMPRESSION: 1. DIAGNOSIS: Normal bone density based on the lowest T-score value of -0.9 in the lumbar spine applying World Health Organization criteria. 2. 10-YEAR FRACTURE RISK PREDICTION, FRAX: According to the guidelines, FRAX calculation should only be performed on patients in the osteopenia bone density category. Therefore, FRAX was not performed on this patient. 3. Treatment Recommendations: NOF guidelines recommend consideration for treatment in postmenopausal women and men age 50 and older presenting with the following: -A hip or vertebral (clinical or morphometric) fracture. -T-score less than or equal to -2.5 at the femoral neck or spine after appropriate evaluation to exclude secondary causes. -Low bone mass at the hip or spine and a 10-year fracture probability by FRAX of greater than or equal to 3% for hip fracture or greater than or equal to 20% for major osteoporotic fracture based on the [place] adapted WHO algorithm. 4. Other Recommendations: All treatment decisions require clinical judgment and consideration of individual patient factors, including patient preferences, comorbidities, previous drug use, risk factors not captured in the FRAX model (e.g. frailty, falls, vitamin D deficiency, increased bone turnover, interval significant decline in bone density) and possible under or overestimation of fracture risk by FRAX. FUTURE SCAN RECOMMENDATION: People with diagnosed cases of osteoporosis or at high risk for fracture should have regular bone mineral density tests. For patients eligible for Medicare, routine testing is allowed once every 2 years. The testing frequency can be increased to one year for patients who have rapidly progressing disease, those who are receiving or discontinuing medical therapy to restore bone mass, or have additional risk factors.
== END 2023-08-21 08:40 | disposition home or self-care (01) ==
LOC: HO.MAMMO 08:39
PROVIDERS: PCP Internal Medicine; Visit Provider Internal Medicine Medical Oncology
DX: M81.0 Age-related osteoporosis without current pathological fracture (principal); C50.912 Malignant neoplasm of unspecified site of left female breast
CPT/HCPCS: 77080

== ENCOUNTER 2023-08-22 10:35 | Outpatient (REF) | payer OTHER, SELFPAY ==
--- NOTE | ~2023-08-22 | MM_ITS ---
EXAMINATION: MM DIAGNOSTIC DIGITAL BREAST TOMOSYNTHESIS, BILATERAL CLINICAL INFORMATION: Year 3 follow-up post left breast lumpectomy for invasive ductal carcinoma with DCIS. Patient also due for bilateral screening. COMPARISON: Mammography: 08/18/2022, 07/22/2021, ultrasound-guided left breast biopsy 06/24/2020. TECHNIQUE: Digital breast tomosynthesis is performed in both the craniocaudal and mediolateral oblique views along with computer-aided detection (CAD). Synthesized 2D images are generated from the tomosynthesis. In addition, 2-D spot magnification left CC and ML views were obtained of the lumpectomy site. FINDINGS: The breasts are almost entirely fatty (ACR BI-RADS breast composition Category a). There is benign post lumpectomy scarring in the upper outer left breast without evidence of recurrent or residual disease. A scar marker has been placed by the technologist. Otherwise, There are no suspicious masses, suspicious grouped calcifications, or areas of architectural distortion in either breast. A round retroareolar mass in the 11:00 axis of the right breast has been stable for numerous prior exams. This is benign. The overall parenchymal pattern is stable and unchanged from prior exams. No axillary lymphadenopathy is evident. MM/MM tomosynthesis diagnostic BI IMPRESSION: -No mammographic evidence of malignancy. No significant change from the prior study. -Post therapy changes to the left breast without evidence of recurrent or residual disease. -The patient should resume routine annual bilateral mammographic screening. ASSESSMENT: BI-RADS BI-RADS 2 - Benign Findings RECOMMENDATION: 1 year F/U Results were provided to the patient at time of visit by the technologist. This patient's information was entered into a reminder system with a target due date for their next mammogram.
== END 2023-08-22 10:36 | disposition home or self-care (01) ==
LOC: HO.MAMMO 10:35
PROVIDERS: PCP Internal Medicine; Visit Provider Internal Medicine
DX: Z85.3 Personal history of malignant neoplasm of breast (principal)
CPT/HCPCS: 77062; 77066

== ENCOUNTER → 2023-08-22 11:00 | Outpatient (BNV) | payer OTHER, SELFPAY | PROVIDERS: PCP Internal Medicine; Visit Provider Radiology Diagnostic Radiology | DX: C50.912 Malignant neoplasm of unspecified site of left female breast (principal) | CPT/HCPCS: 77066; G0279 ==

== ENCOUNTER → 2023-08-23 07:54 | Outpatient (REF) | payer OTHER, SELFPAY ==
--- NOTE | ~2023-08-23 | NM_ITS ---
Lexiscan Myocardial perfusion study Indication: There are troponins, assess for myocardial ischemia Technique: The patient was brought in for a Lexiscan perfusion study on 08/23/2023 and was injected 0.4 mg of Lexiscan intravenously. Within a minute of this injection 30 mCi of sestamibi was given intravenously. Images were obtained using the SPECT gamma camera interlaced with the gating device. Images were obtained in supine position. Resting perfusion study was performed on 08/24/2023. Patient was administered 30 mCi of sestamibi intravenously at rest. Images were then obtained in supine position. Images were processed with the software and compared side to side in short axis, horizontal long axis and vertical long axis views. Total DLP 89mGy-cm. Findings: Raw acquisition reviewed. The stress perfusion study showed no significant perfusion of normality. Both uncorrected as well as CT attenuation corrected images were reviewed. The gated study shows normal LV systolic function with calculated LVEF of 67%. LV cavity is normal in size. The gated study shows normal wall thickening and contraction of segments. Resting study shows no significant perfusion abnormality. Gating at rest reveals normal wall motion with ejection fraction at > 70%. The findings are consistent with no clear reversible or fixed perfusion of normality. NM/NM cardiolite stress test Impression: 1. Myocardial perfusion imaging study shows normal myocardial perfusion. 2. Gated LVEF is 67% during stress and > 70% during rest. 3. Transient ischemic dilatation not present. EKG component of the test reported separately.
--- NOTE | 2023-08-23 07:59 | CA_ITS ---
Acquisition Time: 2023-08-23 08:01:21 Total Exercise Time: 00:02:00 Test Indications: + TROPONINS Medications: SEE DISCHARGE SUMMARY Protocol: LEXISCAN Max HR: 097 BPM 69% of Pred: 140 BPM Max BP: 132/072 mmHG Max Work Load: 1.0 METS Pharmacological stress test with Lexiscan injection while sitting and kicking her legs, with 5/10 chest burning, without shortness of breath, without arrhythmias, with normotensive response to injection, with nondiagnoisitic EKGs. Chest pain resolved. Nuclear images pending. Test reviewed with Dr. Mustafa. Referred By: Isai Campos Overread By: Kira Real
== END ==
LOC: HO.CARD 07:54
PROVIDERS: PCP Internal Medicine; Visit Provider Internal Medicine Cardiovascular Disease
DX: Z01.818 Encounter for other preprocedural examination (principal); I21.4 Non-ST elevation (NSTEMI) myocardial infarction; R79.89 Other specified abnormal findings of blood chemistry
CPT/HCPCS: 78452; 93017; A9500; J0280; J2785

== ENCOUNTER → 2023-08-23 07:59 | Outpatient (BNV) | payer OTHER, SELFPAY | PROVIDERS: PCP Internal Medicine; Visit Provider Nurse Practitioner | DX: R79.89 Other specified abnormal findings of blood chemistry (principal) | CPT/HCPCS: 78452; 93016; 93018 ==

== ENCOUNTER 2023-08-28 08:30 | Outpatient (AMB) | payer OTHER, SELFPAY ==
[2023-08-28 08:46] VITALS: BP 120/62; PULSE 68; BMI 30.5
--- NOTE | 2023-08-28 08:46 | A.OFFVIS_ITS ---
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 Operator Required: No Edge Burnisher Uppers: Edge Burnisher Uppers Present Allergies ibuprofen [Ibuprofen] Allergy (Mild, Verified 08/28/23 08:48) SWELLING celecoxib [CELECOXIB] Allergy (Unknown, Verified 08/28/23 08:48) DROPS SUGAR LEVEL Medication List - Last Reconciled 08/28/23 by NADIA RuelasC acetaminophen 500 mg PO Q6H PRN 7 days albuterol sulfate 90 mcg/actuation 2 puffs inhalation Q6H PRN albuterol sulfate 2.5 mg (3 mL) inhalation QID PRN 30 days amlodipine 2.5 mg See Protocol PO DAILY 30 days aspirin 81 mg PO DAILY 30 days benzonatate 100 mg PO BID PRN blood sugar diagnostic As directed cetirizine 5 mg (1/2 x 10 mg) PO DAILY PRN 90 days cholecalciferol (vitamin D3) 25 mcg PO DAILY 90 days famotidine 20 mg PO BID fenofibrate 54 mg DAILY lancets As directed lisinopril 40 mg DAILY metformin 500 mg PO BID 30 days metoprolol succinate ER 50 mg PO DAILY pyridoxine (vitamin B6) 50 mg (1/2 x 100 mg) PO DAILY 90 days rizatriptan 10 mg PO DAILY PRN rosuvastatin 40 mg DAILY tamoxifen 20 mg PO DAILY walker Folding Front wheeled walker HPI HPI s/po [facility] / stress: Details: Destiney is an 78-year-old female with past medical history diabetes, hypertension, hyperlipidemia who was recently admitted with increased shortness of breath, treated for asthma exacerbation, pneumonia. She was noted to have elevated troponins and suspected to have secondary NSTEMI. An echocardiogram showed normal EF. An outpatient nuclear stress test was done and she now presents for follow-up. Today she reports that she has been doing very well since her hospital discharge. Her breathing is now back to normal. She denies having any shortness of breath at rest or during activity. No chest discomfort, lightheadedness, presyncope, syncope, falls. No PND, orthopnea or edema. Taking meds as directed. Daughter is present and assisting with [place] translation at their request. Permit signed. [facility] Medical History NSTEMI (non-ST elevated myocardial infarction) Acute electrocardiogram changes Otitis media, right History of colon cancer Incisional hernia Abdominal wall mass History of breast cancer Invasive ductal carcinoma of left breast Anemia Increased BMI On beta ananya at home Breast cancer Invasive ductal carcinoma of left breast Abnormality of left breast on screening mammography Multinodular thyroid Osteopenia Vitamin D deficiency Primary hyperparathyroidism Tubulovillous adenoma of colon Diabetes Asthma Hyperparathyroidism Cancer Arthritis GERD (gastroesophageal reflux disease) History of headache Elevated cholesterol HTN (hypertension) Surgical History History of cataract surgery History of thyroid surgery History of lumpectomy of left breast H/O left breast biopsy History of mammogram Status post total hip replacement, left History of exploratory laparotomy History of tubal ligation Hx of tonsillectomy Hx of cholecystectomy S/P colon resection H/O colonoscopy Family History Father No problems noted. Mother Diabetes mellitus Other No family history of cancer Social History Household Members: Significant Other Housing: House Are you a primary caretaker to a significant other at home: No Alcohol intake: never Comment: sleeping Patient Tobacco Use Status: Never used Tobacco e-Cigarette/Vaping Use: Never Used Second Hand Smoke Exposure: No Advance Directives Date on File: 08/11/02 service: No Current occupational status: unemployed Cognitive needs: No Hearing needs: No Vision needs: Yes Female Reproductive History Menstrual Age of Menarche: 13 Review of Systems Const All systems reviewed & are unremarkable except as noted in HPI and below ENT Denies dizziness Card Denies chest pain, Denies chest pain at rest, Denies chest pain with activity, Denies rapid heart rate, Denies pedal edema, Denies edema, Denies leg edema, Denies lightheadedness, Denies palpitations, Denies dyspnea, Denies dyspnea on exertion and Denies orthopnea Resp Denies cough, Denies dyspnea and Denies dyspnea on exertion GI Denies hematochezia and Denies change in stool character Musc Denies abnormal gait, Denies limited range of motion, Denies muscle cramps, Denies muscle weakness, Denies numbness, Denies radiating pain into limb, Denies stiffness and Denies tingling Neuro Denies abnormal gait, Denies dizziness, Denies numbness and Denies tingling Endo Denies palpitations Physical Exam Vital Signs: Last Vital Signs Pulse 68 08/28/23 08:46 BP 120/62 08/28/23 08:46 BMI result Body Mass Index 30.5 Const General: cooperative, healthy appearing, comfortable and no acute distress Orientation/consciousness: patient oriented x3 Neck Neck: Yes normal visual inspection and Yes no JVD Resp Effort & Inspection: normal respiratory effort Auscultation: clear to auscultation bilaterally, no crackles, no rales, no rhonchi and no wheezes Cardio Jugular venous distension: no JVD Rate: regular rate Rhythm: regular rhythm Heart sounds: S1 normal heart sound present, S2 normal heart sound present, no murmurs and no rubs Neuro General: patient oriented x3 Extrem General: Yes normal to inspection and No no pedal edema Psych Appearance: grossly normal Mental Status: mental status grossly normal Speech and movement: Normal speech and movement present Assessment & Plan Assessment & Plan (1) NSTEMI (non-ST elevated myocardial infarction): Code(s): I21.4 - Non-ST elevation (NSTEMI) myocardial infarction Category: Medical Plan: Recent [facility] [place] for shortness of breath. Treated for asthma and pneumonia. She had elevated troponins reaching level for secondary NSTEMI. An echocardiogram done 07/23/2023 showed EF greater than 70%, no regional wall motion abnormality. Her blood pressure was mildly elevated and amlodipine was added. She initially was treated with IV heparin then continued on daily aspirin. She was also continued on her usual lisinopril, metoprolol, rosuvastatin. An outpatient nuclear stress test was done on 08/24/2023 showing normal myocardial perfusion imaging. Test results reviewed with her. Diagnosis of secondary NSTEMI discussed. Continue with risk factor modification. The importance of good blood sugar, blood pressure, cholesterol and asthma control reviewed. No med changes made at this time. Cardiology follow-up in 6 months, sooner if needed (2) HTN (hypertension): Code(s): I10 - Essential (primary) hypertension Category: Medical Qualifiers: Hypertension type: primary hypertension Qualified Code(s): I10 - Essential (primary) hypertension Plan: Normal range at this time. No med changes made. Continue amlodipine, lisinopril, metoprolol. (3) Hyperlipidemia LDL goal <70: Code(s): E78.5 - Hyperlipidemia, unspecified Category: Medical Plan: [place] LDL goal less than 70 in patient with diabetes. Continue statin therapy. (4) Diabetes: Comment: NIDDM Code(s): E11.9 - Type 2 diabetes mellitus without complications Category: Medical Qualifiers: Diabetes mellitus complication status: with hyperglycemia Diabetes mellitus senior care insulin use: without senior care use Diabetes mellitus type: type 2 Qualified Code(s): E11.65 - Type 2 diabetes mellitus with hyperglycemia Plan: Hemoglobin A1c goal less than 7. Followed by PCP (5) Hospital discharge follow-up: Code(s): Z09 - Encounter for follow-up examination after completed treatment for conditions other than malignant neoplasm Category: Medical Plan: As above Plan Time spent on chart review, documentation, interview and assessment Coding Level of Care Code Est Pt Level 4 (98444) Diagnoses NSTEMI (non-ST elevated myocardial infarction) I21.4 Primary hypertension I10 Hypertension type: primary hypertension Hyperlipidemia LDL goal <70 E78.5 Type 2 diabetes mellitus with hyperglycemia, without long-term current use of insulin E11.65 Diabetes mellitus complication status: with hyperglycemia Diabetes mellitus buttermaker insulin use: without buttermaker use Diabetes mellitus type: type 2 Hospital discharge follow-up Z09 Time Spent (min) 28
== END 2023-08-28 09:14 | disposition home or self-care (01) ==
PROVIDERS: PCP Internal Medicine; Visit Provider Nurse Practitioner Family
DX: I21.4 Non-ST elevation (NSTEMI) myocardial infarction (principal); I10 Essential (primary) hypertension; E78.5 Hyperlipidemia, unspecified; E11.65 Type 2 diabetes mellitus with hyperglycemia; Z09 Encounter for follow-up examination after completed treatment for conditions other than malignant neoplasm
CPT/HCPCS: 99214

== ENCOUNTER → 2023-08-28 08:30 | Outpatient (BNVA) | payer OTHER, SELFPAY | PROVIDERS: PCP Internal Medicine; Visit Provider Nurse Practitioner Family | DX: Z09 Encounter for follow-up examination after completed treatment for conditions other than malignant neoplasm (principal); I21.4 Non-ST elevation (NSTEMI) myocardial infarction; I10 Essential (primary) hypertension; E78.5 Hyperlipidemia, unspecified; E11.65 Type 2 diabetes mellitus with hyperglycemia | CPT/HCPCS: 99212 ==

== ENCOUNTER 2023-08-29 09:26 | Outpatient (AMB) | payer OTHER, SELFPAY ==
--- NOTE | 2023-08-29 09:31 | MHC.PC.OV ---
Vital Signs 08/29/23 09:42 Height 5 ft 4 in Weight 177 lb BMI 30.4 BP 136/72 Blood Pressure Location Lt brachial Position Sitting Intake Visit Reasons: 07/23 for bronchitis and pneumonia Intake Note: Patient here for HDF 07/23 Bronchitis, Pneumonia Spring Fitter Required: No Accompanied by: Self / Same As Patient Allergies ibuprofen [Ibuprofen] Allergy (Mild, Verified 08/29/23 09:52) SWELLING celecoxib [CELECOXIB] Allergy (Unknown, Verified 08/29/23 09:52) DROPS SUGAR LEVEL Medication List - Last Reconciled 08/29/23 by Kim Garcia MD albuterol sulfate 90 mcg/actuation 2 puffs inhalation Q6H PRN albuterol sulfate 2.5 mg (3 mL) inhalation QID PRN 30 days amlodipine 2.5 mg See Protocol PO DAILY 30 days aspirin 81 mg PO DAILY 30 days blood sugar diagnostic As directed cetirizine 5 mg (1/2 x 10 mg) PO DAILY PRN 90 days cholecalciferol (vitamin D3) 25 mcg PO DAILY 90 days famotidine 20 mg PO BID 90 days fenofibrate 54 mg PO DAILY 90 days lancets As directed lisinopril 40 mg DAILY metformin 500 mg PO BID 30 days metoprolol succinate ER 50 mg PO DAILY pyridoxine (vitamin B6) 50 mg (1/2 x 100 mg) PO DAILY 90 days rizatriptan 10 mg PO DAILY PRN rosuvastatin 40 mg PO DAILY 90 days tamoxifen 20 mg PO DAILY walker Folding Front wheeled walker Tobacco use date assessed: 05/21/23 Fall risk assessment: No Falls in past year Last assessed Fall Risk: 08/29/23 Dental Screening Dental Screen Date: 05/21/23 HPI HPI Comments History of Present Illness Details This is an 78-year-old female with diabetes mellitus type 2, hyperlipidemia, hypertension, migraines and history of invasive ductal carcinoma of left breast in 2020 that comes today for follow-up on her conditions. Last A1c was elevated and metformin was increased. Lipid panel will be order and her LDL goal should be less than 70. Blood pressure stable. On rizatriptan as needed for migraines. On tamoxifen for her ductal carcinoma of left breast and this is follow by Hematology-Oncology. She was hospitalized last month for pneumonia and feels markedly improved. Had elevated troponins with some slight abnormality in EKG and was seen by Cardiology who order stress test which was negative. [facility] Medical History (Updated 08/29/23 @ 10:32 by Kim Garcia MD) NSTEMI (non-ST elevated myocardial infarction) Acute electrocardiogram changes Otitis media, right History of colon cancer Incisional hernia Abdominal wall mass History of breast cancer Invasive ductal carcinoma of left breast Anemia Increased BMI On beta ananya at home Breast cancer Invasive ductal carcinoma of left breast Abnormality of left breast on screening mammography Multinodular thyroid Osteopenia Vitamin D deficiency Primary hyperparathyroidism Tubulovillous adenoma of colon Diabetes Asthma Hyperparathyroidism Cancer Arthritis GERD (gastroesophageal reflux disease) History of headache Elevated cholesterol HTN (hypertension) Surgical History History of cataract surgery History of thyroid surgery History of lumpectomy of left breast H/O left breast biopsy History of mammogram Status post total hip replacement, left History of exploratory laparotomy History of tubal ligation Hx of tonsillectomy Hx of cholecystectomy S/P colon resection H/O colonoscopy Family History Father No problems noted. Mother Diabetes mellitus Other No family history of cancer Social History Household Members: Significant Other Housing: House Are you a primary customer care assistant to a significant other at home: No Alcohol intake: never Comment: sleeping Patient Tobacco Use Status: Never used Tobacco e-Cigarette/Vaping Use: Never Used Second Hand Smoke Exposure: No Advance Directives Date on File: 08/11/02 service: No Current occupational status: unemployed Cognitive needs: No Hearing needs: No Vision needs: Yes Female Reproductive History Menstrual Age of Menarche: 13 Questionnaire Thrive Questionnaire Date Thrive assessed: 07/22/23 LARRY-7 AMB Questionnaire LARRY-7 Date LARRY - 7 assessed: 05/21/23 Source: Developed by Drs. Boyd Garcia, Danii Reeves, Ric Estes and colleagues, with an educational mary from [employer]. Review of Systems Const All systems reviewed & are unremarkable except as noted in HPI and below Card Denies chest pain at rest, Denies chest pain with activity, Denies edema, Denies irregular heart rhythm, Denies claudication, Denies dyspnea, Denies dyspnea on exertion, Denies orthopnea, Denies paroxysmal nocturnal dyspnea and Denies slow heart rate Resp Denies cough, Denies dyspnea and Denies dyspnea on exertion Physical exam (Primary Care) Vital Signs: Last Vital Signs BP 136/72 08/29/23 09:42 BMI result Body Mass Index 30.4 Tobacco/Smoking Status: Tobacco use Status Tobacco use date assessed 05/21/23 08/29/23 09:31 Patient Tobacco Use Status Never used Tobacco 08/29/23 09:31 e-Cigarette/Vaping Use Never Used 08/29/23 09:31 Thrive Assessment: Date of Thrive Assessment Date Thrive assessed 07/22/23 08/29/23 09:31 Resp Effort & Inspection: normal respiratory effort Auscultation: clear to auscultation bilaterally Cardio Jugular venous distension: no JVD Rate: regular rate Rhythm: regular rhythm Heart sounds: S1 normal heart sound present and S2 normal heart sound present Extrem General: Yes full ROM Results AMB Hemoglobin A1c AMB Hemoglobin A1c 8.1 % Last Edit by DARIAN Herrera on 08/29/23 09:45 Results Reviewed Results Reviewed: Laboratory Last Values Hgb A1c (Clinic) 8.1 % (4.0-6.0) H 08/29/23 09:32 Assessment and Plan Assessment & Plan (1) Diabetes: Comment: NIDDM Code(s): E11.9 - Type 2 diabetes mellitus without complications Qualifiers: Diabetes mellitus type: type 2 Diabetes mellitus meterman insulin use: without longterm use Diabetes mellitus complication status: with hyperglycemia Qualified Code(s): E11.65 - Type 2 diabetes mellitus with hyperglycemia Plan: Increase metformin to 850 mg twice a day. A1c goal is equal or less than 7%. (2) HTN (hypertension): Code(s): I10 - Essential (primary) hypertension Qualifiers: Hypertension type: primary hypertension Qualified Code(s): I10 - Essential (primary) hypertension Plan: Continue lisinopril. Blood pressure goal is equal or less than 130/80. (3) Hyperlipidemia LDL goal <70: Code(s): E78.5 - Hyperlipidemia, unspecified Plan: Continue statins. LDL goal is less than 70. (4) Invasive ductal carcinoma of left breast: Code(s): C50.912 - Malignant neoplasm of unspecified site of left female breast Plan: Continue tamoxifen. Follow-up with Hematology-Oncology. (5) Migraine: Code(s): G43.909 - Migraine, unspecified, not intractable, without status migrainosus Qualifiers: Migraine type: chronic migraine (15 or more days per month) without aura Status migrainosus presence: without status migrainosus Intractability: not intractable Qualified Code(s): G43.709 - Chronic migraine without aura, not intractable, without status migrainosus Plan: Continue rizatriptan as needed. Orders: Orders AMB Hemoglobin A1c Today E11.65 - Type 2 diabetes mellitus with hyperglycemia Medications: New metformin 850 mg PO BID 180 tabs 1RF 90 days E11.65 - Type 2 diabetes mellitus with hyperglycemia cyclobenzaprine 10 mg PO BEDTIME PRN 14 tabs 0RF muscle spasm 14 days Changed From rizatriptan 10 mg PO DAILY PRN Migraine Headache To rizatriptan 10 mg PO DAILY PRN 9 tabs 0RF Migraine Headache 30 days Discontinued metformin Discontinued Reason: Patient Completed Course 500 mg PO BID 30 days 60 tabs 3RF Coding Level of Care Code Est Pt Level 4 (67887) Complex EM visit Add On G2211 Diagnoses Type 2 diabetes mellitus with hyperglycemia, without long-term current use of insulin E11.65 Diabetes mellitus type: type 2 Diabetes mellitus longterm insulin use: without meterman use Diabetes mellitus complication status: with hyperglycemia Primary hypertension I10 Hypertension type: primary hypertension Hyperlipidemia LDL goal <70 E78.5 Invasive ductal carcinoma of left breast C50.912 Chronic migraine without aura without status migrainosus, not intractable G43.709 Migraine type: chronic migraine (15 or more days per month) without aura Status migrainosus presence: without status migrainosus Intractability: not intractable Time Spent (min) 25
[2023-08-29 09:42] VITALS: BP 136/72; BMI 30.4
== END 2023-08-29 10:03 | disposition home or self-care (01) ==
PROVIDERS: PCP Internal Medicine; Visit Provider Internal Medicine
DX: E11.65 Type 2 diabetes mellitus with hyperglycemia (principal); I10 Essential (primary) hypertension; E78.5 Hyperlipidemia, unspecified; C50.912 Malignant neoplasm of unspecified site of left female breast; G43.709 Chronic migraine without aura, not intractable, without status migrainosus
CPT/HCPCS: 83036; 99214; G2211

== ENCOUNTER 2023-09-03 08:19 | Outpatient (REF) | payer OTHER, SELFPAY ==
[2023-09-03 08:43] LABS: MANUAL DIFF FLAG NO
[2023-09-03 10:08] LABS: Basophils Absolute Auto 0.1 X10*3/uL (0.0-0.2); Basophils Percent Auto 0.8 % (0-2); Eosinophils Absolute Auto 0.3 X10*3/uL (0.0-0.4); Eosinophils Percent Auto 3.4 % (0-4); Hematocrit 30.5 % (37.0-47.0); Hemoglobin 9.5 g/dl (12.0-16.0); Imm Gran Abs Auto 0.04 X10*3/uL (0.00-0.03); Imm Gran Pct Auto 0.5 % (0.0-0.4); Lymphocytes Absolute Auto 1.7 X10*3/uL (1.2-4.9); Lymphocytes Percent Auto 22.7 % (20-40); Mean Corpuscular HGB Conc 31.1 g/dl (31.0-35.0); Mean Corpuscular Hemoglobin 26.8 pg (27.0-33.0); Mean Corpuscular Volume 86.2 fL (80.0-98.0); Mean Platelet Volume 10.9 fL (9.4-12.3); Monocytes Absolute Auto 0.5 X10*3/uL (0.1-1.2); Monocytes Percent Auto 6.4 % (2-11); Neutrophils Absolute Auto 5.1 x10*3/uL (2.0-8.3); Neutrophils Percent Auto 66.2 % (45-73); Platelet Count 315 X10*3/uL (160-400); Red Blood Count 3.54 X10*6/uL (4.20-5.50); Red Cell Distribution Width 14.4 % (11.0-16.0); White Blood Count 7.7 X10*3/uL (4.8-10.8)
[2023-09-03 10:51] LABS: Creatinine Urine 65.27 mg/dL; Microalbumin Urine < 5.0 mg/L
[2023-09-03 11:23] LABS: Alanine Aminotransferase 9 U/L (0-31); Albumin Level 3.9 g/dL (3.5-5.0); Alkaline Phosphatase 28 U/L (39-117); Anion Gap 12 (12-20); Aspartate Amino Transferase 18 U/L (5-31); Bilirubin Total 0.3 mg/dL (0.0-1.0); Blood Urea Nitrogen 16 mg/dL (9-16); Calcium 8.6 mg/dL (8.4-10.2); Carbon Dioxide 26 mmol/L (22-29); Chloride 104 mmol/L (96-108); Cholesterol 104 mg/dL (<200); Estimated Glomerular Filt Rate 57; Glucose Fasting 116 mg/dL (60-99); HDL Cholesterol 48 mg/dL (>40); Iron 20 mcg/dL (30-160); LDL Cholesterol Calculated 32 mg/dL (<100); Percent Iron Saturation 5 % (15-50); Potassium 4.6 mmol/L (3.3-5.1); Sodium 137 mmol/L (135-145); Total Iron Binding Capacity 405 mcg/dL (228-428); Total Protein 6.2 g/dL (6.5-8.0); Triglycerides 124 mg/dL (<150); Unsaturated Iron Binding 385 ug/dL
[2023-09-03 11:27] LABS: Vitamin D 25-OH Total 27.3 ng/mL (>30)
== END 2023-09-03 08:20 | disposition home or self-care (01) ==
LOC: HO.LAB 08:19
PROVIDERS: Absent Provider Internal Medicine; PCP Internal Medicine; Visit Provider Internal Medicine Medical Oncology
DX: E11.9 Type 2 diabetes mellitus without complications (principal); E55.9 Vitamin D deficiency, unspecified; D64.9 Anemia, unspecified; E78.5 Hyperlipidemia, unspecified
CPT/HCPCS: 36415; 80053; 80061; 82043; 82306; 82570; 83540; 85025

== ENCOUNTER 2023-09-10 09:15 | Outpatient (AMB) | payer OTHER, SELFPAY ==
--- NOTE | 2023-09-10 09:28 | AM.OFFVISMDC ---
Intake Vital Signs 09/10/23 09:32 Height 5 ft 4 in Weight 176 lb BMI 30.2 BP 122/80 Blood Pressure Location Lt brachial Position Sitting Intake Visit Reasons: SWV [id number] Melter Clerk Required: No Accompanied by: Self / Same As Patient Allergies ibuprofen [Ibuprofen] Allergy (Mild, Verified 09/10/23 09:54) SWELLING celecoxib [CELECOXIB] Allergy (Unknown, Verified 09/10/23 09:54) DROPS SUGAR LEVEL Medication List - Last Reconciled 09/10/23 by Kim Garcia MD albuterol sulfate 90 mcg/actuation 2 puffs inhalation Q6H PRN albuterol sulfate 2.5 mg (3 mL) inhalation QID PRN 30 days amlodipine 2.5 mg See Protocol PO DAILY 30 days aspirin 81 mg PO DAILY 30 days blood sugar diagnostic As directed cetirizine 5 mg (1/2 x 10 mg) PO DAILY PRN 90 days cholecalciferol (vitamin D3) 25 mcg PO DAILY 90 days cyclobenzaprine 10 mg PO BEDTIME PRN 14 days famotidine 20 mg PO BID 90 days fenofibrate 54 mg PO DAILY 90 days lancets As directed lisinopril 40 mg DAILY metformin 850 mg PO BID 90 days metoprolol succinate ER 50 mg PO DAILY pyridoxine (vitamin B6) 50 mg (1/2 x 100 mg) PO DAILY 90 days rizatriptan 10 mg PO DAILY PRN 30 days rosuvastatin 40 mg PO DAILY 90 days tamoxifen 20 mg PO DAILY walker Folding Front wheeled walker HPI HPI Comments History of Present Illness Details This is an 78-year-old female with diabetes mellitus type 2 that comes for her Medicare annual wellness exam. [facility] handed to patient. Last colonoscopy was 2019. Mammogram done 2023 was normal. Bone density scan done 2023 was normal. Last diabetic eye exam was 05/2023 showing no diabetic retinopathy. Last A1c was not on goal and I will add Jardiance and did increase metformin. LDL within goal. Stress test negative. Able to walk with no assistive device. Has right hearing impairment when doing the whisper test. On tamoxifen for her breast cancer diagnosed 2020 and follow by Hematology-Oncology. [facility] Medical History (Updated 09/10/23 @ 10:15 by Kim Garcia MD) NSTEMI (non-ST elevated myocardial infarction) Acute electrocardiogram changes Otitis media, right History of colon cancer Incisional hernia Abdominal wall mass History of breast cancer Invasive ductal carcinoma of left breast Anemia Increased BMI On beta ananya at home Breast cancer Invasive ductal carcinoma of left breast Abnormality of left breast on screening mammography Multinodular thyroid Osteopenia Vitamin D deficiency Primary hyperparathyroidism Tubulovillous adenoma of colon Diabetes Asthma Hyperparathyroidism Cancer Arthritis GERD (gastroesophageal reflux disease) History of headache Elevated cholesterol HTN (hypertension) Surgical History History of cataract surgery History of thyroid surgery History of lumpectomy of left breast H/O left breast biopsy History of mammogram Status post total hip replacement, left History of exploratory laparotomy History of tubal ligation Hx of tonsillectomy Hx of cholecystectomy S/P colon resection H/O colonoscopy Family History Father No problems noted. Mother Diabetes mellitus Other No family history of cancer Social History Household Members: Significant Other Housing: House Are you a primary critical care technician to a significant other at home: No Alcohol intake: never Comment: sleeping Patient Tobacco Use Status: Never used Tobacco e-Cigarette/Vaping Use: Never Used Second Hand Smoke Exposure: No Advance Directives Date on File: 08/11/02 service: No Current occupational status: unemployed Cognitive needs: No Hearing needs: No Vision needs: Yes Female Reproductive History Menstrual Age of Menarche: 13 Questionnaire Medicare Wellness Checkup What is your age?: 78 or older What gender do you identify with?: female During the past 4 weeks, how much have you been bothered by emotional problems such as feeling anxious, depressed, irritable, sad or downhearted, and blue?: not at all During the past 4 weeks, has your physical & emotional health limited your social activities with family, friends, neighbors, or groups?: not at all During the past 4 weeks, how much bodily pain have you generally had?: mild pain During the past 4 weeks, was someone available to help you if you needed & wanted help?: yes, as much as I wanted During the past 4 weeks, what was the hardest physical activity you could do for at least 2 minutes?: light Can you get to places out of walking distance without help? (For eg., can you travel alone on buses, taxis or drive your car?): Yes Can you go shopping for groceries or clothes without someone's help?: No Can you prepare your own meals?: Yes Can you do your housework without help?: Yes Because of any health problems, do you need the help of another person with your personal care needs such as eating, bathing, dressing or getting around the house?: No Can you handle your own money without help?: Yes During the past 4 weeks, how would you rate your health in general?: fair During the past 4 weeks how have things been going for you?: pretty well Are you having difficulties driving your car?: not applicable, I don't use a car Do you always fasten your seat belt when you are in a car?: yes, usually During past 4 weeks, have you been bothered by the following: never: Falling or dizzy when standing up, Sexual problems?, Trouble eating well?, Teeth or denture problems?, Problems using the telephone? and Tiredness or fatigue? Have you fallen 2 or more times in the past year?: No Are you afraid of falling?: No Are you a smoker?: no During the past 4 weeks, how many drinks of wine, beer, or other alcoholic beverages did you have?: no alcohol at all Do you exercise for about 20 minutes 3 or more times a week?: yes, some of the time Have you been given information to help with the following?: yes: Keeping track of your medications? and no: Hazards in your house that might hurt you? How often do you have trouble taking medicines the way you have been told to take them?: I always take medicine as prescribed How confident are you that you can control & manage most of your health problems?: somewhat confident What is your race?: or origin or descent Mini Mental State Exam (MMSE) Orientation What is the (year) (season) (date) (day) (month)?: year, season, date and month Where are we (state) (county) (town or city) (hospital) (floor)?: state, county, town or city, hospital/clinic and floor Registration Name of 3 unrelated objects clearly and slowly, then ask patient to repeat all 3 of them. (1st repeat determines score. Make sure they can repeat all three): object 1, object 2 and object 3 Attention & Calculation (CHOOSE ONE) Spell WORLD backwards (DLROW): 4 letters Recall Ask patient to repeat the 3 items from question #3.: object 1, object 2 and object 3 Language Show patient a wristwatch & ask what it is. Repeat for pencil.: watch and pencil Ask the patient to repeat the phrase 'No ifs, ands, or buts' after you.: correct Ask the patient to 'take a piece of paper with their right hand' 'fold paper in half' 'place paper on floor': take paper in right hand, fold paper in half and place paper on floor Print the sentence 'CLOSE YOUR EYES' on a piece. If patient actually closes eyes then score.: followed written direction Give patient a blank piece of paper & ask to write a sentence. Score if it contains a noun & verb.: sentence contains subject and verb Score Score: 27 Activity of Daily Living Bathing - sponge bath, tub bath or shower: receives no assistance (gets in/out by self, if usual bathing means Dressing - getting clothes from closets & drawers, including inner/outer garments & fasteners.: gets clothes & gets completely dressed without help Toileting - going to the 'toilet room' for urine/bowel elimination & cleaning self/arranging clothes: goes to toilet room, cleans self, arranges clothes without help Transfer: moves in & out of bed and chair without help (may use support object) Continence: controls urination/bowel movements completely by self Feeding: feeds self without help Total Score: 0 Information obtained from: patient Using telephone: independent Traveling: needs assistance Shopping: needs assistance Preparing meals: independent Housework: needs assistance Taking medicine: independent Managing money: independent PHQ-9 Over the last 2 weeks, how often have you been bothered by any of the following problems? 1. Little interest or pleasure in doing things: not at all 2. Feeling down, depressed, or hopeless: not at all 3. Trouble falling or staying asleep, or sleeping too much: not at all 4. Feeling tired or having little energy: not at all 5. Poor appetite or overeating: not at all 6. Feeling bad about yourself - or that you are a failure or have let yourself or your family down: not at all 7. Trouble concentrating on things, such as reading the newspaper or watching television: not at all 8. Moving or speaking so slowly that other people could have noticed. Or the opposite - being so fidgety or restless that you have been moving around a lot more than usual: not at all 9. Thoughts that you would be better off or of hurting yourself in some way: not at all Total score: 0 Depression Screening Interpretation: Negative Depression Screening Done: Yes 44277 - PHQ-9 Billing: Yes Source: Developed by Drs. Boyd Garcia, Danii Reeves, Ric Estes and colleagues, with an educational mary from [employer]. LARRY-7 AMB Questionnaire LARRY-7 Date LARRY - 7 assessed: 09/10/23 Feeling nervous, anxious, or on edge: 0 = Not at all Not being able to stop or control worryin = Not at all Worrying too much about different things: 0 = Not at all Trouble relaxin = Not at all Being so restless that it is hard to sit still: 0 = Not at all Becoming easily annoyed or irritable: 0 = Not at all Feeling afraid as if something awful might happen: 0 = Not at all Total LARRY-7 score (0-4 normal; 5-9 mild; 10-14 moderate; 15-21 severe): 0 Source: Developed by Drs. Boyd Garcia, Danii Reeves, Ric Estes and colleagues, with an educational mary from [employer]. LARRY-7 Assessment Billing LARRY-7 Assessment Tool: LARRY-7 Assessment 54015 Fall Risk Assessment Fall Risk Assessment Fall risk assessment: No Falls in past year Thrive Questionnaire Date Thrive assessed: 09/10/23 I am a: Patient What is your living situation today?: I have a steady place to live Within the past 12 months, did the food you bought not last and you didn't have the money to get more?: Never true Within the past 12 months, did you worry whether your food would run out before you got money to buy more?: Never true Do you have trouble paying for medicines?: No Do you have trouble getting transportation to medical appointments?: No Do you have trouble paying your heating and electricity bill?: No Do you have trouble taking care of your child, family member or friend?: No Do you have trouble with day-to-day activities such as bathing, preparing meals, shopping, managing finances, etc.?: No Are you currently unemployed and looking for a job?: No Are you interested in more education?: No Please select the resources that you would like help with: None Currently or been in a relationship where the following occur: no concerns reported THRIVE Score: 0 AUDIT C Alcohol Use Questionnaire (AUDIT-C) 1. How often do you have a drink containing alcohol?: Never Total Score: 0 Review of Systems Const All systems reviewed & are unremarkable except as noted in HPI and below Card Denies chest pain at rest, Denies chest pain with activity, Denies edema, Denies irregular heart rhythm, Denies claudication, Denies dyspnea, Denies dyspnea on exertion, Denies orthopnea, Denies paroxysmal nocturnal dyspnea and Denies slow heart rate Resp Denies cough, Denies dyspnea and Denies dyspnea on exertion GI Denies abdominal pain, Denies change in bowel habits, Denies excessive flatus, Denies nausea and Denies vomiting Denies urinary incontinence, Denies urinary hesitancy and Denies urinary urgency Musc Denies abnormal gait, Denies atrophy, Denies deformity and Denies limited range of motion Skin/Breast Denies bleeding lesions, Denies changing lesions and Denies rash Neuro Denies abnormal gait and Denies lack of coordination Physical Exam Vital Signs: Last Vital Signs BP 122/80 09/10/23 09:32 BMI result Body Mass Index 30.2 Const Orientation/consciousness: patient oriented x3 HEENT Ears: hearing grossly impaired on the right Resp Effort & Inspection: normal respiratory effort Auscultation: clear to auscultation bilaterally Cardio Jugular venous distension: no JVD Rate: regular rate Rhythm: regular rhythm Heart sounds: S1 normal heart sound present and S2 normal heart sound present Neuro General: patient oriented x3, gait normal and no focal motor deficits Romberg Test: Negative Extrem General: Yes full ROM Psych Appearance: grossly normal Assessment & Plan Assessment & Plan (1) Encounter for Medicare annual wellness exam: Code(s): Z00.00 - Encounter for general adult medical examination without abnormal findings Plan: Repeat in a year. (2) Diabetes: Comment: NIDDM Code(s): E11.9 - Type 2 diabetes mellitus without complications Qualifiers: Diabetes mellitus type: type 2 Diabetes mellitus supervisor intermediates insulin use: without supervisor intermediates use Diabetes mellitus complication status: with hyperglycemia Qualified Code(s): E11.65 - Type 2 diabetes mellitus with hyperglycemia Plan: Continue metformin 850 mg twice a day. Start Jardiance. A1c goal is equal or less than 7%. (3) Invasive ductal carcinoma of left breast: Code(s): C50.912 - Malignant neoplasm of unspecified site of left female breast Plan: Continue tamoxifen to complete 5 years. Follow-up with Hematology-Oncology. Orders: Orders Lipid Panel 4 Months E78.5 - Hyperlipidemia, unspecified IRON PROFILE 4 Months D64.9 - Anemia, unspecified Vitamin B12 and Folate 4 Months E53.8 - Deficiency of other specified B group vitamins Microalbumin, Random (w Creat) 4 Months E11.9 - Type 2 diabetes mellitus without complications Vitamin D 25-OH Total 4 Months E55.9 - Vitamin D deficiency, unspecified Complete Blood Count Auto Diff 4 Months D64.9 - Anemia, unspecified Thyroid Stimulating Hormone 4 Months E04.2 - Nontoxic multinodular goiter Comprehensive Echo. Panel Fast 4 Months E11.65 - Type 2 diabetes mellitus with hyperglycemia Referrals Speech and Hearing Referral H91.91 - Unspecified hearing loss, right ear Medications: New ferrous sulfate 325 mg PO DAILY 90 days 90 tabs 1RF D50.9 - Iron deficiency anemia, unspecified empagliflozin (Jardiance) 10 mg PO DAILY 90 days 90 tabs 1RF E11.65 - Type 2 diabetes mellitus with hyperglycemia blood sugar diagnostic (FreeStyle Lite Strips) Use 1 test strip once a day 100 ea 3RF E11.65 - Type 2 diabetes mellitus with hyperglycemia ascorbate calcium (vitamin C) 500 mg PO DAILY 90 days 90 tabs 1RF Quality Reporting (2019) Fall Risk Screening ([facility]) Fall risk assessment: No Falls in past year Depression/Bipolar (159/160/161/177) PHQ-9: Total score: 0 Coding Level of Care Code Medicare Subsequent (G0439) Diagnoses Encounter for Medicare annual wellness exam Z00.00 Type 2 diabetes mellitus with hyperglycemia, without long-term current use of insulin E11.65 Diabetes mellitus type: type 2 Diabetes mellitus penitentiary insulin use: without penitentiary use Diabetes mellitus complication status: with hyperglycemia Invasive ductal carcinoma of left breast C50.912 CPT Codes Advance Care Planning - Advance Care Planning discussion: On file, no changes ([id number]) Advance Care Planning - Time spent: 1-15 minutes, on File ([id number]) Additional Codes LARRY-7 Assessment Billing - LARRY-7 Assessment Tool: LARRY-7 Assessment 27612 ([id number]) Time Spent (min) 36 Advance Care Planning Advance Care Planning discussion: On file, no changes Date of discussion: 09/10/23 Who was present: Patient and me Forms completed: Health Care Proxy Time spent: 1-15 minutes, on File Actual minutes spent: 2
[2023-09-10 09:32] VITALS: BP 122/80; BMI 30.2
== END 2023-09-10 10:12 | disposition home or self-care (01) ==
PROVIDERS: PCP Internal Medicine; Visit Provider Internal Medicine
DX: Z00.00 Encounter for general adult medical examination without abnormal findings (principal); E11.65 Type 2 diabetes mellitus with hyperglycemia; C50.912 Malignant neoplasm of unspecified site of left female breast
CPT/HCPCS: 1123F; G0439

== ENCOUNTER → 2023-11-29 12:07 | Outpatient (RCR) | payer MEDICARE, MEDICAID, SELFPAY ==
[2020-07-08 15:57] VITALS: BP 151/72; PULSE 76; RESP 12; TEMP 36.7; O2SAT 96; BMI 31.7
--- NOTE | 2020-07-08 16:01 | P.PNHO_ITS ---
Medical Summary - Medical Summary Date of Service: 07/08/20 Chief complaint: Follow-up for: Medical Summary: DIAGNOSIS: 1. recent diagnosis of Breast Cancer. 2. Stage 2 Colon Carcinoma. PT4N0 stage 2. CURRENT THERAPY: 1. Status post surgical resection on April 25, 2013. 2. Xeloda started mid-May completed mid-October 2013. 3. Colonoscopy December 2014 revealed sigmoid diverticulosis. The patient was admitted in March 2015 with inflammation of the right colon. She had laparotomy with lysis of adhesions, drainage of abscess along the right paracolic gutter and retroperitoneum, resection of old ileocolonic anastomosis with creation of a new ileocolonic anastomosis. No evidence of malignancy. Interval History Interval history: This is a pleasant 74-year-old lady, here for a follow-up visit. Recently she has been diagnosed with left breast cancer. She had a mammogram on 05/25 which revealed; 1. Left: Asymmetric density mid upper quadrant likely incompletely compressed glandular tissue. 2. Right: No mammographic evidence of malignancy. ASSESSMENT: BI-RADS 0: Incomplete - Need Additional Imaging Evaluation RECOMMENDATION: 1. Additional views of the left breast (3-D spot MLO, 3-D ML). 2. Targeted ultrasound if warranted after review of the additional views. Additional views were taken on 06/15 which revealed: Focal irregular asymmetric density mid 2:30 position left breast under 1 cm. ASSESSMENT: BI-RADS 4: Suspicious. She underwent ultrasound-guided biopsy of the left breast mass at 02:00 o'clock position, on 06/24. Pathology revealed: Invasive ductal carcinoma, MSBR grade 1. Ductal carcinoma in Situ, solid type, nuclear grade 2, involving adenosis. ER positive: 100% of tumor cells, strong intensity. NV positive: 100% of tumor cells, strong intensity. HER2 Chung: Negative,:-1+. She has been seen by Dr. Jolley. Lumpectomy is scheduled for 07/27. 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 Menopause at 48. Denies taking any oral contraceptive nor HRT. She had 3 children. Family history: Negative for breast cancer. No other malignancy in the family. She has been doing quite well. She denies easy fatigability. She denies any GI complaints. No abdominal pain nausea vomiting heartburn indigestion. Her bowels are working without any gross blood in it. She enjoys a good appetite. She has lost some weight. She denies headache no dizziness. No chest pain or trouble breathing. She is in good spirits. Rest of the review of systems is unremarkable. Previous history: Only new medication that was added is vitamin-D supplement. Her vitamin-D level was low at 21.5, back in April. She feels well. Review of Systems - Constitutional Reports system reviewed and no additional complaints, except as documented, Denies weakness - Eyes Reports system reviewed and no additional complaints, except as documented, Denies blurry vision - ENT Reports system reviewed and no additional complaints, except as documented - Cardiovascular Reports system reviewed and no additional complaints, except as documented, Denies shortness of breath with activity - Respiratory Reports no additional respiratory complaints, Denies chest congestion - Gastrointestinal Reports system reviewed and no additional complaints, except as documented, Denies abdominal pain, Denies constipation - Genitourinary Reports no additional female genitourinary complaints, Denies abnormal periods - Musculoskeletal Reports system reviewed and no additional complaints, except as documented, Denies abnormal walking - Integumentary/Breasts Skin/Breast: Reports no additional skin complaints, Denies bleeding lesions - Neurologic Reports system reviewed and no additional complaints, except as documented - Psychiatric Reports system reviewed and no additional complaints, except as documented, Denies anxiety - Endocrine Reports no additional endocrine complaints, Denies excessive sweating - Hematologic/Lymphatic Reports system reviewed and no additional complaints, except as documented, Denies easy bruising - Allergic/Immunologic Reports system reviewed and no additional complaints, except as documented, Denies GI upset with certain foods PMFSH Medical History: Medical History (Last Updated 07/08/20 @ 16:07 by Yi Baum) Abnormality of left breast on screening mammography Arthritis Asthma Breast cancer Cancer Diabetes Elevated cholesterol GERD (gastroesophageal reflux disease) History of headache HTN (hypertension) Hyperparathyroidism Invasive ductal carcinoma of left breast Multinodular thyroid Osteopenia Primary hyperparathyroidism Tubulovillous adenoma of colon Vitamin D deficiency Functional capacity: independent ambulation Patient : No Family History: Family History (Last Reviewed 07/05/20 @ 10:42 by Servando Jolley MD) Father No problems noted. Mother No problems noted. Surgical History: Surgical History (Last Reviewed 07/08/20 @ 16:00 by Yi Baum) H/O colonoscopy History of exploratory laparotomy History of tubal ligation Hx of cholecystectomy Hx of tonsillectomy S/P colon resection Status post total hip replacement, left Social History: Social History (Last Reviewed 07/08/20 @ 16:00 by Yi Baum) Living Situation History: Household Members: Spouse Housing: House Alcohol History: Alcohol intake: current Alcohol History Details: Alcohol intake frequency: does not drink Tobacco History: Second Hand Smoke Exposure: No Advance Directives: Advance Directives Date on File: 08/11/02 Nutrition Assessment: Patient : No Occupation Assessmet: service: No Current occupational status: unemployed Home Medications and Allergies Home Medications Medication Instructions Recorded Confirmed Type lisinopril 40 mg PO DAILY 12/23/19 07/08/20 History metformin 500 mg PO BID 12/23/19 07/08/20 History albuterol sulfate 90 mcg/actuation 2 puff INHALATION Q6H PRN 12/29/19 07/08/20 History aerosol inhaler cetirizine 10 mg tablet 5 mg PO DAILY PRN 12/29/19 07/08/20 History cyclobenzaprine 5 mg tablet 5 mg PO TID PRN 12/29/19 07/08/20 History fluticasone propionate 50 1 spray INTRANASAL DAILY 12/29/19 07/08/20 History mcg/actuation nasal spray,suspension montelukast 10 mg tablet 10 mg PO DAILY 12/29/19 07/08/20 History rizatriptan 10 mg tablet 10 mg PO Q2-4H PRN 12/29/19 07/08/20 History metoprolol succinate 50 mg PO DAILY 01/06/20 07/08/20 History rosuvastatin 10 mg PO BEDTIME 01/07/20 07/08/20 History blood sugar diagnostic #10 ea 03/17/20 07/05/20 History cholecalciferol (vitamin D3) 50 50 mcg PO DAILY 03/17/20 07/08/20 History mcg (2,000 unit) capsule ferrous gluconate 324 mg (38 mg 324 mg PO DAILY 03/17/20 07/08/20 History iron) tablet lancets 28 gauge #100 ea 03/17/20 07/05/20 History ketotifen fumarate 0.025 % (0.035 1 drp OPHTHALMIC (EYE) BID 06/16/20 07/08/20 History %) eye drops Allergies Allergy/AdvReac Type Severity Reaction Status Date / Time ibuprofen [Ibuprofen] Allergy Mild SWELLING Verified 07/05/20 10:19 celecoxib [CELECOXIB] Allergy Unknown DROPS Verified 07/05/20 10:19 SUGAR LEVEL Exam Vital signs: Vital Signs Temp 98.1 F 07/08/20 15:57 Pulse 76 07/08/20 15:57 Resp 12 07/08/20 15:57 BP 151/72 H 07/08/20 15:57 Pulse Ox 96 07/08/20 15:57 Intake & Output 07/07/20 07/08/20 07/08/20 18:59 06:59 18:59 Other: Weight 83.9 kg Weight in Grams [id number] Weight 83.9 kg Body Mass Index 31.7 - Constitutional Present: no acute distress - Routine HEENT Exam Head: Present: normal inspection Eye: Present: normal appearance ENT: Present: mucous membranes moist - Routine Neck Exam Present: full ROM - Routine Respiratory Exam Present: CTAB - Routine Cardiovascular Exam Cardiovascular: Present: RRR, S1, S2 - Routine Abdominal Exam Present: soft, nontender - Routine Rectal Exam Patient deferred: digital exam - Routine Extremities Exam Present: nontender - Routine Back/Spine/Pelvis Exam Back/Spine: Present: full ROM - Routine Skin Exam Present: intact - Routine Neurological Exam Present: alert, oriented X3 - Routine Psychiatric Exam Present: normal affect Progress Note: A/P (1) Colon cancer Status: Acute Assessment and plan: 74 year-old lady with history of Colon Carcinoma, Stage II disease. The patient had surgery followed by adjuvant chemotherapy with Xeloda, which she completed October 2013. She is more than 5 years out from completion of her treatment. She is doing very well. She had her surveillance colonoscopy, last year, 12/10. This was negative. Pathology revealed: Colon, below anastomosis, polypectomy: Colonic mucosa with prominent lymphoid aggregate; no dysplasia or malignancy identified. PLAN: The plan is to follow her along. She will return in 1 month for a followup. Thanks, cc: ZEESHAN MEADE NP. Dr. Chary Da Silva. Dr. Jolley. (2) Invasive ductal carcinoma of left breast Status: Acute Assessment and plan: This is a pleasant 74-year-old lady, recently diagnosed with left breast cancer. Workup as follows: 1. Left: Asymmetric density mid upper quadrant likely incompletely compressed glandular tissue. 2. Right: No mammographic evidence of malignancy. ASSESSMENT: BI-RADS 0: Incomplete - Need Additional Imaging Evaluation RECOMMENDATION: 1. Additional views of the left breast (3-D spot MLO, 3-D ML). 2. Targeted ultrasound if warranted after review of the additional views. Additional views were taken on 06/15 which revealed: Focal irregular asymmetric density mid 2:30 position left breast under 1 cm. ASSESSMENT: BI-RADS 4: Suspicious. She underwent ultrasound-guided biopsy of the left breast mass at 02:00 o'clock position, on 06/24. Pathology revealed: Invasive ductal carcinoma, MSBR grade 1. Ductal carcinoma in Situ, solid type, nuclear grade 2, involving adenosis. ER positive: 100% of tumor cells, strong intensity. NV positive: 100% of tumor cells, strong intensity. HER2 Chung: Negative,:-1+. She has been seen by Dr. Jolley. Lumpectomy is scheduled for 07/27. PLAN: I follow-up on the pathology report. Then make plans regarding further treatment, in view of tumor size, and status of the lymph nodes. She tells me that she has had recent growth in the thyroid nodule. She is actually scheduled for surgery on the thyroid for August 16. Will discuss further with Dr. Fink, about the urgency of that. I will check baseline labs including her tumor marker. Will check a bone density as well. She will return in a month for a follow-up visit. Thank you, CC: Dr. Jolley. Markie Hill. - Time Spent With Patient Total time spent is greater than 50% in coordination of care (as documented) at patient's floor/unit and/or counseling patient: 25 - 35 minutes
--- NOTE | 2020-07-08 16:22 | MHC.HEMONCMA ---
Pt present to f/u on new breast cancer diagnosis. History reviewed and labs drawn.
[2020-07-08 17:26] LABS: Vitamin D 25-OH Total 26.2 ng/mL (>30)
[2020-07-10 11:27] LABS: CA 27.29 26 U/mL (<38)
== END | disposition home or self-care (01) ==
LOC: HO.ONC 07-08 15:51
PROVIDERS: PCP Registered Nurse Community Health; Referring Provider Surgery; Visit Provider Internal Medicine Medical Oncology
DX: C50.412 Malignant neoplasm of upper-outer quadrant of left female breast (principal); Z17.0 Estrogen receptor positive status [ER+]; E55.9 Vitamin D deficiency, unspecified; E04.1 Nontoxic single thyroid nodule; Z85.038 Personal history of other malignant neoplasm of large intestine; Z92.21 Personal history of antineoplastic chemotherapy
CPT/HCPCS: 36415; 82306; 86300; 99214

== ENCOUNTER 2024-02-04 08:16 | Outpatient (REF) | payer OTHER, SELFPAY ==
[2024-02-04 08:45] LABS: MANUAL DIFF FLAG NO
[2024-02-04 09:58] LABS: Basophils Absolute Auto 0.1 X10*3/uL (0.0-0.2); Eosinophils Absolute Auto 0.3 X10*3/uL (0.0-0.4); Hematocrit 38.1 % (37.0-47.0); Hemoglobin 12.1 g/dl (12.0-16.0); Imm Gran Abs Auto 0.02 X10*3/uL (0.00-0.03); Imm Gran Pct Auto 0.3 % (0.0-0.4); Lymphocytes Absolute Auto 1.7 X10*3/uL (1.2-4.9); Lymphocytes Percent Auto 25.6 % (20-40); Mean Corpuscular HGB Conc 31.8 g/dl (31.0-35.0); Mean Corpuscular Hemoglobin 27.3 pg (27.0-33.0); Mean Platelet Volume 12.2 fL (9.4-12.3); Monocytes Absolute Auto 0.4 X10*3/uL (0.1-1.2); Monocytes Percent Auto 6.4 % (2-11); Neutrophils Absolute Auto 4.2 x10*3/uL (2.0-8.3); Neutrophils Percent Auto 62.7 % (45-73); Platelet Count 197 X10*3/uL (160-400); Red Blood Count 4.43 X10*6/uL (4.20-5.50); Red Cell Distribution Width 16.5 % (11.0-16.0); White Blood Count 6.7 X10*3/uL (4.8-10.8)
[2024-02-04 11:24] LABS: Folate 13.8 ng/mL (> or = 4.0); Vitamin B12 315 pg/mL (200-900)
[2024-02-04 12:22] LABS: Alanine Aminotransferase 10 U/L (0-31); Alkaline Phosphatase 40 U/L (39-117); Anion Gap 17 (12-20); Aspartate Amino Transferase 21 U/L (5-31); Bilirubin Total 0.5 mg/dL (0.0-1.0); Blood Urea Nitrogen 17 mg/dL (9-16); Calcium 8.7 mg/dL (8.4-10.2); Carbon Dioxide 26 mmol/L (22-29); Chloride 101 mmol/L (96-108); Cholesterol 106 mg/dL (<200); Estimated Glomerular Filt Rate > 60; Glucose Fasting 108 mg/dL (60-99); HDL Cholesterol 50 mg/dL (>40); Iron 59 mcg/dL (30-160); LDL Cholesterol Calculated 29 mg/dL (<100); Percent Iron Saturation 16 % (15-50); Potassium 4.5 mmol/L (3.3-5.1); Sodium 139 mmol/L (135-145); Total Iron Binding Capacity 366 mcg/dL (228-428); Total Protein 6.3 g/dL (6.5-8.0); Triglycerides 138 mg/dL (<150); Unsaturated Iron Binding 307 ug/dL
[2024-02-04 12:39] LABS: Thyroid Stimulating Hormone 2.56 uIU/mL (0.32-4.0); Vitamin D 25-OH Total 31.1 ng/mL (>30)
== END 2024-02-04 08:17 | disposition home or self-care (01) ==
LOC: HO.LAB 08:16
PROVIDERS: PCP Internal Medicine; Visit Provider Internal Medicine
DX: E78.5 Hyperlipidemia, unspecified (principal); E55.9 Vitamin D deficiency, unspecified; E53.8 Deficiency of other specified B group vitamins; E04.2 Nontoxic multinodular goiter; D64.9 Anemia, unspecified; E11.65 Type 2 diabetes mellitus with hyperglycemia
CPT/HCPCS: 36415; 80053; 80061; 82306; 82607; 82746; 83540; 84443; 85025

== ENCOUNTER 2024-02-08 09:41 | Outpatient (REF) | payer OTHER, SELFPAY ==
[2024-02-08 10:50] LABS: Appearance Urine Clear; Color Urine Yellow; Glucose Urine UA Negative (Negative); Leukocyte Esterase Urine Small (1+) (Negative); Nitrite Urine Negative (Negative); UMIC TRIGGER UACC YES; Urine Blood Negative (Negative); Urine Ketones Negative (Negative); Urine Protein Negative (Neg-Trace)
[2024-02-08 10:54] LABS: Bacteria Urine None Seen (None Seen); Hyaline Casts Urine 0-2 /LPF (0-2); RBC Urine 0-2 /HPF (0-2); UACC Culture Trigger YES
[2024-02-08 12:19] LABS: Creatinine Urine 28.83 mg/dL; Microalbum/Creatinine Ratio Ur 38.1 ug/mg cr (<30)
== END 2024-02-08 09:42 | disposition home or self-care (01) ==
LOC: HO.LAB 09:41
PROVIDERS: PCP Internal Medicine; Visit Provider Internal Medicine
DX: E11.9 Type 2 diabetes mellitus without complications (principal); R30.0 Dysuria
CPT/HCPCS: 81001; 82043; 82570; 87086

== ENCOUNTER 2024-02-11 09:59 | Outpatient (AMB) | payer OTHER, SELFPAY ==
--- NOTE | 2024-02-11 10:01 | MHC.PC.OV ---
Vital Signs 02/11/24 10:08 Height 5 ft 4 in Weight 174 lb BMI 29.9 BP 126/80 Blood Pressure Location Lt brachial Position Sitting Intake Visit Reasons: dm Intake Note: Patient here for a follow up DM, c/o right leg/hip pain Kosher Butcher Required: No Accompanied by: Self / Same As Patient Allergies ibuprofen [Ibuprofen] Allergy (Mild, Verified 02/11/24 10:14) SWELLING celecoxib [CELECOXIB] Allergy (Unknown, Verified 02/11/24 10:14) DROPS SUGAR LEVEL Medication List - Last Reconciled 02/11/24 by Kim Garcia MD albuterol sulfate 90 mcg/actuation 2 puffs inhalation Q6H PRN albuterol sulfate 2.5 mg (3 mL) inhalation QID PRN 30 days amlodipine 2.5 mg See Protocol PO DAILY 30 days ascorbate calcium (vitamin C) 500 mg PO DAILY 90 days aspirin 81 mg PO DAILY 30 days blood sugar diagnostic (FreeStyle Lite Strips) Use 1 test strip once a day blood sugar diagnostic As directed cetirizine 5 mg (1/2 x 10 mg) PO DAILY PRN 90 days cholecalciferol (vitamin D3) 25 mcg PO DAILY 90 days cyclobenzaprine 10 mg PO BEDTIME PRN 14 days empagliflozin (Jardiance) 10 mg PO DAILY 90 days famotidine 20 mg PO BID 90 days fenofibrate 54 mg PO DAILY 90 days ferrous sulfate 325 mg PO DAILY 90 days lancets As directed lisinopril 40 mg PO DAILY 90 days metformin 850 mg PO BID 90 days metoprolol succinate ER 50 mg PO DAILY 90 days pyridoxine (vitamin B6) 50 mg (1/2 x 100 mg) PO DAILY 90 days rizatriptan 10 mg PO DAILY PRN 30 days rosuvastatin 40 mg PO DAILY 90 days tamoxifen 20 mg PO DAILY walker Folding Front wheeled walker Tobacco use date assessed: 05/21/23 Dental Screening Dental Screen Date: 05/21/23 HPI HPI Comments History of Present Illness Details This is an 78-year-old female with diabetes mellitus type 2, hypertension, hyperlipidemia and I iron-deficiency anemia that comes today for follow-up on her conditions. Hemoglobin has improved and anemia is follow by Hematology-Oncology. A1c within goal. Blood pressure stable. LDL within goal and I will decrease statin. Complains of lower back pain radiating to the legs relieved by cyclobenzaprine as needed. Denies any chest pain or shortness on breath. Labs were discussed. [facility] Medical History NSTEMI (non-ST elevated myocardial infarction) Acute electrocardiogram changes Otitis media, right History of colon cancer Incisional hernia Abdominal wall mass History of breast cancer Invasive ductal carcinoma of left breast Anemia Increased BMI On beta ananya at home Breast cancer Invasive ductal carcinoma of left breast Abnormality of left breast on screening mammography Multinodular thyroid Osteopenia Vitamin D deficiency Primary hyperparathyroidism Tubulovillous adenoma of colon Diabetes Asthma Hyperparathyroidism Cancer Arthritis GERD (gastroesophageal reflux disease) History of headache Elevated cholesterol HTN (hypertension) Surgical History History of cataract surgery History of thyroid surgery History of lumpectomy of left breast H/O left breast biopsy History of mammogram Status post total hip replacement, left History of exploratory laparotomy History of tubal ligation Hx of tonsillectomy Hx of cholecystectomy S/P colon resection H/O colonoscopy Family History Father No problems noted. Mother Diabetes mellitus Other No family history of cancer Social History Household Members: Significant Other Housing: House Are you a primary health care attorney to a significant other at home: No Alcohol intake: never Comment: sleeping Patient Tobacco Use Status: Never used Tobacco e-Cigarette/Vaping Use: Never Used Second Hand Smoke Exposure: No Advance Directives Date on File: 08/11/02 service: No Current occupational status: unemployed Cognitive needs: No Hearing needs: No Vision needs: Yes Female Reproductive History Menstrual Age of Menarche: 13 Questionnaire Thrive Questionnaire Date Thrive assessed: 09/10/23 LARRY-7 AMB Questionnaire LARRY-7 Date LARRY - 7 assessed: 09/10/23 Source: Developed by Drs. Boyd Garcia, Danii Reeves, Ric Estes and colleagues, with an educational mary from [email or web address]. Review of Systems Const All systems reviewed & are unremarkable except as noted in HPI and below Eyes Reports no additional complaints, Denies change in vision and Denies other visual disturbances Card Denies chest pain at rest, Denies chest pain with activity, Denies edema, Denies irregular heart rhythm, Denies claudication, Denies dyspnea, Denies dyspnea on exertion, Denies orthopnea, Denies paroxysmal nocturnal dyspnea and Denies slow heart rate Resp Denies cough, Denies dyspnea and Denies dyspnea on exertion GI Denies abdominal pain, Denies change in bowel habits, Denies excessive flatus, Denies nausea and Denies vomiting Denies urinary incontinence, Denies urinary hesitancy and Denies urinary urgency Musc Denies atrophy, Denies deformity and Denies limited range of motion Physical exam (Primary Care) Vital Signs: Last Vital Signs BP 126/80 02/11/24 10:08 BMI result Body Mass Index 29.9 Tobacco/Smoking Status: Tobacco use Status Tobacco use date assessed 05/21/23 02/11/24 10:01 Patient Tobacco Use Status Never used Tobacco 02/11/24 10:01 e-Cigarette/Vaping Use Never Used 02/11/24 10:01 Thrive Assessment: Date of Thrive Assessment Date Thrive assessed 09/10/23 02/11/24 10:01 Resp Effort & Inspection: normal respiratory effort Auscultation: clear to auscultation bilaterally Cardio Jugular venous distension: no JVD Rate: regular rate Rhythm: regular rhythm Heart sounds: S1 normal heart sound present and S2 normal heart sound present Extrem General: Yes full ROM Office Procedures Flu Questionnaire Does the patient have a severe egg allergy?: No Does the patient have severe life threatening allergies?: No Does the patient have a fever or illness today?: No Has the patient ever had Guillain-Greenfield Syndrome?: No Has the patient ever had any past reaction to a flu shot?: No Results AMB Hemoglobin A1c AMB Hemoglobin A1c 7.0 % Last Edit by DARIAN Herrera on 02/11/24 10:20 Immunizations Fluarix Triv [id number] (PF) 45 mcg (15 mcg x 3)/0.5 mL IM syringe Performing Provider: Kim Garcia MD Per[facility] Administered by: DARIAN Herrera on 02/11/24 10:20 Dose Route Admin Location Dispensed Lot Number Expiration Date [facility] 0.5 mL IM Right Deltoid 0.5 mL [id number] 09/29/24 [id number] [employer] VIS Given Date VIS Provided VIS Publication Date 02/11/24 Single Vaccine 20 Eligibility Eligibility Date Funding Source Not [facility] Eligible 02/11/24 Private Results Reviewed Results Reviewed: Laboratory Last Values Hgb A1c (Clinic) 7.0 % (4.0-6.0) H 02/11/24 10:03 Coding Level of Care Code Est Pt Level 4 (74451) Complex EM visit Add On G2211 Diagnoses Iron deficiency anemia D50.9 Primary hypertension I10 Hypertension type: primary hypertension Type 2 diabetes mellitus with hyperglycemia, without long-term current use of insulin E11.65 Diabetes mellitus type: type 2 Diabetes mellitus fpc insulin use: without long term acute care registered nurse use Diabetes mellitus complication status: with hyperglycemia Hyperlipidemia LDL goal <70 E78.5 Time Spent (min) 22 Assessment & Plan Assessment & Plan (1) Iron deficiency anemia: Code(s): D50.9 - Iron deficiency anemia, unspecified Category: Medical Plan: Continue ferrous sulfate. Follow-up with Hematology-Oncology. (2) HTN (hypertension): Code(s): I10 - Essential (primary) hypertension Category: Medical Qualifiers: Hypertension type: primary hypertension Qualified Code(s): I10 - Essential (primary) hypertension Plan: Continue lisinopril. Blood pressure goal is equal or less than 130/80. (3) Diabetes: Comment: NIDDM Code(s): E11.9 - Type 2 diabetes mellitus without complications Category: Medical Qualifiers: Diabetes mellitus type: type 2 Diabetes mellitus long term acute care registered nurse insulin use: without long term acute care registered nurse use Diabetes mellitus complication status: with hyperglycemia Qualified Code(s): E11.65 - Type 2 diabetes mellitus with hyperglycemia Plan: Continue metformin. A1c goal is equal or less than 7%. (4) Hyperlipidemia LDL goal <70: Code(s): E78.5 - Hyperlipidemia, unspecified Category: Medical Plan: Decrease rosuvastatin from 40 mg to 20 mg. LDL goal is less than 70. Orders: Orders Influenza [id number] Immunization Today Z23 - Encounter for immunization Lipid Panel 4 Months E78.5 - Hyperlipidemia, unspecified Microalbumin, Random (w Creat) 4 Months R80.9 - Proteinuria, unspecified Vitamin D 25-OH Total 4 Months E55.9 - Vitamin D deficiency, unspecified AMB Hemoglobin A1c Today Z13.9 - Encounter for screening, unspecified Comprehensive [place]. Panel Fast 4 Months E11.65 - Type 2 diabetes mellitus with hyperglycemia Medications: New rosuvastatin 20 mg PO DAILY 90 tabs 1RF 90 days Refilled cyclobenzaprine 10 mg PO BEDTIME PRN 14 tabs 0RF muscle spasm 14 days Discontinued fenofibrate Discontinued Reason: Patient Completed Course 54 mg PO DAILY 90 days 90 tabs 1RF rosuvastatin Discontinued Reason: Patient Completed Course 40 mg PO DAILY 90 days 90 tabs 1RF
[2024-02-11 10:08] VITALS: BP 126/80; BMI 29.9
== END 2024-02-11 10:27 | disposition home or self-care (01) ==
PROVIDERS: PCP Internal Medicine; Visit Provider Internal Medicine
DX: D50.9 Iron deficiency anemia, unspecified (principal); I10 Essential (primary) hypertension; E11.65 Type 2 diabetes mellitus with hyperglycemia; E78.5 Hyperlipidemia, unspecified; Z23 Encounter for immunization; Z13.9 Encounter for screening, unspecified

== ENCOUNTER → 2024-02-11 09:59 | Outpatient (BNVA) | payer OTHER, SELFPAY | PROVIDERS: PCP Internal Medicine; Visit Provider Internal Medicine | DX: Z23 Encounter for immunization (principal); D50.9 Iron deficiency anemia, unspecified; I10 Essential (primary) hypertension; E11.65 Type 2 diabetes mellitus with hyperglycemia; E78.5 Hyperlipidemia, unspecified | CPT/HCPCS: 83036; 90471; 90656; 99212 ==

== ENCOUNTER 2024-05-01 09:34 | Outpatient (AMB) | payer OTHER, SELFPAY ==
--- NOTE | 2024-05-01 09:57 | AM.OFFWIN_ITS ---
Intake Vital Signs 05/01/24 09:58 Height 5 ft 4 in Weight 179 lb BMI 30.7 BP 140/88 H Blood Pressure Location Lt brachial Position Sitting Pulse 78 Pulse Source Pulse Oximeter Temp 98.1 F Temp Source Oral Pulse Oximetry (%) 98 Oxygen Delivery Method Room Air Intake Visit Reasons: EP Rt side ear pain/trouble hearing Intake Note: Patient here for right side ear pain and difficulty hearing which has been present for a couple of days. Patient Tobacco Use Status: Never used Tobacco Allergies ibuprofen [Ibuprofen] Allergy (Mild, Verified 05/01/24 09:59) SWELLING celecoxib [CELECOXIB] Allergy (Unknown, Verified 05/01/24 09:59) DROPS SUGAR LEVEL Do you need a note to return to daycare/school/sports/work: No HPI HPI Comments History of Present Illness Details 78 y/o female patient who presents to [facility] walk in clinic with c/o right ear pain and hard of hearing. [facility] Medical History (Updated 05/01/24 @ 10:31 by Margaux Perez NP) Cerumen impaction Otitis media NSTEMI (non-ST elevated myocardial infarction) Acute electrocardiogram changes Otitis media, right History of colon cancer Incisional hernia Abdominal wall mass History of breast cancer Invasive ductal carcinoma of left breast Anemia Increased BMI On beta ananya at home Breast cancer Invasive ductal carcinoma of left breast Abnormality of left breast on screening mammography Multinodular thyroid Osteopenia Vitamin D deficiency Primary hyperparathyroidism Tubulovillous adenoma of colon Diabetes Asthma Hyperparathyroidism Cancer Arthritis GERD (gastroesophageal reflux disease) History of headache Elevated cholesterol HTN (hypertension) Surgical History History of cataract surgery History of thyroid surgery History of lumpectomy of left breast H/O left breast biopsy History of mammogram Status post total hip replacement, left History of exploratory laparotomy History of tubal ligation Hx of tonsillectomy Hx of cholecystectomy S/P colon resection H/O colonoscopy Family History Father No problems noted. Mother Diabetes mellitus Other No family history of cancer Social History Household Members: Significant Other Housing: House Are you a primary home care provider to a significant other at home: No Alcohol intake: never Comment: sleeping Patient Tobacco Use Status: Never used Tobacco e-Cigarette/Vaping Use: Never Used Second Hand Smoke Exposure: No Advance Directives Date on File: 08/11/02 service: No Current occupational status: unemployed Cognitive needs: No Hearing needs: No Vision needs: Yes Female Reproductive History Menstrual Age of Menarche: 13 Review of Systems Const All systems reviewed & are unremarkable except as noted in HPI and below Physical Exam Vital Signs: Last Vital Signs Temp 98.1 F 05/01/24 09:58 Pulse 78 05/01/24 09:58 BP 140/88 H 05/01/24 09:58 Pulse Ox 98 05/01/24 09:58 Oxygen Delivery Method Room Air 05/01/24 09:58 BMI result Body Mass Index 30.7 HEENT Head: Yes normocephalic Ears: external ears normal and TM abnormal bulging on the right, erythematous on the right, obstructed by cerumen on the left and retracted on the right General nose exam: Normal external nose present Face and sinus: Yes sinuses nontender Mouth: moist mucous membranes Resp Effort & Inspection: normal respiratory effort Auscultation: clear to auscultation bilaterally Cardio Heart sounds: S1 normal heart sound present and S2 normal heart sound present Assessment & Plan Assessment & Plan (1) Otitis media: Code(s): H66.90 - Otitis media, unspecified, unspecified ear Qualifiers: Otitis media type: other nonsuppurative Chronicity: acute Laterality: right Recurrence: non-recurrent Qualified Code(s): H65.191 - Other acute nonsuppurative otitis media, right ear Plan: Ordered Abx for seven days Acetaminophen for pain relief Ordered Debrox for Earwax Medications: New amoxicillin-pot clavulanate 875-125 mg 1 tab PO BID 7 days 14 tabs 0RF H65.191 - Other acute nonsuppurative otitis media, right ear carbamide peroxide 6.5% (Debrox) 5 drps otic (ear) left BID 7 days 15 mL 0RF H61.20 - Impacted cerumen, unspecified ear Coding Level of Care Code Est Pt Level 3 (90834) Diagnoses Other non-recurrent acute nonsuppurative otitis media of right ear H65.191 Otitis media type: other nonsuppurative Chronicity: acute Laterality: right Recurrence: non-recurrent Time Spent (min) 15
[2024-05-01 09:58] VITALS: BP 140/88; PULSE 78; TEMP 36.7; O2SAT 98; BMI 30.7
== END 2024-05-01 10:29 | disposition home or self-care (01) ==
PROVIDERS: PCP Internal Medicine; Visit Provider Nurse Practitioner Family
DX: H65.191 Other acute nonsuppurative otitis media, right ear (principal)

== ENCOUNTER 2024-05-05 08:18 | Outpatient (REF) | payer OTHER, SELFPAY ==
--- NOTE | ~2024-05-05 | US_ITS ---
CLINICAL HISTORY: N20.0 - Calculus of kidney US Renal Comparison: US/AK/SR - US RENAL BI - 04/26/23 15:45 EST Findings: Right kidney normal size and echotexture, 10.8 cm length. Left kidney normal size and echotexture, 10.5 cm length. No collecting system dilatation of either kidney. Normal color Doppler. Small focus of increased echogenicity in the left lower pole measuring up to 4 mm, has no significant shadowing or twinkle artifact, which could reflect a small nonobstructing renal calculus. IMPRESSION: No hydronephrosis. Possible 4 mm small nonobstructing left lower pole renal calculus. This document has been electronically signed by: Tiffany Ponce MD on 05/05/2024 13:08:53
--- OUTSIDE RECORDS SUMMARY | 2024-05-05 08:20 | XMS_ITS | Encounter Summary ---
Author Organization [employer] Address [address] [place] [address] [address] [place] [address] Care Team Providers Care Gill Net Stringer Name Role Phone Unavailable Primary Care Provider Unavailabl e Reason for Visit * Reason Comments Med Refill Encounter Details Date Type Department Care Team (Late st Contact Info) Description 09/23/2023 Refill [facility] [address] [place] [address] Whitley Kendall MD [address] [place] [address] Social History Tobacco Use Types Packs/Day Years Used Date Smoking Tobacco: Never Assessed Comments Unknown Sex and Gender Information Value Date Recorded Sex Assigned at Female 01/30/2022 10:15 AM EDT Legal Sex Female 10:15 AM EDT Gender Identity Female 01/30/2022 10:15 AM EDT Sexual Orientation Straight 01/30/2022 10 :15 AM EDT documented as of this encounter Plan of Treatment Not on file documented as of this encounter Visit Diagnoses Not on filedocumented in this encounter
--- OUTSIDE RECORDS SUMMARY | 2024-05-05 08:20 | XMS_ITS | Clinical Summary ---
Author Organization [employer] Address [address] [facility] [address] [place] [address] Care Team Providers Care Correspondence Section Supervisor Name Role Phone Unavailable Primary Care Provider Unavailabl e Medications flunisolide (Nasalide) 25 MCG/ACT (0.025%) solutionIndicati ons:Allergic rhinitis, unspecified seasonality, unspecified trigger SPRAY 2 SPRAYS INTO EACH NOSTRIL DOS VECES AL AISLINN CUANDO SEA NECESARIO 50 mL 1 3 Active famotidine (Pepcid) 20 MG tablet TOME HARJIT TABLETA DOS VECES AL AISLINN 180 tablet 3 Active lisinopril 40 MG tablet take 1 Tablet by Oral route 2 times every day 2 Active rosuvastatin (Crestor) 10 MG tablet TOME HARJIT TABLETA TODOS LOS PAPPAS 90 tablet 4 Active rosuvastatin (Crestor) 10 MG tablet take 1 tablet by oral route every day 2 Active Social History Tobacco Use Types Packs/Day Years Used Date Smoking Tobacco: Never Assessed Comments Unknown Sex and Gender Information Value Date Recorded Sex Assigned at Female 01/30/2022 10:15 AM EDT Legal Sex Female 10:15 AM EDT Gender Identity Female 01/30/2022 10:15 AM EDT Sexual Orientation Straight 01/30/2022 10 :15 AM EDT Last Filed Vital Signs Vital Sign Reading Time Taken Comments Blood Pressure 126/90 09/27/2021 12:06 AM EDT Pulse 84 09/27/2021 12:06 AM EDT Temperature - - Respiratory Rate - - Oxygen Saturation - - Inhaled Oxygen Concentration - - Weight 83.3 kg (183 lb 9.6 oz) 09/27/2021 12:06 AM EDT Height 158 cm (5' 2.2 ) 09/27/2021 12:06 AM EDT Body Mass Index 33.36 09/27/2021 12:06 AM EDT Plan of Treatment Health Maintenance Due Date Last Done Comments Depression Screening 1945 SDOH Screening 1945 Alcohol/Substance Use Screening 1955 Tobacco Screening 1957 Zoster Vaccines (1 of 2) 08/06/1993 RSV Patients and Patients Aged 60 years or older (1 - 1-dose 75+ series) 08/06/2018 DTaP/Tdap/Td Vaccines (2 - Td or Tdap) 10/23/2021 10/24/2011, 08/05/2003, 12/09/1997 COVID-19 Vaccine ( season) 2023 01/13/2022, 06/10/2020, 05/13/2020 Influenza Vaccine (#1) 2023 , 12/27/2020, 01/10/2020, Additional history exists Lipid Panel 01/04/2026 01/04/2021 Pneumococcal Vaccine: 50+ Years Completed 01/10/2019, 03/04/2018, 09/09/2008 HIB Vaccines Aged Out No longer eligi ble based on patient's age to complete this topic HPV Vaccines Aged Out No longer eligi ble based on patient's age to complete this topic Hepatitis A Vaccines Aged Out No long er eligible based on patient's age to complete this topic Hepatitis B Vaccines Aged Out No long er eligible based on patient's age to complete this topic IPV Vaccines Aged Out No longer eligi ble based on patient's age to complete this topic Meningococcal Vaccine Aged Out No paula carmita eligible based on patient's age to complete this topic RSV under 20 months Aged Out No longe r eligible based on patient's age to complete this topic Rotavirus Vaccines Aged Out No longer eligible based on patient's age to complete this topic Procedures Procedure Name Priority Date/Time Associated Diagnosis Comments LIPID PANEL, STANDARD Routine 01/04/2021 8:18 AM EDT from Last 3 Months or Most Recently Relevant to Health Maintenance Results * (ABNORMAL) LIPID PANEL, STANDARD (01/04/2021 8:18 AM EDT) Chol/HDLC Ratio 3.1 <5.0 (calc) [facility] Cholesterol, Total 148 <200 mg/dL [facility] HDL Cholesterol 47(L) > OR = 50 mg/dL [facility] LDL Cholesterol 66 mg/dL (calc) [facility] Comment: Reference range: <100 ?? Desirable range <100 mg/dL for primary prevention; ?? <70 mg/dL for patients with CHD or diabetic patients ?? with > or = 2 CHD risk factors. ?? LDL-C is now calculated using the Manda ?? calculation, which is a validated novel method providing ?? better accuracy than the Friedewald equation in the ?? estimation of LDL-C. ?? Jacobo HOANG et al. PRECIOUS. 2013;310(19): 8900-9879 ?? (http://madKast.[employer]/faq/VFE898) Non-HDL Cholesterol 101 <130 mg/dL (calc) [facility] Comment: For patients with diabetes plus 1 major ASCVD risk ?? factor, treating to a non-HDL-C goal of <100 mg/dL ?? (LDL-C of <70 mg/dL) is considered a therapeutic ?? option. Triglycerides 269(H) <150 mg/dL [facility] Comment: ?? If a non-fasting specimen was collected, consider repeat triglyceride testing on a fasting specimen if clinically indicated. ?? Dm et al. J. of Clin. Lipidol. 2015;9:129-169. ?? 01/04/2021 8:18 AM EDT us Connie Brito NP LAB BLOOD ORDERABLES Final Res ult [facility] [address] from Last 3 Months or Most Recently Relevant to Health Maintenance Insurance MEDICARE [facility] STANDARD
--- OUTSIDE RECORDS SUMMARY | 2024-05-05 08:20 | XMS_ITS | Encounter Summary ---
Author Organization [employer] Address [address] [place] [address] Care Team Providers Care Sales Route Driver Helper Name Role Phone Unavailable Primary Care Provider Unavailabl e Encounter Details Date Type Department Care Team (Late st Contact Info) Description 04/11/2023 Orders Only [facility] [address] [place] [address] Jenny Briggs LPN Social History Tobacco Use Types Packs/Day Years [...]
--- OUTSIDE RECORDS SUMMARY | 2024-05-05 08:20 | XMS_ITS | Encounter Summary ---
Author Organization [employer] Address [address] [place] [address] [address] [place] [address] Care Team Providers Care Home Maker Name Role Phone Unavailable Primary Care Provider Unavailabl e Reason for Visit * Reason Comments Med Refill Encounter Details Date Type Department Care Team (Late st Contact Info) Description 04/28/2023 Refill [facility] [address] [place] [address] Whitley Kendall MD [address] [place] [address] Social History Tobacco Use Types Packs/Day Years [...]
--- OUTSIDE RECORDS SUMMARY | 2024-05-05 08:21 | XMS_ITS | Encounter Summary ---
Author Organization [email or web address] [facility] Address [address] [facility] 7t [place] [address] Care Team Providers Care Chief Mate Name Role Phone Unavailable Primary Care Provider Unavailabl e Reason for Visit * Reason Comments Med Refill Encounter Details Date Type Department Care Team (Late st Contact Info) Description 03/17/2023 Refill [facility] [address] [place] [address] [place] Jessica [facility] [address] [place] [address] Social History Tobacco Use Types Packs/Day Years [...]
--- OUTSIDE RECORDS SUMMARY | 2024-05-05 08:21 | XMS_ITS ---
Author Organization [facility] Address Unknown Allergies, Adverse Reactions, Alerts Substance Reaction Status Noted Date Resolved Date Ibuprofen active 01/08/2020 Celecoxib active 01/08/2020 Problems Problem Status Start Date End Date DISPLACED FRACTURE OF GREATE R TROCHANTER OF LEFT FEMUR, SUBSEQUENT ENCOUNTER FOR CLOSED FRACTURE WITH ROUTINE HEALING (Primary) (S72.112D - ICD-10-CM) ACTIVE 01/08/2020 UNSTEADINESS ON FEET (R26.81 - ICD-10-CM) ACTIVE 01/08/2020 ESSENTIAL (PRIMARY) HYPERTENSION (I10 - ICD-10-CM) ACT DIANE 01/08/2020 TYPE 2 DIABETES MELLITUS WIT HOUT COMPLICATIONS (E11.9 - ICD-10-CM) ACTIVE 01/08/2020 GASTRO-ESOPHAGEAL REFLUX DIS EASE WITHOUT ESOPHAGITIS (K21.9 - ICD-10-CM) ACTIVE 01/08/2020 HYPERLIPIDEMIA, UNSPECIFIED (E78.5 - ICD-10-CM) ACTIVE 01/08/2020 OTHER SPECIFIED ARTHRITIS, U NSPECIFIED SITE (M13.80 - ICD-10-CM) ACTIVE 01/09/2020 UNSPECIFIED ASTHMA, UNCOMPLICATED (J45.909 - ICD-10-CM ) ACTIVE 01/09/2020 HYPERPARATHYROIDISM, UNSPECIFIED (E21.3 - ICD-10-CM) A CTIVE 01/09/2020 HEADACHE, UNSPECIFIED (R51.9 - ICD-10-CM) ACTIVE 01/09/2020 WEAKNESS (R53.1 - ICD-10-CM) ACTIVE 01/08/2020 DYSPHAGIA, OROPHARYNGEAL PHASE (R13.12 - ICD-10-CM) AC TIVE 01/08/2020 Encounters Encounter Performer Performer Role Encounter Diagnoses Location Date Discharge - [facility] - Private home/apt. with home health services [facility] 01/08/2020 02:28 pm EDT - 01/14/2020 04:20 pm EDT Immunizations Vaccine Date Influenza 01/10/2020 01:00 pm EDT TB 2 Step Mantoux Skin Test 01/09/2020 1 2:00 am EDT PCV13 (Pneumococcal Conjugate)Vaccine 12:00 am EDT Social History
--- OUTSIDE RECORDS SUMMARY | 2024-05-05 08:21 | XMS_ITS | Encounter Summary ---
Author Organization [employer] Address [address] [facility] [address] [place] [address] Care Team Providers Care Ammonia Box Operator Name Role Phone Unavailable Primary Care Provider Unavailabl e Reason for Visit * Reason Comments Med Refill Encounter Details Date Type Department Care Team (Late st Contact Info) Description 12/17/2022 Refill [facility] [address] [place] [address] Ricarda Hastings FNP [address] [place] [address] Social History Tobacco Use Types Packs/Day Years [...]
--- OUTSIDE RECORDS SUMMARY | 2024-05-05 08:21 | XMS_ITS | Encounter Summary ---
Author Organization [employer] [facility] Address [address] [facility] [address]t [place] [address] Care Team Providers Care Nibbler Operator Name Role Phone Unavailable Primary Care Provider Unavailabl e Reason for Visit * Reason Comments Med Refill Encounter Details Date Type Department Care Team (Late st Contact Info) Description 12/17/2022 Refill [facility] [address] [place] [address] [place] [facility] [address] [place] [address] Social History Tobacco Use Types Packs/Day Years [...]
--- OUTSIDE RECORDS SUMMARY | 2024-05-05 08:21 | XMS_ITS | Encounter Summary ---
Author Organization [employer] Address [address] [facility] 7t [place] [address] Care Team Providers Care Bread Distributor Name Role Phone Unavailable Primary Care Provider Unavailabl e Reason for Visit * Reason Comments Med Refill Encounter Details Date Type Department Care Team (Late st Contact Info) Description 12/17/2022 Refill [facility] [address] [place] [address] Whitley Kendall MD [address] [place] [address] Social History Tobacco Use Types Packs/Day Years [...]
== END 2024-05-05 08:19 | disposition home or self-care (01) ==
LOC: HO.US 08:18
PROVIDERS: PCP Internal Medicine; Visit Provider Nurse Practitioner Family
DX: N20.0 Calculus of kidney (principal)
CPT/HCPCS: 76775

== ENCOUNTER → 2024-05-05 08:19 | Outpatient (BNV) | payer OTHER, SELFPAY | PROVIDERS: PCP Internal Medicine; Visit Provider Radiology Diagnostic Radiology | DX: N20.0 Calculus of kidney (principal) | CPT/HCPCS: 76775 ==

== ENCOUNTER 2024-05-12 11:13 | Outpatient (AMB) | payer OTHER, SELFPAY ==
--- NOTE | 2024-05-12 11:23 | MHC.OFFVIS ---
Intake Visit Reasons: 1y/US(set) Intake Note: Patient presents for follow up on: Nephrolithiasis and ultrasound results Imaging Completed: 05/05/24 Imagin04/26/23 Urology Medications: none Blood Thinner: aspirin Biomedical Equipment Specialist Required: No Accompanied by: gibson in law Allergies ibuprofen [Ibuprofen] Allergy (Mild, Verified 05/12/24 11:51) SWELLING celecoxib [CELECOXIB] Allergy (Unknown, Verified 05/12/24 11:51) DROPS SUGAR LEVEL Medication List - Last Reconciled 05/12/24 by MARGAUX Butterfield- albuterol sulfate 90 mcg/actuation 2 puffs inhalation Q6H PRN albuterol sulfate 2.5 mg (3 mL) inhalation QID PRN 30 days amlodipine 2.5 mg See Protocol PO DAILY 30 days amoxicillin-pot clavulanate 875-125 mg tabs PO ascorbate calcium (vitamin C) 500 mg PO DAILY 90 days aspirin 81 mg PO DAILY 30 days blood sugar diagnostic (FreeStyle Lite Strips) Use 1 test strip once a day blood sugar diagnostic As directed cetirizine 5 mg (1/2 x 10 mg) PO DAILY PRN 90 days cholecalciferol (vitamin D3) 25 mcg PO DAILY 90 days famotidine 20 mg PO BID 90 days lancets As directed letrozole 2.5 mg PO DAILY lisinopril 40 mg PO DAILY 90 days metformin 850 mg PO BID 90 days metoprolol succinate ER 50 mg PO DAILY 90 days rizatriptan 10 mg PO DAILY PRN 30 days rosuvastatin 20 mg PO DAILY 90 days walker Folding Front wheeled walker HPI Comments Details: Destiney is a very pleasant 78 year old Kosovan speaking patient of Dr. Rudolph who is accompanied by her daughter at todays visit. She has a past medical history of anemia, arthritis, asthma, breast cancer, colon cancer, diabetes, elevated cholesterol, GERD, migraines, hypertension, hyperparathyroidism, and vitamin-D deficiency. She presents to the office today for follow-up of her nephrolithiasis. Recent renal imaging results reviewed with the patient and her daughter today. 05/27 bilateral kidneys are normal in size and echotexture. No collecting system dilatation of either kidney. Normal color Doppler. Small focus of increased echogenicity in the left lower pole measuring a proximally 4 mm possibly representing a small nonobstructing calculus. She denies having had any bothersome urinary issues or concerns since her last office visit here over a year ago. She denies urinary frequency, urinary urgency, incontinence, nocturia, hematuria, dysuria, foul smelling urine, changes to urinary stream, flank pain, fever, and or chills. She is happy with her current voiding parameters. She reports to be drinking plenty of water daily. In office urinalysis results reviewed with the patient today. She reports following up with walk-in clinic and is currently on antibiotic therapy for otitis media. She otherwise denies any bothersome urinary issues or concerns. [facility] Medical History Cerumen impaction Otitis media NSTEMI (non-ST elevated myocardial infarction) Acute electrocardiogram changes Otitis media, right History of colon cancer Incisional hernia Abdominal wall mass History of breast cancer Invasive ductal carcinoma of left breast Anemia Increased BMI On beta ananya at home Breast cancer Invasive ductal carcinoma of left breast Abnormality of left breast on screening mammography Multinodular thyroid Osteopenia Vitamin D deficiency Primary hyperparathyroidism Tubulovillous adenoma of colon Diabetes Asthma Hyperparathyroidism Cancer Arthritis GERD (gastroesophageal reflux disease) History of headache Elevated cholesterol HTN (hypertension) Surgical History History of cataract surgery History of thyroid surgery History of lumpectomy of left breast H/O left breast biopsy History of mammogram Status post total hip replacement, left History of exploratory laparotomy History of tubal ligation Hx of tonsillectomy Hx of cholecystectomy S/P colon resection H/O colonoscopy Family History Father No problems noted. Mother Diabetes mellitus Other No family history of cancer Social History Household Members: Significant Other Housing: House Are you a primary home care giver to a significant other at home: No Alcohol intake: never Comment: sleeping Patient Tobacco Use Status: Never used Tobacco e-Cigarette/Vaping Use: Never Used Second Hand Smoke Exposure: No Advance Directives Date on File: 08/11/02 service: No Current occupational status: unemployed Cognitive needs: No Hearing needs: No Vision needs: Yes Female Reproductive History Menstrual Age of Menarche: 13 Review of Systems Const Reports as per HPI Eyes Reports no additional complaints ENT Reports no additional complaints Card Reports as per [facility] Resp Reports as per [facility] GI Reports as per [facility] Reports as per [facility] Musc Reports no additional complaints Neuro Reports no additional complaints Psych Reports as per [facility] Endo Reports as per [facility] Physical Exam Const General: cooperative, healthy appearing, comfortable, no acute distress, well developed, alert and awake Orientation/consciousness: patient oriented x3 Limitations: no limitations HEENT Head: Yes normal to inspection, Yes normocephalic and Yes atraumatic Ears: hearing grossly normal bilaterally Eyes General: appearance normal, both eyes and all related structures Neck Neck: Yes normal visual inspection and Yes trachea midline Chest Chest palpation & inspection: normal inspection of the chest Resp Effort & Inspection: normal respiratory effort and able to speak in complete sentences Cardio Rate: regular rate GI Inspection: Yes normal to inspection General: Yes no CVA tenderness Back/Spine/Pelvis Back: no CVA tenderness Skin General skin exam: no rashes or lesions noted Neuro General: patient oriented x3 Extrem General: Yes normal to inspection Psych Appearance: grossly normal and well kempt Mental Status: mental status grossly normal Speech and movement: Normal speech and movement present and Clear speech present Affect: normal affect Attitude: cooperative Thought process: Normal thought process present Thought content: Normal thought content present Insight: Fair insight present (Psych) Judgement: Fair judgement present (Psych) Results AMB Urinalysis, Automated UA Leukoctes 0 Hari/uL Last Edit by IROCKE on 05/12/24 11:59 UA Nitrite Last Edit by IROCKE on 05/12/24 11:59 UA Urobilinogen 0.2 mg/dL Last Edit by IROCKE on 05/12/24 11:59 UA Protein 15 mg/dL Last Edit by IROCKE on 05/12/24 11:59 UA pH 6.0 Last Edit by IROCKE on 05/12/24 11:59 UA Blood 25 Elder/uL Last Edit by IROCKE on 05/12/24 11:59 UA Specific [place] 1.025 Last Edit by IROCKE on 05/12/24 11:59 UA Ketone Negative Last Edit by IROCKE on 05/12/24 11:59 UA Bilirubin 0 mg/dL Last Edit by IROCKE on 05/12/24 11:59 UA Glucose 0 mg/dL Last Edit by Merissa Nguyen on 05/12/24 11:59 Results Reviewed Results Reviewed: Laboratory Last Values Urine pH (Auto) 6.0 05/12/24 11:52 Specific [place] (Auto) 1.025 05/12/24 11:52 Urine Protein (Auto) 15 mg/dL 05/12/24 11:52 Glucose (UA)(Auto) 0 mg/dL 05/12/24 11:52 Urine Ketones (Auto) Negative 05/12/24 11:52 Urine Blood (Auto) 25 Elder/uL 05/12/24 11:52 Urine Bilirubin (Auto) 0 mg/dL 05/12/24 11:52 Urine Urobilinogen (Auto) 0.2 mg/dL 05/12/24 11:52 Leukocyte Esterase (Auto) 0 Hari/uL 05/12/24 11:52 Date of Service: 05/05/24 US Renal Comparison: US/FL/SR - US RENAL BI - 04/26/23 15:45 EST Findings: Right kidney normal size and echotexture, 10.8 cm length. Left kidney normal size and echotexture, 10.5 cm length. No collecting system dilatation of either kidney. Normal color Doppler. Small focus of increased echogenicity in the left lower pole measuring up to 4 mm, has no significant shadowing or twinkle artifact, which could reflect a small nonobstructing renal calculus. IMPRESSION: No hydronephrosis. Possible 4 mm small nonobstructing left lower pole renal calculus. Assessment & Plan Assessment & Plan (1) Renal calculi: Code(s): N20.0 - Calculus of kidney Category: Medical Plan In office urinalysis results reviewed with the patient today; as noted above. Recent renal imaging results reviewed with the patient today; as noted above. Patient currently denies any bothersome urinary issues or concerns. She reports be happy with current voiding parameters. Educated, instructed, and encouraged to continue drinking plenty of water daily. Continue adding 1 oz of lemon juice to water daily. We discussed restart a vitamin B6; however patient declines at this time. Will continue with surveillance monitoring Renal ultrasound in 1 year. Follow-up in 1 year with imaging to be completed prior; or sooner with any issues, concerns, and or questions. Orders: Orders US renal BI 1 Year N20.0 - Calculus of kidney AMB Urinalysis Automated Today Z13.9 - Encounter for screening, unspecified Patient Instructions: The patient had an opportunity to ask questions regarding the treatment plan. All questions were answered. Physical exam, labs, and imaging were discussed and reviewed in detail. As well as risks, benefits, and discussion of treatment choices. No major barriers to understanding were identified. The patient expressed understanding and agreement with the above treatment plan. The patient was made aware they should contact our office by phone for worsening of their current condition, the appearance of new symptoms, or with any questions or concerns. Compliance is encouraged with any medications and follow up testing that is ordered. It is a privilege to be allowed the opportunity to participate in? your urological care.? Again, if you have any questions or concerns If you have any questions or concerns please do not hesitate to contact me. The office is [phone]. This note is constructed using voice recognition software. While every effort has been made to ensure accuracy hotel or motel manager errors may have been included. Yours sincerely, DAVID Butterfield Coding Level of Care Code Est Pt Level 3 (47270) Complex EM visit Add On G2211 Diagnoses Renal calculi N20.0
== END 2024-05-12 11:53 | disposition home or self-care (01) ==
PROVIDERS: PCP Internal Medicine; Visit Provider Nurse Practitioner Family
DX: N20.0 Calculus of kidney (principal); Z13.9 Encounter for screening, unspecified
CPT/HCPCS: 99213; G2211

== ENCOUNTER → 2024-05-12 11:13 | Outpatient (BNVA) | payer OTHER, SELFPAY | PROVIDERS: PCP Internal Medicine; Visit Provider Nurse Practitioner Family | DX: N20.0 Calculus of kidney (principal) | CPT/HCPCS: 81003; 99212 ==

== ENCOUNTER 2024-05-29 08:26 | Outpatient (AMB) | payer OTHER, SELFPAY ==
[2024-05-29 08:28] VITALS: BP 130/72; PULSE 74; BMI 30.8
--- NOTE | 2024-05-29 08:28 | MHC.OFFVIS ---
Vital Signs 05/29/24 08:28 Height 5 ft 4 in Weight 179 lb 7.3 oz BMI 30.8 BP 130/72 Blood Pressure Location Lt brachial Position Sitting Pulse 74 Pulse Source Monitor Intake Visit Reasons: r/s 02/25/24 6 mos followup Mica Splitter Required: No Production Intern: Production Intern Present Allergies ibuprofen [Ibuprofen] Allergy (Mild, Verified 05/29/24 08:31) SWELLING celecoxib [CELECOXIB] Allergy (Unknown, Verified 05/29/24 08:31) DROPS SUGAR LEVEL Medication List - Last Reconciled 05/29/24 by MARSHALL Ruelas albuterol sulfate 90 mcg/actuation 2 puffs inhalation Q6H PRN albuterol sulfate 2.5 mg (3 mL) inhalation QID PRN 30 days amlodipine 2.5 mg See Protocol PO DAILY 30 days ascorbate calcium (vitamin C) 500 mg PO DAILY 90 days aspirin 81 mg PO DAILY 30 days blood sugar diagnostic (FreeStyle Lite Strips) Use 1 test strip once a day blood sugar diagnostic As directed cetirizine 5 mg (1/2 x 10 mg) PO DAILY PRN 90 days cholecalciferol (vitamin D3) 25 mcg PO DAILY 90 days famotidine 20 mg PO BID 90 days lancets As directed letrozole 2.5 mg PO DAILY lisinopril 40 mg PO DAILY 90 days metformin 850 mg PO BID 90 days metoprolol succinate ER 50 mg PO DAILY 90 days rizatriptan 10 mg PO DAILY PRN 30 days rosuvastatin 20 mg PO DAILY 90 days walker Folding Front wheeled walker HPI HPI r/s 02/25/24 6 mos followup: Details: Destiney is an 78-year-old female with past medical history diabetes, hypertension, hyperlipidemia who was admitted 07/2023 with increased shortness of breath, treated for asthma exacerbation, pneumonia. She was noted to have elevated troponins and suspected to have secondary NSTEMI. An echocardiogram showed normal EF. An outpatient nuclear stress test was normal. She now presents for follow-up. Today she reports that she has been doing very well since her last visit in July. She has no chest discomfort at rest or with activity. Last week she experienced some tightness in her chest when she was very anxious. This has not reoccurred. She denies having shortness of breath, PND, orthopnea or edema. No lightheadedness, presyncope, syncope, falls. She is very active throughout the day. Taking meds as directed. Daughter is present and assisting with Danish translation at their request. [facility] Medical History Cerumen impaction Otitis media NSTEMI (non-ST elevated myocardial infarction) Acute electrocardiogram changes Otitis media, right History of colon cancer Incisional hernia Abdominal wall mass History of breast cancer Invasive ductal carcinoma of left breast Anemia Increased BMI On beta ananya at home Breast cancer Invasive ductal carcinoma of left breast Abnormality of left breast on screening mammography Multinodular thyroid Osteopenia Vitamin D deficiency Primary hyperparathyroidism Tubulovillous adenoma of colon Diabetes Asthma Hyperparathyroidism Cancer Arthritis GERD (gastroesophageal reflux disease) History of headache Elevated cholesterol HTN (hypertension) Surgical History History of cataract surgery History of thyroid surgery History of lumpectomy of left breast H/O left breast biopsy History of mammogram Status post total hip replacement, left History of exploratory laparotomy History of tubal ligation Hx of tonsillectomy Hx of cholecystectomy S/P colon resection H/O colonoscopy Family History Father No problems noted. Mother Diabetes mellitus Other No family history of cancer Social History Household Members: Significant Other Housing: House Are you a primary day care aide to a significant other at home: No Alcohol intake: never Comment: sleeping Patient Tobacco Use Status: Never used Tobacco e-Cigarette/Vaping Use: Never Used Second Hand Smoke Exposure: No Advance Directives Date on File: 08/11/02 service: No Current occupational status: unemployed Cognitive needs: No Hearing needs: No Vision needs: Yes Female Reproductive History Menstrual Age of Menarche: 13 Review of Systems Const All systems reviewed & are unremarkable except as noted in HPI and below ENT Denies dizziness Card Details: tightness in chest last week when she felt anxious, stressed Denies chest pain, Denies chest pain at rest, Denies chest pain with activity, Denies rapid heart rate, Denies pedal edema, Denies edema, Denies leg edema, Denies lightheadedness, Denies palpitations, Denies dyspnea, Denies dyspnea on exertion and Denies orthopnea Resp Denies cough, Denies dyspnea and Denies dyspnea on exertion GI Denies hematochezia and Denies change in stool character Musc Denies abnormal gait, Denies limited range of motion, Denies muscle cramps, Denies muscle weakness, Denies numbness, Denies radiating pain into limb, Denies stiffness and Denies tingling Neuro Denies abnormal gait, Denies dizziness, Denies numbness and Denies tingling Endo Denies palpitations Physical Exam Vital Signs: Last Vital Signs Pulse 74 05/29/24 08:28 BP 130/72 05/29/24 08:28 BMI result Body Mass Index 30.8 Const General: cooperative, healthy appearing, comfortable and no acute distress Orientation/consciousness: patient oriented x3 Neck Neck: Yes normal visual inspection and Yes no JVD Resp Effort & Inspection: normal respiratory effort Auscultation: clear to auscultation bilaterally, no crackles, no rales, no rhonchi and no wheezes Cardio Jugular venous distension: no JVD Rate: regular rate Rhythm: regular rhythm Heart sounds: S1 normal heart sound present, S2 normal heart sound present, no murmurs and no rubs Neuro General: patient oriented x3 Extrem General: Yes normal to inspection and No no pedal edema Psych Appearance: grossly normal Mental Status: mental status grossly normal Speech and movement: Normal speech and movement present Office Procedures EKG Details: today read by me, SR, cant exclude prior anterior infarct, rate 74, QTc 426ms [id number], Complete Assessment & Plan Assessment & Plan (1) NSTEMI (non-ST elevated myocardial infarction): Code(s): I21.4 - Non-ST elevation (NSTEMI) myocardial infarction Category: Medical Plan: Secondary NSTEMI 07/2023 in setting of asthma exacerbation and pneumonia. An echocardiogram done 07/23/2023 showed EF greater than 70%, no regional wall motion abnormality. An outpatient nuclear stress test was done on 08/24/2023 showing normal myocardial perfusion imaging. She was managed medically and with risk factor modification. No angina sounding symptoms at this time. EKG done today normal sinus rhythm, can not exclude prior anterior infarct, rate 74. Signs and symptoms of angina discussed. with her advanced age she likely has some degree of coronary artery disease. Continue aspirin indefinitely. Continue rosuvastatin With ideal LDL goal less than 70. Labs done 02/04/2024 showed LDL 29. Continue metoprolol XL, amlodipine and lisinopril for good blood pressure control. Blood pressure today 130/72. Cardiology follow-up in 6 months, sooner if needed (2) HTN (hypertension): Code(s): I10 - Essential (primary) hypertension Category: Medical Qualifiers: Hypertension type: primary hypertension Qualified Code(s): I10 - Essential (primary) hypertension Plan: Normal range at this time. No med changes made. Continue amlodipine, lisinopril, metoprolol. (3) Hyperlipidemia LDL goal <70: Code(s): E78.5 - Hyperlipidemia, unspecified Category: Medical Plan: [place] LDL goal less than 70 in patient with diabetes. Continue statin therapy. (4) Diabetes: Comment: NIDDM Code(s): E11.9 - Type 2 diabetes mellitus without complications Category: Medical Qualifiers: Diabetes mellitus complication status: with hyperglycemia Diabetes mellitus personal fitness trainer insulin use: without personal fitness trainer use Diabetes mellitus type: type 2 Qualified Code(s): E11.65 - Type 2 diabetes mellitus with hyperglycemia Plan: Hemoglobin A1c goal less than 7. Followed by PCP Plan Time spent on chart review, documentation, interview and assessment Coding Level of Care Code Est Pt Level 4 (09463) Complex EM visit Add On G2211 Diagnoses NSTEMI (non-ST elevated myocardial infarction) I21.4 Primary hypertension I10 Hypertension type: primary hypertension Hyperlipidemia LDL goal <70 E78.5 Type 2 diabetes mellitus with hyperglycemia, without long-term current use of insulin E11.65 Diabetes mellitus complication status: with hyperglycemia Diabetes mellitus personal fitness trainer insulin use: without personal fitness trainer use Diabetes mellitus type: type 2 CPT Codes EKG - CPT: [id number], Complete ([id number]) Time Spent (min) 28
--- OUTSIDE RECORDS SUMMARY | 2024-05-29 08:53 | XMS_ITS | Encounter Summary ---
Author Organization [employer] Address [address] [facility] 7t [place] [address] Care Team Providers Care Apprentice Plumber Name Role Phone Unavailable Primary Care Provider Unavailabl e Reason for Visit * Reason Comments Med Refill Encounter Details Date Type Department Care Team ([facility] st Contact Info) Description 09/23/2023 Refill [facility]INE [address] [place] [address] Whitley Kendall MD [address] [place] [address] Social History Tobacco Use Types Packs/Day Years [...]
--- OUTSIDE RECORDS SUMMARY | 2024-05-29 08:53 | XMS_ITS | Encounter Summary ---
Author Organization [employer] Address [address] [facility] 7t [place] [address] Care Team Providers Care Vp Biology Name Role Phone Unavailable Primary Care Provider Unavailabl e Reason for Visit * Reason Comments Med Refill Encounter Details Date Type Department Care Team (Late st Contact Info) Description 12/17/2022 Refill [facility]INE [address] [place] [address] Ricarda Hastings FNP [address] [place] [address] Social History Tobacco Use Types Packs/Day Years [...]
--- OUTSIDE RECORDS SUMMARY | 2024-05-29 08:53 | XMS_ITS | Encounter Summary ---
Author Organization [employer] [facility] Address [address] [facility] 7t [place] [address] Care Team Providers Care Web Site Admin Name Role Phone Unavailable Primary Care Provider Unavailabl e Reason for Visit * Reason Comments Med Refill Encounter Details Date Type Department Care Team (Late st Contact Info) Description 12/17/[address] [facility]ICINE [address] [place] [address] [place] [facility] [address] [place] [address] Social History Tobacco Use Types Packs/Day Years [...]
--- OUTSIDE RECORDS SUMMARY | 2024-05-29 08:53 | XMS_ITS | Encounter Summary ---
Author Organization [employer] Address [address] [place] [address] 7[address] [place] [address] Care Team Providers Care Rn Research Name Role Phone Unavailable Primary Care Provider Unavailabl e Reason for Visit * Reason Comments Med Refill Encounter Details Date Type Department Care Team (Late st Contact Info) Description 04/28/2023 Refill [facility]INE [address] [place] [address] Whitley Kendall MD [address] [place] [address] Social History Tobacco Use Types Packs/Day Years [...]
--- OUTSIDE RECORDS SUMMARY | 2024-05-29 08:53 | XMS_ITS | Clinical Summary ---
Author Organization [employer] Address [address] [facility] [address] [place] [address] Care Team Providers Care Clinical Quality Rn Name Role Phone Unavailable Primary Care Provider [...] ?? Jacobo HOANG et al. PRECIOUS. 2013;310(19): 1790-4394 ?? ([email or web address]) Non-HDL Cholesterol 101 <130 mg/dL (calc) [facility] [...] NP LAB BLOOD ORDERABLES Final Res ult [facility] [address] from Last 3 Months or Most Recently Relevant to Health Maintenance Insurance MEDICARE [facility] [employer]
--- OUTSIDE RECORDS SUMMARY | 2024-05-29 08:53 | XMS_ITS | Encounter Summary ---
Author Organization [employer] Address [address] [facility] 7t [place] [address] Care Team Providers Care Patient Attendant Name Role Phone Unavailable Primary Care Provider Unavailabl e Reason for Visit * Reason Comments Med Refill Encounter Details Date Type Department Care Team (Late st Contact Info) Description 12/17/2022 Refill [facility] MEDICINE [address] [place] [address] Whitley Kendall MD [address] [place] [address] Social History Tobacco Use Types Packs/Day Years [...]
--- OUTSIDE RECORDS SUMMARY | 2024-05-29 08:53 | XMS_ITS | Encounter Summary ---
Author Organization [employer] Address [address] [facility] [address] [place] [address] Care Team Providers Care Ironworker Foreman Name Role Phone Unavailable Primary Care Provider Unavailabl e Encounter Details Date Type Department Care Team (Late st Contact Info) Description 04/11/2023 Orders Only [facility] MED & PEDS [address] [place] [address] Jenny Briggs LPN Social History Tobacco Use [...]
--- OUTSIDE RECORDS SUMMARY | 2024-05-29 08:53 | XMS_ITS | Encounter Summary ---
Author Organization [employer] [facility] Address [address] [facility] 7t [place] [address] Care Team Providers Care Viticulturist Name Role Phone Unavailable Primary Care Provider Unavailabl e Reason for Visit * Reason Comments Med Refill Encounter Details Date Type Department Care Team (Late st Contact Info) Description 03/17/2023 Refill [facility] MEDICINE [address] [place] [address] [place] Jessica [facility] [address] [place] [address] Social History Tobacco Use Types Packs/Day Years [...]
== END 2024-05-29 09:06 | disposition home or self-care (01) ==
PROVIDERS: PCP Internal Medicine; Visit Provider Nurse Practitioner Family
DX: I21.4 Non-ST elevation (NSTEMI) myocardial infarction (principal); I10 Essential (primary) hypertension; E78.5 Hyperlipidemia, unspecified; E11.65 Type 2 diabetes mellitus with hyperglycemia
CPT/HCPCS: 93010; 99214; G2211

== ENCOUNTER → 2024-05-29 08:26 | Outpatient (BNVA) | payer OTHER, SELFPAY | PROVIDERS: PCP Internal Medicine; Visit Provider Nurse Practitioner Family | DX: I25.2 Old myocardial infarction (principal); I10 Essential (primary) hypertension; E78.5 Hyperlipidemia, unspecified; E11.65 Type 2 diabetes mellitus with hyperglycemia; Z79.84 Long term (current) use of oral hypoglycemic drugs | CPT/HCPCS: 93005; 99212 ==

== ENCOUNTER 2024-05-30 14:52 | Outpatient (AMB) | payer OTHER, SELFPAY ==
[2024-05-30 15:26] VITALS: BP 132/64; PULSE 77; TEMP 36.2; O2SAT 97; BMI 30.9
--- NOTE | 2024-05-30 15:26 | A.OFFPC_ITS ---
Vital Signs 05/30/24 15:26 Height 5 ft 4 in Weight 180 lb BMI 30.9 BP 132/64 Blood Pressure Location Lt brachial Position Sitting Pulse 77 Pulse Source Pulse Oximeter Temp 97.1 F Temp Source Temporal Artery Scan Pulse Oximetry (%) 97 Oxygen Delivery Method Room Air Intake Visit Reasons: Ear infection Intake Note: Patient is here to follow up on Right Ear infection. Nursing Faculty Required: Yes Nursing Faculty Language: Welding Machine Assembler Name: Tyesha (sara hilton) Information Interpreted: non-clinical & clinical (pt decline supervisor instrument mechanics service prefer daughter in-law to translate) Final Dressing Cutter: Present Accompanied by: Sara hilton Allergies ibuprofen [Ibuprofen] Allergy (Mild, Verified 05/30/24 15:39) SWELLING celecoxib [CELECOXIB] Allergy (Unknown, Verified 05/30/24 15:39) DROPS SUGAR LEVEL Medication List - Last Reconciled 05/30/24 by Sandrita Núñez PA-C albuterol sulfate 90 mcg/actuation 2 puffs inhalation Q6H PRN albuterol sulfate 2.5 mg (3 mL) inhalation QID PRN 30 days amlodipine 2.5 mg See Protocol PO DAILY 30 days ascorbate calcium (vitamin C) 500 mg PO DAILY 90 days aspirin 81 mg PO DAILY 30 days blood sugar diagnostic (FreeStyle Lite Strips) Use 1 test strip once a day blood sugar diagnostic As directed cetirizine 5 mg (1/2 x 10 mg) PO DAILY PRN 90 days cholecalciferol (vitamin D3) 25 mcg PO DAILY 90 days famotidine 20 mg PO BID 90 days lancets As directed letrozole 2.5 mg PO DAILY lisinopril 40 mg PO DAILY 90 days metformin 850 mg PO BID 90 days metoprolol succinate ER 50 mg PO DAILY 90 days rizatriptan 10 mg PO DAILY PRN 30 days rosuvastatin 20 mg PO DAILY 90 days walker Folding Front wheeled walker Tobacco use date assessed: 05/30/24 Fall risk assessment: No Falls in past year Last assessed Fall Risk: 05/30/24 Dental Screening Dental Screen Date: 05/30/24 Did you have a dental visit in the last 12 months?: No Did you have a dental problem in the last 6 months where you did not have access to dental care?: No Was dental information given to patient?: No [facility] Medical History (Updated 05/30/24 @ 15:52 by Sandrita Núñez PA-C) Right-sided temporomandibular joint pain-dysfunction syndrome Cerumen impaction Otitis media NSTEMI (non-ST elevated myocardial infarction) Acute electrocardiogram changes Otitis media, right History of colon cancer Incisional hernia Abdominal wall mass History of breast cancer Invasive ductal carcinoma of left breast Anemia Increased BMI On beta ananya at home Breast cancer Invasive ductal carcinoma of left breast Abnormality of left breast on screening mammography Multinodular thyroid Osteopenia Vitamin D deficiency Primary hyperparathyroidism Tubulovillous adenoma of colon Diabetes Asthma Hyperparathyroidism Cancer Arthritis GERD (gastroesophageal reflux disease) History of headache Elevated cholesterol HTN (hypertension) Surgical History History of cataract surgery History of thyroid surgery History of lumpectomy of left breast H/O left breast biopsy History of mammogram Status post total hip replacement, left History of exploratory laparotomy History of tubal ligation Hx of tonsillectomy Hx of cholecystectomy S/P colon resection H/O colonoscopy Family History Father No problems noted. Mother Diabetes mellitus Other No family history of cancer Social History Household Members: Significant Other Housing: House Are you a primary reproductive healthcare assistant to a significant other at home: No Alcohol intake: never Comment: sleeping Patient Tobacco Use Status: Never used Tobacco e-Cigarette/Vaping Use: Never Used Second Hand Smoke Exposure: No Advance Directives Date on File: 08/11/02 service: No Current occupational status: unemployed Cognitive needs: No Hearing needs: No Vision needs: Yes (Glasses) Female Reproductive History Menstrual Age of Menarche: 13 Questionnaire PHQ-9 Over the last 2 weeks, how often have you been bothered by any of the following problems? 1. Little interest or pleasure in doing things: not at all 2. Feeling down, depressed, or hopeless: not at all 3. Trouble falling or staying asleep, or sleeping too much: not at all 4. Feeling tired or having little energy: not at all 5. Poor appetite or overeating: not at all 6. Feeling bad about yourself - or that you are a failure or have let yourself or your family down: not at all 7. Trouble concentrating on things, such as reading the newspaper or watching television: not at all 8. Moving or speaking so slowly that other people could have noticed. Or the opposite - being so fidgety or restless that you have been moving around a lot more than usual: not at all 9. Thoughts that you would be better off or of hurting yourself in some way: not at all Total score: 0 Depression Screening Interpretation: Negative Depression Screening Done: Yes 61119 - PHQ-9 Billing: Yes Source: Developed by Drs. Boyd Garcia, Danii Reeves, Ric Estes and colleagues, with an educational mary from [employer]. Thrive Questionnaire Date Thrive assessed: 05/30/24 I am a: Patient What is your living situation today?: I have a steady place to live Within the past 12 months, did the food you bought not last and you didn't have the money to get more?: Never true Within the past 12 months, did you worry whether your food would run out before you got money to buy more?: Never true Do you have trouble paying for medicines?: No Do you have trouble getting transportation to medical appointments?: No Do you have trouble paying your heating and electricity bill?: No Do you have trouble taking care of your child, family member or friend?: No Do you have trouble with day-to-day activities such as bathing, preparing meals, shopping, managing finances, etc.?: No Are you currently unemployed and looking for a job?: No Are you interested in more education?: No Please select the resources that you would like help with: None Currently or been in a relationship where the following occur: No concerns reported THRIVE Score: 0 AUDIT C Alcohol Use Questionnaire (AUDIT-C) 1. How often do you have a drink containing alcohol?: Never Total Score: 0 Score Reviewed/Action Taken: Yes LARRY-7 AMB Questionnaire LARRY-7 Date LARRY - 7 assessed: 05/30/24 Feeling nervous, anxious, or on edge: 0 = Not at all Not being able to stop or control worryin = Not at all Worrying too much about different things: 0 = Not at all Trouble relaxin = Not at all Being so restless that it is hard to sit still: 0 = Not at all Becoming easily annoyed or irritable: 0 = Not at all Feeling afraid as if something awful might happen: 0 = Not at all Total LARRY-7 score (0-4 normal; 5-9 mild; 10-14 moderate; 15-21 severe): 0 Source: Developed by Drs. Boyd Garcia, Danii Reeves, Ric Estes and colleagues, with an educational mary from [employer]. LARRY-7 Assessment Billing LARRY-7 Assessment Tool: LARRY-7 Assessment 02113 Physical exam (Primary Care) Vital Signs: Last Vital Signs Temp 97.1 F 05/30/24 15:26 Pulse 77 05/30/24 15:26 BP 132/64 05/30/24 15:26 Pulse Ox 97 05/30/24 15:26 Oxygen Delivery Method Room Air 05/30/24 15:26 BMI result Body Mass Index 30.9 Tobacco/Smoking Status: Tobacco use Status Tobacco use date assessed 05/30/24 05/30/24 15:27 Patient Tobacco Use Status Never used Tobacco 05/30/24 15:27 e-Cigarette/Vaping Use Never Used 05/30/24 15:27 PHQ-9: PHQ-9 Score PHQ-9: Total score 0 05/30/24 15:28 Depression Screening Interpretation: Negative Thrive Assessment: Date of Thrive Assessment Date Thrive assessed 05/30/24 05/30/24 15:27 Currently or been in a relationship where the following occur: No concerns reported Coding Level of Care Code Est Pt Level 3 (71348) Diagnoses Right-sided temporomandibular joint pain-dysfunction syndrome M26.621 Additional Codes PHQ-9 - 90853 - PHQ-9 Billing: Yes ([id number]) LARRY-7 Assessment Billing - LARRY-7 Assessment Tool: LARRY-7 Assessment 77181 ([id number]) Assessment & Plan Assessment & Plan (1) Right-sided temporomandibular joint pain-dysfunction syndrome: Code(s): M26.621 - Arthralgia of right temporomandibular joint Category: Medical Plan: Prescribed Skelaxin 800 mg t.i.d./p.r.n. For TMJ syndrome. She was instructed to buy a mouth guard for nighttime. To follow-up with her dentist. And to follow-up next month with Dr. Rudolph as scheduled for her diabetes follow-up. Condition is chronic and stable continue to monitor. Plan Plan The patient's Temporomandibular Joint Syndrome will be managed with a nightguard and muscle relaxant to control nocturnal teeth grinding and associated jaw tension. Claritin D is recommended to address fluid retention due to allergic symptoms, in light of her Ibuprofen allergy. A dental consultation for a custom mouthguard has been advised. The aim is to alleviate morning jaw pain and prevent unnecessary antibiotic use. Medications: New loratadine-pseudoephedrine 5-120 mg ER (Claritin-D 12 Hour) 1 tab PO Q12H 30 tabs 1RF metaxalone 800 mg PO TID 30 tabs 0RF Patient Instructions: Patient Instructions - Use the prescribed muscle relaxant at nighttime to ease jaw tension. - Purchase and use a nightguard while sleeping to prevent teeth grinding. - Start Claritin D as directed to manage sinus fluid retention. - Visit a dentist for a custom-fit mouthguard for better symptom management. - Follow up for evaluation of symptom improvement and potential adjustments to the management plan. Scribe Plan - Not visible on output: History of Present Illness The patient is an 78-year-old female presenting with chronic Right ear pain likely related to Temporomandibular Joint Syndrome. Previous antibiotic treatments have been ineffective, leading to a reassessment of her symptoms. Her ear examination reveals a healthy eardrum with no infection, though there is mild fluid collection. 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 She has an allergy to Ibuprofen, restricting certain pain management options. The patient's pain management strategy will include the use of a nightguard and muscle relaxants, optimized by Claritin D to address associated fluid buildup. Social History - Family status: Interaction present with a daughter involved in healthcare decision-making. - Noted functional decline in dental health due to teeth grinding. - Current medications: Aspirin; has a known allergy to Ibuprofen. Review of Systems - Head and Neck: Reports popping sensation in jaw area. - Oral cavity: Denies subjective ear infection symptoms, but notes pain in the morning. Physical Exam Appearance: Alert. Oriented X3. No acute distress. Head: Normal external exam. Normocephalic. Atraumatic. Eyes: Pupils are equal, round, and reactive to light. Extraocular movements intact. Conjunctiva and sclera normal. Eyelids normal. Ears: External auditory canal normal. Tympanic membranes normal. A little bit of fluid present, but not infected. Not consistent with mastoiditis. Not consistent with otitis media. Not consistent with otitis externa. No foreign bodies are noted. Throat: Pharynx normal. Uvula midline. Moist mucous membranes. Neck: Normal inspection. Neck supple. Full range of motion. No adenopathy. Thyroid Normal. No meningeal signs. No neck mass noted. Cardiovascular: Normal heart rate and rhythm. Respiratory: No respiratory distress. Painless inspiration. Back:Full range of motion noted. Skin: Skin warm and dry. Normal skin color. Normal skin turgor. No rashes/lesions/lacerations noted. Extremities: Extremities exhibit normal range of motion. Extremities nontender. Neuro: Oriented X 3. No motor deficit. No sensory deficit. Reflexes normal. TMJ syndrome suspected due to teeth grinding at night. Patient was informed and verbally consented to the use of an ambient scribe for clinic note documentation during this visit. Discussion Notes I discussed with the patient and her daughter the likely diagnosis of Temporomandibular Joint Syndrome related to nocturnal teeth grinding. We reviewed the inefficacy of antibiotics due to the absence of ear infection and emphasized TMJ management. I recommended trying a muscle relaxant at night and acquiring a mouthguard. Claritin D was prescribed to help with fluid management, and a referral to a dentist was suggested for a customized solution. The patient was informed about the avoidance of Ibuprofen due to allergies, consenting to this new management approach.
--- OUTSIDE RECORDS SUMMARY | 2024-05-30 17:04 | XMS_ITS | Encounter Summary ---
Author Organization [employer] [facility] Address [address] [facility] 7t [place] [address] Care Team Providers Care Bench Lathe Operator Name Role Phone Unavailable Primary Care Provider Unavailabl e Reason for Visit * Reason Comments Med Refill Encounter Details Date Type Department Care Team (Late st Contact Info) Description 03/17/2023 Refill [facility] MEDICINE [address] [place] [address] [place] Jessica [facility] [address] [place] [address] Social History Tobacco Use Types Packs/Day Years [...]
--- OUTSIDE RECORDS SUMMARY | 2024-05-30 17:04 | XMS_ITS | Encounter Summary ---
Author Organization [employer] [facility] Address [address] [facility] [address]t [place] [address] Care Team Providers Care Rental Agent Name Role Phone Unavailable Primary Care Provider Unavailabl e Reason for Visit * Reason Comments Med Refill Encounter Details Date Type Department Care Team (Late st Contact Info) Description 12/17/2022 Refill [facility] MEDICINE [address] [place] [address] [place] Jessica [facility] [address] [place] [address] Social History Tobacco Use Types Packs/Day Years [...]
--- OUTSIDE RECORDS SUMMARY | 2024-05-30 17:04 | XMS_ITS | Encounter Summary ---
Author Organization [employer] Address [address] [facility] [address] [place] [address] Care Team Providers Care Zipper Ironer Name Role Phone Unavailable Primary Care Provider Unavailabl e Reason for Visit * Reason Comments Med Refill Encounter Details Date Type Department Care Team (Late st Contact Info) Description 12/17/2022 Refill [facility] MEDICINE [address] [place] [address] Ricarda Hastings FNP [address] [place] [address] Social History Tobacco Use Types Packs/Day Years [...]
--- OUTSIDE RECORDS SUMMARY | 2024-05-30 17:04 | XMS_ITS | Encounter Summary ---
Author Organization [employer] Address [address] [place] [address] [address] [place] [address] Care Team Providers Care Research Worker Encyclopedia Name Role Phone Unavailable Primary Care Provider Unavailabl e Reason for Visit * Reason Comments Med Refill Encounter Details Date Type Department Care Team (Late st Contact Info) Description 04/28/2023 Refill [facility] MEDICINE [address] [place] [address] Whitley Kendall MD [address] [place] [address] Social History Tobacco Use Types Packs/Day Years [...]
--- OUTSIDE RECORDS SUMMARY | 2024-05-30 17:04 | XMS_ITS | Encounter Summary ---
Author Organization [employer] Address [address] [facility] [address]t [place] [address] Care Team Providers Care Lotus Notes Developer Name Role Phone Unavailable Primary Care Provider Unavailabl e Reason for Visit * Reason Comments Med Refill Encounter Details Date Type Department Care Team (Late st Contact Info) Description 12/17/2022 Refill [facility] MEDICINE [address] [place] [address] Whitley Kendall MD [address] [place] [address] Social History Tobacco Use Types Packs/Day Years [...]
--- OUTSIDE RECORDS SUMMARY | 2024-05-30 17:04 | XMS_ITS | Clinical Summary ---
Author Organization [employer] Address [address] [facility] 7t [place] [address] Care Team Providers Care Occupational Therapy Specialist Name Role Phone Unavailable Primary Care Provider [...] ?? Jacobo HOANG et al. PRECIOUS. 2013;310(19): 0306-7887 ?? ([email or web address]) Non-HDL Cholesterol 101 <130 mg/dL (calc) [facility]ATION [...] NP LAB BLOOD ORDERABLES Final Res ult [facility] [address] from Last 3 Months or Most Recently Relevant to Health Maintenance Insurance MEDICARE [facility] STANDARD
--- OUTSIDE RECORDS SUMMARY | 2024-05-30 17:04 | XMS_ITS | Encounter Summary ---
Author Organization [employer] Address [address] [place] [address] [address] [place] [address] Care Team Providers Care Noc Technician Name Role Phone Unavailable Primary Care Provider Unavailabl e Reason for Visit * Reason Comments Med Refill Encounter Details Date Type Department Care Team (Late st Contact Info) Description 09/23/2023 Refill [facility] MEDICINE [address] [place] [address] Whitley Kendall MD [address] [place] [address] Social History Tobacco Use Types Packs/Day Years [...]
--- OUTSIDE RECORDS SUMMARY | 2024-05-30 17:04 | XMS_ITS | Encounter Summary ---
Author Organization [employer] Address [address] [facility] [address] [place] [address] Care Team Providers Care Production Support Analyst Name Role Phone Unavailable Primary Care Provider Unavailabl e Encounter Details Date Type Department Care Team (Late st Contact Info) Description 04/11/2023 Orders Only [facility] CHC MED & PEDS [address] [place] [address] Jenny Briggs LPN Social History Tobacco Use [...]
== END 2024-05-30 15:51 | disposition home or self-care (01) ==
PROVIDERS: PCP Internal Medicine; Visit Provider Physician Assistant Medical
DX: M26.621 Arthralgia of right temporomandibular joint (principal)

== ENCOUNTER → 2024-05-30 14:52 | Outpatient (BNVA) | payer OTHER, SELFPAY | PROVIDERS: PCP Internal Medicine; Visit Provider Physician Assistant Medical | DX: M26.621 Arthralgia of right temporomandibular joint (principal) | CPT/HCPCS: 96127; 99212 ==

== ENCOUNTER 2024-06-25 09:24 | Outpatient (REF) | payer OTHER, SELFPAY ==
[2024-06-25 11:51] LABS: Creatinine Urine 52.11 mg/dL; Microalbum/Creatinine Ratio Ur 28.7 ug/mg cr (<30)
[2024-06-25 12:02] LABS: Alanine Aminotransferase 9 U/L (0-31); Alkaline Phosphatase 50 U/L (39-117); Anion Gap 12 (12-20); Aspartate Amino Transferase 21 U/L (5-31); Bilirubin Total 0.5 mg/dL (0.0-1.0); Blood Urea Nitrogen 14 mg/dL (9-16); Calcium 8.1 mg/dL (8.4-10.2); Carbon Dioxide 28 mmol/L (22-29); Chloride 104 mmol/L (96-108); Cholesterol 117 mg/dL (<200); Estimated Glomerular Filt Rate > 60; Glucose Fasting 118 mg/dL (60-99); HDL Cholesterol 48 mg/dL (>40); LDL Cholesterol Calculated 35 mg/dL (<100); Potassium 4.3 mmol/L (3.3-5.1); Sodium 140 mmol/L (135-145); Total Protein 6.6 g/dL (6.5-8.0); Triglycerides 174 mg/dL (<150); Vitamin D 25-OH Total 31.1 ng/mL (>30)
== END 2024-06-25 09:25 | disposition home or self-care (01) ==
LOC: HO.LAB 09:24
PROVIDERS: PCP Internal Medicine; Visit Provider Internal Medicine
DX: E11.65 Type 2 diabetes mellitus with hyperglycemia (principal); R80.9 Proteinuria, unspecified; E78.5 Hyperlipidemia, unspecified; E55.9 Vitamin D deficiency, unspecified
CPT/HCPCS: 36415; 80053; 80061; 82043; 82306; 82570

== ENCOUNTER 2024-06-30 09:44 | Outpatient (AMB) | payer OTHER, SELFPAY ==
--- NOTE | 2024-06-30 10:01 | A.OFFPC_ITS ---
Vital Signs 06/30/24 10:02 Height 5 ft 4 in Weight 178 lb BMI 30.6 BP 136/82 Blood Pressure Location Lt brachial Position Sitting Intake Visit Reasons: dm Intake Note: patient here for a follow up DM Carrier Packer Required: Yes Carrier Packer Language: Driver License Reviewing Officer Name: Kim Garcia MD Information Interpreted: non-clinical & clinical Accompanied by: Daughter in law Allergies ibuprofen [Ibuprofen] Allergy (Mild, Verified 06/30/24 10:24) SWELLING celecoxib [CELECOXIB] Allergy (Unknown, Verified 06/30/24 10:24) DROPS SUGAR LEVEL Medication List - Last Reconciled 06/30/24 by Kim Garcia MD albuterol sulfate 90 mcg/actuation 2 puffs inhalation Q6H PRN albuterol sulfate 2.5 mg (3 mL) inhalation QID PRN 30 days amlodipine 2.5 mg See Protocol PO DAILY 30 days ascorbate calcium (vitamin C) 500 mg PO DAILY 90 days aspirin 81 mg PO DAILY 30 days blood sugar diagnostic (FreeStyle Lite Strips) Use 1 test strip once a day blood sugar diagnostic As directed cetirizine 5 mg (1/2 x 10 mg) PO DAILY PRN 90 days cholecalciferol (vitamin D3) 25 mcg PO DAILY 90 days cyanocobalamin (vitamin B-12) 1,000 mcg sublingual DAILY 3 days famotidine 20 mg PO BID 90 days ferrous sulfate 325 mg PO DAILY lancets As directed letrozole 2.5 mg PO DAILY lisinopril 40 mg PO DAILY 90 days loratadine-pseudoephedrine 5-120 mg ER (Claritin-D 12 Hour) 1 tab PO Q12H metaxalone 800 mg PO TID metformin 850 mg PO BID 90 days metoprolol succinate ER 50 mg PO DAILY 90 days rizatriptan 10 mg PO DAILY PRN 30 days rosuvastatin 20 mg PO DAILY 90 days walker Folding Front wheeled walker Tobacco use date assessed: 05/30/24 Fall risk assessment: No Falls in past year Last assessed Fall Risk: 06/30/24 Dental Screening Dental Screen Date: 05/30/24 HPI HPI Comments History of Present Illness Details The patient is an 78-year-old female presenting with a follow-up concern for her chronic medical conditions. Her diabetes is under control with recent A1c levels at 6.2%, and hyperlipidemia is well-managed with LDL cholesterol at 35 mg/dL. Anemia is a concern with a hemoglobin level of 9.5 g/dL noted one month ago, though she denies any active bleeding. Her breast cancer management involves Letrozole as part of long-term therapy. Hypertension is effectively controlled with current medication, with recent blood pressure readings within the desired range. The patient reports arthritis-related leg pain daily. She also has history of left breast cancer, colon cancer and primary hyperparathyroidism. Hyperparathyroid will be monitor. Walks with a walker for gait stability due to chronic back pain radiating to the legs and associated with bilateral leg weakness. [facility] Medical History Right-sided temporomandibular joint pain-dysfunction syndrome Cerumen impaction Otitis media NSTEMI (non-ST elevated myocardial infarction) Acute electrocardiogram changes Otitis media, right History of colon cancer Incisional hernia Abdominal wall mass History of breast cancer Invasive ductal carcinoma of left breast Anemia Increased BMI On beta ananya at home Breast cancer Invasive ductal carcinoma of left breast Abnormality of left breast on screening mammography Multinodular thyroid Osteopenia Vitamin D deficiency Primary hyperparathyroidism Tubulovillous adenoma of colon Diabetes Asthma Hyperparathyroidism Cancer Arthritis GERD (gastroesophageal reflux disease) History of headache Elevated cholesterol HTN (hypertension) Surgical History History of cataract surgery History of thyroid surgery History of lumpectomy of left breast H/O left breast biopsy History of mammogram Status post total hip replacement, left History of exploratory laparotomy History of tubal ligation Hx of tonsillectomy Hx of cholecystectomy S/P colon resection H/O colonoscopy Family History Father No problems noted. Mother Diabetes mellitus Other No family history of cancer Social History Household Members: Significant Other Housing: House Are you a primary dialysis patient care technician to a significant other at home: No Alcohol intake: never Comment: sleeping Patient Tobacco Use Status: Never used Tobacco e-Cigarette/Vaping Use: Never Used Second Hand Smoke Exposure: No Advance Directives Date on File: 08/11/02 service: No Current occupational status: unemployed Cognitive needs: No Hearing needs: No Vision needs: Yes (Glasses) Female Reproductive History Menstrual Age of Menarche: 13 Questionnaire Thrive Questionnaire Date Thrive assessed: 05/30/24 LARRY-7 AMB Questionnaire LARRY-7 Date LARRY - 7 assessed: 05/30/24 Source: Developed by Drs. Boyd Garcia, Danii Reeves, Ric Estes and colleagues, with an educational mary from [employer]. Review of Systems Const All systems reviewed & are unremarkable except as noted in HPI and below Card Denies chest pain at rest, Denies chest pain with activity, Denies edema, Denies irregular heart rhythm, Denies claudication, Denies dyspnea, Denies dyspnea on exertion, Denies orthopnea, Denies paroxysmal nocturnal dyspnea and Denies slow heart rate Resp Denies cough, Denies dyspnea and Denies dyspnea on exertion GI Denies abdominal pain, Denies change in bowel habits, Denies excessive flatus, Denies nausea and Denies vomiting Neuro Denies lack of coordination Physical exam (Primary Care) Vital Signs: Last Vital Signs BP 136/82 06/30/24 10:02 BMI result Body Mass Index 30.6 BMI Assessment/Plan discussion: High BMI High, discussed plan: lifestyle, weight reduction, dietary and physical activity Tobacco/Smoking Status: Tobacco use Status Tobacco use date assessed 05/30/24 06/30/24 10:02 Patient Tobacco Use Status Never used Tobacco 06/30/24 10:02 e-Cigarette/Vaping Use Never Used 06/30/24 10:02 Thrive Assessment: Date of Thrive Assessment Date Thrive assessed 05/30/24 06/30/24 10:02 Resp Effort & Inspection: normal respiratory effort Auscultation: clear to auscultation bilaterally Cardio Jugular venous distension: no JVD Rate: regular rate Rhythm: regular rhythm Heart sounds: S1 normal heart sound present and S2 normal heart sound present Extrem General: Yes full ROM Results AMB Hemoglobin A1c AMB Hemoglobin A1c 6.6 % Last Edit by DARIAN Herrera on 06/30/24 10:2 0 Results Reviewed Results Reviewed: Laboratory Last Values Hgb A1c (Clinic) 6.6 % (4.0-6.0) H 06/30/24 10:00 Coding Level of Care Code Est Pt Level 4 (52739) Complex EM visit Add On G2211 Diagnoses Iron deficiency anemia D50.9 Type 2 diabetes mellitus with hyperglycemia, without long-term current use of insulin E11.65 Diabetes mellitus type: type 2 Diabetes mellitus halfway insulin use: without halfway use Diabetes mellitus complication status: with hyperglycemia Primary hypertension I10 Hypertension type: primary hypertension Hyperlipidemia LDL goal <70 E78.5 Invasive ductal carcinoma of left breast C50.912 Colon cancer C18.9 Primary hyperparathyroidism E21.0 Time Spent (min) 23 Assessment & Plan Assessment & Plan (1) Iron deficiency anemia: Code(s): D50.9 - Iron deficiency anemia, unspecified Category: Medical (2) Diabetes: Comment: NIDDM Code(s): E11.9 - Type 2 diabetes mellitus without complications Category: Medical Qualifiers: Diabetes mellitus type: type 2 Diabetes mellitus halfway insulin use: without nuclear officer use Diabetes mellitus complication status: with hyperglycemia Qualified Code(s): E11.65 - Type 2 diabetes mellitus with hyperglycemia (3) HTN (hypertension): Code(s): I10 - Essential (primary) hypertension Category: Medical Qualifiers: Hypertension type: primary hypertension Qualified Code(s): I10 - Essential (primary) hypertension (4) Hyperlipidemia LDL goal <70: Code(s): E78.5 - Hyperlipidemia, unspecified Category: Medical (5) Invasive ductal carcinoma of left breast: Code(s): C50.912 - Malignant neoplasm of unspecified site of left female breast Category: Medical (6) Colon cancer: Code(s): C18.9 - Malignant neoplasm of colon, unspecified Category: Medical (7) Primary hyperparathyroidism: Code(s): E21.0 - Primary hyperparathyroidism Category: Medical Plan The patient's diabetes and hyperlipidemia are well-controlled, with management continuing as is. Her anemia warrants further monitoring, considering no apparent source for bleeding. The Letrozole regimen for breast cancer management will persist. Hypertension is effectively managed with Lisinopril, and this therapy will continue. The daily arthritis pain reported requires acknowledgment, though direct interventions were not extensively discussed in this visit. Follow-up is planned with labs scheduled for August to reassess her conditions. Patient was informed and verbally consented to the use of an ambient scribe for clinic note documentation during this visit. I discussed the management of diabetes, hyperlipidemia, anemia, breast cancer, hypertension, and arthritis with the patient. For diabetes and hyperlipidemia, I highlighted the patient's excellent control as evidenced by recent laboratory results. The importance of continued Letrozole therapy for breast cancer was emphasized. I informed the patient of the need to monitor her anemia and explained that no immediate signs of bleeding were observed. We reviewed her hypertension management, noting its current stability with Lisinopril. Arthritis-related leg pain was noted, and I encouraged monitoring and potentially exploring pain management options during future visits. We agreed on follow-up laboratory tests to happen in August, at which time we will reassess the patient's treatment plan as needed. Orders: Orders Lipid Panel 4 Months E78.5 - Hyperlipidemia, unspecified Microalbumin, Random (w Creat) 4 Months R80.9 - Proteinuria, unspecified Phosphorus 4 Months E21.0 - Primary hyperparathyroidism Calcium, Random Urine 4 Months E21.0 - Primary hyperparathyroidism AMB Hemoglobin A1c Today E11.65 - Type 2 diabetes mellitus with hyperglycemia Vitamin D 25-OH Total 4 Months E55.9 - Vitamin D deficiency, unspecified Vitamin B12 and Folate 4 Months E53.8 - Deficiency of other specified B group vitamins Comprehensive Edwards. Panel Fast 4 Months E11.65 - Type 2 diabetes mellitus with hyperglycemia Parathyroid Hormone Intact 4 Months E21.0 - Primary hyperparathyroidism Calcium, Ionized 4 Months E21.0 - Primary hyperparathyroidism Patient Instructions: - Continue current diabetes and hyperlipidemia medications without changes. - Attend follow-up laboratory testing in August as scheduled. - Maintain Letrozole therapy as prescribed for breast cancer treatment. - Continue daily Lisinopril for hypertension and monitor blood pressure at home if possible. - Take Famotidine separately from iron supplements to ensure proper absorption. - Report any signs of bleeding or unusual symptoms immediately. - Schedule a follow-up appointment as advised if needed earlier.
[2024-06-30 10:02] VITALS: BP 136/82; BMI 30.6
== END 2024-06-30 10:34 | disposition home or self-care (01) ==
LOC: HO.HMCH 09:44
PROVIDERS: PCP Internal Medicine; Visit Provider Internal Medicine
DX: E11.65 Type 2 diabetes mellitus with hyperglycemia (principal); C50.912 Malignant neoplasm of unspecified site of left female breast; C18.9 Malignant neoplasm of colon, unspecified; E21.0 Primary hyperparathyroidism; D50.9 Iron deficiency anemia, unspecified; I10 Essential (primary) hypertension; E78.5 Hyperlipidemia, unspecified

== ENCOUNTER → 2024-06-30 09:44 | Outpatient (BNVA) | payer OTHER, SELFPAY | PROVIDERS: PCP Internal Medicine; Visit Provider Internal Medicine | DX: E11.65 Type 2 diabetes mellitus with hyperglycemia (principal); D50.9 Iron deficiency anemia, unspecified; I10 Essential (primary) hypertension; E78.5 Hyperlipidemia, unspecified; C50.912 Malignant neoplasm of unspecified site of left female breast; C18.9 Malignant neoplasm of colon, unspecified; E21.0 Primary hyperparathyroidism | CPT/HCPCS: 83036; 99212 ==

== ENCOUNTER 2024-08-27 11:41 | Outpatient (REF) | payer OTHER, SELFPAY ==
--- OUTSIDE RECORDS SUMMARY | 2024-08-27 12:33 | XMS_ITS | Clinical Summary ---
Author Organization [employer] Address [address] [place] [address] Care Team Providers Care Foundry Hand Name Role Phone Unavailable Primary Care Provider [...] patient's age to complete this topic Meningococcal B Vaccine Aged Out No l onger eligible based on patient's age to complete [...] ?? Jacobo HOANG et al. PRECIOUS. 2013;310(19): 4420-4506 ?? ([email or web address]) Non-HDL Cholesterol 101 <130 mg/dL (calc) [facility]ATION [...] NP LAB BLOOD ORDERABLES Final Res ult [facility] [address] from Last 3 Months or Most Recently Relevant to Health Maintenance Insurance MEDICARE [facility] STANDARD
== END 2024-08-27 11:42 | disposition home or self-care (01) ==
LOC: HO.MAMMO 11:41
PROVIDERS: Visit Provider Internal Medicine
DX: Z12.31 Encounter for screening mammogram for malignant neoplasm of breast (principal)
CPT/HCPCS: 77063; 77067

== ENCOUNTER → 2024-08-27 11:45 | Outpatient (BNV) | payer OTHER, SELFPAY | PROVIDERS: Visit Provider Internal Medicine | DX: Z12.31 Encounter for screening mammogram for malignant neoplasm of breast (principal) | CPT/HCPCS: 77063; 77067 ==

== ENCOUNTER 2024-08-28 07:49 | Emergency (ER) | payer OTHER, SELFPAY ==
--- NOTE | ~2024-08-28 | XR_ITS ---
EXAMINATION: XR CHEST CLINICAL INFORMATION: cough COMPARISON: None available. TECHNIQUE: 2 views of the chest were obtained. FINDINGS: The cardiac, hilar, and mediastinal contours are normal. Lungs demonstrate subtle opacity right middle lobe. Lungs otherwise grossly clear. There is no pneumothorax or pleural effusion. There is no focal osseous or soft tissue abnormality. Mild spinal degenerative changes present. There are cholecystectomy clips present. XR/XR chest 2V IMPRESSION: Subtle right middle lobe opacity, could represent bronchopneumonia in the appropriate clinical setting. Electronically signed by: Alexander Real MD 08/28/2024 08:37 AM EDT
[2024-08-28 08:00] VITALS: BP 166/69; PULSE 82; RESP 16; TEMP 36.3; O2SAT 98; BMI 30.3
--- NOTE | 2024-08-28 08:21 | ED_ITS ---
HPI - General Adult General Chief complaint: General Medical Stated complaint: body pain Time Seen by Provider: 08/28/24 08:11 Source: patient, family (patient's daughter in law) and bag sorter (all interactions with this patient were facilitated with an [facility] therapy technician) Mode of arrival: ambulatory Limitations: language barrier (all interactions with this patient were facilitated with an [facility] therapy technician) History of Present Illness ED Provider: Tory Don PA-C HPI narrative: Patient is an 79 year old assigned female at with a history of HTN, DM, HLD, hyperparathyroidism, and colon cancer presenting to the emergency department today with fever, body aches, headache, bilateral ear pain, right lower eye lid swelling, nausea, and a cough. Patient states that over the last day she has had multiple symptoms and is feeling generally unwell. Patient denies any dizziness, lightheadedness, abdominal pain, vomiting, chills, blurry vision, double vision, loss of vision, chest pain, difficulty breathing, shortness of breath, back pain, night sweats, pain with urination, increased urinary frequency, increased urinary urgency, blood in her urine or stool, syncope or a near syncopal episode, recent trauma or falls, bowel incontinence, bladder incontinence, or any other complaints at this time. Onset (ago): day(s) (1) Relieving factors: none Exacerbating factors: none Associated symptoms: cough, fever/chills, headaches and nausea/vomiting Treatments prior to arrival: none Related Data Home Medications ?Medication ?Instructions ?Recorded ?Confirmed blood sugar diagnostic #10 ea 03/17/20 06/30/24 lancets 28 gauge #100 ea 03/17/20 06/30/24 albuterol sulfate 90 mcg/actuation 2 puff inhalation Q6H PRN 07/22/23 06/30/24 aerosol inhaler shortness of breath or wheezing Previous Rx's ?Medication ?Instructions ?Recorded walker #1 ea 01/02/20 cholecalciferol (vitamin D3) 25 25 mcg PO DAILY 90 days #90 caps 04/28/23 mcg (1,000 unit) capsule amlodipine 2.5 mg tablet 2.5 mg PO DAILY 30 days #30 tabs 07/24/23 aspirin 81 mg tablet,delayed 81 mg PO DAILY 30 days #30 tabs 07/24/23 release cetirizine 10 mg tablet 5 mg (1/2 x 10 mg) PO DAILY PRN 08/29/23 Allergic Symptoms 90 days #90 tabs blood sugar diagnostic (FreeStyle #100 ea 09/10/23 Lite Strips) rizatriptan 10 mg tablet 10 mg PO DAILY PRN Migraine 02/17/24 Headache 30 days #9 tabs letrozole 2.5 mg tablet 2.5 mg PO DAILY #90 tabs 02/18/24 albuterol sulfate 2.5 mg/3 mL 2.5 mg (3 mL) inhalation QID PRN 05/21/24 (0.083 %) solution for nebulization shortness of breath or wheezing 30 days #75 mL ascorbate calcium (vitamin C) 500 500 mg PO DAILY 90 days #90 tabs 05/21/24 mg tablet lisinopril 40 mg tablet 40 mg PO DAILY 90 days #90 tabs 05/21/24 metformin 850 mg tablet 850 mg PO BID 90 days #180 tabs 05/21/24 metoprolol succinate 50 mg 50 mg PO DAILY 90 days #90 tabs 05/21/24 tablet,extended release 24 hr loratadine 5 mg-pseudoephedrine ER 1 tab PO Q12H #30 tabs 05/30/24 120 mg tablet,extended release,12hr (Claritin-D 12 Hour) metaxalone 800 mg tablet 800 mg PO TID #30 tabs 05/30/24 cyanocobalamin (vitamin B-12) 1,000 mcg sublingual DAILY 3 days 06/06/24 1,000 mcg sublingual lozenge #90 ea ferrous sulfate 325 mg (65 mg 325 mg PO DAILY #30 tabs 06/06/24 iron) tablet famotidine 20 mg tablet 20 mg PO BID 90 days #180 tabs 08/21/24 rosuvastatin 20 mg tablet 20 mg PO DAILY 90 days #90 tabs 08/21/24 amoxicillin 875 mg-potassium 1 tab PO BID 7 days #14 tabs 08/28/24 clavulanate 125 mg tablet doxycycline hyclate 100 mg tablet 100 mg PO BID 7 days #14 tabs 08/28/24 Allergies Allergy/AdvReac Type Severity Reaction Status Date / Time ibuprofen [Ibuprofen] Allergy Mild SWELLING Verified 08/28/24 08:00 celecoxib [CELECOXIB] Allergy Unknown DROPS Verified 08/28/24 08:00 SUGAR LEVEL Review of Systems Constitutional: Constitutional: Reports no additional constitutional complaints, Reports body ache(s), Denies chills, Reports fever(s), Reports headache(s) and Denies night sweats Eyes: Eyes: Reports no additional eye complaints, Denies blurry vision, Denies change in vision, Denies diplopia, Denies eye discharge, Denies loss of vision and Denies eye pain Comments: right lower eye lid swelling ENT: Denies dizziness and Reports headache(s) Comments: bilateral ear pain Cardiovascular: Cardiovascular: Reports no additional cardiovascular complaints, Denies chest pain, Denies lightheadedness, Denies Loss of Consciousness and Denies dyspnea Respiratory: Respiratory: Reports no additional respiratory complaints, Reports cough and Denies dyspnea Gastrointestinal: Gastrointestinal: Reports no additional gastrointestinal complaints, Denies abdominal pain, Denies melena, Denies hematochezia, Denies change in bowel habits, Denies change in stool character, Reports nausea and Denies vomiting Genitourinary: Genitourinary: Denies hematuria, Denies urinary frequency, Denies dysuria, Denies urinary incontinence, Denies urinary hesitancy and Denies urinary urgency Musculoskeletal: Musculoskeletal: Reports no additional musculoskeletal complaints, Denies numbness and Denies tingling Neurologic: Denies dizziness, Reports headache(s), Denies loss of vision, Denies numbness and Denies tingling Psychiatric: Psychiatric: Reports no additional psychiatric complaints Endocrine: Endocrine: Reports no additional endocrine complaints Hematologic/Lymphatic: Hematologic/Lymphatic: Reports no additional hematologic/lymphatic complaints Allergic/Immunologic: Allergic/Immunologic: Reports no additional allergic/immunologic complaints [facility] Past Medical History Attestation statement: The following information was validated with the patient. (all information validated with the patient's [id number]) Source: old records reviewed, obtained from family (patient's [id number] provided additional history and confirmed the history provided by the patient.) and nursing notes reviewed Medical History Right-sided temporomandibular joint pain-dysfunction syndrome Cerumen impaction Otitis media NSTEMI (non-ST elevated myocardial infarction) Acute electrocardiogram changes Otitis media, right History of colon cancer Incisional hernia Abdominal wall mass History of breast cancer Invasive ductal carcinoma of left breast Anemia Increased BMI On beta ananya at home Breast cancer Invasive ductal carcinoma of left breast Abnormality of left breast on screening mammography Multinodular thyroid Osteopenia Vitamin D deficiency Primary hyperparathyroidism Tubulovillous adenoma of colon Diabetes Asthma Hyperparathyroidism Cancer Arthritis GERD (gastroesophageal reflux disease) History of headache Elevated cholesterol HTN (hypertension) Surgical History History of cataract surgery History of thyroid surgery History of lumpectomy of left breast H/O left breast biopsy History of mammogram Status post total hip replacement, left History of exploratory laparotomy History of tubal ligation Hx of tonsillectomy Hx of cholecystectomy S/P colon resection H/O colonoscopy Family History Family History Father No problems noted. Mother Diabetes mellitus Other No family history of cancer Social History Social History Household Members: Significant Other Housing: House Are you a primary pet care attendant to a significant other at home: No Alcohol intake: never Comment: sleeping Patient Tobacco Use Status: Never used Tobacco e-Cigarette/Vaping Use: Never Used Second Hand Smoke Exposure: No Advance Directives: No Advance Directives Information Provided: Yes Advance Directives Date on File: 08/11/02 service: No Current occupational status: unemployed Cognitive needs: No Hearing needs: No Vision needs: Yes (Glasses) Physical Exam ED Vital Signs: Vital Signs - 24 hr 08/28/24 08:00 Temperature 97.3 F Pulse Rate 82 Respiratory Rate 16 Blood Pressure 166/69 H Pulse Oximetry 98 Oxygen Delivery Method Room Air BMI result Body Mass Index 30.3 Const General: cooperative, no acute distress, alert and awake Nutritional Appearance: well nourished Orientation/consciousness: patient oriented x3 HENMT Head: Yes normal to inspection and Yes atraumatic Ears: hearing grossly normal bilaterally and external ears normal General nose exam: Normal external nose present, no nasal discharge noted and no epistaxis Face and sinus: Yes normal facial exam, No abrasion and No laceration Mouth: Normal oral and palatal mucosa present, no drooling and no muffled voice Eyes General: appearance normal, both eyes and all related structures Periorbital: periorbital findings normal Eyelids: Yes eyelids normal Conjunctivae: conjunctivae normal Pupils: Equal, round and reactive pupils present EOM: EOMs intact bilaterally Neck Neck: Yes normal visual inspection, Yes full ROM and Yes no lymphadenopathy Resp Effort & Inspection: normal respiratory effort and able to speak in complete sentences Neuro General: patient oriented x3, moves all extremities and CN's II-XI intact bilaterally Cranial nerves: Yes Equal, round and reactive pupils present Cognition (Neuro): normal cognition Extrem General: Yes normal to inspection, Yes full ROM and Yes capillary refill normal Psych Appearance: grossly normal Mental Status: mental status grossly normal Affect: normal affect Attitude: cooperative Thought process: Normal thought process present Thought content: Normal thought content present Insight: Good insight present (Psych) Medical Decision Making Medical Decision Making MDM Narrative: Patient is an 79 year old assigned female at with a history of HTN, DM, HLD, hyperparathyroidism, and colon cancer presenting to the emergency department today with fever, body aches, headache, bilateral ear pain, right lower eye lid swelling, nausea, and a cough. Patient's physical exam was unremarkable. I did not appreciate the right lower eye lid swelling the patient was concerned about. Patient non-toxic and well appearing. Patient's COVD-19, influenza, RSV, and strep test were negative. Patient's chest x-ray showed evidence of a right sided pneumonia. Patient's clinical presentation is most consistent with a sinusitis and pneumonia. I explained my physical exam findings as well as all test results to the patient and the patient's [id number]. I answered all questions asked by the patient and the patient's [id number]. I stressed the importance of the patient taking her medication as directed (either prescribed or as the over the counter packaging recommends). I stressed the importance of the patient following up with her primary care provider. I stressed the importance of the patient returning to the emergency department immediately if her symptoms were to worsen or if she were to develop any dizziness, shortness of breath, difficulty breathing, chest pain, blurry vision, loss of vision, nausea, vomiting, abdominal pain, fever, chills, back pain, or any other complaints. Patient and the patient's [id number] verbalized agre ement and understanding with this treatment plan and discharge. Differential Diagnosis Differential Diagnoses: The differential diagnosis associated with the presentation includes Pneumonia Viral illness COVID-19 Influenza RSV Strep pharyngitis Sinusitis Admission/Observation Consideration of admission/observation: Escalation of care including admission/observation considered Patient would have been admitted to the hospital had her work up had any find ings where hospital admission was appropriate and her clinical presentation warranted hospital admission. Lab Data [facility] Lab Attestation statement: I reviewed the patient's lab results. My interpretation of these results are in the [facility] Rationale portion of this note. Labs: Lab Results 08/28/24 Range/Units 08:11 Influenza Type A (PCR) NEGATIVE (Negative) Influenza Type B (PCR) NEGATIVE (Negative) RSV RNA Qual (PCR) NEGATIVE (Negative) SARS-CoV-2 RNA (RT-PCR) NEGATIVE (Negative) S. pyogenes GrpA RADHA Negative (Negative) Independent Interpretation I performed an independent interpretation of an: Plain X-Ray (Chest) Interpretation: My interpretation is in agreement with the radiologist's impression of this imaging study. EXAMINATION: XR CHEST CLINICAL INFORMATION: cough COMPARISON: None available. TECHNIQUE: 2 views of the chest were obtained. FINDINGS: The cardiac, hilar, and mediastinal contours are normal. Lungs demonstrate subtle opacity right middle lobe. Lungs otherwise grossly clear. There is no pneumothorax or pleural effusion. There is no focal osseous or soft tissue abnormality. Mild spinal degenerative changes present. There are cholecystectomy clips present. XR/XR chest 2V IMPRESSION: Subtle right middle lobe opacity, could represent bronchopneumonia in the appropriate clinical setting. Electronically signed by: Alexander Real MD 08/28/2024 08:37 AM EDT Dictated By: Alexander Real MD Signed By: Electronically signed by Alexander Real MD 08/28/24 0837 Radiology Impression Discussion of test interpretation with radiology: I have reviewed the radio logist's reading. Independent Historian Clinical information obtained from an independent historian. History obtained from or confirmed by: Other (patient's [id number] provided additional history and confirmed the history provided by the patient.) Prescription Management I considered prescription management with: Antibiotic (patient prescribed antibiotics for community acquired pneumonia and sinusitis) Chronic Conditions Patient?s care impacted by: Diabetes and Hypertension Discharge Plan Discharge Clinical Impression: Pneumonia, Sinusitis Patient Disposition: Home, Self-Care Instructions: Sinusitis (ED), Community Acquired Pneumonia (DC) Additional Instructions: Stay out of direct sunlight while on the medication I have prescribed you. Your x-ray and examination today showed evidence of pneumonia as well as sinusitis (a sinus infection). Take your antibiotic as prescribed. Follow up with your primary care provider. Return to the emergency department immediately if your symptoms worsen or if you develop any dizziness, shortness of breath, difficulty breathing, chest pain, blurry vision, loss of vision, nausea, vomiting, abdominal pain, fever, chills, back pain, or any other complaints. Mant?ngase alejado rashawn solar directa mientras est? tomando el medicamento que le he recetado. De Jesus radiograf?a y examen de hoy mostraron evidencia de neumon?a y sinusitis (infecci?n sinusal). [place] el antibi?thuy seg?n lo prescrito.Richard?seguimiento?con de jesus m?dico de atenci?n primaria. Acuda inmediatamente al servicio de urgencias si bettina s?ntomas empeoran o si presenta falta de aliento, dificultad para respirar, dolor tor?cico, mareos, aturdimiento, dolor de espalda, dolor abdominal, fiebre, escalofr?os o cualquier otro s?ntoma. Please see the information below about our Patient Portal. If you are not yet enrolled in the [facility] Patient Portal, you will receive an enrollment email invitation following your visit to any [facility] setting. You may also self-enroll in the Patient Portal by visiting our website: [email or web address] The following information is required to access the Patient Portal: - Your [facility] Medical Record Number - Your personal home email address (must match what is in your electronic medical record, Registration staff can assist with this) - Name - Date of Capabilities of the Patient Portal: - Message some providers - View upcoming appointments - Access your health summary, medical history, and visit history - View current conditions and allergies - View procedure and lab results - View your medications, including guidelines, side effects, and precautions - Complete pre-appointment questionnaires requested by your provider - Ready summary reports of your office visits and procedures To access the Patient Portal Mobile Shani, follow these directions: - Search [employer] in the Shani Store or [employer] Store - Download the Shani - Search for [facility] - Enter your login/password Portal del paciente Si usted no esta inscrito en el portal de pacientes de [facility], recibira beatrice invitacion de inscripcion despues de de jesus visita al [facility] o al [facility] via correo electronico. Tambien puede inscribirse voluntariamente en el portal de pacientes visitando nuestra pagina web: [email or web address] La siguiente informacion sera requerida para acceder al portal: - De Jesus madelyn de historia medica de [facility] - De Jesus direccion de correo electronico personal - Nombre - Fecha de nacimiento Capacidades: Las siguientes capacidades estan disponibles en el portal de pacientes: - Enviar mensajes a algunos doctores - Verificar proximas citas - Acceso a de jesus historial de day, registro medico e historial de visitas - Maryjane las condiciones actuales y alergias maryjane procedimientos y resultados del laboratorio - Maryjane bettina medicamentos, incluyendo las pautas - Efectos secundarios y precauciones - Completar o llenar formularios / cuestionarios de - Citas solicitadas por de jesus doctor - Leer los resumenes de reportes medicos de bettina visitas y procedimientos [employer]hire acceder a la aplicacion movil: - [employer] en la Shani Store o Google Play Store - Descargue la aplicacion - [facility] - Ingrese de jesus nombre de usuario / Contrasena Prescriptions: New doxycycline hyclate 100 mg tablet 100 mg PO BID 7 Days Qty: 14 0RF amoxicillin-pot clavulanate 875-125 mg tablet 1 tab PO BID 7 Days Qty: 14 0RF No Action cholecalciferol (vitamin D3) 25 mcg (1,000 unit) capsule 25 mcg PO DAILY 90 Days Qty: 90 1RF cetirizine 10 mg tablet 5 mg PO DAILY PRN (Reason: Allergic Symptoms) 90 Days Qty: 90 3RF rizatriptan 10 mg tablet 10 mg PO DAILY PRN (Reason: Migraine Headache) 30 Days Qty: 9 0RF metformin 850 mg tablet 850 mg PO BID 90 Days Qty: 180 1RF albuterol sulfate 2.5 mg /3 mL (0.083 %) solution for nebulization 2.5 mg inhalation QID PRN (Reason: shortness of breath or wheezing) 30 Days Qty: 75 2RF lisinopril 40 mg tablet 40 mg PO DAILY 90 Days Qty: 90 1RF metoprolol succinate 50 mg tablet extended release 24 hr 50 mg PO DAILY 90 Days Qty: 90 1RF ascorbate calcium (vitamin C) 500 mg tablet 500 mg PO DAILY 90 Days Qty: 90 1RF rosuvastatin 20 mg tablet 20 mg PO DAILY 90 Days Qty: 90 1RF famotidine 20 mg tablet 20 mg PO BID 90 Days Qty: 180 1RF letrozole 2.5 mg Tablet 2.5 mg PO DAILY Qty: 90 3RF cyanocobalamin (vitamin B-12) 1,000 mcg Lozenge 1,000 mcg SUBLINGUAL DAILY 3 Days Qty: 90 1RF ferrous sulfate 325 mg (65 mg iron) Tablet 325 mg PO DAILY Qty: 30 2RF Rx Instructions: Take with Vitamin C albuterol sulfate 90 mcg/actuation HFA aerosol inhaler 2 puff inhalation Q6H PRN (Reason: shortness of breath or wheezing) amlodipine 2.5 mg Tablet 2.5 mg PO DAILY 30 Days Qty: 30 0RF Protocol: Hold for SBP< HOLD for SBP < : 90 aspirin 81 mg Tablet,Delayed Release (Dr/Ec) 81 mg PO DAILY 30 Days Qty: 30 0RF (DME) FreeStyle Lite Strips Strip See Rx Instructions .Route Qty: 100 3RF Rx Instructions: Use 1 test strip once a day (DME) walker Misc See Rx Instructions .ROUTE .MEDSUPPLY Qty: 1 0RF Rx Instructions: Folding Front wheeled walker (DME) blood sugar diagnostic Strip See Rx Instructions Not Applicable ONCE Qty: 10 Rx Instructions: As directed (DME) lancets 28 gauge misc See Rx Instructions .ROUTE BID Qty: 100 Rx Instructions: As directed metaxalone 800 mg tablet 800 mg PO TID Qty: 30 0RF Claritin-D 12 Hour 5-120 mg tablet extended release 12 hr 1 tab PO Q12H Qty: 30 1RF Referrals: Kim Quintero MD [Primary Care Provider] - Print Language: Arabic
[2024-08-28 08:22] LABS: IDNOW Serial# 55D5AD1C; Strep A Nucleic Acid Negative (Negative)
--- OUTSIDE RECORDS SUMMARY | 2024-08-28 08:38 | XMS_ITS | Clinical Summary ---
Author Organization [employer] Address [address] [place] [address] Care Team Providers Care Subway Operator Name Role Phone Unavailable Primary Care [...] ?? Jacobo HOANG et al. PRECIOUS. 2013;310(19): 1616-8849 ?? ([email or web address]) Non-HDL Cholesterol 101 <130 mg/dL (calc) FOUNDATION [...] LAB BLOOD ORDERABLES Final Res ult [facility] [address] from Last 3 Months or Most Recently Relevant to Health Maintenance Insurance MEDICARE [facility] [employer]
--- NOTE | 2024-08-28 08:39 | PC.NURSE ---
Patient presents with c/o generalized body aches, TAYLOR since last night and right ear pain for the past several months. Alert and oriented, primarily setswana speaking. Lungs clear bilat. Respirations even and non-labored. Abdomen soft, distended, non-tender with positive bowel sounds. Positive pedal pulses with no edema noted. Medical History Right-sided temporomandibular joint pain-dysfunction syndrome Cerumen impaction Otitis media NSTEMI (non-ST elevated myocardial infarction) Acute electrocardiogram changes Otitis media, right History of colon cancer Incisional hernia Abdominal wall mass History of breast cancer Invasive ductal carcinoma of left breast Anemia Increased BMI On beta ananya at home Breast cancer Invasive ductal carcinoma of left breast Abnormality of left breast on screening mammography Multinodular thyroid Osteopenia Vitamin D deficiency Primary hyperparathyroidism Tubulovillous adenoma of colon Diabetes Asthma Hyperparathyroidism Cancer Arthritis GERD (gastroesophageal reflux disease) History of headache Elevated cholesterol HTN (hypertensio
[2024-08-28 08:50] LABS: Influenza A PCR NEGATIVE (Negative); Influenza B PCR NEGATIVE (Negative); Resp Syncy Virus RNA Qual PCR NEGATIVE (Negative); SARS COV2 PCR INHOUSE NEGATIVE (Negative)
[2024-08-28 09:45] VITALS: BP 166/69; PULSE 82; RESP 16; TEMP 36.3; O2SAT 98
== END 2024-08-28 09:46 | disposition home or self-care (01) ==
PROVIDERS: Emergency Provider Emergency Medicine Emergency Medical Services; PCP Internal Medicine
DX: J18.9 Pneumonia, unspecified organism (principal); J32.9 Chronic sinusitis, unspecified; M79.10 Myalgia, unspecified site; R05.9 Cough, unspecified; I10 Essential (primary) hypertension; R50.9 Fever, unspecified; Z03.818 Encounter for observation for suspected exposure to other biological agents ruled out
CPT/HCPCS: 0241U; 71046; 87651; 99283; 99284

== ENCOUNTER → 2024-08-28 08:21 | Outpatient (BNV) | payer OTHER, SELFPAY | PROVIDERS: Emergency Provider Emergency Medicine Emergency Medical Services; PCP Internal Medicine; Visit Provider Radiology Diagnostic Radiology | DX: R91.8 Other nonspecific abnormal finding of lung field (principal) | CPT/HCPCS: 71046 ==

== ENCOUNTER 2024-09-08 13:11 | Outpatient (AMB) | payer OTHER, SELFPAY ==
--- NOTE | 2024-09-08 13:18 | A.OFFPC_ITS ---
Vital Signs 09/08/24 13:20 Height 5 ft 4 in Weight 176 lb BMI 30.2 BP 122/80 Blood Pressure Location Lt brachial Position Sitting Intake Visit Reasons: ED/[facility]MC/Pneumonia 08/29/24 Makeup Editor Required: No Accompanied by: daughter in law Allergies ibuprofen [Ibuprofen] Allergy (Mild, Verified 09/08/24 13:44) SWELLING celecoxib [CELECOXIB] Allergy (Unknown, Verified 09/08/24 13:44) DROPS SUGAR LEVEL Medication List - Last Reconciled 09/08/24 by Kim Gracia MD albuterol sulfate 90 mcg/actuation 2 puffs inhalation Q6H PRN albuterol sulfate 2.5 mg (3 mL) inhalation QID PRN 30 days amlodipine 2.5 mg See Protocol PO DAILY 30 days ascorbate calcium (vitamin C) 500 mg PO DAILY 90 days aspirin 81 mg PO DAILY 30 days blood sugar diagnostic (FreeStyle Lite Strips) Use 1 test strip once a day blood sugar diagnostic As directed cetirizine 5 mg (1/2 x 10 mg) PO DAILY PRN 90 days cholecalciferol (vitamin D3) 25 mcg PO DAILY 90 days cyanocobalamin (vitamin B-12) 1,000 mcg sublingual DAILY 3 days famotidine 20 mg PO BID 90 days ferrous sulfate 325 mg PO DAILY lancets As directed letrozole 2.5 mg PO DAILY lisinopril 40 mg PO DAILY 90 days loratadine-pseudoephedrine 5-120 mg ER (Claritin-D 12 Hour) 1 tab PO Q12H metaxalone 800 mg PO TID metformin 850 mg PO BID 90 days metoprolol succinate ER 50 mg PO DAILY 90 days rizatriptan 10 mg PO DAILY PRN 30 days rosuvastatin 20 mg PO DAILY 90 days walker Folding Front wheeled walker Tobacco use date assessed: 05/30/24 Dental Screening Dental Screen Date: 05/30/24 HPI HPI Comments History of Present Illness Details The patient is an 79-year-old female presenting with generalized body pain and a cough. She reports ongoing body pain that persists with some improvement but notes the pain continues to affect her daily life. Additionally, she experiences a cough that predominantly worsens at night, although it occurs occasionally during the day. She explicitly denies any shortness of breath but completed an antibiotic course for a sinus infection as diagnosed earlier and pneumonia. Management of her chronic conditions is part of this visit, focusing on her essential hypertension, type 2 diabetes mellitus with a recent HbA1c of 6.6%, and coronary artery disease. The patient has allergies to ibuprofen and celecoxib, affecting pain management options. Current medications include letrozole for breast cancer management, with several other drugs prescribed for her chronic conditions, including metformin, metoprolol for hypertension, and rosuvastatin for hyperlipidemia. Blood pressure stable. A1c within goal. [facility] Medical History Right-sided temporomandibular joint pain-dysfunction syndrome Cerumen impaction Otitis media NSTEMI (non-ST elevated myocardial infarction) Acute electrocardiogram changes Otitis media, right History of colon cancer Incisional hernia Abdominal wall mass History of breast cancer Invasive ductal carcinoma of left breast Anemia Increased BMI On beta ananya at home Breast cancer Invasive ductal carcinoma of left breast Abnormality of left breast on screening mammography Multinodular thyroid Osteopenia Vitamin D deficiency Primary hyperparathyroidism Tubulovillous adenoma of colon Diabetes Asthma Hyperparathyroidism Cancer Arthritis GERD (gastroesophageal reflux disease) History of headache Elevated cholesterol HTN (hypertension) Surgical History History of cataract surgery History of thyroid surgery History of lumpectomy of left breast H/O left breast biopsy History of mammogram Status post total hip replacement, left History of exploratory laparotomy History of tubal ligation Hx of tonsillectomy Hx of cholecystectomy S/P colon resection H/O colonoscopy Family History Father No problems noted. Mother Diabetes mellitus Other No family history of cancer Social History Household Members: Significant Other Housing: House Are you a primary primary health care nurse to a significant other at home: No Alcohol intake: never Comment: sleeping Patient Tobacco Use Status: Never used Tobacco e-Cigarette/Vaping Use: Never Used Second Hand Smoke Exposure: No Advance Directives Date on File: 08/11/02 service: No Current occupational status: unemployed Cognitive needs: No Hearing needs: No Vision needs: Yes (Glasses) Female Reproductive History Menstrual Age of Menarche: 13 Questionnaire PHQ-9 Over the last 2 weeks, how often have you been bothered by any of the following problems? 1. Little interest or pleasure in doing things: not at all 2. Feeling down, depressed, or hopeless: not at all 3. Trouble falling or staying asleep, or sleeping too much: not at all 4. Feeling tired or having little energy: several days 5. Poor appetite or overeating: not at all 6. Feeling bad about yourself - or that you are a failure or have let yourself or your family down: not at all 7. Trouble concentrating on things, such as reading the newspaper or watching television: not at all 8. Moving or speaking so slowly that other people could have noticed. Or the opposite - being so fidgety or restless that you have been moving around a lot more than usual: not at all 9. Thoughts that you would be better off or of hurting yourself in some way: not at all Total score: 1 Depression Screening Interpretation: Negative Depression Screening Done: Yes 99859 - PHQ-9 Billing: Yes Source: Developed by Drs. Boyd Garcia, Danii Reeves, Ric Estes and colleagues, with an educational mary from [employer]. Thrive Questionnaire Date Thrive assessed: 05/30/24 I am a: Patient What is your living situation today?: I have a steady place to live Within the past 12 months, did the food you bought not last and you didn't have the money to get more?: Never true Within the past 12 months, did you worry whether your food would run out before you got money to buy more?: Never true Do you have trouble paying for medicines?: No Do you have trouble getting transportation to medical appointments?: No Do you have trouble paying your heating and electricity bill?: No Do you have trouble taking care of your child, family member or friend?: No Do you have trouble with day-to-day activities such as bathing, preparing meals, shopping, managing finances, etc.?: No Are you currently unemployed and looking for a job?: No Are you interested in more education?: No Please select the resources that you would like help with: None Currently or been in a relationship where the following occur: I choose not to answer THRIVE Score: 0 AUDIT C Alcohol Use Questionnaire (AUDIT-C) 1. How often do you have a drink containing alcohol?: Never Total Score: 0 Score Reviewed/Action Taken: No LARRY-7 AMB Questionnaire LARRY-7 Date LARRY - 7 assessed: 05/30/24 Feeling nervous, anxious, or on edge: 1 = Several days Not being able to stop or control worryin = Several days Worrying too much about different things: 1 = Several days Trouble relaxin = Several days Being so restless that it is hard to sit still: 0 = Not at all Becoming easily annoyed or irritable: 0 = Not at all Feeling afraid as if something awful might happen: 0 = Not at all Total LARRY-7 score (0-4 normal; 5-9 mild; 10-14 moderate; 15-21 severe): 4 Source: Developed by Drs. Boyd Garcia, Danii eReves, Ric Estes and colleagues, with an educational mary from [employer]. LARRY-7 Assessment Billing LARRY-7 Assessment Tool: LARRY-7 Assessment 77359 Review of Systems Const All systems reviewed & are unremarkable except as noted in HPI and below Card Denies chest pain at rest, Denies chest pain with activity, Denies edema, Denies irregular heart rhythm, Denies claudication, Denies dyspnea, Denies dyspnea on exertion, Denies orthopnea, Denies paroxysmal nocturnal dyspnea and Denies slow heart rate Resp Denies cough, Denies dyspnea and Denies dyspnea on exertion GI Denies abdominal pain, Denies change in bowel habits, Denies excessive flatus, Denies nausea and Denies vomiting Denies urinary incontinence, Denies urinary hesitancy and Denies urinary urgency Neuro Denies behavioral changes and Denies lack of coordination Psych Denies behavioral changes Physical exam (Primary Care) Vital Signs: Last Vital Signs BP 122/80 09/08/24 13:20 BMI result Body Mass Index 30.2 Tobacco/Smoking Status: Tobacco use Status Tobacco use date assessed 05/30/24 09/08/24 13:23 Patient Tobacco Use Status Never used Tobacco 09/08/24 13:23 e-Cigarette/Vaping Use Never Used 09/08/24 13:23 PHQ-9: PHQ-9 Score PHQ-9: Total score 1 09/08/24 13:49 Depression Screening Interpretation: Negative Thrive Assessment: Date of Thrive Assessment Date Thrive assessed 05/30/24 09/08/24 13:23 Currently or been in a relationship where the following occur: I choose not to answer Neck Neck: Yes normal visual inspection and Yes supple Resp Effort & Inspection: normal respiratory effort Auscultation: clear to auscultation bilaterally Cardio Jugular venous distension: no JVD Rate: regular rate Rhythm: regular rhythm Heart sounds: S1 normal heart sound present and S2 normal heart sound present Extrem General: Yes full ROM Coding Level of Care Code Est Pt Level 4 (08747) Complex EM visit Add On G2211 Diagnoses Pneumonia J18.9 Type 2 diabetes mellitus with hyperglycemia, without long-term current use of insulin E11.65 Diabetes mellitus type: type 2 Diabetes mellitus termite technician insulin use: without termite technician use Diabetes mellitus complication status: with hyperglycemia Primary hypertension I10 Hypertension type: primary hypertension Hyperlipidemia LDL goal <70 E78.5 Invasive ductal carcinoma of left breast C50.912 Additional Codes LARRY-7 Assessment Billing - LARRY-7 Assessment Tool: LARRY-7 Assessment 88425 ([id number]) PHQ-9 - 99085 - PHQ-9 Billing: Yes ([id number]) Time Spent (min) 22 Assessment & Plan Assessment & Plan (1) Pneumonia: Code(s): J18.9 - Pneumonia, unspecified organism Category: Medical (2) Diabetes: Comment: NIDDM Code(s): E11.9 - Type 2 diabetes mellitus without complications Category: Medical Qualifiers: Diabetes mellitus type: type 2 Diabetes mellitus termite technician insulin use: without chcf use Diabetes mellitus complication status: with hyperglycemia Qualified Code(s): E11.65 - Type 2 diabetes mellitus with hyperglycemia (3) HTN (hypertension): Code(s): I10 - Essential (primary) hypertension Category: Medical Qualifiers: Hypertension type: primary hypertension Qualified Code(s): I10 - Essential (primary) hypertension (4) Hyperlipidemia LDL goal <70: Code(s): E78.5 - Hyperlipidemia, unspecified Category: Medical (5) Invasive ductal carcinoma of left breast: Code(s): C50.912 - Malignant neoplasm of unspecified site of left female breast Category: Medical Plan The patient presents with general body pain and a cough, worsened by allergies to common pain medications, necessitating alternative approaches for symptom management. Further, the patient's sinusitis treatment with antibiotics was deemed complete, with continued management relative to her nocturnal cough advised. For chronic conditions, adjustments to her hypertensive treatment with regular blood pressure monitoring are necessary, alongside continued glucose monitoring given her diabetic management with metformin. Rosuvastatin and her current diet are to be reviewed to ensure cardiovascular health maintenance, necessitated by her coronary artery history. Follow-up plans include reassessing her pain management strategy and the efficacy of interventions for her chronic diseases. Patient was informed and verbally consented to the use of an ambient scribe for clinic note documentation during this visit. During our discussion, I reviewed the role of allergen avoidance in managing her body pain and acknowledged the challenge posed by her ibuprofen and celecoxib allergies. We discussed the completion of her antibiotics for a sinus infection and planned to monitor for any persisting respiratory symptoms. The patient's chronic conditions management strategy includes the adjustment of antihypertensive therapy and diabetic control, supported by continued compliance with her prescribed regimen, which we thoroughly reviewed. I emphasized the importance of blood pressure and glucose control to improve her coronary artery disease outcomes, highlighting the need for lifestyle and dietary monitoring. I also provided an overview of her medication compliance and addressed any concerns regarding her current treatments. Orders: Orders Microalbumin, Random (w Creat) Today R80.9 - Proteinuria, unspecified Vitamin D 25-OH Total Today E55.9 - Vitamin D deficiency, unspecified Comprehensive [place]. Panel Fast Today J18.9 - Pneumonia, unspecified organism XR chest 2V Today J18.9 - Pneumonia, unspecified organism Complete Blood Count Auto Diff Today D64.9 - Anemia, unspecified Lipid Panel Today E78.5 - Hyperlipidemia, unspecified IRON PROFILE Today D64.9 - Anemia, unspecified Medications: New fluticasone propionate 50 mcg/actuation (Flonase Allergy Relief) administer into each nostril 1 spray intranasal DAILY 16 grams 2RF 30 days baclofen 10 mg PO BEDTIME 7 tabs 0RF 7 days Changed From albuterol sulfate 90 mcg/actuation 2 puffs inhalation Q6H PRN shortness of breath or wheezing To albuterol sulfate 90 mcg/actuation 2 puffs inhalation Q6H PRN 8.5 grams 1RF shortness of breath or wheezing 30 days Patient Instructions: - Take all medications as prescribed - Monitor blood glucose levels as directed - Report any significant increases in body pain or changes in cough - Note and report any adverse reactions to new medications - Attend follow-up appointments for hypertension and diabetes management - Avoid ibuprofen and celecoxib due to allergy
[2024-09-08 13:20] VITALS: BP 122/80; BMI 30.2
--- OUTSIDE RECORDS SUMMARY | 2024-09-08 14:53 | XMS_ITS | Clinical Summary ---
Author Organization [employer] Address [address] [facility] [address] [facility] [address] [place] [address] Care Team Providers Care Inspector Health Care Facilities Name Role Phone Unavailable Primary Care Provider [...] season) 2023 01/13/2022, 06/10/2020, 05/13/2020 Influenza Vaccine (Season Ended) 2024 01/13/2022, 12/27/2020, 01/10/2020, Additional history exists Lipid Panel [...] ?? Jacobo HOANG et al. PRECIOUS. 2013;310(19): [id number] ?? ([email or web address]/faq/[email or web address]) Non-HDL Cholesterol 101 <130 mg/dL (calc) [facility]OUNDATION [...] LAB BLOOD ORDERABLES Final Res ult [facility] [address] from Last 3 Months or Most Recently Relevant to Health Maintenance Insurance MEDICARE [facility]
== END 2024-09-08 13:56 | disposition home or self-care (01) ==
LOC: HO.HMCH 13:12
PROVIDERS: PCP Internal Medicine; Visit Provider Internal Medicine
DX: J18.9 Pneumonia, unspecified organism (principal); E11.65 Type 2 diabetes mellitus with hyperglycemia; C50.912 Malignant neoplasm of unspecified site of left female breast; I10 Essential (primary) hypertension; E78.5 Hyperlipidemia, unspecified

== ENCOUNTER → 2024-09-08 13:11 | Outpatient (BNVA) | payer OTHER, SELFPAY | PROVIDERS: PCP Internal Medicine; Visit Provider Internal Medicine | DX: J18.9 Pneumonia, unspecified organism (principal); E11.65 Type 2 diabetes mellitus with hyperglycemia; I10 Essential (primary) hypertension; E78.5 Hyperlipidemia, unspecified; C50.912 Malignant neoplasm of unspecified site of left female breast; Z79.811 Long term (current) use of aromatase inhibitors; Z79.84 Long term (current) use of oral hypoglycemic drugs; Z79.899 Other long term (current) drug therapy | CPT/HCPCS: 96127; 99212 ==

== ENCOUNTER 2024-09-09 09:06 | Outpatient (REF) | payer OTHER, SELFPAY ==
--- NOTE | ~2024-09-09 | XR_ITS ---
EXAMINATION: XR CHEST CLINICAL INFORMATION: J18.9 - Pneumonia, unspecified organism COMPARISON: None available. TECHNIQUE: 2 views of the chest were obtained. FINDINGS: The lungs are expanded and clear acute process. The heart size and pulmonary vascularity is normal. There is mild dextroscoliosis. No gross bony abnormality seen. The soft tissues are normal. XR/XR chest 2V IMPRESSION: Unremarkable chest exam. Electronically signed by: Alvin Rowe MD 09/09/2024 09:28 AM EDT
--- OUTSIDE RECORDS SUMMARY | 2024-09-09 09:49 | XMS_ITS | Clinical Summary ---
Author Organization [employer] Address [address] [facility] [address] [place] [address] Care Team Providers Care Regional Ehs Manager Name Role Phone Unavailable Primary Care Provider [...] ?? Jacobo HOANG et al. PRECIOUS. 2013;310(19): 7435-3885 ?? ([email or web address]/[email or web address]) Non-HDL Cholesterol 101 <130 mg/dL (calc) FOUNDATION [...] NP LAB BLOOD ORDERABLES Final Res ult [facility] [address] from Last 3 Months or Most Recently Relevant to Health Maintenance Insurance [facility]ICARE [facility]
== END 2024-09-09 09:07 | disposition home or self-care (01) ==
LOC: HO.XRAY 09:06
PROVIDERS: PCP Internal Medicine; Visit Provider Internal Medicine
DX: J18.9 Pneumonia, unspecified organism (principal)
CPT/HCPCS: 71046

== ENCOUNTER → 2024-09-09 09:08 | Outpatient (BNV) | payer OTHER, SELFPAY | PROVIDERS: PCP Internal Medicine; Visit Provider Radiology Diagnostic Radiology | DX: M41.9 Scoliosis, unspecified (principal) | CPT/HCPCS: 71046 ==

== ENCOUNTER 2024-10-22 10:51 | Outpatient (AMB) | payer OTHER, SELFPAY ==
--- NOTE | 2024-10-22 11:00 | A.OFFVIS_ITS ---
Intake Vital Signs 10/22/24 11:02 Height 5 ft 4 in Weight 176 lb BMI 30.2 BP 126/78 Blood Pressure Location Lt brachial Position Sitting Intake Visit Reasons: [id number] Electrophysiology Technician Required: No Accompanied by: Family/Other Allergies ibuprofen (Ibuprofen) Allergy (Mild, Verified 10/22/24 11:20) SWELLING celecoxib (CELECOXIB) Allergy (Unknown, Verified 10/22/24 11:20) DROPS SUGAR LEVEL Medication List - Last Reconciled 10/22/24 by Kim Garcia MD albuterol sulfate 90 mcg/actuation 2 puffs inhalation Q6H PRN 30 days albuterol sulfate 2.5 mg (3 mL) inhalation QID PRN 30 days amlodipine 2.5 mg See Protocol PO DAILY 30 days ascorbate calcium (vitamin C) 500 mg PO DAILY 90 days aspirin 81 mg PO DAILY 30 days baclofen 10 mg PO BEDTIME 7 days blood sugar diagnostic (FreeStyle Lite Strips) Use 1 test strip once a day blood sugar diagnostic As directed cetirizine 5 mg (1/2 x 10 mg) PO DAILY PRN 90 days cholecalciferol (vitamin D3) 25 mcg PO DAILY 90 days cyanocobalamin (vitamin B-12) 1,000 mcg sublingual DAILY 3 days famotidine 20 mg PO BID 90 days ferrous sulfate 325 mg PO DAILY fluticasone propionate 50 mcg/actuation (Flonase Allergy Relief) 1 spray intranasal DAILY 30 days lancets As directed letrozole 2.5 mg PO DAILY lisinopril 40 mg PO DAILY 90 days loratadine-pseudoephedrine 5-120 mg ER (Claritin-D 12 Hour) 1 tab PO Q12H metaxalone 800 mg PO TID metformin 850 mg PO BID 90 days metoprolol succinate ER 50 mg PO DAILY 90 days rizatriptan 10 mg PO DAILY PRN 30 days rosuvastatin 20 mg PO DAILY 90 days walker Folding Front wheeled walker HPI HPI Comments History of Present Illness Details The patient is an 79-year-old female presenting with a Medicare annual wellness exam. She has diabetes mellitus type 2 with an A1c today of 7.1%. Her breast cancer is under the care of oncology, and she regularly sees cardiology and hematology for her conditions. Ppp handed to patient and [place] of care was reviewed. The patient takes care of which has Alzheimer's disease and is up to date with her pneumonia and tetanus vaccinations. Her diabetes mellitus is stable with an A1c of 7.1%, and she recently had a diabetic eye exam showing no retinopathy. She reports decreased joint pain and is doing well overall. [facility] Medical History (Updated 10/22/24 @ 12:17 by Kim Garcia MD) Right-sided temporomandibular joint pain-dysfunction syndrome Cerumen impaction Otitis media NSTEMI (non-ST elevated myocardial infarction) Acute electrocardiogram changes Otitis media, right History of colon cancer Incisional hernia Abdominal wall mass History of breast cancer Invasive ductal carcinoma of left breast Anemia Increased BMI On beta ananya at home Breast cancer Invasive ductal carcinoma of left breast Abnormality of left breast on screening mammography Multinodular thyroid Osteopenia Vitamin D deficiency Primary hyperparathyroidism Tubulovillous adenoma of colon Diabetes Asthma Hyperparathyroidism Cancer Arthritis GERD (gastroesophageal reflux disease) History of headache Elevated cholesterol HTN (hypertension) Surgical History History of cataract surgery History of thyroid surgery History of lumpectomy of left breast H/O left breast biopsy History of mammogram Status post total hip replacement, left History of exploratory laparotomy History of tubal ligation Hx of tonsillectomy Hx of cholecystectomy S/P colon resection H/O colonoscopy Family History Father No problems noted. 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 to a significant other at home: No Alcohol intake: never Comment: sleeping Patient Tobacco Use Status: Never used Tobacco e-Cigarette/Vaping Use: Never Used Second Hand Smoke Exposure: No Advance Directives Date on File: 08/11/02 service: No Current occupational status: unemployed Cognitive needs: No Hearing needs: No Vision needs: Yes (Glasses) Female Reproductive History Menstrual Age of Menarche: 13 Questionnaire Medicare Wellness Checkup What is your age?: 78 or older What gender do you identify with?: female During the past 4 weeks, how much have you been bothered by emotional problems such as feeling anxious, depressed, irritable, sad or downhearted, and blue?: not at all During the past 4 weeks, has your physical & emotional health limited your social activities with family, friends, neighbors, or groups?: slightly During the past 4 weeks, how much bodily pain have you generally had?: mild pain During the past 4 weeks, was someone available to help you if you needed & wanted help?: yes, some During the past 4 weeks, what was the hardest physical activity you could do for at least 2 minutes?: light Can you get to places out of walking distance without help? (For eg., can you travel alone on buses, taxis or drive your car?): No Can you go shopping for groceries or clothes without someone's help?: No Can you prepare your own meals?: Yes Can you do your housework without help?: Yes Because of any health problems, do you need the help of another person with your personal care needs such as eating, bathing, dressing or getting around the house?: No Can you handle your own money without help?: Yes During the past 4 weeks, how would you rate your health in general?: fair During the past 4 weeks how have things been going for you?: good & bad parts about equal Are you having difficulties driving your car?: not applicable, I don't use a car Do you always fasten your seat belt when you are in a car?: yes, usually During past 4 weeks, have you been bothered by the following: never: Falling or dizzy when standing up, Sexual problems?, Trouble eating well?, Teeth or denture problems?, Problems using the telephone? and Tiredness or fatigue? Have you fallen 2 or more times in the past year?: No Are you afraid of falling?: No Are you a smoker?: no During the past 4 weeks, how many drinks of wine, beer, or other alcoholic beverages did you have?: no alcohol at all Do you exercise for about 20 minutes 3 or more times a week?: no, I usually do not exercise this much Have you been given information to help with the following?: yes: Keeping track of your medications? and no: Hazards in your house that might hurt you? How often do you have trouble taking medicines the way you have been told to take them?: I always take medicine as prescribed How confident are you that you can control & manage most of your health problems?: somewhat confident What is your race?: or origin or descent Mini Mental State Exam (MMSE) Orientation What is the (year) (season) (date) (day) (month)?: year, season, date, day and month Where are we (state) (county) (town or city) (hospital) (floor)?: state, county, town or city, hospital/clinic and floor Registration Name of 3 unrelated objects clearly and slowly, then ask patient to repeat all 3 of them. (1st repeat determines score. Make sure they can repeat all three): object 1, object 2 and object 3 Attention & Calculation (CHOOSE ONE) Spell WORLD backwards (DLROW): 4 letters Recall Ask patient to repeat the 3 items from question #3.: object 1, object 2 and object 3 Language Show patient a wristwatch & ask what it is. Repeat for pencil.: watch and pencil Ask the patient to repeat the phrase 'No ifs, ands, or buts' after you.: correct Ask the patient to 'take a piece of paper with their right hand' 'fold paper in half' 'place paper on floor': take paper in right hand, fold paper in half and place paper on floor Print the sentence 'CLOSE YOUR EYES' on a piece. If patient actually closes eyes then score.: followed written direction Give patient a blank piece of paper & ask to write a sentence. Score if it contains a noun & verb.: sentence contains subject and verb Ask patient to copy figure of intersecting pentagons exactly. Score if all 10 angles & 2 intersects are included.: all 10 angles present & 2 are intersected Score Score: 29 Activity of Daily Living Bathing - sponge bath, tub bath or shower: receives no assistance (gets in/out by self, if usual bathing means Dressing - getting clothes from closets & drawers, including inner/outer garments & fasteners.: gets clothes & gets completely dressed without help Toileting - going to the 'toilet room' for urine/bowel elimination & cleaning self/arranging clothes: goes to toilet room, cleans self, arranges clothes without help Transfer: moves in & out of bed and chair without help (may use support object) Continence: controls urination/bowel movements completely by self Feeding: feeds self without help Total Score: 0 Information obtained from: patient Using telephone: independent Traveling: needs assistance Shopping: needs assistance Preparing meals: independent Housework: needs assistance Taking medicine: independent Managing money: independent PHQ-9 Over the last 2 weeks, how often have you been bothered by any of the following problems? 1. Little interest or pleasure in doing things: not at all 2. Feeling down, depressed, or hopeless: several days 3. Trouble falling or staying asleep, or sleeping too much: nearly every day 4. Feeling tired or having little energy: not at all 5. Poor appetite or overeating: more than half the days 6. Feeling bad about yourself - or that you are a failure or have let yourself or your family down: not at all 7. Trouble concentrating on things, such as reading the newspaper or watching television: not at all 8. Moving or speaking so slowly that other people could have noticed. Or the opposite - being so fidgety or restless that you have been moving around a lot more than usual: more than half the days 9. Thoughts that you would be better off or of hurting yourself in some way: not at all Total score: 8 Depression Screening Interpretation: Positive Depression Screening Follow-up: Existing condition, Follow-up Visit Requested and Declines treatment Depression Screening Done: Yes 77851 - PHQ-9 Billing: Yes Source: Developed by Drs. Boyd Garcia, Danii Reeves, Ric Estes and colleagues, with an educational mary from Last 2 Left. Fall Risk Assessment Fall Risk Assessment Fall risk assessment: 1 Fall in past year AUDIT C Alcohol Use Questionnaire (AUDIT-C) 1. How often do you have a drink containing alcohol?: Never Total Score: 0 Score Reviewed/Action Taken: No LARRY-7 AMB Questionnaire LARRY-7 Date LARRY - 7 assessed: 10/22/24 Feeling nervous, anxious, or on edge: 1 = Several days Not being able to stop or control worryin = Not at all Worrying too much about different things: 1 = Several days Trouble relaxin = Not at all Being so restless that it is hard to sit still: 1 = Several days Becoming easily annoyed or irritable: 0 = Not at all Feeling afraid as if something awful might happen: 0 = Not at all Total LARRY-7 score (0-4 normal; 5-9 mild; 10-14 moderate; 15-21 severe): 3 Source: Developed by Drs. Boyd Garcia, Danii Reeves, Ric Estes and colleagues, with an educational mary from Last 2 Left. LARRY-7 Assessment Billing LARRY-7 Assessment Tool: LARRY-7 Assessment 18076 Thrive Questionnaire Date Thrive assessed: 09/08/24 I am a: Patient What is your living situation today?: I have a steady place to live Within the past 12 months, did the food you bought not last and you didn't have the money to get more?: Never true Within the past 12 months, did you worry whether your food would run out before you got money to buy more?: Never true Do you have trouble paying for medicines?: No Do you have trouble getting transportation to medical appointments?: No Do you have trouble paying your heating and electricity bill?: No Do you have trouble taking care of your child, family member or friend?: No Do you have trouble with day-to-day activities such as bathing, preparing meals, shopping, managing finances, etc.?: No Are you currently unemployed and looking for a job?: No Are you interested in more education?: No Please select the resources that you would like help with: None Currently or been in a relationship where the following occur: I choose not to answer THRIVE Score: 0 Review of Systems Const All systems reviewed & are unremarkable except as noted in HPI and below ENT Denies sinus pain Card Denies chest pain at rest, Denies chest pain with activity, Denies edema, Denies irregular heart rhythm, Denies claudication, Denies dyspnea, Denies dyspnea on exertion, Denies orthopnea, Denies paroxysmal nocturnal dyspnea and Denies slow heart rate Resp Denies cough, Denies dyspnea and Denies dyspnea on exertion GI Denies abdominal pain, Denies change in bowel habits, Denies excessive flatus, Denies nausea and Denies vomiting Denies urinary incontinence, Denies urinary hesitancy and Denies urinary urgency Neuro Denies confusion Psych Denies confusion Physical Exam Vital Signs: Last Vital Signs BP 126/78 10/22/24 11:02 BMI result Body Mass Index 30.2 Const General: No confusion Orientation/consciousness: patient oriented x3 and No confusion Resp Effort & Inspection: normal respiratory effort Auscultation: clear to auscultation bilaterally Cardio Jugular venous distension: no JVD Rate: regular rate Rhythm: regular rhythm Heart sounds: S1 normal heart sound present and S2 normal heart sound present Neuro General: patient oriented x3, no focal motor deficits and No confusion Romberg Test: Negative Extrem General: Yes full ROM Results AMB Hemoglobin A1c AMB Hemoglobin A1c 7.1 % Last Edit by DARIAN Herrera on 10/22/24 11:2 0 Assessment & Plan Assessment & Plan (1) Encounter for Medicare annual wellness exam: Code(s): Z00.00 - Encounter for general adult medical examination without abnormal findings (2) Diabetes: Comment: NIDDM Code(s): E11.9 - Type 2 diabetes mellitus without complications Qualifiers: Diabetes mellitus type: type 2 Diabetes mellitus [facility] insulin use: without emt intermediate use Diabetes mellitus complication status: with hyperglycemia Qualified Code(s): E11.65 - Type 2 diabetes mellitus with hyperglycemia (3) Mild major depression: Code(s): F32.0 - Major depressive disorder, single episode, mild Plan Continue current medications. Take Tylenol as needed for joint pain. Repeat DEXA in 2025. Follow-up with Urology, Hematology-Oncology and Cardiology. Orders: Orders Microalbumin, Random (w Creat) 4 Months R80.9 - Proteinuria, unspecified Vitamin D 25-OH Total 4 Months E55.9 - Vitamin D deficiency, unspecified Comprehensive [place]. Panel Fast 4 Months E11.65 - Type 2 diabetes mellitus with hyperglycemia AMB Hemoglobin A1c Today E11.65 - Type 2 diabetes mellitus with hyperglycemia Lipid Panel 4 Months E78.5 - Hyperlipidemia, unspecified Medications: Refilled rosuvastatin 20 mg PO DAILY 90 tabs 1RF 90 days Quality Reporting (2019) Fall Risk Screening ([facility] 139) Fall risk assessment: 1 Fall in past year Depression/Bipolar (159/160/161/177) PHQ-9: Total score: 8 Coding Level of Care Code Medicare Subsequent (G0439) Diagnoses Encounter for Medicare annual wellness exam Z00.00 Type 2 diabetes mellitus with hyperglycemia, without long-term current use of i nsulin E11.65 Diabetes mellitus type: type 2 Diabetes mellitus [facility] insulin use: without emt intermediate use Diabetes mellitus complication status: with hyperglycemia Mild major depression F32.0 Additional Codes PHQ-9 - 69309 - PHQ-9 Billing: Yes ([id number]) LARRY-7 Assessment Billing - LARRY-7 Assessment Tool: LARRY-7 Assessment 23515 ([id number]) Time Spent (min) 35 Advance Care Planning Advance Care Planning discussion: Exists, not on file Date of discussion: 10/22/24 Who was present: patient, daughter and me Forms completed: Health Care Proxy
[2024-10-22 11:02] VITALS: BP 126/78; BMI 30.2
--- OUTSIDE RECORDS SUMMARY | 2024-10-22 11:51 | XMS_ITS | Clinical Summary ---
Author Organization [facility] Address [address] [place] [id number] Phone Care Team Providers Care Mortgage Loan Processor Name Role Phone Daryl Connie NATHAN Primary Care Provider [phone] Allergies Active Allergy Reactions Criticality Noted Date Comments Celecoxib 08/17/2020 hypoglycemia Ibuprofen Swelling Low 08/17/2020 Medications lisinopril (PRINIVIL,ZESTR IL) 40 MG tablet Take 40 mg by mouth daily. Active metFORMIN (GLUCOPHAGE) 500 MG tablet Take 500 mg by mouth 2 (two) times a day with meals. Active albuterol 90 mcg/actuation inhaler Inhale 2 puffs into the lungs every 6 (six) hours as needed for wheezing. Active cetirizine (ZYRTEC) 10 MG tablet Take 10 mg by mouth daily. Active cyclobenzaprine (FLEXERIL) 5 MG tablet Take 5 mg by mouth 3 (three) times a day as needed for muscle spasms. Active fluticasone furoate (VERAMYST) 27.5 mcg/actuation nasal spray 1 spray by Nasal route daily. Active montelukast (SINGULAIR) 10 mg tablet Take 10 mg by mouth nightly at bedtime. Active metoprolol succinate (TOPROL-XL) 50 MG 24 hr tablet Take 50 mg by mouth daily. Active cholecalciferol (VITAMIN D3) 5,000 unit tablet Take 2,000 Units by mouth daily. Active aspirin 81 mg chewable tablet Take 81 mg by mouth daily. Active atorvastatin (LIPITOR) 20 MG tablet Take 20 mg by mouth daily. Active ketotifen (ZADITOR) 0.025 % (0.035 %) ophthalmic solution Place 1 drop into each eye 2 (two) times a day. Active omeprazole (PRILOSEC) 20 mg TbEC Take 20 mg by mouth daily before breakfast. 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 Not on sheridan e 07/29/2022 Are you concerned about learning? Not on file 07/29/2022 No 07/29/2022 No 07/29/2022 Digital Access Answer Date Recorded No 08/22/2022 No 08/22/2022 Reliable internet access at home? Not on file 08/22/2022 Device with a working camera? Not on file Comments Unknown Sex and Gender Information Value Date Recorded Sex Assigned at Not on file Legal Sex Female 3:54 PM EDT Gender Identity Not on file Sexual Orientation Not on file Last Filed Vital Signs Vital Sign Reading Time Taken Comments Blood Pressure 143/79 09/27/2020 9:46 AM EDT Pulse 69 09/27/2020 9:46 AM EDT Temperature 36.3 C (97.4 F) 09/27/2020 9:46 AM EDT Respiratory Rate 16 09/27/2020 9:46 AM EDT Oxygen Saturation 97% 09/21/2020 9:35 AM EDT Inhaled Oxygen Concentration - - Weight 84 kg (185 lb 3.2 oz) 09/21/2020 9:35 AM EDT Height - - Body Mass Index - - Plan of Treatment Health Maintenance Due Date Last Done Comments CREATININE LEVEL 1945 POTASSIUM LEVEL 1945 DEPRESSION SCREENING 1955 ZOSTER VACCINES (1 of 2) 08/06/1962 OSTEOPOROSIS SCREENING INITI AL (ONE-TIME) 08/06/2008 RSV VACCINE (1 - 1-dose 75+ series) 08/06/2018 Adult Td,Tdap Booster 10/23/2021 10/24/2011 , 08/05/2003, 12/09/1997 COVID-19 VACCINE (3 - 2023-2 5 season) 2023 06/10/2020, 05/13/2020 PNEUMOCOCCAL VACCINES (50+ years) Completed 01/10/2019, 03/04/2018, 09/09/2008 HEPATITIS A VACCINES Aged Out No long er eligible based on patient's age to complete this topic HIB VACCINES Aged Out No longer eligi ble based on patient's age to complete this topic MENINGOCOCCAL VACCINES (ACWY) Aged Out No longer eligible based on patient's age to complete this topic MENINGOCOCCAL VACCINES (B) Aged Out N o longer eligible based on patient's age to complete this topic Medical Devices Not on file Insurance [employer] MEDICARE PART A & B [employer] MEDICARE PART A & B MEDICARE PART A & [place] & [place]ICARE PART A & B HEALTH MEDICARE PART A & [place] MED[place] PART A [place] [address] [place] [address] MEDICARE PART A & B Care Teams Mortgage Loan Processor Relationship Specialty Start Date End Date Connie Brito NP PCP - General 08/10/20 Additional Source Comments The information contained in this document represents components of the legal health record. It is not the complete legal health record.[facility]
--- OUTSIDE RECORDS SUMMARY | 2024-10-22 11:51 | XMS_ITS | Clinical Summary ---
Author Organization [employer] Address [address] [place] [address] Care Team Providers Care Concert Singer Name Role Phone Unavailable Primary Care Provider [...] 2023 01/13/2022, 06/10/2020, 05/13/2020 Influenza Vaccine (#1) 2024 , 12/27/2020, 01/10/2020, Additional history exists Lipid [...] [facility] Comment: Reference range: <100 Desirable range <100 mg/dL for primary prevention; <70 mg/dL for patients with CHD or diabetic patients with > or = 2 CHD risk factors. LDL-C is now calculated using the Jacobo-Villanueva calculation, which is a validated novel method providing better accuracy than the Friedewald equation in the estimation of LDL-C. Jacobo SS et al. PRECIOUS. 2013;310(19): 5330-0011 (http://education.[employer]/faq/GPO561) Non-HDL Cholesterol 101 <130 mg/dL (calc) [facility] Comment: For patients with diabetes plus 1 major ASCVD risk factor, treating to a non-HDL-C goal of <100 mg/dL (LDL-C of <70 mg/dL) is considered a therapeutic option. Triglycerides 269(H) <150 mg/dL [facility] Comment: If a non-fasting specimen was collected, consider repeat triglyceride testing on a fasting specimen if clinically indicated. Dm et al. J. of Clin. Lipidol. 2015;9:129-169. 01/04/2021 8:18 AM EDT us Connie Brito NP LAB BLOOD ORDERABLES Final Res ult [facility] [address] from Last 3 Months or Most Recently Relevant to Health Maintenance Insurance MEDICARE [facility] [address] STANDARD
== END 2024-10-22 11:41 | disposition home or self-care (01) ==
LOC: HO.HMCH 10:52
PROVIDERS: PCP Internal Medicine; Visit Provider Internal Medicine
DX: Z00.00 Encounter for general adult medical examination without abnormal findings (principal); E11.65 Type 2 diabetes mellitus with hyperglycemia; F32.0 Major depressive disorder, single episode, mild

== ENCOUNTER → 2024-10-22 10:51 | Outpatient (BNVA) | payer OTHER, SELFPAY | PROVIDERS: PCP Internal Medicine; Visit Provider Internal Medicine | DX: Z00.00 Encounter for general adult medical examination without abnormal findings (principal); E11.65 Type 2 diabetes mellitus with hyperglycemia; F32.0 Major depressive disorder, single episode, mild; R80.9 Proteinuria, unspecified; E55.9 Vitamin D deficiency, unspecified; E78.5 Hyperlipidemia, unspecified | CPT/HCPCS: 83036; 96127 ==

== ENCOUNTER 2024-12-04 08:23 | Outpatient (AMB) | payer OTHER, SELFPAY ==
[2024-12-04 08:25] VITALS: BP 122/70; PULSE 89; TEMP 37.2; O2SAT 96; BMI 30.4
--- NOTE | 2024-12-04 08:25 | MHC.OFFWIV ---
Intake Vital Signs 12/04/24 08:25 Height 5 ft 4 in Weight 177 lb BMI 30.4 BP 122/70 Blood Pressure Location Rt brachial Position Sitting Pulse 89 Pulse Source Pulse Oximeter Temp 99.0 F Temp Source Oral Pulse Oximetry (%) 96 Oxygen Delivery Method Room Air Intake Visit Reasons: EP-cut in chin Intake Note: pt presents with non healing wound after falling while gardening a month ago Patient Tobacco Use Status: Never used Tobacco Allergies ibuprofen (Ibuprofen) Allergy (Mild, Verified 12/04/24 08:32) SWELLING celecoxib (CELECOXIB) Allergy (Unknown, Verified 12/04/24 08:32) DROPS SUGAR LEVEL Do you need a note to return to daycare/school/sports/work: No HPI HPI Comments History of Present Illness Details History of Present Illness - The patient is an 79-year-old Martiniquais speaking female presenting with a laceration to the chin with delayed healing. - The injury occurred a month and a half ago during gardening, involving a branch penetrating her turner. - The wound has been discharging pus and bleeding, with no significant improvement despite daily application of triple antibiotic ointment. - She denies fever, chills, redness, or discharge. Physical Exam General: Cooperative, healthy appearing, comfortable, no acute distress and well developed Orientation: Patient oriented x3 Limitations: No limitations Respiratory: Normal respiratory effort and able to speak in complete sentences. Clear to auscultation bilaterally Cardiovascular: Regular rate and rhythm. Normal S1 and S2 Skin: Scabbed wound, closed and dry on the chin. No erythema or induration noted. No discharge or bleeding. Patient was informed and verbally consented to the use of an ambient scribe for clinic note documentation during this visit. [facility] Medical History Right-sided temporomandibular joint pain-dysfunction syndrome Cerumen impaction Otitis media NSTEMI (non-ST elevated myocardial infarction) Acute electrocardiogram changes Otitis media, right History of colon cancer Incisional hernia Abdominal wall mass History of breast cancer Invasive ductal carcinoma of left breast Anemia Increased BMI On beta ananya at home Breast cancer Invasive ductal carcinoma of left breast Abnormality of left breast on screening mammography Multinodular thyroid Osteopenia Vitamin D deficiency Primary hyperparathyroidism Tubulovillous adenoma of colon Diabetes Asthma Hyperparathyroidism Cancer Arthritis GERD (gastroesophageal reflux disease) History of headache Elevated cholesterol HTN (hypertension) Surgical History History of cataract surgery History of thyroid surgery History of lumpectomy of left breast H/O left breast biopsy History of mammogram Status post total hip replacement, left History of exploratory laparotomy History of tubal ligation Hx of tonsillectomy Hx of cholecystectomy S/P colon resection H/O colonoscopy Family History Father No problems noted. Mother Diabetes mellitus Other No family history of cancer Social History Household Members: Significant Other Housing: House Are you a primary youth care worker to a significant other at home: No Alcohol intake: never Comment: sleeping Patient Tobacco Use Status: Never used Tobacco e-Cigarette/Vaping Use: Never Used Second Hand Smoke Exposure: No Advance Directives Date on File: 08/11/02 service: No Current occupational status: unemployed Cognitive needs: No Hearing needs: No Vision needs: Yes (Glasses) Female Reproductive History Menstrual Age of Menarche: 13 Review of Systems Const All systems reviewed & are unremarkable except as noted in HPI and below Physical Exam Vital Signs: Last Vital Signs Temp 99.0 F 12/04/24 08:25 Pulse 89 12/04/24 08:25 BP 122/70 12/04/24 08:25 Pulse Ox 96 12/04/24 08:25 Oxygen Delivery Method Room Air 12/04/24 08:25 BMI result Body Mass Index 30.4 Assessment & Plan Assessment & Plan (1) Abrasion of chin: Code(s): S00.81XA - Abrasion of other part of head, initial encounter Qualifiers: Encounter type: initial encounter Qualified Code(s): S00.81XA - Abrasion of other part of head, initial encounter Plan Most likely delayed healing of the abrasion on her chin plan - Initiate treatment with oral antibiotics and topical antibiotic ointment for two weeks. - Avoid reopening the wound to prevent scarring unless absolutely necessary. - Plan for referral to plastic surgery or dermatology if the condition does not improve. Medications: New mupirocin 2% 1 appl topical TID 22 grams 0RF doxycycline hyclate 100 mg PO BID 14 tabs 0RF Coding Level of Care Code Est Pt Level 3 (40611) Diagnoses Abrasion of chin, initial encounter S00.81XA Encounter type: initial encounter
--- OUTSIDE RECORDS SUMMARY | 2024-12-04 08:48 | XMS_ITS | Encounter Summary ---
Author Organization [employer] Address [address] [place] [address] [address] [place] [address] Care Team Providers Care Glueline Worker Name Role Phone Unavailable Primary Care Provider Unavailabl e Reason for Visit * Reason Comments Med Refill Encounter Details Date Type Department Care Team (Late st Contact Info) Description 09/23/[address] [facility] MED[facility] [address] [place] [address] Whitley Kendall MD [address] [place] [address] Social History Tobacco Use Types Packs/Day Years [...]
--- OUTSIDE RECORDS SUMMARY | 2024-12-04 08:48 | XMS_ITS | Encounter Summary ---
Author Organization [employer] Address [address] [place] [address] [address] [place] [address] Care Team Providers Care Regional Operations Manager Name Role Phone Unavailable Primary Care Provider Unavailabl e Reason for Visit * Reason Comments Med Refill Encounter Details Date Type Department Care Team (Late st Contact Info) Description 04/28/2023 Refill [facility] [address] [place] [address] Whitley Kendall MD [address] [place] [address] Social History Tobacco Use Types Packs/Day Years [...]
--- OUTSIDE RECORDS SUMMARY | 2024-12-04 08:48 | XMS_ITS | Clinical Summary ---
Author Organization [facility] Address [address] [place] [address] Phone Care Team Providers Care Platform Mill Supervisor Name Role Phone Daryl Connie NATHAN Primary Care Provider [phone] Allergies Active Allergy Reactions Criticality Noted Date [...] topic Medical Devices Not on file Insurance [employer] MEDIC[employer] PART A & B [employer] MEDICARE PART A & B MEDICARE PART A & [place] PART A & B HEALTH MEDICARE PART A & [place] A [place] [address] [place] [address] MEDICARE PART A & B Care Teams Platform Mill Supervisor Relationship Specialty Start Date End Date Connie Brito NP PCP - General 08/10/20 Additional Source Comments The information contained in this document represents components of the legal health record. It is not the complete legal health record.[facility]
--- OUTSIDE RECORDS SUMMARY | 2024-12-04 08:48 | XMS_ITS | Encounter Summary ---
Author Organization [employer] Address [address] [facility] 7t [place] [address] Care Team Providers Care Supply Chain Associate Name Role Phone Unavailable Primary Care Provider Unavailabl e Reason for Visit * Reason Comments Med Refill Encounter Details Date Type Department Care Team (Late st Contact Info) Description 12/17/2022 Refill [facility] [address] [place] [address] [place] Jessica [facility] [address] [place] [address] Social History Tobacco Use Types Packs/Day Years [...]
--- OUTSIDE RECORDS SUMMARY | 2024-12-04 08:48 | XMS_ITS | Encounter Summary ---
Author Organization [employer] Address [address] [facility] 7t [place] [address] Care Team Providers Care Press Operator Name Role Phone Unavailable Primary Care Provider Unavailabl e Reason for Visit * Reason Comments Med Refill Encounter Details Date Type Department Care Team (Late st Contact Info) Description 12/17/2022 Refill [facility] [address] [place] [address] Ricarda Hastings FNP [address] [place] [address] Social History Tobacco Use Types Packs/Day Years [...]
--- OUTSIDE RECORDS SUMMARY | 2024-12-04 08:48 | XMS_ITS | Encounter Summary ---
Author Organization [employer] Address [address] [facility] 7t [place] [address] Care Team Providers Care Public Health Clinical Nurse Specialist Name Role Phone Unavailable Primary Care Provider Unavailabl e Encounter Details Date Type Department Care Team (Late st Contact Info) Description 04/11/2023 Orders Only [facility] [address] [place] [address] Jenny Briggs LPN Social History Tobacco Use [...]
--- OUTSIDE RECORDS SUMMARY | 2024-12-04 08:48 | XMS_ITS | Clinical Summary ---
Author Organization [employer] Address [address] [facility] 7t [place] [address] Care Team Providers Care Telehealth Director Name Role Phone Unavailable Primary Care Provider [...] 10/24/2011, 08/05/2003, 12/09/1997 COVID-19 Vaccine ( season) 2024 01/13/2022, 06/10/2020, 05/13/2020 Influenza Vaccine (#1) 2024 [...] LDL-C. Jacobo SS et al. PRECIOUS. 2013;310(19): 4399-6548 (http://education.HubPages/faq/FFD259) Non-HDL Cholesterol 101 <130 mg/dL (calc) [facility] [...] NP LAB BLOOD ORDERABLES Final Res ult [facility] [address] from Last 3 Months or Most Recently Relevant to Health Maintenance Insurance MEDICARE [facility]
--- OUTSIDE RECORDS SUMMARY | 2024-12-04 08:48 | XMS_ITS | Encounter Summary ---
Author Organization [facility] Address [address] [place] [address] Phone Care Team Providers Care Color Adviser Name Role Phone Connie Brito SLEEP LAB TECHNOLOGIST Primary Care Provider [phone] Encounter Details Date Type Department Care Team (Late st Contact Info) Description 08/12/2020 Ancillary Orders [facility],Outside Imaging [address] [place] [address] System, Provider Not In, [facility] [address] [address] Social History Tobacco Use Types Packs/Day Years Used Date Smoking Tobacco: Never Assessed Comments Unknown Sex and Gender Information Value Date Recorded Sex Assigned at Not on file Legal Sex Female 3:54 PM EDT Gender Identity Not on file Sexual Orientation Not on file documented as of this encounter Plan of Treatment Not on file documented as of this encounter Results * NM Other Outside (No Interpretation) (07/27/2020 12:05 AM EDT) Narrative SYSTEMGENERATED, DOCUMENTATION - 08/12/2020 3:41 PM EDT This study is for PACS storage only and not for interpretation. us Provider Not In System PhD IMG OUTSIDE IMAGING W /OUT INTERPRETATION Final Result * Mammogram Outside (No Interpretation) (07/27/2020 12:00 AM EDT) Narrative SYSTEMGENERATED, DOCUMENTATION - 08/12/2020 3:41 PM EDT This study is for PACS storage only and not for interpretation. us Provider Not In System PhD IMG OUTSIDE IMAGING W /OUT INTERPRETATION Final Result * US Breast Outside (No Interpretation) (06/24/2020 12:05 AM EDT) Narrative SYSTEMGENERATED, DOCUMENTATION - 08/12/2020 3:43 PM EDT This study is for PACS storage only and not for interpretation. us Provider Not In System PhD IMG OUTSIDE IMAGING W /OUT INTERPRETATION Final Result * Mammogram Outside (No Interpretation) (06/24/2020 12:00 AM EDT) Narrative SYSTEMGENERATED, DOCUMENTATION - 08/12/2020 3:42 PM EDT This study is for PACS storage only and not for interpretation. us Provider Not In System PhD IMG OUTSIDE IMAGING W /OUT INTERPRETATION Final Result * Mammogram Outside (No Interpretation) (06/15/2020 12:05 AM EDT) Narrative SYSTEMGENERATED, DOCUMENTATION - 08/12/2020 3:40 PM EDT This study is for PACS storage only and not for interpretation. us Provider Not In System PhD IMG OUTSIDE IMAGING W /OUT INTERPRETATION Final Result * US Breast Outside (No Interpretation) (06/15/2020 12:00 AM EDT) Narrative SYSTEMGENERATED, DOCUMENTATION - 08/12/2020 3:39 PM EDT This study is for PACS storage only and not for interpretation. us Provider Not In System PhD IMG OUTSIDE IMAGING W /OUT INTERPRETATION Final Result * Mammogram Outside (No Interpretation) (05/25/2020 12:00 AM EST) Narrative SYSTEMGENERATED, DOCUMENTATION - 08/12/2020 3:39 PM EDT This study is for PACS storage only and not for interpretation. us Provider Not In System PhD IMG OUTSIDE IMAGING W /OUT INTERPRETATION Final Result * Mammogram Outside (No Interpretation) (01/08/2019 12:00 AM EDT) Narrative SYSTEMGENERATED, DOCUMENTATION - 08/12/2020 3:40 PM EDT This study is for PACS storage only and not for interpretation. us Provider Not In System PhD IMG OUTSIDE IMAGING W /OUT INTERPRETATION Final Result documented in this encounter Visit Diagnoses Not on filedocumented in this encounter Care Teams Color Adviser Relationship Specialty Start Date End Date Connie Brito NP PCP - General 08/10/20 documented as of this encounter Additional Source Comments The information contained in this document represents components of the legal health record. It is not the complete legal health record.[facility]
--- OUTSIDE RECORDS SUMMARY | 2024-12-04 08:48 | XMS_ITS | Encounter Summary ---
Author Organization [employer] Address [address] [place] [address] [address] [place] [address] Care Team Providers Care Second Crusher Name Role Phone Unavailable Primary Care Provider Unavailabl e Reason for Visit * Reason Comments Med Refill Encounter Details Date Type Department Care Team (Late st Contact Info) Description 12/17/2022 Refill [facility] MED[facility]INE [address] [place] [address] Whitley Kendall MD [address] [place] [address] Social History Tobacco Use Types Packs/Day Years [...]
--- OUTSIDE RECORDS SUMMARY | 2024-12-04 08:48 | XMS_ITS | Encounter Summary ---
Author Organization [employer] Address [address] [facility] 7t [place] [address] Care Team Providers Care Speech Communication Instructor Name Role Phone Unavailable Primary Care Provider Unavailabl e Reason for Visit * Reason Comments Med Refill Encounter Details Date Type Department Care Team (Late st Contact Info) Description 03/17/2023 Refill [facility] MEDICINE [address] [place] [address] [place] Jessica [facility] [address] [place] [address] Social History Tobacco Use Types Packs/Day Years [...]
== END 2024-12-04 09:05 | disposition home or self-care (01) ==
PROVIDERS: PCP Internal Medicine; Visit Provider Physician Assistant Medical
DX: S00.81XA Abrasion of other part of head, initial encounter (principal)

== ENCOUNTER → 2024-12-04 08:23 | Outpatient (BNVA) | payer OTHER, SELFPAY | PROVIDERS: PCP Internal Medicine; Visit Provider Physician Assistant Medical | DX: S01.81XA Laceration without foreign body of other part of head, initial encounter (principal); W19.XXXA Unspecified fall, initial encounter; Y93.9 Activity, unspecified; Y92.9 Unspecified place or not applicable; Y99.9 Unspecified external cause status | CPT/HCPCS: 99212 ==

== ENCOUNTER 2025-01-26 09:10 | Outpatient (AMB) | payer OTHER, SELFPAY ==
[2025-01-26 09:19] VITALS: BP 150/72; PULSE 66; BMI 30.3
--- NOTE | 2025-01-26 09:19 | MHC.OFFVIS ---
Vital Signs 01/26/25 09:19 Height 5 ft 4 in Weight 176 lb 5.917 oz BMI 30.3 BP 150/72 H Blood Pressure Location Rt brachial Position Sitting Pulse 66 Pulse Source Pulse Oximeter Intake Visit Reasons: 6 Month Follow up Commercial Real Estate Manager Required: No Commercial Real Estate Manager Services: Commercial Real Estate Manager Offered & Declined Weatherization And Housing Inspector: Weatherization And Housing Inspector Present Allergies ibuprofen (Ibuprofen) Allergy (Mild, Verified 01/26/25 09:23) SWELLING celecoxib (CELECOXIB) Allergy (Unknown, Verified 01/26/25 09:23) DROPS SUGAR LEVEL Medication List - Last Reconciled 01/26/25 by Makayla Sierra NP-C albuterol sulfate 90 mcg/actuation 2 puffs inhalation Q6H PRN 30 days albuterol sulfate 2.5 mg (3 mL) inhalation QID PRN 30 days amlodipine 2.5 mg See Protocol PO DAILY 30 days ascorbate calcium (vitamin C) 500 mg PO DAILY 90 days aspirin 81 mg PO DAILY 30 days blood sugar diagnostic As directed blood sugar diagnostic (FreeStyle Lite Strips) Use 1 test strip once a day cetirizine 5 mg (1/2 x 10 mg) PO DAILY PRN 90 days cholecalciferol (vitamin D3) 25 mcg PO DAILY 90 days cyanocobalamin (vitamin B-12) 1,000 mcg sublingual DAILY 3 days famotidine 20 mg PO BID 90 days ferrous sulfate 325 mg PO DAILY fluticasone propionate 50 mcg/actuation (Flonase Allergy Relief) 1 spray intranasal DAILY 30 days lancets As directed lisinopril 40 mg PO DAILY 90 days loratadine-pseudoephedrine 5-120 mg ER (Claritin-D 12 Hour) 1 tab PO Q12H metformin 850 mg PO BID 90 days metoprolol succinate ER 50 mg PO DAILY 90 days mupirocin 2% 1 appl topical TID rizatriptan 10 mg PO DAILY PRN 30 days rosuvastatin 20 mg PO DAILY 90 days tamoxifen 20 mg PO DAILY walker Folding Front wheeled walker HPI HPI 6 Month Follow up: Details: Destiney is an 79-year-old female with past medical history diabetes, hypertension, hyperlipidemia, secondary NSTEMI 07/2023 in the setting of COPD exacerbation, followed by normal nuclear stress test and echocardiogram showing normal EF who presents for follow-up. Today she reports that she has been doing well since her last visit in May. She has no chest discomfort at rest or with activity. She has mild shortness of breath at times which she relates to her asthma. No PND, orthopnea or edema. No lightheadedness, presyncope, syncope, falls. She is very active throughout the day. Taking meds as directed. Left the house early this morning and did not take her medications yet today. Daughter in-law is present and assisting with Beninese translation at their request. [facility] Medical History Right-sided temporomandibular joint pain-dysfunction syndrome Cerumen impaction Otitis media NSTEMI (non-ST elevated myocardial infarction) Acute electrocardiogram changes Otitis media, right History of colon cancer Incisional hernia Abdominal wall mass History of breast cancer Invasive ductal carcinoma of left breast Anemia Increased BMI On beta ananya at home Breast cancer Invasive ductal carcinoma of left breast Abnormality of left breast on screening mammography Multinodular thyroid Osteopenia Vitamin D deficiency Primary hyperparathyroidism Tubulovillous adenoma of colon Diabetes Asthma Hyperparathyroidism Cancer Arthritis GERD (gastroesophageal reflux disease) History of headache Elevated cholesterol HTN (hypertension) Surgical History History of cataract surgery History of thyroid surgery History of lumpectomy of left breast H/O left breast biopsy History of mammogram Status post total hip replacement, left History of exploratory laparotomy History of tubal ligation Hx of tonsillectomy Hx of cholecystectomy S/P colon resection H/O colonoscopy Family History Father No problems noted. Mother Diabetes mellitus Other No family history of cancer Social History Household Members: Significant Other Housing: House Are you a primary healthcare facility administrator to a significant other at home: No Alcohol intake: never Comment: sleeping Patient Tobacco Use Status: Never used Tobacco e-Cigarette/Vaping Use: Never Used Second Hand Smoke Exposure: No Advance Directives Date on File: 08/11/02 service: No Current occupational status: unemployed Cognitive needs: No Hearing needs: No Vision needs: Yes (Glasses) Female Reproductive History Menstrual Age of Menarche: 13 Review of Systems Const All systems reviewed & are unremarkable except as noted in HPI and below ENT Denies dizziness Card Denies chest pain, Denies chest pain at rest, Denies chest pain with activity, Denies rapid heart rate, Denies pedal edema, Denies edema, Denies leg edema, Denies lightheadedness, Denies palpitations, Denies dyspnea, Denies dyspnea on exertion and Denies orthopnea Resp Denies cough, Denies dyspnea and Denies dyspnea on exertion GI Denies hematochezia and Denies change in stool character Musc Denies abnormal gait, Denies limited range of motion, Denies muscle cramps, Denies muscle weakness, Denies numbness, Denies radiating pain into limb, Denies stiffness and Denies tingling Neuro Denies abnormal gait, Denies dizziness, Denies numbness and Denies tingling Endo Denies palpitations Physical Exam Vital Signs: Last Vital Signs Pulse 66 01/26/25 09:19 BP 150/72 H 01/26/25 09:19 BMI result Body Mass Index 30.3 Const General: cooperative, healthy appearing, comfortable and no acute distress Orientation/consciousness: patient oriented x3 Neck Neck: Yes normal visual inspection and Yes no JVD Resp Effort & Inspection: normal respiratory effort Auscultation: clear to auscultation bilaterally, no crackles, no rales, no rhonchi and no wheezes Cardio Jugular venous distension: no JVD Rate: regular rate Rhythm: regular rhythm Heart sounds: S1 normal heart sound present, S2 normal heart sound present, no murmurs and no rubs Neuro General: patient oriented x3 Extrem General: Yes normal to inspection and No no pedal edema Psych Appearance: grossly normal Mental Status: mental status grossly normal Speech and movement: Normal speech and movement present Assessment & Plan Assessment & Plan (1) NSTEMI (non-ST elevated myocardial infarction): Code(s): I21.4 - Non-ST elevation (NSTEMI) myocardial infarction Category: Medical Plan: Secondary NSTEMI 07/2023 in setting of asthma exacerbation and pneumonia. An echocardiogram done 07/23/2023 showed EF greater than 70%, no regional wall motion abnormality. An outpatient nuclear stress test was done on 08/24/2023 showing normal myocardial perfusion imaging. She was managed medically and with risk factor modification. Condition stable with no angina. Continue aspirin indefinitely. Continue rosuvastatin With ideal LDL goal less than 70. Continue metoprolol XL, amlodipine and lisinopril for good heart rate and blood pressure control. Signs and symptoms of angina reviewed. Cardiology follow-up in 1 year, sooner if needed (2) HTN (hypertension): Code(s): I10 - Essential (primary) hypertension Category: Medical Qualifiers: Hypertension type: primary hypertension Qualified Code(s): I10 - Essential (primary) hypertension Plan: Blood pressure goal less than 130/80. Elevated today but did not take her medications yet. Reviewed low-salt diet, benefits a weight loss. No med changes made. Continue amlodipine, lisinopril, metoprolol. (3) Hyperlipidemia LDL goal <70: Code(s): E78.5 - Hyperlipidemia, unspecified Category: Medical Plan: [place] LDL goal less than 70 in patient with diabetes and presumed CAD. Labs 06/25/2024 showed LDL 35. Continue rosuvastatin. (4) Diabetes: Comment: NIDDM Code(s): E11.9 - Type 2 diabetes mellitus without complications Category: Medical Qualifiers: Diabetes mellitus type: type 2 Diabetes mellitus superintendent terminal insulin use: without superintendent terminal use Diabetes mellitus complication status: with hyperglycemia Qualified Code(s): E11.65 - Type 2 diabetes mellitus with hyperglycemia Plan: Hemoglobin A1c goal less than 7. Followed by PCP Plan Time spent on chart review, documentation, interview and assessment Coding Level of Care Code Est Pt Level 4 (76108) Complex EM visit Add On G2211 Diagnoses NSTEMI (non-ST elevated myocardial infarction) I21.4 Primary hypertension I10 Hypertension type: primary hypertension Hyperlipidemia LDL goal <70 E78.5 Type 2 diabetes mellitus with hyperglycemia, without long-term current use of insulin E11.65 Diabetes mellitus type: type 2 Diabetes mellitus superintendent terminal insulin use: without alf use Diabetes mellitus complication status: with hyperglycemia Time Spent (min) 28
--- OUTSIDE RECORDS SUMMARY | 2025-01-26 10:04 | XMS_ITS | Encounter Summary ---
Author Organization [employer] Address [address] [facility] 7t [place] [address] Care Team Providers Care Machine Or Machinery Mechanic Name Role Phone Unavailable Primary Care Provider Unavailabl e Reason for Visit * Reason Comments Med Refill Encounter Details Date Type Department Care Team (Late st Contact Info) Description 12/17/2022 Refill [facility] [address] [place] [address] [place] Jessica [facility] [address] [place] [address] Social History Tobacco Use Types Packs/Day Years [...]
--- OUTSIDE RECORDS SUMMARY | 2025-01-26 10:04 | XMS_ITS | Encounter Summary ---
Author Organization [facility] Address [address] [place] [phone] Phone Care Team Providers Care Manager Route Name Role Phone Connie Brito NATHAN Primary Care Provider Encounter Details Date Type Department Care Team (Late st Contact Info) Description 08/12/2020 Ancillary Orders [facility],Outside Imaging [address] [place] [address] System, Provider Not In, [facility] [address] [address] Social History Tobacco Use Types Packs/Day Years [...] on filedocumented in this encounter Care Teams Manager Route Relationship Specialty Start Date End Date Connie Brito NP PCP - General 08/10/20 documented as of this encounter Additional Source Comments The information contained in this document represents components of the legal health record. It is not the complete legal health record.[facility]
--- OUTSIDE RECORDS SUMMARY | 2025-01-26 10:04 | XMS_ITS | Encounter Summary ---
Author Organization [email or web address] Address [address] [facility] 7t [place] [address] Care Team Providers Care Food Science Professor Name Role Phone Unavailable Primary Care Provider Unavailabl e Reason for Visit * Reason Comments Med Refill Encounter Details Date Type Department Care Team (Late st Contact Info) Description 03/17/2023 Refill [facility] [address] [place] [address] Christiana Jessica [facility] [address] [place] [address] Social History Tobacco Use Types Packs/Day Years [...]
--- OUTSIDE RECORDS SUMMARY | 2025-01-26 10:04 | XMS_ITS | Encounter Summary ---
Author Organization [employer] Address [address] [facility] 7t [place] [address] Care Team Providers Care Crossing Gateman Name Role Phone Unavailable Primary Care Provider Unavailabl e Encounter Details Date Type Department Care Team (Late st Contact Info) Description 04/11/2023 Orders Only [facility] & PEDS [address] [place] [address] Jenny Briggs LPN Social History Tobacco Use [...]
--- OUTSIDE RECORDS SUMMARY | 2025-01-26 10:04 | XMS_ITS | Clinical Summary ---
Author Organization [facility] Address [address] [place] [address] Phone Care Team Providers Care Behavioral Geneticist Name Role Phone Daryl Connei NATHAN Primary Care Provider [phone] Allergies Active Allergy Reactions Criticality Noted Date [...] VACCINES (1 of 2) 08/06/1962 OSTEOPOROSIS SCREENING INITIAL (ONE-TIME) 08/06/2008 RSV VACCINE (1 - 1-dose 75+ series) 08/06/2018 Adult Td,Tdap Booster 10/23/2021 10/24/2011 , 08/05/2003, 12/09/1997 INFLUENZA VACCINE (#1) 2024 , 01/10/2020, 12/31/2019, Additional history exists COVID-19 VACCINE (2024- season) 2024 06/10/2020, 05/13/2020 PNEUMOCOCCAL VACCINES (50+ years) Completed [...] topic Medical Devices Not on file Insurance [employer]ALTH MEDICARE PART A & B [employer]ALTH MEDICARE PART A & B HEALTH MEDICARE PART A & [facility] HE[facility] MEDICARE PART A & B [employer]ALTH MEDICARE PART A & B HEALTH MEDICARE PART A & B [place] A & [facility] B Care Teams Behavioral Geneticist Relationship Specialty Start Date End Date Connie Brito NP PCP - General 08/10/20 Additional Source Comments The information contained in this document represents components of the legal health record. It is not the complete legal health record.[facility]
--- OUTSIDE RECORDS SUMMARY | 2025-01-26 10:04 | XMS_ITS | Encounter Summary ---
Author Organization [facility] [employer] Address [address] [place] [address] [address] [place] [address] Care Team Providers Care Utility Worker Roller Shop Name Role Phone Unavailable Primary Care Provider Unavailabl e Reason for Visit * Reason Comments Med Refill Encounter Details Date Type Department Care Team (Late st Contact Info) Description 12/17/2022 Refill [facility] [address] [place] [address] Whitley Kendall MD [address] [place] [address] Social History Tobacco Use Types Packs/Day Years [...]
--- OUTSIDE RECORDS SUMMARY | 2025-01-26 10:04 | XMS_ITS | Clinical Summary ---
Author Organization [employer] Address [address] [facility] 7t [place] [address] Care Team Providers Care Local Company Intermodal Truck Driver Name Role Phone Unavailable Primary Care Provider [...] LDL-C. Jacobo SS et al. PRECIOUS. 2013;310(19): 5109-9240 (http://education.GamePix/faq/[email or web address]) Non-HDL Cholesterol 101 <130 mg/dL (calc) [facility]OUNDATION [...] [facility] [address] from Last 3 Months or Most Recently Relevant to Health Maintenance Insurance MEDICARE Member Subscriber Plan / Payer (Ef fective 2022-Present) Name:Destiney Zhong Member ID:[id number] Relation to Subscriber:Self Name:Destiney Zhong Subscriber ID:[id number] Payer ID:STATE Group ID:Not on file Type:Medicare Address: [place] [facility] [address] [place] [address] [facility] ST[facility]
--- OUTSIDE RECORDS SUMMARY | 2025-01-26 10:04 | XMS_ITS | Encounter Summary ---
Author Organization [employer] Address [address] [facility] 7[address] [place] [address] Care Team Providers Care Construction Job Titles Name Role Phone Unavailable Primary Care Provider Unavailabl e Reason for Visit * Reason Comments Med Refill Encounter Details Date Type Department Care Team (Late st Contact Info) Description 12/17/2022 Refill [facility] [address] [place] [address] Ricarda Hastings FNP [address] [place] [address] Social History Tobacco Use Types Packs/Day Years [...]
--- OUTSIDE RECORDS SUMMARY | 2025-01-26 10:04 | XMS_ITS | Encounter Summary ---
Author Organization [employer] Address [address] [place] [address] [address] [place] [address] Care Team Providers Care Tools Developer Name Role Phone Unavailable Primary Care Provider Unavailabl e Reason for Visit * Reason Comments Med Refill Encounter Details Date Type Department Care Team (Late st Contact Info) Description 04/28/2023 Refill [facility] [address] [place] [address] Whitley Kendall MD [address] [place] [address] Social History Tobacco Use Types Packs/Day Years [...]
--- OUTSIDE RECORDS SUMMARY | 2025-01-26 10:04 | XMS_ITS | Encounter Summary ---
Author Organization [employer] Address [address] [place] [address] [address] [place] [address] Care Team Providers Care Clerk To Justice Name Role Phone Unavailable Primary Care Provider Unavailabl e Reason for Visit * Reason Comments Med Refill Encounter Details Date Type Department Care Team (Late st Contact Info) Description 09/23/2023 Refill [facility] [address] [place] [address] Whitley Kendall MD [address] [place] [address] Social History Tobacco Use Types Packs/Day Years [...]
== END 2025-01-26 09:46 | disposition home or self-care (01) ==
LOC: HO.HCS 09:11
PROVIDERS: PCP Internal Medicine; Visit Provider Nurse Practitioner Family
DX: I21.4 Non-ST elevation (NSTEMI) myocardial infarction (principal); I10 Essential (primary) hypertension; E78.5 Hyperlipidemia, unspecified; E11.65 Type 2 diabetes mellitus with hyperglycemia
CPT/HCPCS: 99214; G2211

== ENCOUNTER → 2025-01-26 09:10 | Outpatient (BNVA) | payer OTHER, SELFPAY | PROVIDERS: PCP Internal Medicine; Visit Provider Nurse Practitioner Family | DX: I21.4 Non-ST elevation (NSTEMI) myocardial infarction (principal); I10 Essential (primary) hypertension; E78.5 Hyperlipidemia, unspecified; E11.9 Type 2 diabetes mellitus without complications | CPT/HCPCS: 99212 ==

== ENCOUNTER 2025-02-17 08:01 | Outpatient (REF) | payer OTHER, SELFPAY ==
[2025-02-17 08:25] LABS: MANUAL DIFF FLAG NO
[2025-02-17 08:56] LABS: Hematocrit 40.0 % (37.0-47.0); Hemoglobin 12.7 g/dl (12.0-16.0); Imm Gran Abs Auto 0.03 X10*3/uL (0.00-0.03); Imm Gran Pct Auto 0.4 % (0.0-0.4); Lymphocytes Absolute Auto 1.9 X10*3/uL (1.2-4.9); Mean Corpuscular HGB Conc 31.8 g/dl (31.0-35.0); Mean Corpuscular Hemoglobin 28.8 pg (27.0-33.0); Mean Corpuscular Volume 90.7 fL (80.0-98.0); NRBC Abs Auto 0.000 X10*3/uL (0.0-0.012); NRBC Pct Auto 0.0 /100WBC (0.0-0.2); Platelet Count 246 X10*3/uL (160-400); Red Blood Count 4.41 X10*6/uL (4.20-5.50); White Blood Count 7.8 X10*3/uL (4.8-10.8)
[2025-02-17 09:39] LABS: Parathyroid Hormone Intact 44.7 pg/mL (8.7-77.1)
[2025-02-17 09:44] LABS: Alanine Aminotransferase 10 U/L (0-31); Albumin Level 4.1 g/dL (3.5-5.0); Alkaline Phosphatase 44 U/L (39-117); Anion Gap 14 (12-20); Aspartate Amino Transferase 21 U/L (5-31); Blood Urea Nitrogen 15 mg/dL (9-16); Calcium 8.5 mg/dL (8.4-10.2); Carbon Dioxide 25 mmol/L (22-29); Chloride 104 mmol/L (96-108); Cholesterol 105 mg/dL (<200); Estimated Glomerular Filt Rate > 60; HDL Cholesterol 46 mg/dL (>40); Iron 94 mcg/dL (30-160); Percent Iron Saturation 28 % (15-50); Potassium 4.2 mmol/L (3.3-5.1); Sodium 139 mmol/L (135-145); Total Iron Binding Capacity 337 mcg/dL (228-428); Total Protein 6.5 g/dL (6.5-8.0); Triglycerides 167 mg/dL (<150); Unsaturated Iron Binding 243 ug/dL
[2025-02-17 10:03] LABS: Folate 13.3 ng/mL (> or = 4.0); Vitamin B12 599 pg/mL (200-900)
[2025-02-17 10:10] LABS: Microalbum/Creatinine Ratio Ur 40.1 ug/mg cr (<30)
[2025-02-18 16:08] LABS: Calcium, Ionized 4.8 mg/dL (4.7-5.5)
[2025-02-21 18:47] LABS: Calcium, Random Urine 8.0 mg/dL
== END 2025-02-17 08:02 | disposition home or self-care (01) ==
LOC: HO.LAB 08:01
PROVIDERS: PCP Internal Medicine; Visit Provider Internal Medicine
DX: E11.65 Type 2 diabetes mellitus with hyperglycemia (principal); E78.5 Hyperlipidemia, unspecified; E21.0 Primary hyperparathyroidism; E55.9 Vitamin D deficiency, unspecified; E53.8 Deficiency of other specified B group vitamins; J18.9 Pneumonia, unspecified organism; D64.9 Anemia, unspecified; R80.9 Proteinuria, unspecified
CPT/HCPCS: 36415; 80053; 80061; 82043; 82306; 82310; 82330; 82570; 82607; 82746; 83540; 83970; 84100; 85025

== ENCOUNTER 2025-02-22 08:47 | Emergency (ER) | payer OTHER, SELFPAY ==
--- NOTE | ~2025-02-22 | XR_ITS ---
CLINICAL HISTORY: sob, cough 1 view chest x-ray Comparison: CR/VA/SR - XR CHEST 2 VIEWS - 09/09/24 09:25 EDT CR/VA/SR - XR CHEST 2 VIEWS - 08/28/24 08:32 EDT Findings: No consolidation, pleural effusion or pneumothorax. Normal heart size. Soft tissue prominence in the right hilum and right paratracheal region are stable likely vascular in etiology. No acute fracture. IMPRESSION: No acute cardiopulmonary process. This document has been electronically signed by: Elissa Clay DO on 02/22/2025 11:36:22
[2025-02-22 08:50] VITALS: BP 152/74; PULSE 74; RESP 16; TEMP 36.4; O2SAT 97; BMI 29.2
--- NOTE | 2025-02-22 08:54 | ECG_ITS ---
Test Reason : CP Blood Pressure : */* mmHG Vent. Rate : 100 BPM Atrial Rate : 100 BPM P-R Int : 146 ms QRS Dur : 84 ms QT Int : 366 ms P-R-T Axes : 55 -5 48 degrees QTcB Int : 472 ms Normal sinus rhythm Nonspecific ST and T wave abnormality Abnormal ECG When compared with ECG of 23-Jul-2023 16:04, ST no longer depressed in Anterior leads Nonspecific T wave abnormality has replaced inverted T waves in Anterior leads Referred By: Generic ED Physician Electronically Signed By: Logan Mustafa
[2025-02-22 09:10] LABS: Hematocrit 41.2 % (37.0-47.0); Hemoglobin 13.2 g/dl (12.0-16.0); Imm Gran Abs Auto 0.03 X10*3/uL (0.00-0.03); Imm Gran Pct Auto 0.4 % (0.0-0.4); Lymphocytes Absolute Auto 0.9 X10*3/uL (1.2-4.9); MANUAL DIFF FLAG NO; Mean Corpuscular HGB Conc 32.0 g/dl (31.0-35.0); Mean Corpuscular Hemoglobin 28.3 pg (27.0-33.0); Mean Corpuscular Volume 88.4 fL (80.0-98.0); NRBC Abs Auto 0.000 X10*3/uL (0.0-0.012); NRBC Pct Auto 0.0 /100WBC (0.0-0.2); Platelet Count 200 X10*3/uL (160-400); Red Blood Count 4.66 X10*6/uL (4.20-5.50); White Blood Count 6.8 X10*3/uL (4.8-10.8)
[2025-02-22 09:21] LABS: COVID-19 Test Positive (Negative); IDNOW Serial# 55D5AD1C
[2025-02-22 09:23] LABS: Alanine Aminotransferase 16 U/L (0-31); Albumin Level 4.4 g/dL (3.5-5.0); Alkaline Phosphatase 47 U/L (39-117); Anion Gap 18 (12-20); Aspartate Amino Transferase 32 U/L (5-31); Blood Urea Nitrogen 12 mg/dL (9-16); Calcium 8.5 mg/dL (8.4-10.2); Carbon Dioxide 24 mmol/L (22-29); Chloride 98 mmol/L (96-108); Creatinine Clr Calc Pharmacy 50.2; Estimated Glomerular Filt Rate > 60; Lipase 21 U/L (8-78); Potassium 4.2 mmol/L (3.3-5.1); Sodium 136 mmol/L (135-145); Total Protein 6.9 g/dL (6.5-8.0)
[2025-02-22 09:25] LABS: IDNOW Serial# 58CA691E; Influenza B2 Negative (Negative)
[2025-02-22 09:39] LABS: Magnesium 1.5 mg/dL (1.6-2.6)
[2025-02-22] MEDS: Albuterol/Iprat 2.5/0.5MG 3 ML AMPUL.NEB INHALE (09:39)
[2025-02-22 09:41] VITALS: PULSE 74; RESP 18; O2SAT 95
--- NOTE | 2025-02-22 09:57 | ED_ITS ---
HPI - General Adult General Chief complaint: General Medical Stated complaint: Cough Congestion Running Nose Time Seen by Provider: 02/22/25 09:06 Source: patient, family, RN notes reviewed and old records reviewed Mode of arrival: ambulatory History of Present Illness ED Provider: Latoya Wise PA-C HPI narrative: 79-year-old Cymraes-speaking female with a past medical history CAD, anemia, asthma, diabetes, GERD, HTN, HLD, presenting to the ED complaining of diffuse myalgias, fatigue, dry cough, SOB, decreased p.o. intake, nausea /vomiting, subjective fever /chills x 2 days. also reports mild abdominal pain. Denies chest pain, diarrhea/constipation, travel Related Data Home Medications ?Medication ?Instructions ?Recorded ?Confirmed blood sugar diagnostic #10 ea 03/17/20 01/26/25 lancets 28 gauge #100 ea 03/17/20 01/26/25 Previous Rx's ?Medication ?Instructions ?Recorded walker #1 ea 01/02/20 cholecalciferol (vitamin D3) 25 25 mcg PO DAILY 90 day s #90 caps 04/28/23 mcg (1,000 unit) capsule amlodipine 2.5 mg tablet 2.5 mg PO DAILY 30 days #30 tabs 07/24/23 aspirin 81 mg tablet,delayed 81 mg PO DAILY 30 days #3 0 tabs 07/24/23 release rizatriptan 10 mg tablet 10 mg PO DAILY PRN Migraine 02/17/24 Headache 30 days #9 tabs albuterol sulfate 2.5 mg/3 mL 2.5 mg (3 mL) inhalation QID PRN 05/21/24 (0.083 %) solution for nebulization shortness of breat h or wheezing 30 days #75 mL ascorbate calcium (vitamin C) 500 500 mg PO DAILY 90 d ays #90 tabs 05/21/24 mg tablet loratadine 5 mg-pseudoephedrine ER 1 tab PO Q12H #30 t abs 05/30/24 120 mg tablet,extended release,12hr (Claritin-D 12 Hour) albuterol sulfate 90 mcg/actuation 2 puff inhalation Q 6H PRN 09/08/24 aerosol inhaler shortness of breath or wheez ing 30 days #8.5 grams ferrous sulfate 325 mg (65 mg 325 mg PO DAILY #30 tabs 09/15/24 iron) tablet rosuvastatin 20 mg tablet 20 mg PO DAILY 90 days #90 t abs 10/22/24 lisinopril 40 mg tablet 40 mg PO DAILY 90 days #90 t abs 11/06/24 metformin 850 mg tablet 850 mg PO BID 90 days #180 t abs 11/06/24 metoprolol succinate 50 mg 50 mg PO DAILY 90 days #90 tabs 11/06/24 tablet,extended release 24 hr tamoxifen 20 mg tablet 20 mg PO DAILY #90 tabs 10/31 07/25 cetirizine 10 mg tablet 5 mg (1/2 x 10 mg) PO DAILY PRN 11/16/24 Allergic Symptoms 90 days #90 tabs blood sugar diagnostic (FreeStyle #100 ea 11/26/24 Lite Strips) mupirocin 2 % topical ointment 1 appl topical TID #22 grams 12/04/24 fluticasone propionate 50 1 spray intranasal DAILY 30 days 12/05/24 mcg/actuation nasal #16 grams spray,suspension (Flonase Allergy Relief) cyanocobalamin (vitamin B-12) 1,000 mcg sublingual WILLIAM LY 3 days 12/23/24 1,000 mcg sublingual lozenge #90 ea famotidine 20 mg tablet 20 mg PO BID 90 days #180 ta bs 02/13/25 Allergies Allergy/AdvReac Type Severity Reaction Status Date / Time ibuprofen (Ibuprofen) Allergy Mild SWELLING Verified 02/22/25 08:54 celecoxib (CELECOXIB) Allergy Unknown DROPS Verified 02/22/25 08:54 SUGAR LEVEL Review of Systems 2 Review of Systems: Yes all other systems are reviewed and are negative Constitutional: Constitutional: Reports as per [facility] Past Medical History Attestation statement: The following information was validated with the patient. Source: old records reviewed Medical History Right-sided temporomandibular joint pain-dysfunction syndrome Cerumen impaction Otitis media NSTEMI (non-ST elevated myocardial infarction) Acute electrocardiogram changes Otitis media, right History of colon cancer Incisional hernia Abdominal wall mass History of breast cancer Invasive ductal carcinoma of left breast Anemia Increased BMI On beta ananya at home Breast cancer Invasive ductal carcinoma of left breast Abnormality of left breast on screening mammography Multinodular thyroid Osteopenia Vitamin D deficiency Primary hyperparathyroidism Tubulovillous adenoma of colon Diabetes Asthma Hyperparathyroidism Cancer Arthritis GERD (gastroesophageal reflux disease) History of headache Elevated cholesterol HTN (hypertension) Surgical History History of cataract surgery History of thyroid surgery History of lumpectomy of left breast H/O left breast biopsy History of mammogram Status post total hip replacement, left History of exploratory laparotomy History of tubal ligation Hx of tonsillectomy Hx of cholecystectomy S/P colon resection H/O colonoscopy Family History Family History Father No problems noted. Mother Diabetes mellitus Other No family history of cancer Social History Social History Household Members: Significant Other Housing: House Are you a primary patient care coordinator to a significant other at home: No Alcohol intake: never Comment: sleeping Patient Tobacco Use Status: Never used Tobacco e-Cigarette/Vaping Use: Never Used Second Hand Smoke Exposure: No Advance Directives Date on File: 08/11/02 service: No Current occupational status: unemployed Cognitive needs: No Hearing needs: No Vision needs: Yes (Glasses) Physical Exam ED Vital Signs: Vital Signs - 24 hr 02/22/25 08:50 02/22/25 09:41 02/22/25 11:20 Temperature 97.6 F 98.1 F Pulse Rate 74 74 96 Respiratory Rate 16 18 18 Blood Pressure 152/74 H 133/82 Pulse Oximetry 97 94 Oxygen Delivery Method Room Air Room Air 02/22/25 13:06 Temperature 98.1 F Pulse Rate 96 Respiratory Rate 18 Blood Pressure 133/82 Pulse Oximetry 94 Oxygen Delivery Method Room Air BMI result Body Mass Index 29.2 Const General: cooperative, healthy appearing and no acute distress Orientation/consciousness: patient oriented x3 Limitations: no limitations HENMT Head: Yes normal to inspection and Yes atraumatic Ears: hearing grossly normal bilaterally General nose exam: Normal external nose present Face and sinus: Yes normal facial exam Mouth: Normal oral and palatal mucosa present Throat: Yes posterior oropharynx normal, Yes tonsils normal and Yes uvula midline Eyes General: appearance normal, both eyes and all related structures EOM: EOMs intact bilaterally Neck Neck: Yes normal visual inspection and Yes no meningeal signs Resp Effort & Inspection: normal respiratory effort and no respiratory distress Auscultation: clear to auscultation bilaterally, no crackles, no rhonchi and no wheezes Cardio Rate: regular rate Heart sounds: S1 normal heart sound present and S2 normal heart sound present GI Inspection: Yes normal to inspection Palpation (GI): Soft to palpation, nontender, no guarding and not rigid Skin Rashes: no rashes Wounds: no wounds Neuro General: patient oriented x3, tone normal, moves all extremities and no meningeal signs Cranial nerves: Yes CN's II-XII intact bilaterally Gait exam (Neuro): Normal gait present Extrem General: Yes normal to inspection Course Course Course Narrative: - magnesium slightly low 1.5 > p.o. repletion ordered - COVID-19 positive 1146--XR chest 1V IMPRESSION: No acute cardiopulmonary process. Results discussed with patient including worrisome signs and symptoms and strict return precautions, and when to return to the emergency department. They verbalized understanding and feel safe for discharge at this time. Medications Administered Discontinued Medications Generic Name Dose Route Start Last Admin Trade Name Mana PRN Reason Stop Dose Admin Acetaminophen 650 mg 02/22/25 10:40 02/22/25 10:58 Acetaminophen 325 Mg Tablet PO 02/22/25 10:41 650 mg ONCE ONE Administration Albuterol/Ipratropium 3 ml 02/22/25 09:37 02/22/25 09:39 Albuterol/Iprat 2.5/0.5mg 3 Ml Ampul.Neb INHALE 02/22/25 09:38 3 ml ONCE ONE Administration Magnesium Oxide 400 mg 02/22/25 09:45 02/22/25 10:59 Magnesium Oxide 400 Mg Tablet PO 02/22/25 09:46 400 mg ONCE ONE Administration Medical Decision Making Medical Decision Making [facility] Narrative: 79-year-old Cymraes-speaking female with a past medical history CAD, anemia, asthma, diabetes, GERD, HTN, HLD, presenting to the ED complaining of diffuse myalgias, fatigue, dry cough, SOB, decreased p.o. intake, nausea /vomiting, subjective fever /chills x 2 days. on exam vital signs stable, NAD, nontoxic appearing, abdomen is soft and nontender, lungs CTA. Concern for viral illness vs asthma exacerbation. Rule out pneumonia. Lower suspicion for ACS/ PE or intra-abdominal pathology including appendicitis / diverticulitis or cholecystitis/ lithiasis/ pancreatitis without tenderness on exam. Plan: EKG, labs, CXR, viral testing Please refer to course for remaining clinical decision making, interpretation of labs/imaging results, and discussions with consultants and/or family members. Differential Diagnosis Differential Diagnoses: The differential diagnosis associated with the presentation includes As above Admission/Observation Consideration of admission/observation: Escalation of care including admission/observation considered Lab Data MDM Lab Attestation statement: I reviewed the patient's lab results. 02/22/25 09:05 02/22/25 09:05 Labs: Lab Results 02/22/25 Range/Units 09:05 WBC 6.8 (4.8-10.8) X10*3/uL RBC 4.66 (4.20-5.50) X10*6/uL Hgb 13.2 (12.0-16.0) g/dl Hct 41.2 (37.0-47.0) % MCV 88.4 (80.0-98.0) fL MCH 28.3 (27.0-33.0) pg MCHC 32.0 (31.0-35.0) g/dl RDW 13.3 (11.0-16.0) % Plt Count 200 (160-400) X10*3/uL MPV 10.2 (9.4-12.3) fL Immature Gran % (Auto) 0.4 (0.0-0.4) % Neut % (Auto) 76.6 H (45-73) % Lymph % (Auto) 13.9 L (20-40) % [place] % (Auto) 8.3 (2-11) % Eos % (Auto) 0.1 (0-4) % Baso % (Auto) 0.7 (0-2) % Lymph # (Auto) 0.9 L (1.2-4.9) X10*3/uL [place] # (Auto) 0.6 (0.1-1.2) X10*3/uL Eos # (Auto) 0.0 (0.0-0.4) X10*3/uL Baso # (Auto) 0.1 (0.0-0.2) X10*3/uL Abs Immat Gran (auto) 0.03 (0.00-0.03) X10*3/uL Absolute Neuts (auto) 5.2 (2.0-8.3) x10*3/uL Absolute Nucleated RBC 0.000 (0.0-0.012) X10*3/uL Nucleated RBC % (auto) 0.0 (0.0-0.2) /100WBC Sodium 136 (135-145) mmol/L Potassium 4.2 (3.3-5.1) mmol/L Chloride 98 (96-108) mmol/L Carbon Dioxide 24 (22-29) mmol/L Anion Gap 18 (12-20) BUN 12 (9-16) mg/dL Creatinine 0.85 (0.5-1.4) mg/dL Estim Creat Clear Calc 50.2 Estimated GFR > 60 Random Glucose 155 H (60-115) mg/dL Calcium 8.5 (8.4-10.2) mg/dL Magnesium 1.5 L (1.6-2.6) mg/dL Total Bilirubin 0.3 (0.0-1.0) mg/dL AST 32 H (5-31) U/L ALT 16 (0-31) U/L Alkaline Phosphatase 47 (39-117) U/L Total Protein 6.9 (6.5-8.0) g/dL Albumin 4.4 (3.5-5.0) g/dL Lipase 21 (8-78) U/L COVID-19 (BECKY) Positive A (Negative) COVID-19 Clin Com See Note Influenza Type A (RADHA) Negative (Negative) Influenza Type B (RADHA) Negative (Negative) Influenza A & B Note See Note Independent Interpretation I performed an independent interpretation of an: EKG ( my interpretation: EKG normal sinus rhythm rate of 100. TN interval 146. QTC 472. No STEMI. Artifact present) and Plain X-Ray Radiology Impression Discussion of test interpretation with radiology: I have reviewed the radiologist's reading. Independent Historian Clinical information obtained from an independent historian. History obtained from or confirmed by: Other ( son) External Record Review External record reviewed: Inpatient record, Office record, Outpatient record, Prior outpatient labs, Prior outpatient radiology, Primary care record and Outside ED record Tests considered The following testing was considered but not selected: As above Prescription Management I considered prescription management with: Pain Medication and Antibiotic Chronic Conditions Patient?s care impacted by: Other Social Determinants Patient?s care significantly limited by Social Determinants of Health including: Other Social Determinant of Health Discharge Plan Discharge Clinical Impression: COVID-19 Patient Disposition: Home, Self-Care Instructions: COVID-19 (Coronavirus Disease 2019) (ED) Additional Instructions: YOU HAVE COVID-19 At this time you will be okay for discharge. Please self isolate for 5 days. Do not expose yourself to others. You may not go to work or school. Please continue to follow cold instructions and wash your hands frequently. You may take Tylenol / Motrin as directed on the bottle for pain or fever. If you have constant or persistent shortness of breath, fever unresolved with medications, chest pain, or your unable to eat or drink please return to the ED CDC Guidelines for home isolation: - Stay away from others - WEAR A MASK if you are sick AND STAY HOME - Cover your mouth and nose with a tissue when you cough or sneeze. Dispose of tissues in a lined trash can and wash your hands immediately with soap and water for at least 20 seconds. If soap and water are not available, clean hands with alcohol-based hand planetarium sky show technician that contains at least 60% alcohol. - Clean your hands often with soap and water for at least 20 seconds - Avoid touching your eyes, nose and mouth with unwashed hands - Do not share dishes, drinking glasses, cups, eating utensils, towels, or bedding with other people in your home. After using these items, wash them thoroughly with soap and water or put in the infrastructure director. - Clean high-touch surfaces in your isolation area ( sick room and bathroom) every day; let a caregiver clean and disinfect high-touch surfaces in other areas of the home. Clean the area or item with soap and water or another detergent if it is dirty. Then, use a household disinfectant. - Limit contact with pets and animals: If you must care for a pet, wash your hands before and after interacting with them) Prescriptions: No Action cholecalciferol (vitamin D3) 25 mcg (1,000 unit) capsule 25 mcg PO DAILY 90 Days Qty: 90 1RF rizatriptan 10 mg tablet 10 mg PO DAILY PRN (Reason: Migraine Headache) 30 Days Qty: 9 0RF albuterol sulfate 2.5 mg /3 mL (0.083 %) solution for nebulization 2.5 mg inhalation QID PRN (Reason: shortness of breath or wheezing) 30 Days Qty: 75 2RF ascorbate calcium (vitamin C) 500 mg tablet 500 mg PO DAILY 90 Days Qty: 90 1RF metformin 850 mg tablet 850 mg PO BID 90 Days Qty: 180 1RF metoprolol succinate 50 mg tablet extended release 24 hr 50 mg PO DAILY 90 Days Qty: 90 1RF lisinopril 40 mg tablet 40 mg PO DAILY 90 Days Qty: 90 1RF cetirizine 10 mg tablet 5 mg PO DAILY PRN (Reason: Allergic Symptoms) 90 Days Qty: 90 3RF (DME) FreeStyle Lite Strips Strip See Rx Instructions .Route Qty: 100 3RF Rx Instructions: Use 1 test strip once a day fluticasone propionate [Flonase Allergy Relief] 50 mcg/actuation spray,suspension 1 spray intranasal DAILY 30 Days Qty: 16 2RF Rx Instructions: administer into each nostril famotidine 20 mg tablet 20 mg PO BID 90 Days Qty: 180 1RF ferrous sulfate 325 mg (65 mg iron) Tablet 325 mg PO DAILY Qty: 30 2RF Rx Instructions: Take with Vitamin C tamoxifen 20 mg Tablet 20 mg PO DAILY Qty: 90 4RF cyanocobalamin (vitamin B-12) 1,000 mcg Lozenge 1,000 mcg SUBLINGUAL DAILY 3 Days Qty: 90 1RF amlodipine 2.5 mg Tablet 2.5 mg PO DAILY 30 Days Qty: 30 0RF Protocol: Hold for SBP< HOLD for SBP < : 90 aspirin 81 mg Tablet,Delayed Release (Dr/Ec) 81 mg PO DAILY 30 Days Qty: 30 0RF (DME) walker Misc See Rx Instructions .ROUTE .MEDSUPPLY Qty: 1 0RF Rx Instructions: Folding Front wheeled walker (DME) blood sugar diagnostic Strip See Rx Instructions Not Applicable ONCE Qty: 10 Rx Instructions: As directed (DME) lancets 28 gauge misc See Rx Instructions .ROUTE BID Qty: 100 Rx Instructions: As directed rosuvastatin 20 mg tablet 20 mg PO DAILY 90 Days Qty: 90 1RF Claritin-D 12 Hour 5-120 mg tablet extended release 12 hr 1 tab PO Q12H Qty: 30 1RF albuterol sulfate 90 mcg/actuation HFA aerosol inhaler 2 puff inhalation Q6H PRN (Reason: shortness of breath or wheezing) 30 Days Qty: 8.5 1RF mupirocin 2 % ointment 1 appl topical TID Qty: 22 0RF Referrals: Kim Quintero MD [Primary Care Provider, Internal Medicine] - 1 week Interventions: ED Discharge Assessment Last Done: 02/22/25 13:06 Discharge Date/Time: 02/22/25 13:06 Print Language: Cymraes
[2025-02-22 11:20] VITALS: BP 133/82; PULSE 96; RESP 18; TEMP 36.7; O2SAT 94
[2025-02-22 13:06] VITALS: BP 133/82; PULSE 96; RESP 18; TEMP 36.7; O2SAT 94
== END 2025-02-22 13:06 | disposition home or self-care (01) ==
PROVIDERS: Physician Assistant; Emergency Provider Emergency Medicine Emergency Medical Services; PCP Internal Medicine
DX: U07.1 COVID-19 (principal); J45.909 Unspecified asthma, uncomplicated; I10 Essential (primary) hypertension; E11.9 Type 2 diabetes mellitus without complications; Z88.6 Allergy status to analgesic agent; Z88.8 Allergy status to other drugs, medicaments and biological substances
CPT/HCPCS: 71045; 80053; 83690; 83735; 85025; 87502; 87635; 93005; 94640; 99284

== ENCOUNTER → 2025-02-22 08:54 | Outpatient (BNV) | payer OTHER, SELFPAY | PROVIDERS: Emergency Provider Emergency Medicine Emergency Medical Services; PCP Internal Medicine; Visit Provider Internal Medicine Cardiovascular Disease | DX: R94.31 Abnormal electrocardiogram [ECG] [EKG] (principal); R07.9 Chest pain, unspecified | CPT/HCPCS: 93010 ==

== ENCOUNTER → 2025-02-22 10:55 | Outpatient (BNV) | payer OTHER, SELFPAY | PROVIDERS: Emergency Provider Emergency Medicine Emergency Medical Services; PCP Internal Medicine; Visit Provider Radiology Diagnostic Radiology | DX: R05.9 Cough, unspecified (principal); R06.02 Shortness of breath | CPT/HCPCS: 71045 ==

== ENCOUNTER 2025-03-23 16:11 | Outpatient (AMB) | payer OTHER, SELFPAY ==
[2025-03-23 16:32] VITALS: BP 124/70; PULSE 85; O2SAT 96; BMI 30.6
--- NOTE | 2025-03-23 16:32 | MHC.PC.OV ---
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 Required: No Accompanied by: Self / Same As Patient Allergies ibuprofen (Ibuprofen) Allergy (Mild, Verified 03/23/25 16:44) SWELLING celecoxib (CELECOXIB) Allergy (Unknown, Verified 03/23/25 16:44) DROPS SUGAR LEVEL Medication List - Last Reconciled 03/23/25 by Kim Garcia MD albuterol sulfate 90 mcg/actuation 2 puffs inhalation Q6H PRN 30 days albuterol sulfate 2.5 mg (3 mL) inhalation QID PRN 30 days amlodipine 2.5 mg See Protocol PO DAILY 30 days ascorbate calcium (vitamin C) 500 mg PO DAILY 90 days aspirin 81 mg PO DAILY 30 days blood sugar diagnostic As directed blood sugar diagnostic (FreeStyle Lite Strips) Use 1 test strip once a day cetirizine 5 mg (1/2 x 10 mg) PO DAILY PRN 90 days cholecalciferol (vitamin D3) 25 mcg PO DAILY 90 days cyanocobalamin (vitamin B-12) 1,000 mcg sublingual DAILY 3 days famotidine 20 mg PO BID 90 days ferrous sulfate 325 mg PO DAILY fluticasone propionate 50 mcg/actuation (Flonase Allergy Relief) 1 spray intranasal DAILY 30 days lancets As directed lisinopril 40 mg PO DAILY 90 days loratadine-pseudoephedrine 5-120 mg ER (Claritin-D 12 Hour) 1 tab PO Q12H metformin 850 mg PO BID 90 days metoprolol succinate ER 50 mg PO DAILY 90 days mupirocin 2% 1 appl topical TID rizatriptan 10 mg PO DAILY PRN 30 days rosuvastatin 20 mg PO DAILY 90 days tamoxifen 20 mg PO DAILY walker Folding Front wheeled walker Tobacco use date assessed: 03/23/25 Fall risk assessment: No Falls in past year Last assessed Fall Risk: 03/23/25 Dental Screening Dental Screen Date: 03/23/25 Did you have a dental visit in the last 12 months?: No Did you have a dental problem in the last 6 months where you did not have access to dental care?: No Was dental information given to patient?: No HPI HPI Comments History of Present Illness Details This is an 79-year-old female with diabetes mellitus type 2, hypertension, hyperlipidemia and mild major depression that comes today for follow-up on her conditions. A1c within goal being less than 7%. Blood pressure well controlled. On statins for hyperlipidemia and her LDL goal is less than 70. Depression stable with SSRIs. Denies any chest pain or shortness on breath. History of breast cancer on tamoxifen follow by Oncology. [facility] Medical History Right-sided temporomandibular joint pain-dysfunction syndrome Cerumen impaction Otitis media NSTEMI (non-ST elevated myocardial infarction) Acute electrocardiogram changes Otitis media, right History of colon cancer Incisional hernia Abdominal wall mass History of breast cancer Invasive ductal carcinoma of left breast Anemia Increased BMI On beta ananya at home Breast cancer Invasive ductal carcinoma of left breast Abnormality of left breast on screening mammography Multinodular thyroid Osteopenia Vitamin D deficiency Primary hyperparathyroidism Tubulovillous adenoma of colon Diabetes Asthma Hyperparathyroidism Cancer Arthritis GERD (gastroesophageal reflux disease) History of headache Elevated cholesterol HTN (hypertension) Surgical History History of cataract surgery History of thyroid surgery History of lumpectomy of left breast H/O left breast biopsy History of mammogram Status post total hip replacement, left History of exploratory laparotomy History of tubal ligation Hx of tonsillectomy Hx of cholecystectomy S/P colon resection H/O colonoscopy Family History Father No problems noted. Mother Diabetes mellitus Other No family history of cancer Social History Household Members: Significant Other Housing: House Are you a primary landcare officer to a significant other at home: No Alcohol intake: never Comment: sleeping Patient Tobacco Use Status: Never used Tobacco e-Cigarette/Vaping Use: Never Used Second Hand Smoke Exposure: No Advance Directives Date on File: 08/11/02 service: No Current occupational status: unemployed Cognitive needs: No Hearing needs: No Vision needs: Yes (Glasses) Female Reproductive History Menstrual Age of Menarche: 13 Questionnaire PHQ-9 Over the last 2 weeks, how often have you been bothered by any of the following problems? 1. Little interest or pleasure in doing things: not at all 2. Feeling down, depressed, or hopeless: several days 3. Trouble falling or staying asleep, or sleeping too much: nearly every day 4. Feeling tired or having little energy: not at all 5. Poor appetite or overeating: more than half the days 6. Feeling bad about yourself - or that you are a failure or have let yourself or your family down: not at all 7. Trouble concentrating on things, such as reading the newspaper or watching television: not at all 8. Moving or speaking so slowly that other people could have noticed. Or the opposite - being so fidgety or restless that you have been moving around a lot more than usual: more than half the days 9. Thoughts that you would be better off or of hurting yourself in some way: not at all Total score: 8 Depression Screening Interpretation: Positive Depression Screening Follow-up: Existing condition, In treatment and Follow-up Visit Requested Depression Screening Done: Yes 09638 - PHQ-9 Billing: Yes Source: Developed by Drs. Boyd Garcia, Danii Reeves, Ric Estes and colleagues, with an educational mary from [employer]. Thrive Questionnaire Date Thrive assessed: 03/23/25 I am a: Patient What is your living situation today?: I have a steady place to live Within the past 12 months, did the food you bought not last and you didn't have the money to get more?: Never true Within the past 12 months, did you worry whether your food would run out before you got money to buy more?: Never true Do you have trouble paying for medicines?: No Do you have trouble getting transportation to medical appointments?: No Do you have trouble paying your heating and electricity bill?: No Do you have trouble taking care of your child, family member or friend?: No Do you have trouble with day-to-day activities such as bathing, preparing meals, shopping, managing finances, etc.?: No Are you currently unemployed and looking for a job?: No Are you interested in more education?: No Currently or been in a relationship where the following occur: I choose not to answer THRIVE Score: 0 LARRY-7 AMB Questionnaire LARRY-7 Date LARRY - 7 assessed: 10/22/24 Source: Developed by Drs. Boyd Garcia, Danii Reeves, Ric Estes and colleagues, with an educational mary from [employer]. Review of Systems Const All systems reviewed & are unremarkable except as noted in HPI and below Card Denies chest pain at rest, Denies chest pain with activity, Denies edema, Denies irregular heart rhythm, Denies claudication, Denies dyspnea, Denies dyspnea on exertion, Denies orthopnea, Denies paroxysmal nocturnal dyspnea and Denies slow heart rate Resp Denies cough, Denies dyspnea and Denies dyspnea on exertion Physical exam (Primary Care) Vital Signs: Last Vital Signs Pulse 85 03/23/25 16:32 BP 124/70 03/23/25 16:32 Pulse Ox 96 03/23/25 16:32 Oxygen Delivery Method Room Air 03/23/25 16:32 BMI result Body Mass Index 30.6 BMI Assessment/Plan discussion: High BMI High, discussed plan: lifestyle, weight reduction, dietary and physical activity Tobacco/Smoking Status: Tobacco use Status Tobacco use date assessed 03/23/25 03/23/25 16:34 Patient Tobacco Use Status Never used Tobacco 03/23/25 16:34 e-Cigarette/Vaping Use Never Used 03/23/25 16:34 PHQ-9: PHQ-9 Score PHQ-9: Total score 8 03/23/25 17:04 Depression Screening Interpretation: Positive Depression Screening Follow-up: Existing condition, In treatment and Follow-up Visit Requested Thrive Assessment: Date of Thrive Assessment Date Thrive assessed 03/23/25 03/23/25 16:34 Currently or been in a relationship where the following occur: I choose not to answer Resp Effort & Inspection: normal respiratory effort Auscultation: clear to auscultation bilaterally Cardio Jugular venous distension: no JVD Rate: regular rate Rhythm: regular rhythm Heart sounds: S1 normal heart sound present and S2 normal heart sound present Extrem General: Yes full ROM Office Procedures Flu Questionnaire Does the patient have a severe egg allergy?: No Does the patient have severe life threatening allergies?: No Does the patient have a fever or illness today?: No Has the patient ever had Guillain-Downey Syndrome?: No Has the patient ever had any past reaction to a flu shot?: No Results AMB Hemoglobin A1c AMB Hemoglobin A1c 6.7 % Last Edit by Kailey Silver MA on 03/23/25 17:04 Immunizations Fluarix [id number] (PF) 45 mcg (15 mcg x 3)/0.5 mL IM syringe Performing Provider: Kim Garcia MD Performing Location: [facility] [place] [facility] Administered by: DARIAN Moon on 03/23/25 16:58 Dose Route Admin Location Dispensed Lot Number Expiration Date NDC Director Of Digital Platforms 0.5 mL IM Left Deltoid 0.5 mL [id number] 09/29/25 15905-344-15 [employer] VIS Given Date VIS Provided VIS Publication Date 03/23/25 Single Vaccine 24 Eligibility Eligibility Date Funding Source Not [facility] Eligible 03/23/25 Private Results Reviewed Results Reviewed: Laboratory Last Values Hgb A1c (Clinic) 6.7 % (4.0-6.0) H 03/23/25 16:32 Coding Level of Care Code Add On Preventative Visit Only Diagnoses Type 2 diabetes mellitus with hyperglycemia, without long-term current use of insulin E11.65 Diabetes mellitus type: type 2 Diabetes mellitus terminal superintendent insulin use: without terminal superintendent use Diabetes mellitus complication status: with hyperglycemia Hyperlipidemia LDL goal <70 E78.5 Mild major depression F32.0 Primary hypertension I10 Hypertension type: primary hypertension Additional Codes PHQ-9 - 19261 - PHQ-9 Billing: Yes ([id number]) Time Spent (min) 22 Assessment & Plan Assessment & Plan (1) Diabetes: Comment: NIDDM Code(s): E11.9 - Type 2 diabetes mellitus without complications Category: Medical Qualifiers: Diabetes mellitus type: type 2 Diabetes mellitus usp insulin use: without usp use Diabetes mellitus complication status: with hyperglycemia Qualified Code(s): E11.65 - Type 2 diabetes mellitus with hyperglycemia (2) Hyperlipidemia LDL goal <70: Code(s): E78.5 - Hyperlipidemia, unspecified Category: Medical (3) Mild major depression: Code(s): F32.0 - Major depressive disorder, single episode, mild Category: Medical (4) HTN (hypertension): Code(s): I10 - Essential (primary) hypertension Category: Medical Qualifiers: Hypertension type: primary hypertension Qualified Code(s): I10 - Essential (primary) hypertension Plan Continue same medications. A1c goal is equal or less than 7%. Blood pressure goal is equal or less than 130/80. LDL goal is less than 70. Orders: Orders Lipid Panel 4 Months E78.5 - Hyperlipidemia, unspecified Microalbumin, Random (w Creat) 4 Months R80.9 - Proteinuria, unspecified Vitamin D 25-OH Total 4 Months E55.9 - Vitamin D deficiency, unspecified Vitamin B12 and Folate 4 Months E53.8 - Deficiency of other specified B group vitamins IRON PROFILE 4 Months D64.9 - Anemia, unspecified Complete Blood Count Auto Diff 4 Months D64.9 - Anemia, unspecified AMB Hemoglobin A1c Today Z13.9 - Encounter for screening, unspecified Comprehensive [place]. Panel Fast 4 Months E11.65 - Type 2 diabetes mellitus with hyperglycemia Influenza [id number] Immunization Today Z23 - Encounter for immunization Medications: New montelukast 10 mg PO BEDTIME 90 tabs 1RF 90 days
--- OUTSIDE RECORDS SUMMARY | 2025-03-23 18:47 | XMS_ITS | Encounter Summary ---
Author Organization [employer] Address [address] [facility] 7t [place] [address] Care Team Providers Care Mechanical Maintenance Worker Name Role Phone Unavailable Primary Care Provider Unavailabl e Encounter Details Date Type Department Care Team (Late st Contact Info) Description 04/11/2023 Orders Only [facility] MED & PEDS [address] [place] [address] Jenny Briggs LPN Social History Tobacco Use [...]
--- OUTSIDE RECORDS SUMMARY | 2025-03-23 18:47 | XMS_ITS | Encounter Summary ---
Author Organization [employer] Address [address] [facility] 7t [place] [address] Care Team Providers Care Concession Cashier Name Role Phone Unavailable Primary Care Provider Unavailabl e Reason for Visit * Reason Comments Med Refill Encounter Details Date Type Department Care Team (Late st Contact Info) Description 03/17/2023 Refill [facility] MEDICINE [address] [place] [address] [place] Jessica [facility] [address] [place] [address] Social History Tobacco Use Types Packs/Day Years [...]
--- OUTSIDE RECORDS SUMMARY | 2025-03-23 18:47 | XMS_ITS | Encounter Summary ---
Author Organization [employer] Address [address] [facility] 7t [place] [address] Care Team Providers Care Dredge Mate Name Role Phone Unavailable Primary Care Provider Unavailabl e Reason for Visit * Reason Comments Med Refill Encounter Details Date Type Department Care Team (Late st Contact Info) Description 12/17/2022 Refill [facility] MEDICINE [address] [place] [address] Ricarda Hastings FNP [address] [place] [address] Social History Tobacco Use Types Packs/Day Years [...]
--- OUTSIDE RECORDS SUMMARY | 2025-03-23 18:47 | XMS_ITS | Encounter Summary ---
Author Organization [facility] Address [address] [place] [phone] Phone Care Team Providers Care Hebrew Cantor Name Role Phone Connie Brito COMMISSARY AGENT Primary Care Provider [phone] Encounter Details Date Type Department Care Team (Late st Contact Info) Description 08/12/2020 Ancillary Orders [facility],Outside Imaging [address] [place] [address] System, Provider Not In, [facility] [address] [address] Social History Tobacco Use Types Packs/Day Years [...] on filedocumented in this encounter Care Teams Hebrew Cantor Relationship Specialty Start Date End Date Connie Brito NP PCP - General 08/10/20 documented as of this encounter Additional Source Comments The information contained in this document represents components of the legal health record. It is not the complete legal health record.[facility]
--- OUTSIDE RECORDS SUMMARY | 2025-03-23 18:47 | XMS_ITS | Clinical Summary ---
Author Organization [employer] Address [address] [facility] 7t [place] [address] Care Team Providers Care Employee Relations Consultant Name Role Phone Unavailable Primary Care Provider [...] LDL-C. Jacobo SS et al. PRECIOUS. 2013;310(19): 1316-5127 (http://education.Kanari/faq/IXW262) Non-HDL Cholesterol 101 <130 mg/dL (calc) [facility] [...] [facility] [address] from Last 3 Months or Most Recently Relevant to Health Maintenance Insurance MEDICARE [facility] STANDARD
--- OUTSIDE RECORDS SUMMARY | 2025-03-23 18:47 | XMS_ITS | Clinical Summary ---
Author Organization [facility] Address [address] [place] [address] Phone Care Team Providers Care Canned Food Reconditioning Inspector Name Role Phone Daryl Connie NATHAN Primary Care Provider [phone] Allergies Active Allergy Reactions Criticality Noted Date [...] topic Medical Devices Not on file Insurance [employer] MEDICARE PART A & B [employer] MEDICARE PART A & B HEALTH MEDICARE PART A & [facility] B HEALTH MEDICARE PART A & B [employer] MEDICARE PART A & B [place]ALTH MEDICARE PART A & [place] [facility] & [facility] B Care Teams Canned Food Reconditioning Inspector Relationship Specialty Start Date End Date Connie Brito NP PCP - General 08/10/20 Additional Source Comments The information contained in this document represents components of the legal health record. It is not the complete legal health record.[facility]
--- OUTSIDE RECORDS SUMMARY | 2025-03-23 18:47 | XMS_ITS | Encounter Summary ---
Author Organization [email or web address] Address [address] [facility] 7t [place] [address] Care Team Providers Care Heat Treating Bluer Name Role Phone Unavailable Primary Care Provider Unavailabl e Reason for Visit * Reason Comments Med Refill Encounter Details Date Type Department Care Team (Late st Contact Info) Description 12/17/2022 Refill [facility] MEDICINE [address] [place] [address] [place] Jessica [facility] [address] [place] [address] Social History Tobacco Use Types Packs/Day Years [...]
--- OUTSIDE RECORDS SUMMARY | 2025-03-23 18:47 | XMS_ITS | Encounter Summary ---
Author Organization [employer] Address [address] [place] [address] [address] [place] [address] Care Team Providers Care Cutting Machine Fixer Name Role Phone Unavailable Primary Care Provider Unavailabl e Reason for Visit * Reason Comments Med Refill Encounter Details Date Type Department Care Team (Late st Contact Info) Description 04/28/2023 Refill [facility] MEDICINE [address] [place] [address] Whitley Kendall MD [address] [place] [address] Social History Tobacco Use Types Packs/Day Years [...]
--- OUTSIDE RECORDS SUMMARY | 2025-03-23 18:47 | XMS_ITS | Encounter Summary ---
Author Organization [employer] Address [address] [place] [address] [address] [place] [address] Care Team Providers Care Health Safety And Environment Manager Name Role Phone Unavailable Primary Care Provider Unavailabl e Reason for Visit * Reason Comments Med Refill Encounter Details Date Type Department Care Team (Late st Contact Info) Description 12/17/2022 Refill [facility] [address] [place] [address] Whitley Kendall MD [address] [place] [address] Social History Tobacco Use Types Packs/Day Years [...]
--- OUTSIDE RECORDS SUMMARY | 2025-03-23 18:47 | XMS_ITS | Encounter Summary ---
Author Organization [employer] Address [address] [place] [address] [address] [place] [address] Care Team Providers Care Technician Submarine Cable Equipment Name Role Phone Unavailable Primary Care Provider Unavailabl e Reason for Visit * Reason Comments Med Refill Encounter Details Date Type Department Care Team (Late st Contact Info) Description 09/23/2023 Refill [facility] [address] [place] [address] Whitley Kendall MD [address] [place] [address] Social History Tobacco Use Types Packs/Day Years [...]
== END 2025-03-23 17:00 | disposition home or self-care (01) ==
LOC: HO.HMCH 16:11
PROVIDERS: PCP Internal Medicine; Visit Provider Internal Medicine
DX: E11.65 Type 2 diabetes mellitus with hyperglycemia (principal); E78.5 Hyperlipidemia, unspecified; F32.0 Major depressive disorder, single episode, mild; I10 Essential (primary) hypertension; Z23 Encounter for immunization; Z13.9 Encounter for screening, unspecified

== ENCOUNTER → 2025-03-23 16:11 | Outpatient (BNVA) | payer OTHER, SELFPAY | PROVIDERS: PCP Internal Medicine; Visit Provider Internal Medicine | DX: E11.65 Type 2 diabetes mellitus with hyperglycemia (principal); E78.5 Hyperlipidemia, unspecified; F32.0 Major depressive disorder, single episode, mild; I10 Essential (primary) hypertension; Z13.31 Encounter for screening for depression; Z23 Encounter for immunization | CPT/HCPCS: 83036; 90471; 90656; 96127; 99212 ==